=== PATIENT | male | born 1955 | race African-American/Black ===

== ENCOUNTER 2019-09-15 11:23 | Inpatient (IN) | payer MEDICARE, MEDICAID, SELFPAY ==
[2019-09-15] VITALS (16 sets, daily range): BP systolic 136–175; BP diastolic 70–103; PULSE 82–106; RESP 18–22; TEMP 35.9–37.5; O2SAT 88–100; BMI 21.4
--- NOTE | ~2019-09-15 | XR_ITS ---
EXAMINATION: XR chest 1V 09/15/2019 11:56 INDICATION: Transient alteration of awareness. Dyspnea. PROCEDURE: AP view of the chest COMPARISON: Comparison to multiple prior studies sequentially, with oldest reviewed study dated 08/2006. FINDINGS: The lungs are clear. The cardiomediastinal silhouette is within normal limits. There are no pleural effusions. There is no pneumothorax suspected. IMPRESSION: 1: NO ACUTE CARDIOPULMONARY DISEASE. Reviewed, dictated and finalized at location A. MOTIVE INSTRUCTOR
--- NOTE | ~2019-09-15 | CT_ITS ---
EXAMINATION: CT brain wo con DATE: 09/15/2019 11:51 INDICATION: Altered mental status. TECHNIQUE: Computed tomography (CT) of the head was performed without intravenous contrast. The dose- length product was 605.33 mGy-cm. The mA was adjusted according to patient size. Iterative reconstruc tion technique was employed. COMPARISON: CT dated 07/21/2016 FINDINGS: There are chronic bilateral lacunar infarctions. There is a chronic left occipital lobe inf arction. There is a chronic right parietal and bilateral frontal lobe infarctions. There are scattere d moderate periventricular and subcortical white matter changes, most likely related to small vessel ischemic disease (microangiopathy). No acute intracranial hemorrhage, infarction, mass or mass effect . Paranasal sinuses and mastoids are pneumatized. No depressed skull fractures. IMPRESSION: 1. No acute intracranial abnormality. 2: Multiple chronic bilateral infarctions. 3: Chronic age-related findings. Reviewed, dictated and finalized at location A. AINS AND DRAPERIES SALESPERSON
--- NOTE | ~2019-09-15 | CT_ITS ---
EXAMINATION: CT abdomen pelvis w con INDICATION: Abdominal pain, lactic acidosis TECHNIQUE: Computed tomographic images of the abdomen and pelvis were obtained after the administrati on of 100 cc of Omnipaque 350 intravenous contrast. The dose-length product (DLP) was 242.58 mGy-cm. Automated exposure control and iterative reconstruction technique were employed. COMPARISON: 07/30/2018 FINDINGS: Minimal dependent atelectasis is present in the lung bases. The heart size is normal. There is a moderate size sliding hiatal hernia. There is circumferential wall thickening of the distal eso phagus. There is moderate distention of the stomach. The liver is diffusely low in attenuation when c ompared with the spleen, consistent with hepatic steatosis. The gallbladder, spleen, pancreas, and ad renal glands are normal. There is a 9 mm cyst of the right kidney lower pole. The left kidney is unre markable. There is calcified atherosclerosis of the aorta and many of the other arteries. No patholog ically enlarged abdominal or pelvic lymph nodes are identified. The appendix is normal. The urinary b ladder is distended. There is severe lumbar spondylosis. IMPRESSION: 1. Diffuse wall thickening of the visualized distal esophagus which could reflect esophagitis. Consid er direct visualization. 2. Moderate distention of the stomach. 3. Moderate distention of the urinary bladder. Reviewed, dictated and finalized at location A. R STRIPPER IMPRESSION: 1. Diffuse wall thickening of the visualized distal esophagus which could refle ct esophagitis. Consider direct visualization. 2. Moderate distention of the stomach. 3. Moderate distention of the urinary bladder.
--- NOTE | 2019-09-15 11:28 | ED.AMS ---
HPI - Altered Mental Status General Chief Complaint: Altered Mental Status Stated Complaint: ams Time Seen by Provider: 09/15/19 11:25 Source: patient and family () Mode of arrival: EMS Limitations: no limitations History of Present Illness HPI narrative: The pt is a 63 y/o male who presents to the ED with c/o AMS that began this morning. Per pt's , the pt was partying last night to celebrate his birthday and had a lot to drink. Per , the pt was slurrying his words at 07:00 this morning and would not get out of bed. She left for work and planned to let him sleep it off, but the pt's mental status was still altered upon her return, which is when she decided to call EMS. His states that his blood sugar dropped and notes that this has happened before after a night of drinking. She also states that the pt's speech is now back to nml. The pt denies CP, PICHARDO, slurred speech, or ABD pain, stating that he feels great . The pt denies a PMHx of DM, but notes a history of HTN and COPD with home O2. He states that he only drinks on special ocassions. MD complaint: altered mental status Onset (ago): hour(s) (this morning) Timing confirmed by: spouse Context: other (low blood sugar, alcohol consumed last night) Associated symptoms: denies other symptoms Related Data Home Medications Medication Instructions Recorded Confirmed albuterol sulfate [ProAir HFA] 1 puff INHALATION QID 09/15/19 carvedilol 25 mg PO BID 09/15/19 fluticasone furoate [Arnuity 1 inh INHALATION DAILY 09/15/19 Ellipta] minoxidil 10 mg PO DAILY 09/15/19 umeclidinium-vilanterol [Anoro 1 inh INHALATION DAILY 09/15/19 Ellipta] valsartan-hydrochlorothiazide 1 tablet PO DAILY 09/15/19 Allergies Allergy/AdvReac Type Severity Reaction Status Date / Time bee venom protein (honey bee) Allergy Unknown ANAPHALAXIS Verified 09/15/19 11:25 Review of Systems Review of Systems: All systems reviewed & are unremarkable except as noted in HPI and below Cardiovascular: Cardiovascular: Denies chest pain Gastrointestinal: Gastrointestinal: Denies abdominal pain Neurologic: Denies Abnormal speech present (slurred) and Denies headache(s) PMFSH Past Medical History Medical History (Updated 09/15/19 @ 17:12 by Madalyn Cash MD) CHF (congestive heart failure) COPD (chronic obstructive pulmonary disease) CVA (cerebral vascular accident) Degenerative disc disease Emphysema lung Herniated disc Hypertension Prostate CA TIA (transient ischemic attack) Surgical History Surgical History (Updated 09/15/19 @ 11:42 by Sonali Maciel) H/O inguinal hernia repair Social History Social History (Updated 09/15/19 @ 11:42 by Sonali Maciel) Smoking status: Former smoker Smoking end date: 07/24/09 Alcohol intake: current Exam Const: General: no acute distress and alert Orientation/consciousness: patient oriented x3 HENMT: Head: normocephalic and atraumatic Face and sinus: face symmetric Mouth: Yes Normal oral and palatal mucosa present and Yes lip normal Teeth and gingiva: abnormal tooth and associated gingiva Throat: posterior oropharynx normal and tonsils normal Eyes: Conjunctivae: conjunctivae normal Pupils: Equal, round and reactive pupils present EOM: EOMs intact bilaterally Chest: Chest palpation & inspection: normal inspection of the chest Resp: Effort & Inspection: normal respiratory effort and not tachypneic Auscultation: wheezes and diminished lung sounds GI: GI Palp: Yes Soft to palpation and No Tenderness to palpation present (GI) Auscultation: normal bowel sounds Skin: General skin exam: normal color Rashes: no rashes Neuro: General: patient oriented x3, moves all extremities, no focal motor deficits and CN's II-XI intact bilaterally Cranial nerves: Yes Nystagmus not present Speech: normal speech Extrem: General: no pedal edema Psych: Mental Status: mental status grossly normal Affect: normal affect Cou
[2019-09-15 11:35] LABS: Glucose Point of Care 60 (65-105)
--- NOTE | 2019-09-15 11:35 | ECG_ITS ---
Measurements Intervals [place] Rate: 86 P: 74 SD: 164 QRS: -76 QRSD: 90 T: 72 QT: 346 QTc: 415 Interpretive Statements SINUS RHYTHM SHORT RUN OF ATRIAL TACHYCARDIA, VENTRICULAR TRIPLET AND VENTRICULAR PREMATURE COMPLEXES LEFT ANTERIOR FASCICULAR BLOCK CANNOT RULE OUT SEPTAL INFARCT, AGE INDETERMINATE BASELINE ARTIFACT- I, II, III, AVR, AVL, AVF, V1-V6 ABNORMAL ECG Electronically Signed On 09-15-2019 16:09:55 TAILOR HELPER by Giovani Reyes D.O.
[2019-09-15 12:19] LABS: Glucose Point of Care 68 (65-105)
[2019-09-15 12:24] LABS: Basophils Percent Auto 0.2 % (0.2-1.2); Hematocrit 39.1 % (42.0-52.0); Hemoglobin 12.4 g/dL (14.0-18.0); Immature Granulocyte Absolute 0.04 K/mm3 (0.00-0.031); Immature Granulocyte Percent A 0.5 % (0-0.5); Lymphocytes Absolute Auto 0.48 K/mm3 (0.9-3.2); Lymphocytes Percent Auto 5.6 % (18.3-44.2); Mean Corpuscular HGB Conc 31.7 g/dl (32-36); Mean Corpuscular Hemoglobin 29.3 pg (26-34); Mean Corpuscular Volume 92.4 fl (80-100); Mean Platelet Volume 9.7 fl (7.4-10.4); Monocytes Absolute Auto 0.4 K/mm3 (0.1-0.6); Monocytes Percent Auto 4.6 % (2.6-8.5); Neutrophils Absolute Auto 7.6 K/mm3 (1.3-6.7); Neutrophils Percent Auto 89.1 % (45.5-73.1); Platelet Count Result 176 k/mm3 (150-375); Red Blood Count 4.23 M/mm3 (4.6-6.20); Red Cell Distribution Width 14.7 % (11.5-14.5); White Blood Count 8.5 K/mm3 (4.5-10.0)
[2019-09-15 12:27] LABS: Add Urine Microscopic? YES; Appearance Urine Clear (Clear); Bilirubin Urine Negative (Negative); Blood Urine Negative (Negative); Color Urine Yellow (Yellow); Glucose Urine UA Negative (Negative); Ketones Urine 1+ mg/dL (Negative); Leukocyte Esterase Ur Negative LEU/UL (Negative); Mucus Urine Rare /lpf; Nitrate Urine Negative (Negative); Protein Urine 1+ mg/dL (Negative); RBC Urine 0-2 /hpf (0-2); Specific Grav Ur 1.012 (1.001-1.035); Squamous Epithelial Cell Urine Rare /hpf (Few); Urobilinogen Urine Negative mg/dL (<2.0); WBC Urine 0-3 /hpf
[2019-09-15] MEDS: ONDANSETRON INJ 4 MG/2 ML VIAL IV PUSH (12:34)
[2019-09-15 12:37] LABS: Alanine Aminotransferase 23 U/L (4-50); Albumin Level 5.2 g/dL (3.5-5.1); Alkaline Phosphatase 59 U/L (38-126); Aspartate Amino Transferase 54 U/L (17-59); Blood Urea Nitrogen 25 mg/dL (9-20); Calcium 9.5 mg/dL (8.4-10.2); Carbon Dioxide 14 mmol/L (22-30); Chloride 102 mmol/L (98-107); Estimated CRCL calculation 33 ml/min; Estimated Glomerular Filt Rate 43; Glucose 75 mg/dL (75-110); Potassium 4.1 mmol/L (3.4-5.0); Sodium 143 mmol/L (137-145)
[2019-09-15 12:50] LABS: Glucose Point of Care 70 (65-105)
[2019-09-15] MEDS: LACTATED RINGERS 1,000 ML 999 ML IV CONT ×2 (12:55→13:54)
[2019-09-15 12:58] LABS: Alveolar/Arterial O2 Gradient 72.4 mmHg; Carboxyhemoglobin 0.7 % THb (0-2.0); Fractional Inspired Oxygen 28 %; HCO3 ABG 16.7 mEq/l (22.0-26.0); Methemoglobin ABG 0.5 %THb (0-1.5); Oxygen Content ABG 15.9 %vol (16.0-22.0); Oxygen Saturation ABG 91.9 % (95.0-100.0); Oxyhemoglobin 89.6 % THb (90.0-100.0); PCO2 ABG 43.9 mmHg (35.0-45.0); PO2 ABG 75.4 mmHg (80.0-100.0); PO2 FiO2 Ratio Arterial Blood 2.69 %; Reduced Hemoglobin 9.2 %THb (0-5.0); Total Hemoglobin 12.6 g/dL (12.0-18.0); pH ABG 7.197 (7.350-7.450)
[2019-09-15 12:59] LABS: Device NASAL CANNULA; Modified Allen's Test Pass; Site Drawn RIGHT RADIAL
[2019-09-15 13:18] LABS: Lactic Acid Reflex 8.6 mmol/L (0.7-2.1)
--- NOTE | 2019-09-15 13:31 | ECG_ITS ---
Measurements Intervals [place] Rate: 96 P: [place]: 0 QRS: -77 QRSD: 96 T: 84 QT: 367 QTc: 464 Interpretive Statements SINUS RHYTHM ATRIAL PREMATURE COMPLEXES INCOMPLETE RIGHT BUNDLE BRANCH BLOCK LEFT ANTERIOR FASCICULAR BLOCK BORDERLINE ST-T WAVE ABNORMALITY- LATERAL LEADS BASELINE ARTIFACT- II, III, AVL, AVF, V1-V5 ABNORMAL ECG Electronically Signed On 09-15-2019 16:08:36 DRAPERY ROD ASSEMBLER by Giovani Reyes D.O.
[2019-09-15 14:07] LABS: Troponin I 0.019 ng/mL (0.000-0.034)
[2019-09-15 15:05] LABS: Glucose Point of Care 53 (65-105)
[2019-09-15] MEDS: DEXTROSE 50% 25 GM/50 ML SYRINGE IV PUSH (15:41)
[2019-09-15 15:49] LABS: Magnesium 1.6 mg/dL (1.6-2.3); Phosphorus 4.8 mg/dL (2.5-4.5)
[2019-09-15 15:50] LABS: Lactic Acid 7.5 mmol/L (0.7-2.1)
[2019-09-15 15:52] LABS: Glucose Point of Care 165 (65-105)
[2019-09-15 15:55] LABS: Reflex Lactic Acid Yes or No Add Lactic
[2019-09-15 17:26] LABS: Glucose Point of Care 152 (65-105)
[2019-09-15] MEDS: DEXTROSE 10% 1,000 ML 50 ML IV CONT (17:39)
--- NOTE | 2019-09-15 18:00 | PM.IMHP ---
H&P: HPI History of Present Illness Chief complaint: Altered mental status. Narrative: Kenney Varela Sr. is a pleasant 63-year-old gentleman with history of stroke, hypertension, COPD, and prostate cancer who presented to the emergency department earlier this afternoon via EMS from home for evaluation of altered mental status. The patient typically drinks a half pint of [employer] [place] most Saturdays, and last night was no different. He woke at about 07:00 and at that time his noted that he had slurred speech. The patient did not want to get out of bed, so she assumed he was still intoxicated and planned to let him ?sleep it off.? When she returned a few hours later, he was in a similar state and EMS was summoned. He was hypoglycemic on EMS arrival, and has continued to have low readings despite receiving a meal and juice in the emergency department. Other significant labs include a lactic acid level of 8.6, creatinine of 1.90, and arterial pH of 7.197. Interestingly, the patient tells me that he feels great and has no complaints. He denies consuming any thing else except for the [place]. He denies headache, cold and flu symptoms, fever, chills, sweats, chest pain, shortness of breath, nausea, vomiting, abdominal pain, diarrhea, and dysuria. Review of Systems Review of Systems: All systems reviewed & are unremarkable except as noted in HPI and below PMFSH Past Medical History Medical History (Updated 09/15/19 @ 21:40 by Amelie Miranda PA-C) CHF (congestive heart failure) Echocardiogram June 2016 showed normal left ventricular systolic function and size with mild concentric left ventricular hypertrophy and impaired diastolic relaxation grade 1 with ejection fraction estimated at 60 to 65%. COPD (chronic obstructive pulmonary disease) CVA (cerebral vascular accident) Old CVAs noted on prior imaging. Degenerative disc disease Degenerative disc disease Emphysema lung Hypertension Prostate CA Status post radiation therapy. TIA (transient ischemic attack) Surgical History Surgical History (Updated 09/15/19 @ 11:42 by Sonali Maciel) H/O inguinal hernia repair Family History Family History Father Acute myocardial infarction Other Hypertension Social History Social History (Updated 09/15/19 @ 21:35 by Amelie Miranda PA-C) Social History: The patient lives in [place] with his . They have 3 children. he is retired. he designates his , Gaby, as his surrogate decision maker and he wishes to be a full code. He smoked up to a pack of cigarettes per day and quit in 2009 or 2011. He drinks a half of a pint of [employer] [place] each Monday. He denies drug use. Smoking packs per day: 1 Smoking cigarettes per day: 20.0 Years smoked: 35 Smoking pack-years: 35.00 Smoking status: Former smoker Tobacco type: cigarettes Smoking end date: 07/24/09 Alcohol intake: current Drinks per week: 3 Substance use: former Gender identity (if verbalized by the patient): Male Spiritual care concerns: No Agree to blood products: No Meds Home Medications and Allergies Home Medications Medication Instructions Recorded Confirmed Type albuterol sulfate [ProAir HFA] 1 puff INHALATION QID 09/15/19 09/15/19 History carvedilol 25 mg PO BID 09/15/19 09/15/19 History fluticasone furoate [Arnuity 1 inh INHALATION DAILY 09/15/19 09/15/19 History Ellipta] minoxidil 10 mg PO DAILY 09/15/19 09/15/19 History umeclidinium-vilanterol [Anoro 1 inh INHALATION DAILY 09/15/19 09/15/19 History Ellipta] valsartan-hydrochlorothiazide 1 tablet PO DAILY 09/15/19 09/15/19 History Allergies Allergy/AdvReac Type Severity Reaction Status Date / Time bee venom protein (honey bee) Allergy Unknown ANAPHALAXIS Verified 09/15/19 11:25 Vital Signs Vital Signs - 24 hr 09/15/19 11:21 09/15/19 11:28 09/15/19 12:40 Temperature 96
--- NOTE | 2019-09-15 18:38 | ADMGEN ---
This patient, Kenney Varela Sr., was admitted to IMU Room 203-01 at 1725. Patient/family oriented to hospital policies and general routines including ID bracelet, bed and alarms, visiting hours, pain management, procedures, bathroom and other care routines, personal items, smoking policy, room service/diet, and visiting hours. Valuables list has been completed. Information on how to activate the Rapid Response Team has been discussed. Patient/Family are encouraged to report perceived risks to care and to ask questions if they do not understand what they are told or what they should do.
--- NOTE | 2019-09-15 19:36 | PC.NURSE ---
This patient, Kenney Varela Sr., was admitted to IMU Room 203-01. Patient/family oriented to hospital policies and general routines including ID bracelet, bed and alarms, visiting hours, pain management, procedures, bathroom and other care routines, personal items, smoking policy, room service/diet, and visiting hours. Valuables list has been completed. Information on how to activate the Rapid Response Team has been discussed. Patient/Family are encouraged to report perceived risks to care and to ask questions if they do not understand what they are told or what they should do.
[2019-09-15 20:19] LABS: Alveolar/Arterial O2 Gradient 81.3 mmHg; Base Excess ABG -0.5 mEq/l (+/-2.0); Device NASAL CANNULA; Fractional Inspired Oxygen 28 %; HCO3 ABG 25.1 mEq/l (22.0-26.0); Methemoglobin ABG 0.5 %THb (0-1.5); Oxygen Content ABG 14.5 %vol (16.0-22.0); Oxyhemoglobin 90.3 % THb (90.0-100.0); PCO2 ABG 45.2 mmHg (35.0-45.0); PO2 FiO2 Ratio Arterial Blood 2.32 %; Reduced Hemoglobin 9.2 %THb (0-5.0); Site Drawn RIGHT BRACHIAL; Total Hemoglobin 11.4 g/dL (12.0-18.0); pH ABG 7.363 (7.350-7.450)
[2019-09-15] MEDS: IPRATROPIUM BR 0.02% INH SOLN 0.5 MG/2.5 ML VIAL INHALATION (20:32)
[2019-09-15] MEDS: ALBUTEROL SULFATE NEB 2.5 MG/0.5 ML INH 5 MG INHALATION (20:33)
[2019-09-15 20:54] LABS: Lactic Acid 1.3 mmol/L (0.7-2.1)
[2019-09-15 20:56] LABS: Glucose Point of Care 127 (65-105)
[2019-09-15 20:56] LABS: Blood Urea Nitrogen 25 mg/dL (9-20); Calcium 8.7 mg/dL (8.4-10.2); Carbon Dioxide 27 mmol/L (22-30); Chloride 99 mmol/L (98-107); Estimated CRCL calculation 44 ml/min; Estimated Glomerular Filt Rate > 60; Glucose 133 mg/dL (75-110); Magnesium 1.7 mg/dL (1.6-2.3); Potassium 4.4 mmol/L (3.4-5.0); Sodium 137 mmol/L (137-145)
[2019-09-15 23:29] LABS: Glucose Point of Care 129 (65-105)
[2019-09-16] VITALS (11 sets, daily range): BP systolic 114–150; BP diastolic 64–83; PULSE 62–96; RESP 18–20; TEMP 36.6–36.8; O2SAT 95–97
[2019-09-16] MEDS: IPRATROPIUM BR 0.02% INH SOLN 0.5 MG/2.5 ML VIAL INHALATION ×2 (02:04→09:49)
[2019-09-16] MEDS: ALBUTEROL SULFATE NEB 2.5 MG/0.5 ML INH 5 MG INHALATION ×2 (02:04→09:49)
[2019-09-16 02:39] LABS: Glucose Point of Care 138 (65-105)
[2019-09-16 04:58] LABS: Basophils Percent Auto 0.1 % (0.2-1.2); Eosinophils Percent Auto 0.1 % (0-4.4); Hematocrit 29.3 % (42.0-52.0); Immature Granulocyte Absolute 0.03 K/mm3 (0.00-0.031); Immature Granulocyte Percent A 0.4 % (0-0.5); Lymphocytes Absolute Auto 0.49 K/mm3 (0.9-3.2); Lymphocytes Percent Auto 6.6 % (18.3-44.2); Mean Corpuscular HGB Conc 34.1 g/dl (32-36); Mean Corpuscular Hemoglobin 29.5 pg (26-34); Mean Corpuscular Volume 86.4 fl (80-100); Mean Platelet Volume 9.6 fl (7.4-10.4); Monocytes Absolute Auto 0.6 K/mm3 (0.1-0.6); Monocytes Percent Auto 7.7 % (2.6-8.5); Neutrophils Absolute Auto 6.3 K/mm3 (1.3-6.7); Neutrophils Percent Auto 85.1 % (45.5-73.1); Platelet Count Result 156 k/mm3 (150-375); Red Blood Count 3.39 M/mm3 (4.6-6.20); Red Cell Distribution Width 14.3 % (11.5-14.5); White Blood Count 7.4 K/mm3 (4.5-10.0)
[2019-09-16 05:13] LABS: Alanine Aminotransferase 18 U/L (4-50); Albumin Level 3.6 g/dL (3.5-5.1); Alkaline Phosphatase 43 U/L (38-126); Aspartate Amino Transferase 29 U/L (17-59); Bilirubin,Total 0.4 mg/dL (0.2-1.3); Blood Urea Nitrogen 20 mg/dL (9-20); Calcium 8.7 mg/dL (8.4-10.2); Carbon Dioxide 27 mmol/L (22-30); Chloride 100 mmol/L (98-107); Estimated CRCL calculation 51 ml/min; Estimated Glomerular Filt Rate > 60; Glucose 136 mg/dL (75-110); Magnesium 1.7 mg/dL (1.6-2.3); Phosphorus 2.9 mg/dL (2.5-4.5); Potassium 3.7 mmol/L (3.4-5.0); Sodium 135 mmol/L (137-145)
[2019-09-16 06:01] LABS: Glucose Point of Care 143 (65-105)
[2019-09-16] MEDS: carvediloL 25 MG TABLET PO (07:36)
[2019-09-16] MEDS: PANTOPRAZOLE SODIUM IV 40 MG VIAL IV PUSH (07:36)
[2019-09-16] MEDS: minoxidiL 10 MG TABLET PO (07:36)
[2019-09-16 09:40] LABS: Glucose Point of Care 184 (65-105)
--- NOTE | 2019-09-16 13:52 | PM.DS ---
DS: Diagnosis Admitting Diagnosis Admitting Diagnosis: Altered mental status, unspecified Discharge Diagnosis (1) Altered mental status: Code(s): R41.82 - Altered mental status, unspecified Status: Acute Assessment and Plan: 63-year-old gentleman with history of stroke, hypertension, COPD, and prostate cancer who presented to the emergency department earlier this afternoon via EMS from home for evaluation of altered mental status. AMS related to hypoglycemia and dehydration or alcholol related. Pt wanting to leave immediately. Pt to signed out and left. (2) Lactic acidosis: Code(s): E87.2 - Acidosis Status: Acute Assessment and Plan: No underlying infection , lactate normal Likely alcholol related Treated with iv fluid hydration (3) Hypoglycemia: Code(s): E16.2 - Hypoglycemia, unspecified Status: Acute Assessment and Plan: Adviced to eat better. Pt does not want to wait wants to leave immediately. (4) Acute renal failure (ARF): Code(s): N17.9 - Acute kidney failure, unspecified Status: Resolved Assessment and Plan: Secondary to dehydration. Pt received iv hydration Creat is 1.2 (5) Dehydration: Code(s): E86.0 - Dehydration Status: Resolved Assessment and Plan: Plan as detailed above. (6) Hypertension: Code(s): I10 - Essential (primary) hypertension Status: Chronic Assessment and Plan: Blood pressure has improved Chronic and stable (7) COPD (chronic obstructive pulmonary disease): Code(s): J44.9 - Chronic obstructive pulmonary disease, unspecified Status: Acute Assessment and Plan: Pt can continue home inhalers. DS: Summary Time Spent with Patient Time attestation: Total time spent providing and/or coordinating discharge services:15 minutes on day of discharge Exam Narrative: Exam Narrative: General: A well-developed, well-nourished, chronically ill appearing HEENT: Normocephalic Neck: Supple. Respiratory: Lungs are clear to auscultation bilaterally. Cardiovascular: Regular rate and rhythm with S1-S2. Gastrointestinal: Abdomen is soft, nontender, and nondistended with positive bowel sounds. Skin: Warm and dry. No rash or lesions on limited exam. Extremities: No cyanosis, clubbing, or edema. Radial and pedal pulses intact. Neurological: Alert and oriented x4. Cranial nerves 2-12 are grossly intact. Psychiatric: Agitated wanting to leave immediately. DS: Data Data Completed and Pending Labs on day of discharge: Labs from last 24 hours 09/16/19 09/16/19 09/16/19 09:34 05:52 04:25 WBC RBC Hgb Hct MCV MCH MCHC RDW Plt Count MPV Immature Gran % (Auto) Neut % (Auto) Lymph % (Auto) [place] % (Auto) Eos % (Auto) Baso % (Auto) Lymph # (Auto) [place] # (Auto) Eos # (Auto) Baso # (Auto) Abs Immat Gran (auto) Absolute Neuts (auto) Absolute Nucleated RBC Nucleated RBC % Puncture Site ABG pH ABG pCO2 ABG pO2 ABG PO2/FiO2 Ratio ABG HCO3 ABG O2 Saturation ABG O2 Content ABG Base Excess A-a Gradient Oxyhemoglobin Carboxyhemoglobin Methemoglobin Reduced Hemoglobin Total Hemoglobin O2 Delivery Device O2 Liters/Min FiO2 Sodium 135 L Potassium 3.7 Chloride 100 Carbon Dioxide 27 BUN 20 Creatinine 1.20 Estim Creat Clear Calc 51 Estimated GFR > 60 Glucose 136 H POC Capillary Glucose 184 H 143 H Lactic Acid Calcium 8.7 Phosphorus 2.9 Magnesium 1.7 Total Bilirubin 0.4 AST 29 ALT 18 Alkaline Phosphatase 43 Troponin I Total Protein 6.0 L Albumin 3.6 09/16/19 09/16/19 09/15/19 04:25 02:36 23:18 WBC 7.4 RBC 3.39 L Hgb 10.0 L Hct 29.3 L MCV 86.4 D MCH 29.5 MCHC 34.1
== END 2019-09-16 11:25 | disposition left against medical advice (07) | DRG 641 ==
LOC: ANHED 14:59 → ANH2MED 15:56 → ANHIMU 18:35 → ANH2MED 09-19 14:46
PROVIDERS: Physician Assistant; Admitting Provider Internal Medicine; Emergency Provider General Practice; PCP Family Medicine Adolescent Medicine; Visit Provider Family Medicine
DX: E16.2 Hypoglycemia, unspecified (principal); E87.2 Acidosis; N17.9 Acute kidney failure, unspecified; I50.32 Chronic diastolic (congestive) heart failure; E86.0 Dehydration; R41.82 Altered mental status, unspecified; I11.0 Hypertensive heart disease with heart failure; I50.9 Heart failure, unspecified; J44.9 Chronic obstructive pulmonary disease, unspecified; Z72.89 Other problems related to lifestyle; Z85.46 Personal history of malignant neoplasm of prostate; Z86.73 Personal history of transient ischemic attack (TIA), and cerebral infarction without residual deficits; Z99.81 Dependence on supplemental oxygen; Z87.891 Personal history of nicotine dependence
CPT/HCPCS: 36415; 36600; 70450; 71045; 74177; 80048; 80053; 81001; 82375; 82805; 82948; 83050; 83605; 83735; 84100; 84484; 85025; 87040; 93005; 94640; 96361; 96374; 96375; 99291; A9270; C9113; J2405; J7120; Q9967

== ENCOUNTER 2022-10-03 17:38 | Emergency (ER) | payer MEDICARE, MEDICAID, SELFPAY ==
--- NOTE | ~2022-10-03 | XR_ITS ---
EXAMINATION: XR chest 2V Exam Date/Time: 10/03/2022 17:51 CDT HISTORY: palpitations Comparison: 09/15/2019, 07/21/2016. RESULT: Lines, tubes, and devices: None. Lungs and pleura: Emphysematous change. Calcified right lower lung granuloma. Cardiomediastinal silhouette: Stable. Other: No acute osseous or upper abdominal finding. IMPRESSION: No acute cardiopulmonary process. Reviewed, dictated and finalized at location K.
--- NOTE | 2022-10-03 17:46 | ECG_ITS ---
Measurements Intervals [place] Rate: 72 P: 45 [place]: 130 QRS: -64 QRSD: 96 T: 50 QT: 367 QTc: 402 Interpretive Statements SINUS RHYTHM ATRIAL COUPLET AND VENTRICULAR PREMATURE COMPLEX POSSIBLE LEFT ATRIAL ENLARGEMENT LEFT ANTERIOR FASCICULAR BLOCK ABNORMAL ECG COMPARED TO ECG 09/15/2019 13:36:30 NO SIGNIFICANT CHANGES Electronically Signed On 10-03-2022 19:28:07 CDT by Giovani Reyes D.O.
[2022-10-03 17:50] VITALS: BP 155/89; PULSE 67; RESP 18; TEMP 36.8; O2SAT 94
[2022-10-03 17:58] LABS: Basophils Percent Auto 0.9 % (0.2-1.2); Eosinophils Absolute Auto 0.2 K/mm3 (0-0.3); Hematocrit 34.4 % (42.0-52.0); Hemoglobin 11.4 g/dL (14.0-18.0); Immature Granulocyte Absolute 0.01 K/mm3 (0.00-0.031); Immature Granulocyte Percent A 0.3 % (0-0.5); Lymphocytes Absolute Auto 0.81 K/mm3 (0.9-3.2); Lymphocytes Percent Auto 23.6 % (18.3-44.2); Mean Corpuscular HGB Conc 33.1 g/dl (32-36); Mean Corpuscular Hemoglobin 29.2 pg (26-34); Mean Corpuscular Volume 88.2 fl (80-100); Mean Platelet Volume 9.1 fl (7.4-10.4); Monocytes Absolute Auto 0.4 K/mm3 (0.1-0.6); Monocytes Percent Auto 10.2 % (2.6-8.5); Neutrophils Absolute Auto 2.1 K/mm3 (1.3-6.7); Platelet Count Result 155 k/mm3 (150-375); Red Cell Distribution Width 13.9 % (11.5-14.5); White Blood Count 3.4 K/mm3 (4.5-10.0)
[2022-10-03 18:08] LABS: Alanine Aminotransferase 15 U/L (6-50); Albumin Level 4.6 g/dL (3.5-5.1); Alkaline Phosphatase 53 U/L (38-126); Anion Gap 6 mmol/L (8-16); Aspartate Amino Transferase 21 U/L (17-59); Bilirubin,Total 0.4 mg/dL (0.2-1.3); Blood Urea Nitrogen 21 mg/dL (9-20); Calcium 9.3 mg/dL (8.4-10.2); Carbon Dioxide 32 mmol/L (22-30); Chloride 98 mmol/L (98-107); Estimated CRCL calculation 43 ml/min; Estimated Glomerular Filt Rate > 60; Glucose 134 mg/dL (65-110); Lipase 279 U/L (23-300); Potassium 3.8 mmol/L (3.4-5.0); Sodium 136 mmol/L (137-145)
[2022-10-03 18:10] LABS: INR 1.1; Prothrombin Time 13.5 Seconds (11.1-14.7)
[2022-10-03 18:11] LABS: Partial Thromboplastin Time 26.4 SECONDS (22.3-36.8)
[2022-10-03 18:20] LABS: Troponin I < 0.012 ng/mL (0.000-0.034)
--- NOTE | 2022-10-03 22:05 | PC.NURSE ---
SHAREE Barraza tech called patient's name twice in waiting room with no answer. Passenger Representative also called patient's name in waiting room and no answer.
== END 2022-10-03 22:05 | disposition left against medical advice (07) ==
PROVIDERS: Emergency Provider Emergency Medicine; PCP Family Medicine Adolescent Medicine
DX: R07.9 Chest pain, unspecified (principal)
CPT/HCPCS: 36415; 71046; 80053; 83690; 84484; 85025; 85610; 85730; 93005; 99199

== ENCOUNTER 2023-08-23 16:47 | Emergency (ER) | payer MEDICARE, MEDICAID, SELFPAY ==
--- NOTE | ~2023-08-23 | XR_ITS ---
EXAMINATION: XR chest 2V DATE: 08/23/2023 17:18 INDICATION: Shortness of breath TECHNIQUE: PA and lateral views of the chest were obtained. COMPARISON: Chest radiograph dated 10/03/[address] dated 05/19/2004 FINDINGS: Again seen is hyperexpansion of lungs with slight flattening of the diaphragm and increased retroster nal clear space consistent with emphysema better appreciated on prior CT. Calcified nodule in the rig ht lower lung zone consistent with old granulomatous disease. Mild reticular opacities at the bilater al lung bases which could represent atelectasis, mild pulmonary edema or less likely pneumonia. No pl eural effusion or pneumothorax. Mild cardiomegaly. Moderate thoracic spondylosis with chronic mild an terior wedging of a few mid thoracic vertebral bodies. IMPRESSION: 1. Emphysema with mild bibasilar reticular opacities which could represent atelectasis, mild pulmonar y edema or less likely pneumonia. 2. Cardiomegaly. Reviewed, dictated and finalized at location A. 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 Emphysema with mild bibasilar reticular opacities which could represent atel ectasis, mild pulmonary edema or less likely pneumonia. 2. Cardiomegaly.
[2023-08-23 16:47] VITALS: BP 151/84; PULSE 70; RESP 24; TEMP 37.1; O2SAT 100
--- NOTE | 2023-08-23 16:50 | ECG_ITS ---
Measurements Intervals [place] Rate: 94 P: [place]: 0 QRS: 243 QRSD: 100 T: 105 QT: 354 QTc: 443 Interpretive Statements SINUS RHYTHM LIMB LEAD REVERSAL ATRIAL TRIPLETS AND ATRIAL PREMATURE COMPLEXES DELAYED PRECORDIAL R/S TRANSITION ABNORMAL ECG COMPARED TO ECG 10/03/2022 17:49:11 ATRIAL TRIPLETS NOW PRESENT Electronically Signed On 08-23-2023 21:08:33 MEDICAL SECRETARY RECEPTIONIST by Giovani Reyes D.O.
[2023-08-23 18:22] LABS: Basophils Percent Auto 0.9 % (0.2-1.2); Eosinophils Absolute Auto 0.1 K/mm3 (0-0.3); Eosinophils Percent Auto 2.1 % (0-4.4); Hematocrit 32.8 % (42.0-52.0); Hemoglobin 10.6 g/dL (14.0-18.0); Immature Granulocyte Absolute 0.01 K/mm3 (0.00-0.031); Immature Granulocyte Percent A 0.2 % (0-0.5); Immature Platelet Fraction Pct 7.5 % (0.9-11.2); Lymphocytes Absolute Auto 0.74 K/mm3 (0.9-3.2); Lymphocytes Percent Auto 15.9 % (18.3-44.2); Mean Corpuscular HGB Conc 32.3 g/dl (32-36); Mean Corpuscular Hemoglobin 28.6 pg (26-34); Mean Corpuscular Volume 88.6 fl (80-100); Mean Platelet Volume 11.2 fl (7.4-10.4); Monocytes Absolute Auto 0.4 K/mm3 (0.1-0.6); Monocytes Percent Auto 7.5 % (2.6-8.5); Neutrophils Absolute Auto 3.4 K/mm3 (1.3-6.7); Neutrophils Percent Auto 73.4 % (45.5-73.1); Platelet Count Result 153 k/mm3 (150-375); Red Cell Distribution Width 14.3 % (11.5-14.5); White Blood Count 4.7 K/mm3 (4.5-10.0)
[2023-08-23 18:29] LABS: Alanine Aminotransferase 14 U/L (6-50); Albumin Level 4.4 g/dL (3.5-5.1); Alkaline Phosphatase 43 U/L (38-126); Anion Gap 9 mmol/L (8-16); Aspartate Amino Transferase 23 U/L (17-59); Bilirubin,Total 0.5 mg/dL (0.2-1.3); Blood Urea Nitrogen 21 mg/dL (9-20); Calcium 9.6 mg/dL (8.4-10.2); Carbon Dioxide 33 mmol/L (22-30); Chloride 99 mmol/L (98-107); Estimated CRCL calculation 45 ml/min; Estimated Glomerular Filt Rate > 60; Glucose 92 mg/dL (65-110); Potassium 4.1 mmol/L (3.4-5.0); Sodium 141 mmol/L (137-145)
[2023-08-23 18:57] VITALS: BP 176/103; PULSE 104; RESP 20; O2SAT 100
[2023-08-23 18:59] VITALS: PULSE 86
--- NOTE | 2023-08-23 20:53 | ED.GENADULT ---
HPI - General Adult General Chief complaint: Shortness of Breath/Dyspnea Stated complaint: SOB Time Seen by Provider: 08/23/23 19:01 History of Present Illness HPI narrative: This is a 67-year-old male history of COPD on 3 L home oxygen presenting for difficulty breathing. Patient since he ran out of his nebulizer treatments several weeks ago. Starting yesterday he started have acute shortness of breath. EMS was called he was given a breathing treatment EN route. At this time patient says breathing is much better. He denies fever chills productive chest pain or any other complaints this time. Related Data Home Medications Medication Instructions Recorded Confirmed minoxidil 10 mg tablet 10 mg PO DAILY 09/15/19 05/18/23 valsartan 320 1 tablet PO DAILY 09/15/19 05/18/23 mg-hydrochlorothiazide 12.5 mg tablet carvedilol 25 mg tablet 25 mg PO DAILY 11/02/21 05/18/23 Allergies Allergy/AdvReac Type Severity Reaction Status Date / Time bee venom protein (honey bee) Allergy Unknown ANAPHALAXIS Verified 08/23/23 18:59 [facility] Past Medical History Medical History CHF (congestive heart failure) Echocardiogram June 2016 showed normal left ventricular systolic function and size with mild concentric left ventricular hypertrophy and impaired diastolic relaxation grade 1 with ejection fraction estimated at 60 to 65%. COPD (chronic obstructive pulmonary disease) CVA (cerebral vascular accident) Old CVAs noted on prior imaging. Degenerative disc disease Degenerative disc disease Emphysema lung Hypertension Prostate CA Status post radiation therapy. TIA (transient ischemic attack) Surgical History Surgical History H/O inguinal hernia repair Family History Family History Father Acute myocardial infarction Other Hypertension Social History Social History Social History: The patient lives in [place] with his . They have 3 children. he is retired. he designates his , Gaby, as his surrogate decision maker and he wishes to be a full code. He smoked up to a pack of cigarettes per day and quit in 2009 2011. He drinks a half of a pint of [employer] [place] each Monday. He denies drug use. Smoking packs per day: 1 Smoking cigarettes per day: 20.0 Years smoked: 35 Smoking pack-years: 35.00 Smoking status: Former smoker Tobacco type: cigarettes Smoking end date: 07/24/09 Alcohol intake: current Drinks per week: 3 Alcohol use details: ocassionally Substance use: former Substance use type: does not use Living arrangements: with family Occupation/Education: retired Gender identity (if verbalized by the patient): Male Sexual Orientation (if Verbalized by the Patient): Straight or Heterosexual Spiritual care concerns: No Agree to blood products: Yes Exam Narrative: APPEARANCE: No apparent distress. Head: atraumatic. EYES: EOMI, NOSE: Atraumatic NECK: Trachea midline RESPIRATORY: No increased rate of breathing, scattered wheezing, speaking in full sentences CARDIOVASCULAR: RRR, no peripheral edema ABDOMINAL: Non-distended MUSCULOSKELETAl: No obvious deformities NEURO: Alert. Moving 4/4 extremities SKIN:: Warm, dry. Normal color PSYCHIATRIC: Normal affect Course Vital Signs Vital signs: Vital Signs Temperature 98.8 F 08/23/23 16:47 Pulse Rate 70 08/23/23 16:47 Respiratory Rate 24 H 08/23/23 16:47 Blood Pressure 151/84 H 08/23/23 16:47 Pulse Oximetry 100 08/23/23 16:47 Oxygen Delivery Nasal Cannula 08/23/23 16:47 Oxygen Flow Rate 3 08/23/23 16:47 Temperature 98.8 F 08/23/23 16:47 Pulse Rate 86 08/23/23 18:59 Respiratory Rate 20 08/23/23 18:57 Blood Pressure 176/103 H 08/23/23 18:57 Pulse Oximetry 100
[2023-08-23] MEDS: methylPREDNISolone SOD SUCC 125 MG VIAL IV PUSH (21:02)
[2023-08-23 21:13] VITALS: PULSE 78; RESP 21
[2023-08-23] MEDS: ALBUTEROL SULFATE NEB 2.5 MG/3 ML INH 5 MG INHALATION (21:13)
[2023-08-23] MEDS: IPRATROPIUM BR 0.02% INH SOLN 0.5 MG/2.5 ML VIAL INHALATION (21:13)
[2023-08-23 21:26] VITALS: PULSE 75; RESP 17
[2023-08-23 21:48] VITALS: BP 144/97; PULSE 107; RESP 18; O2SAT 100
== END 2023-08-23 21:49 | disposition home or self-care (01) ==
PROVIDERS: Emergency Medicine; Emergency Provider Emergency Medicine; PCP Family Medicine Adolescent Medicine
DX: J43.9 Emphysema, unspecified (principal); Z76.0 Encounter for issue of repeat prescription; I50.9 Heart failure, unspecified; Z86.73 Personal history of transient ischemic attack (TIA), and cerebral infarction without residual deficits; Z85.46 Personal history of malignant neoplasm of prostate; Z87.891 Personal history of nicotine dependence
CPT/HCPCS: 36415; 71046; 80053; 85025; 85055; 93005; 94640; 96374; 96375; 99284; J1100; J2930

== ENCOUNTER 2023-08-23 22:01 | Inpatient (IN) | payer MEDICARE, MEDICAID, SELFPAY ==
[2023-08-23 22:03] VITALS: BP 174/86; PULSE 74; RESP 19; TEMP 36.4; O2SAT 97
[2023-08-23 22:26] VITALS: O2SAT 99
--- NOTE | 2023-08-23 22:32 | ED.GENADULT ---
HPI - General Adult General Chief complaint: Shortness of Breath/Dyspnea Stated complaint: SOB Time Seen by Provider: 08/23/23 22:30 History of Present Illness HPI narrative: This is a 67-year-old male history of COPD on 3 L home oxygen presenting for difficulty breathing.? Patient since he ran out of his nebulizer treatments several weeks ago.? Starting yesterday he started have acute shortness of breath.? EMS was called he was given a breathing treatment EN route.? At this time patient says breathing is much better.? He denies fever chills productive chest pain or any other complaints this time.? Patient was initially discharged after a breathing treatment. After he walked out to his car started to become short of breath again at the hospital for further management. patient states that his breathing improved once he got back inside the hospital. No other complaints this time. The patient attributes his difficulty breathing to albuterol. Related Data Home Medications Medication Instructions Recorded Confirmed minoxidil 10 mg tablet 10 mg PO DAILY 09/15/19 05/18/23 valsartan 320 1 tablet PO DAILY 09/15/19 05/18/23 mg-hydrochlorothiazide 12.5 mg tablet carvedilol 25 mg tablet 25 mg PO DAILY 11/02/21 05/18/23 Allergies Allergy/AdvReac Type Severity Reaction Status Date / Time bee venom protein (honey bee) Allergy Unknown ANAPHALAXIS Verified 08/23/23 18:59 PMFSH Past Medical History Medical History CHF (congestive heart failure) Echocardiogram June 2016 showed normal left ventricular systolic function and size with mild concentric left ventricular hypertrophy and impaired diastolic relaxation grade 1 with ejection fraction estimated at 60 to 65%. COPD (chronic obstructive pulmonary disease) CVA (cerebral vascular accident) Old CVAs noted on prior imaging. Degenerative disc disease Degenerative disc disease Emphysema lung Hypertension Prostate CA Status post radiation therapy. TIA (transient ischemic attack) Surgical History Surgical History H/O inguinal hernia repair Family History Family History Father Acute myocardial infarction Other Hypertension Social History Social History Social History: The patient lives in [place] with his . They have 3 children. he is retired. he designates his , Gaby, as his surrogate decision maker and he wishes to be a full code. He smoked up to a pack of cigarettes per day and quit in 2009 or 2011. He drinks a half of a pint of [place] each Monday. He denies drug use. Smoking packs per day: 1 Smoking cigarettes per day: 20.0 Years smoked: 35 Smoking pack-years: 35.00 Smoking status: Former smoker Tobacco type: cigarettes Smoking end date: 07/24/09 Alcohol intake: current Drinks per week: 3 Alcohol use details: ocassionally Substance use: former Substance use type: does not use Living arrangements: with family Occupation/Education: retired Gender identity (if verbalized by the patient): Male Sexual Orientation (if Verbalized by the Patient): Straight or Heterosexual Spiritual care concerns: No Agree to blood products: Yes Exam Narrative: APPEARANCE: No apparent distress. Head: atraumatic. EYES: EOMI, NOSE: Atraumatic NECK: Trachea midline RESPIRATORY: No increased rate of breathing, Scattered wheezing, speaking full sentences CARDIOVASCULAR: RRR, ABDOMINAL: Non-distended MUSCULOSKELETAl: No obvious deformities NEURO: Alert. Moving 4/4 extremities SKIN:: Warm, dry. Normal color PSYCHIATRIC: Normal affect Course Vital Signs Vital signs: Vital Signs Temperature 97.6 F 08/23/23 22:03 Pulse Rate 74 08/23/23 22:03 Respiratory Rate 19 08/23/23 22:03 Bloo
--- NOTE | 2023-08-23 22:39 | PM.IMHP ---
H&P: HPI History of Present Illness Date/Time: 08/23/23 22:39 Chief Complaint: shortness of breath Narrative: This is a 67-year-old male with past medical history significant for COPD/ emphysema, chronic hypoxic respiratory failure on supplemental oxygen by nasal cannula at home, former tobacco user. patient presents to the emergency room due to shortness of breath for several days. patient denies any fevers, rigors, chills has had a cough productive of tanned sputum, patient has had poor appetite as well. Patient has been admitted for further evaluation management and treatment. EXAMINATION: XR chest 2V DATE: 08/23/2023 17:18 INDICATION: Shortness of breath TECHNIQUE: PA and lateral views of the chest were obtained. COMPARISON: Chest radiograph dated 10/03/[address] dated 05/19/2004 FINDINGS: Again seen is hyperexpansion of lungs with slight flattening of the diaphragm and increased retrosternal clear space consistent with emphysema better appreciated on prior CT. Calcified nodule in the right lower lung zone consistent with old granulomatous disease. Mild reticular opacities at the bilateral lung bases which could represent atelectasis, mild pulmonary edema or less likely pneumonia. No pleural effusion or pneumothorax. Mild cardiomegaly. Moderate thoracic spondylosis with chronic mild anterior wedging of a few mid thoracic vertebral bodies. IMPRESSION: 1. Emphysema with mild bibasilar reticular opacities which could represent atelectasis, mild pulmonary edema or less likely pneumonia. 2. Cardiomegaly. Review of Systems Review of Systems: Shortness of breath, productive cough. Constitutional: Constitutional: Denies chills, Reports fatigue, Denies fever(s), Denies malaise and Reports poor appetite Eyes: Eyes: Denies change in vision ENT: Denies dysphagia and Denies odynophagia Cardiovascular: Cardiovascular: Denies chest pain, Denies radiating jaw, neck or arm pain and Denies palpitations Respiratory: Respiratory: Denies change in phlegm color, Reports cough, Reports dyspnea, Reports dyspnea on exertion and Reports wheezing Gastrointestinal: Gastrointestinal: Denies abdominal pain, Denies nausea and Denies vomiting Genitourinary: Genitourinary: Denies dysuria Musculoskeletal: Musculoskeletal: Denies myalgias Integumentary/Breasts: Skin/Breast: Denies rash Neurologic: Denies focal weakness and Denies Sensory deficit (Neuro) Psychiatric: Psychiatric: Reports no additional psychiatric complaints and Reports as per HPI Endocrine: Endocrine: Denies cold intolerance, Denies fatigue, Denies flushing, Denies heat intolerance, Denies polyphagia, Denies polydipsia and Denies palpitations Hematologic/Lymphatic: Hematologic/Lymphatic: Reports no additional hematologic/lymphatic complaints and Reports as per HPI Allergic/Immunologic: Allergic/Immunologic: Reports no additional allergic/immunologic complaints and Reports as per HPI PMFSH Past Medical History Medical History CHF (congestive heart failure) Echocardiogram June 2016 showed normal left ventricular systolic function and size with mild concentric left ventricular hypertrophy and impaired diastolic relaxation grade 1 with ejection fraction estimated at 60 to 65%. COPD (chronic obstructive pulmonary disease) CVA (cerebral vascular accident) Old CVAs noted on prior imaging. Degenerative disc disease Degenerative disc disease Emphysema lung Hypertension Prostate CA Status post radiation therapy. TIA (transient ischemic attack) Surgical History Surgical History H/O inguinal hernia repair Family History Family History Father Acute myocardial infarction Other Hypertension Social History Social History Social History:
[2023-08-23] MEDS: IPRATROPIUM 0.5 MG/ALBUTEROL SULFATE 2.5 MG AMPUL.NEB 3 ML INHALATION (22:55)
[2023-08-24] VITALS (17 sets, daily range): BP systolic 118–158; BP diastolic 71–83; PULSE 74–118; RESP 14–19; TEMP 35.9–36.6; O2SAT 93–100; BMI 16.4
[2023-08-24] MEDS: IPRATROPIUM 0.5 MG/ALBUTEROL SULFATE 2.5 MG AMPUL.NEB 3 ML INHALATION ×4 (03:15→20:26)
[2023-08-24] MEDS: methylPREDNISolone SOD SUCC 125 MG VIAL 60 MG IV PUSH ×3 (05:42→18:23)
[2023-08-24] MEDS: FLUTICASONE/UMECLIDIN/VILANTER 100-62.5-25 MCG ELLIPTA 1 PUFF INHALATION (07:06)
[2023-08-24 08:41] LABS: Hematocrit 35.9 % (42.0-52.0); Hemoglobin 11.9 g/dL (14.0-18.0); Mean Corpuscular HGB Conc 33.1 g/dl (32-36); Mean Corpuscular Hemoglobin 28.6 pg (26-34); Mean Corpuscular Volume 86.3 fl (80-100); Mean Platelet Volume 9.3 fl (7.4-10.4); Platelet Count Result 171 k/mm3 (150-375); Red Blood Count 4.16 M/mm3 (4.6-6.20); Red Cell Distribution Width 14.1 % (11.5-14.5); White Blood Count 4.3 K/mm3 (4.5-10.0)
[2023-08-24 08:58] LABS: Alanine Aminotransferase 23 U/L (6-50); Alkaline Phosphatase 50 U/L (38-126); Anion Gap 11 mmol/L (8-16); Aspartate Amino Transferase 27 U/L (17-59); Bilirubin,Total 0.6 mg/dL (0.2-1.3); Blood Urea Nitrogen 21 mg/dL (9-20); Calcium 10.4 mg/dL (8.4-10.2); Carbon Dioxide 33 mmol/L (22-30); Chloride 98 mmol/L (98-107); Estimated CRCL calculation 40 ml/min; Estimated Glomerular Filt Rate > 60; Glucose 139 mg/dL (65-110); Potassium 4.6 mmol/L (3.4-5.0); Sodium 142 mmol/L (137-145)
[2023-08-24] MEDS: VALSARTAN 160 MG TABLET 320 MG PO (10:18)
[2023-08-24] MEDS: hydroCHLOROthiazide 12.5 MG CAPSULE PO (10:18)
[2023-08-24] MEDS: minoxidiL 10 MG TABLET PO (10:18)
[2023-08-24] MEDS: carvediloL 25 MG TABLET PO (10:18)
[2023-08-24] MEDS: ENOXAPARIN 40 MG/0.4 ML SYRINGE SUB-Q (10:21)
[2023-08-24 10:41] LABS: Immature Platelet Fraction Pct 12.5 % (0.9-11.2)
[2023-08-24] MEDS: AZITHROMYCIN 500 MG/NS 250 ML 500 MG/250 ML BAG 250 MG IVPB (11:06)
[2023-08-24 11:18] LABS: Magnesium 1.9 mg/dL (1.6-2.3); Phosphorus 3.8 mg/dL (2.5-4.5)
[2023-08-24 11:36] LABS: Procalcitonin 0.1 ng/mL
[2023-08-24 12:37] LABS: Band Neutrophils Percent 1 % (0-6); Hypochromasia 1+ (NORMAL); Lymphocytes Absolute Manual 0.25 K/mm3 (1.1-4.5); Neutrophils Absolute Manual 4.04 K/mm3 (1.3-6.7); Neutrophils Percent Manual 93 % (46-73); Platelet Estimate Adequate (Adequate); Schistocytes None Seen (NORMAL); Total Cells Counted 100
--- NOTE | 2023-08-24 16:35 | PM.IMPN ---
Progress Note: A&P Assessment and Plan (1) COPD (chronic obstructive pulmonary disease): Code(s): J44.9 - Chronic obstructive pulmonary disease, unspecified Status: Acute Assessment and Plan: admit to regular medical floor Duo Neb tx q 6hrs as needed for cough or wheezing -continue steroids -add ABX, Ceftriaxone 1gm q 24 hrs, and azithromycin 500mg IV q 24 hrs -will consider deescalation, pending labs -continue 02 titration therapy to keep SP02 above 93% (2) Chronic hypoxic respiratory failure: Code(s): J96.11 - Chronic respiratory failure with hypoxia Status: Acute Assessment and Plan: on 2 L of oxygen by nasal cannula (3) Former smoker: Code(s): Z87.891 - Personal history of nicotine dependence Status: Acute Assessment and Plan: unchanged (4) Hypertension: Code(s): I10 - Essential (primary) hypertension Status: Chronic Assessment and Plan: resume home meds Subjective Date/time seen: 08/24/23 16:35 Interval history: History of Present Illness HPI narrative: This is a 67-year-old male history of COPD on 3 L home oxygen presented to the ED for difficulty breathing.? Patient reported he ran out of his nebulizer treatments several weeks ago.?Mr. Varela states, starting yesterday he experienced acute shortness of breath.? EMS was called he was given a breathing treatment EN route.? At that time patient reported his breathing was improved and that the treatment helped with his sob.? He denies fever chills productive chest pain or any other complaints this time.? ED workup/Event as per chart: Patient was initially discharged after a breathing treatment. ? After he walked out to his car started to become short of breath again at the hospital for further management.? patient states that his breathing improved once he got back inside the hospital.? No other complaints this time.? The patient attributes his difficulty breathing to albuterol. Interval Hx: 08/24/2023: pt seen this am, he is awake in no acute distress, 02 per NC, requiring baseline 3lL, he denies any overnight events, or chest pain, n/v sob, fever or chills at this time. Exam Narrative: laying in bed, spouse is by the bedside Const: General: cooperative, comfortable, no acute distress, well developed, alert, awake, ill appearing chronically, average body habitus and underweight Nutritional Appearance: average body habitus and underweight Orientation/consciousness: patient oriented x3 HENMT: Head: normal to inspection, normocephalic and atraumatic Ears: hearing grossly normal bilaterally Face/Nose/Sinus: normal facial exam Face and sinus: normal facial exam Eyes: General: appearance normal, both eyes and all related structures Pupils: Equal, round and reactive pupils present EOM: EOMs intact bilaterally Neck: Neck: full ROM, no lymphadenopathy and no JVD Thyroid: thyroid normal Lymphatic: no lymphadenopathy noted Resp: Effort & Inspection: normal respiratory effort and able to speak in complete sentences Auscultation: wheezes and diminished lung sounds Cardio: Jugular venous distension: no JVD Rate: regular rate Rhythm: regular rhythm Heart sounds: S1 normal heart sound present and S2 normal heart sound present : General: Yes deferred Skin: Rashes: no rashes Wounds: no wounds Neuro: General: patient oriented x3 and CN's II-XI intact bilaterally Cranial nerves: Yes CN's II-XII intact bilaterally and Yes Equal, round and reactive pupils present Cognition (Neuro): normal cognition Speech: normal speech Gait exam (Neuro): Normal gait present Motor exam (neuro): 5/5 motor strength present throughout Sensory Exam: No Sensory deficit (Neuro) Extrem: General: normal to inspection, full ROM, no joint enlargement and no pedal edema Objective Data Vital Signs Vital Signs: Vital Signs - 24 hr 08/23/23 22:03 08/23/23 22:26 08/24/23 00:15 Temperature 97.6 F
[2023-08-25] VITALS (14 sets, daily range): BP systolic 115–130; BP diastolic 54–72; PULSE 64–97; RESP 18–26; TEMP 35.9–37.1; O2SAT 94–98
[2023-08-25] MEDS: methylPREDNISolone SOD SUCC 125 MG VIAL 60 MG IV PUSH ×3 (00:18→12:09)
[2023-08-25] MEDS: IPRATROPIUM 0.5 MG/ALBUTEROL SULFATE 2.5 MG AMPUL.NEB 3 ML INHALATION ×4 (02:37→20:34)
[2023-08-25] MEDS: carvediloL 25 MG TABLET PO (08:10)
[2023-08-25] MEDS: VALSARTAN 160 MG TABLET 320 MG PO (08:10)
[2023-08-25] MEDS: ENOXAPARIN 40 MG/0.4 ML SYRINGE SUB-Q (08:12)
[2023-08-25] MEDS: minoxidiL 10 MG TABLET PO (08:12)
[2023-08-25] MEDS: hydroCHLOROthiazide 12.5 MG CAPSULE PO (08:12)
[2023-08-25] MEDS: AZITHROMYCIN 500 MG/NS 250 ML 500 MG/250 ML BAG 250 MG IVPB (08:55)
[2023-08-25] MEDS: FLUTICASONE/UMECLIDIN/VILANTER 100-62.5-25 MCG ELLIPTA 1 PUFF INHALATION (08:57)
[2023-08-25 09:00] LABS: Hematocrit 33.7 % (42.0-52.0); Hemoglobin 11.3 g/dL (14.0-18.0); Immature Granulocyte Absolute 0.01 K/mm3 (0.00-0.031); Immature Granulocyte Percent A 0.2 % (0-0.5); Lymphocytes Percent Auto 4.8 % (18.3-44.2); Mean Corpuscular HGB Conc 33.5 g/dl (32-36); Mean Corpuscular Hemoglobin 28.6 pg (26-34); Mean Corpuscular Volume 85.3 fl (80-100); Mean Platelet Volume 9.8 fl (7.4-10.4); Monocytes Absolute Auto 0.1 K/mm3 (0.1-0.6); Neutrophils Absolute Auto 5.9 K/mm3 (1.3-6.7); Platelet Count Result 162 k/mm3 (150-375); Red Blood Count 3.95 M/mm3 (4.6-6.20); White Blood Count 6.2 K/mm3 (4.5-10.0)
[2023-08-25 09:23] LABS: Alanine Aminotransferase 19 U/L (6-50); Albumin Level 3.9 g/dL (3.5-5.1); Alkaline Phosphatase 34 U/L (38-126); Anion Gap 9 mmol/L (8-16); Aspartate Amino Transferase 23 U/L (17-59); Bilirubin,Total 0.5 mg/dL (0.2-1.3); Blood Urea Nitrogen 32 mg/dL (9-20); Calcium 9.2 mg/dL (8.4-10.2); Carbon Dioxide 31 mmol/L (22-30); Chloride 94 mmol/L (98-107); Estimated CRCL calculation 43 ml/min; Estimated Glomerular Filt Rate > 60; Glucose 155 mg/dL (65-110); Magnesium 1.9 mg/dL (1.6-2.3); Phosphorus 3.5 mg/dL (2.5-4.5); Potassium 4.3 mmol/L (3.4-5.0); Sodium 134 mmol/L (137-145)
[2023-08-25 09:26] LABS: Hypochromasia 1+ (NORMAL); Platelet Estimate Adequate (Adequate); Schistocytes None Seen (NORMAL)
--- NOTE | 2023-08-25 15:41 | PM.IMPN ---
Progress Note: A&P Assessment and Plan (1) COPD (chronic obstructive pulmonary disease): Code(s): J44.9 - Chronic obstructive pulmonary disease, unspecified Status: Acute Assessment and Plan: Duo Neb tx q 4hrs as needed for cough or wheezing -continue steroids, transition IV steroids to p.o. -antibiotic de-escalation, DC ceftriaxone IV -azithromycin 500 mg IV-changed to p.o. -continue 02 titration therapy to keep SP02 above 93% (2) Chronic hypoxic respiratory failure: Code(s): J96.11 - Chronic respiratory failure with hypoxia Status: Acute Assessment and Plan: on 2 L of oxygen by nasal cannula at home (3) Former smoker: Code(s): Z87.891 - Personal history of nicotine dependence Status: Resolved Assessment and Plan: pt reports he does not smoke (4) Hypertension: Code(s): I10 - Essential (primary) hypertension Status: Chronic Assessment and Plan: resume home meds Subjective Date/time seen: 08/25/23 15:41 Interval history: HPI narrative: This is a 67-year-old male history of COPD on 3 L home oxygen presented to the ED for difficulty breathing.? Patient reported he ran out of his nebulizer treatments several weeks ago.?Mr. Varela states, starting yesterday he experienced? acute shortness of breath.? EMS was called he was given a breathing treatment EN route.? At that time patient reported? his breathing was improved and that the treatment helped with his sob.? He denies fever chills productive chest pain or any other complaints this time.? ED workup/Event as per chart: Patient was initially discharged after a breathing treatment. ? After he walked out to his car started to become short of breath again at the hospital for further management.? patient states that his breathing improved once he got back inside the hospital.? No other complaints this time.? The patient attributes his difficulty breathing to albuterol. Interval Hx: 08/24/2023: pt seen this am, he is awake in no acute distress, 02 per NC, requiring baseline 3lL, he denies any overnight events, or chest pain, n/v sob, fever or chills at this time. 08/25/2023: Patient seen this morning, he is resting in the bed eyes open in no acute distress, he NC with baseline O2 he denies any chest pain nausea vomiting fever chills. Patient requests something to aid with his phlegm. Exam Narrative: Lying in the bed, family by the bedside Const: General: cooperative, comfortable, no acute distress, well developed, alert, awake, ill appearing chronically, average body habitus and underweight Nutritional Appearance: average body habitus and underweight Orientation/consciousness: patient oriented x3 HENMT: Head: normal to inspection, normocephalic and atraumatic Ears: hearing grossly normal bilaterally Face/Nose/Sinus: normal facial exam Face and sinus: normal facial exam Eyes: General: appearance normal, both eyes and all related structures Pupils: Equal, round and reactive pupils present EOM: EOMs intact bilaterally Neck: Neck: full ROM, no lymphadenopathy and no JVD Thyroid: thyroid normal Lymphatic: no lymphadenopathy noted Resp: Effort & Inspection: normal respiratory effort and able to speak in complete sentences Auscultation: wheezes and diminished lung sounds Cardio: Jugular venous distension: no JVD Rate: regular rate Rhythm: regular rhythm Heart sounds: S1 normal heart sound present and S2 normal heart sound present : General: Yes deferred Skin: Rashes: no rashes Wounds: no wounds Neuro: General: patient oriented x3 and CN's II-XI intact bilaterally Cranial nerves: Yes CN's II-XII intact bilaterally and Yes Equal, round and reactive pupils present Cognition (Neuro): normal cognition Speech: normal speech Gait exam (Neuro): Normal gait present Motor exam (neuro): 5/5 motor strength present throughout Sensory Exam: No Sensory deficit (Neuro) Extrem: General: normal
--- NOTE | 2023-08-26 03:37 | PCRCNOTE ---
Window of time for administration has passed. See next scheduled administration.
[2023-08-26 06:15] VITALS: BP 105/68; PULSE 67; RESP 18; TEMP 36.6; O2SAT 97
[2023-08-26] MEDS: IPRATROPIUM 0.5 MG/ALBUTEROL SULFATE 2.5 MG AMPUL.NEB 3 ML INHALATION (07:46)
[2023-08-26 07:48] VITALS: PULSE 82; RESP 20; O2SAT 95
[2023-08-26] MEDS: FLUTICASONE/UMECLIDIN/VILANTER 100-62.5-25 MCG ELLIPTA 1 PUFF INHALATION (07:48)
[2023-08-26 07:58] VITALS: PULSE 84; RESP 20
[2023-08-26 08:00] VITALS: O2SAT 95
[2023-08-26 08:29] VITALS: PULSE 84
[2023-08-26] MEDS: minoxidiL 10 MG TABLET PO (08:29)
[2023-08-26] MEDS: carvediloL 25 MG TABLET PO (08:29)
[2023-08-26] MEDS: AZITHROMYCIN 250 MG TABLET 500 MG PO (08:29)
[2023-08-26] MEDS: predniSONE 20 MG TABLET 60 MG PO (08:29)
[2023-08-26] MEDS: VALSARTAN 160 MG TABLET 320 MG PO (08:30)
[2023-08-26] MEDS: hydroCHLOROthiazide 12.5 MG CAPSULE PO (08:30)
[2023-08-26] MEDS: ENOXAPARIN 40 MG/0.4 ML SYRINGE SUB-Q (08:34)
[2023-08-26 08:55] LABS: Basophils Percent Auto 0.1 % (0.2-1.2); Hematocrit 38.6 % (42.0-52.0); Immature Granulocyte Absolute 0.04 K/mm3 (0.00-0.031); Immature Granulocyte Percent A 0.4 % (0-0.5); Immature Platelet Fraction Pct 12.9 % (0.9-11.2); Lymphocytes Absolute Auto 0.74 K/mm3 (0.9-3.2); Lymphocytes Percent Auto 7.3 % (18.3-44.2); Mean Corpuscular HGB Conc 33.7 g/dl (32-36); Mean Corpuscular Hemoglobin 28.8 pg (26-34); Mean Corpuscular Volume 85.4 fl (80-100); Mean Platelet Volume 11.6 fl (7.4-10.4); Monocytes Absolute Auto 0.4 K/mm3 (0.1-0.6); Monocytes Percent Auto 4.1 % (2.6-8.5); Neutrophils Absolute Auto 8.9 K/mm3 (1.3-6.7); Neutrophils Percent Auto 88.1 % (45.5-73.1); Platelet Count Result 151 k/mm3 (150-375); Red Blood Count 4.52 M/mm3 (4.6-6.20); Red Cell Distribution Width 14.5 % (11.5-14.5); White Blood Count 10.1 K/mm3 (4.5-10.0)
[2023-08-26 09:16] LABS: Hypochromasia 1+ (NORMAL); Platelet Estimate Decreased (Adequate); Schistocytes None Seen (NORMAL)
[2023-08-26 09:19] LABS: Alanine Aminotransferase 17 U/L (6-50); Albumin Level 4.4 g/dL (3.5-5.1); Alkaline Phosphatase 43 U/L (38-126); Anion Gap 8 mmol/L (8-16); Aspartate Amino Transferase 23 U/L (17-59); Bilirubin,Total 0.5 mg/dL (0.2-1.3); Blood Urea Nitrogen 52 mg/dL (9-20); Carbon Dioxide 32 mmol/L (22-30); Chloride 96 mmol/L (98-107); Estimated CRCL calculation 37 ml/min; Estimated Glomerular Filt Rate > 60; Glucose 119 mg/dL (65-110); Magnesium 2.3 mg/dL (1.6-2.3); Phosphorus 3.5 mg/dL (2.5-4.5); Potassium 4.1 mmol/L (3.4-5.0); Sodium 136 mmol/L (137-145)
--- NOTE | 2023-08-26 10:50 | PM.DS ---
DS: Admitting Diagnosis Discharge Date 08/26/2023 Admitting Diagnosis Shortness of breath, COPD exacerbation DS: Discharge Diagnosis Discharge Diagnosis (1) Former smoker: Code(s): Z87.891 - Personal history of nicotine dependence Status: Resolved Assessment and Plan: -patient denies any tobacco use at this time (2) Chronic hypoxic respiratory failure: Code(s): J96.11 - Chronic respiratory failure with hypoxia Status: Acute Assessment and Plan: -patient baseline home oxygen 2-3 L with activity -patient is back to baseline (3) COPD (chronic obstructive pulmonary disease): Code(s): J44.9 - Chronic obstructive pulmonary disease, unspecified Status: Acute Assessment and Plan: -history and COPD -continue home medication -continue DuoNeb treatment q.6 hours (4) Hypertension: Code(s): I10 - Essential (primary) hypertension Status: Chronic Assessment and Plan: -continue home medication DS: Summary Hospital Course Hospital Course: HPI narrative: This is a 67-year-old male history of COPD on 3 L home oxygen presented to the ED for difficulty breathing.? Patient reported he ran out of his nebulizer treatments several weeks ago.?Mr. Varela states, starting yesterday he experienced? acute shortness of breath.? EMS was called he was given a breathing treatment EN route.? At that time patient reported? his breathing was improved and that the treatment helped with his sob.? He denies fever chills productive chest pain or any other complaints this time.? ED workup/Event as per chart: Patient was initially discharged after a breathing treatment. ? After he walked out to his car started to become short of breath again at the hospital for further management.? patient states that his breathing improved once he got back inside the hospital.? No other complaints this time.? The patient attributes his difficulty breathing to albuterol. Interval Hx: 08/24/2023:?pt seen this am, he is awake in no acute distress, 02 per NC, requiring baseline 3lL, he denies any overnight events, or chest pain, n/v sob, fever or chills at this time. 08/25/2023:??Patient seen this morning, he is resting in the bed eyes open in no acute distress, he NC with baseline O2 he denies any. pt continues to c/o trouble with mucus production, along with chronic cough. Will order Respiratory therapy paul steele tx q 4 hrs. 08/26/2023: Patient seen this a.m. he denies any overnight events, requests to be discharged home, reports he would like to follow-up with his PCP for further evaluation, we discussed need for patient to see process laboratory specialist, he agrees to plan at this time. Patient respectfully declines any further testing at this time. Status at Discharge Functional status at discharge: independent ambulation Overall status at discharge: patient is progressing back to baseline Time Spent with Patient Time attestation: Total time spent providing and/or coordinating discharge services: Time spent: Less than 30 minutes Exam Narrative: Lying in the bed, family by the bedside Const: General: cooperative, comfortable, no acute distress, well developed, alert, awake, ill appearing chronically, average body habitus and underweight Nutritional Appearance: average body habitus and underweight Orientation/consciousness: patient oriented x3 HENMT: Head: normal to inspection, normocephalic and atraumatic Ears: hearing grossly normal bilaterally Face/Nose/Sinus: normal facial exam Face and sinus: normal facial exam Eyes: General: appearance normal, both eyes and all related structures Pupils: Equal, round and reactive pupils present EOM: EOMs intact bilaterally Neck: Neck: full ROM, no lymphadenopathy and no JVD Thyroid: thyroid normal Lymphatic: no lymphadenopathy noted Resp: Effort & Inspection: normal respiratory effort and able to speak in complete sentences Auscultation: diminished lung sounds Ca
--- NOTE | 2023-08-26 11:40 | PCPTNOTE ---
PT orders received for pt; saw pt ~ 1000; he reports he is doing well with walking, has been up to bathroom and feels like he is Ok, not need any therapy and hoping to go home this morning. Pt was seen walking to the bathroom indep. PT eval not performed.
[2023-08-27 06:53] LABS: Legionella pneumophila Ag Ur Not Detected (Not Detected)
[2023-08-29 01:09] LABS: Pneumococcal Antigen Urine Not Detected (Not Detected)
== END 2023-08-26 11:03 | disposition home or self-care (01) | DRG 191 ==
LOC: ANHED 22:46 → ANH3MEDSUR 23:35
PROVIDERS: Hospitalist; Admitting Provider Internal Medicine; Emergency Provider Emergency Medicine; PCP Family Medicine Adolescent Medicine; Visit Provider Nurse Practitioner
DX: J43.9 Emphysema, unspecified (principal); I50.32 Chronic diastolic (congestive) heart failure; J96.11 Chronic respiratory failure with hypoxia; Z68.1 Body mass index [BMI] 19.9 or less, adult; I11.0 Hypertensive heart disease with heart failure; I50.9 Heart failure, unspecified; R63.6 Underweight; Z91.148 Patient's other noncompliance with medication regimen for other reason; Z87.891 Personal history of nicotine dependence; Z86.73 Personal history of transient ischemic attack (TIA), and cerebral infarction without residual deficits; Z85.46 Personal history of malignant neoplasm of prostate; Z99.81 Dependence on supplemental oxygen
CPT/HCPCS: 36415; 71046; 80053; 83735; 84100; 84145; 85025; 85027; 85055; 87449; 87899; 93005; 94640; 94667; 96365; 96366; 96367; 96374; 96375; 96376; 99284; 99285; A9270; G0378; J0456; J0696; J1100; J1650; J2930; J7512

== ENCOUNTER 2023-09-29 07:59 | Outpatient (CLI) | payer MEDICARE, MEDICAID, SELFPAY ==
[2023-09-29] VITALS (9 sets, daily range): PULSE 71–99; O2SAT 85–91
[2023-09-29 08:51] LABS: Base Excess ABG 2.4 mEq/l (+/-2.0); Fractional Inspired Oxygen 44 %; HCO3 ABG 28.1 mEq/l (22.0-26.0); Oxygen Content ABG 15.3 %vol (16.0-22.0); Oxygen Saturation ABG 92.3 % (95.0-100.0); Oxyhemoglobin 90.7 % THb (90.0-100.0); PO2 FiO2 Ratio Arterial Blood 1.48 %; pH ABG 7.385 (7.350-7.450)
[2023-09-29 08:53] LABS: Device NASAL CANNULA; Modified Allen's Test Pass; Site Drawn LEFT RADIAL
--- NOTE | 2023-09-29 10:35 | HOMEO2EVAL ---
Evaluation was performed at [facility] Home Oxygen Evaluation RC: Home Oxygen (O2) Evaluation Start: 09/29/23 10:29 Freq: Status: Active Protocol: RPE Activity Type Activity Date Activity User E-sign Co-sign Detail Recorded Client Recorded Date Recorded By Document 09/29/23 08:30 [email or web address] [email or web address] 09/29/23 10:35 DJO Document 09/29/23 08:35 [email or web address] 09/29/23 10:35 DJO Document 09/29/23 08:40 [email or web address] [email or web address] 09/29/23 10:35 DJO Document 09/29/23 08:45 [email or web address] 09/29/23 10:35 DJO Document 09/29/23 08:50 [email or web address] 09/29/23 10:35 DJO Document 09/29/23 08:55 [email or web address] 09/29/23 10:35 DJO Document 09/29/23 09:00 [email or web address] [email or web address] 09/29/23 10:35 DJO Document 09/29/23 09:05 [email or web address] 09/29/23 10:35 DJO Document 09/29/23 09:20 [email or web address] 09/29/23 10:35 DJO 09/29/23 09/29/23 09/29/23 08:30 08:35 08:40 Home O2 Evaluation [Oxygen] -Test Phase Resting Resting Resting -Oxygen Delivery Room Air Nasal Cannula Nasal Cannula -Oxygen Flow Rate (L/min) 1 2 [Pulse Oximetry] -Pulse Oximetry (90-100 %) 86 L 88 L 90 [Pulse Rate] -Pulse Rate (60-100 beats/min) 72 72 71 [Evaluation] -Activity Tolerance [Charges] -Evaluation Charges O2 Evaluation by Pulmonary 09/29/23 09/29/23 09/29/23 08:45 08:50 08:55 Home O2 Evaluation [Oxygen] -Test Phase Exercise Exercise Exercise -Oxygen Delivery Nasal Cannula Nasal Cannula Nasal Cannula -Oxygen Flow Rate (L/min) 2 3 4 [Pulse Oximetry] -Pulse Oximetry (90-100 %) 85 L 86 L 87 L [Pulse Rate] -Pulse Rate (60-100 beats/min) 92 96 95 [Evaluation] -Activity Tolerance [Charges] -Evaluation Charges 09/29/23 09/29/23 09/29/23 09:00 09:05 09:20 Home O2 Evaluation [Oxygen] -Test Phase Exercise Exercise Resting -Oxygen Delivery Nasal Cannula Nasal Cannula Nasal Cannula -Oxygen Flow Rate (L/min) 5 6 2 [Pulse Oximetry] -Pulse Oximetry (90-100 %) 88 L 91 91 [Pulse Rate] -Pulse Rate (60-100 beats/min) 99 99 75 [Evaluation] -Activity Tolerance Good [Charges] -Evaluation Charges
--- NOTE | 2023-09-29 14:36 | WPDPFTINT ---
PFT Procedure Performed PFT Procedure Performed Spirometry with Pre/Post Bronchodilator Plethysmography (Lung Vol) Diffusing Cap (DLCO) Flow Vol Loop PFT Interpretation This is a pulmonary function test with pre and post-bronchodilator spirometry, plethysmography and diffusing capacity. The test was performed and results interpreted in accordance with the 2019 and 2005 ATS/ERS Task Force guidelines respectively using the Global Lung Function Initiative-2012 reference equations. Patient demonstrated good effort and cooperation. Reproducibility criteria were met. The quality of the pre bronchodilator spirometry maneuver was Grade A and post bronchodilator spirometry maneuver was Grade A. Findings: Spirometry: There is decreased maximal expiratory airflow at all lung volumes with concave expiratory flow tracing. The contour the inspiratory flow tracing is normal. The pre bronchodilator FVC is 2.18 L, 63% predicted. The pre bronchodilator FEV1 is 0.61 L, 23% predicted. The pre bronchodilator FEV1: FVC ratio is 28%. The post bronchodilator FVC is 2.01 L, representing an 8% decrease. The post bronchodilator FEV1 is 0.59 L, representing a 3% decrease. The post bronchodilator FEV1: FVC ratio is 29%. Plethysmography: The total lung capacity is 7.64 L, 128% predicted. The functional residual capacity is 5.80 L, 173% predicted. The residual volume is 5.28 L, 238% predicted. The residual volume: Total lung capacity ratio is 69%. Diffusing capacity: The diffusing capacity unadjusted for hemoglobin and carboxyhemoglobin is 5.3, 21% predicted. The diffusing capacity adjusted for alveolar volume is 1.81, 45% predicted. Impression: There is a very severe obstructive abnormality. There is no significant improvement after inhaling a single dose of albuterol. The increase in residual volume to total lung volume ratio is consistent with hyperinflation from an obstructive abnormality. The diffusing capacity unadjusted for hemoglobin and carboxyhemoglobin is severely decreased and remains moderately decreased when adjusted for alveolar volume. There are no prior studies for comparison
== END 2023-09-29 08:00 | disposition home or self-care (01) ==
PROVIDERS: PCP Family Medicine Adolescent Medicine; Visit Provider Nurse Practitioner Family
DX: J96.11 Chronic respiratory failure with hypoxia (principal); R94.2 Abnormal results of pulmonary function studies
CPT/HCPCS: 36600; 82805; 94060; 94618; 94726; 94729

== ENCOUNTER 2024-06-25 05:29 | Inpatient (IN) | payer MEDICARE, MEDICAID, SELFPAY ==
[2024-06-25] VITALS (34 sets, daily range): BP systolic 90–151; BP diastolic 54–98; PULSE 76–129; RESP 20–28; TEMP 36.6–39.1; O2SAT 89–100; BMI 17.2
--- NOTE | ~2024-06-25 | US_ITS ---
EXAMINATION: US renal BI DATE: 06/26/2024 20:56 INDICATION: Acute on chronic kidney disease. TECHNIQUE: Multiple ultrasound grayscale images of the kidneys were obtained. COMPARISON: CT abdomen and pelvis 09/15/2019 FINDINGS: The right kidney measures 11.7 x 5.4 x 5.5 cm. The left kidney measures 10.8 x 5.0 x 5.1 cm. The kidn eys demonstrate normal parenchymal echogenicity. There is a 2.2 cm cyst in right kidney. There is no hydronephrosis. The bladder is normal. IMPRESSION: 1. Normal kidney sizes. No hydronephrosis. Reviewed, dictated and finalized at location [facility] [employer]
--- NOTE | ~2024-06-25 | XR_ITS ---
Portable chest x-ray Comparison: 08/23/2023 Clinical History: Dyspnea Findings: There are minimal pleural effusions. There is bibasilar interstitial prominence and mild p atchy airspace disease. Cardiomediastinal silhouette is stable. Bones and soft tissues are unremarka ble. Impression: Probable bibasilar pulmonary edema/atelectasis versus pneumonia. Minimal pleural effusions. Suspected underlying COPD. Reviewed, dictated and finalized at location . [employer] Impression: Probable bibasilar pulmonary edema/atelectasis versus pneumonia. Minimal pleural effusions. Suspected underlying COPD.
--- NOTE | 2024-06-25 05:34 | ECG_ITS ---
Test Date: 2024-06-25 05:35:18 Measurements Intervals [place] Rate: 114 P: 67 ID: [id number] QRS: -61 QRSD: 96 T: 92 QT: 289 QTc: 398 Interpretive Statements SINUS TACHYCARDIA WITH OCCASIONAL VENTRICULAR PREMATURE COMPLEXES WITH FREQUENT SUPRAVENTRICULAR PREMATURE COMPLEXES LEFT ATRIAL ENLARGEMENT [-0.15mV P-WAVE IN V1/V2] LEFT ANTERIOR FASCICULAR BLOCK [QRS AXIS <= -45, QR IN I, RS IN II] NONSPECIFIC ST & T-WAVE ABNORMALITY BASELINE ARTIFACT PRESENT No previous ECG available for comparison Electronically Signed On 06-25-2024 15:23:50 ARSON INVESTIGATOR by Jacinta Mims M.D.
[2024-06-25 05:52] LABS: Hematocrit 30.6 % (42.0-52.0); Hemoglobin 10.3 g/dL (14.0-18.0); Immature Platelet Fraction Pct 5.6 % (0.9-11.2); Mean Corpuscular HGB Conc 33.7 g/dl (32-36); Mean Corpuscular Hemoglobin 29.7 pg (26-34); Mean Corpuscular Volume 88.2 fl (80-100); Mean Platelet Volume 10.5 fl (7.4-10.4); Platelet Count Result 121 k/mm3 (150-375); Red Blood Count 3.47 M/mm3 (4.6-6.20); Red Cell Distribution Width 13.2 % (11.5-14.5); White Blood Count 11.1 K/mm3 (4.5-10.0)
--- NOTE | 2024-06-25 05:52 | ED_ITS ---
HPI - General Adult General Chief complaint: Shortness of Breath/Dyspnea Stated complaint: SOB, pale, diaphoretic, cool Time Seen by Provider: 06/25/24 05:34 History of Present Illness HPI narrative: the patient is a 68-year-old gentleman who presents emergency department chief complaint of shortness of breath patient has prior history of COPD EMS was called today and the patient was saturating in the 80s the patient reports that he has had a cough and felt short of breath. The patient was IV steroids IV magnesium multiple nebulizer treatments around prior to arrival emergency de partment. Related Data Home Medications Medication Instructions Recorded Confirmed minoxidil 10 mg tablet 10 mg PO DAILY 09/15/19 06/25/24 carvedilol 25 mg tablet 25 mg PO Q12H 11/02/21 06/25/24 Allergies Allergy/AdvReac Type Severity Reaction Status Date / Time bee venom protein (honey bee) Allergy Unknown ANAPHALAXIS Verified 06/25/24 15:08 Review of Systems Review of Systems: A 10 system review of systems was completed on the patient and is negative except for what is stated in the HPI. Nursing and ancillary documentation was reviewed. [facility] Past Medical History Medical History (Updated 06/25/24 @ 19:07 by Trey Agosto MD) CHF (congestive heart failure) Echocardiogram June 2016 showed normal left ventricular systolic function and size with mild concentric left ventricular hypertrophy and impaired diastolic relaxation grade 1 with ejection fraction estimated at 60 to 65%. COPD (chronic obstructive pulmonary disease) CVA (cerebral vascular accident) Old CVAs noted on prior imaging. Degenerative disc disease Degenerative disc disease Emphysema lung Hypertension Prostate CA Status post radiation therapy. TIA (transient ischemic attack) Surgical History Surgical History H/O inguinal hernia repair Family History Family History (Updated 06/25/24 @ 15:14 by Emilia Rust RN) Father Acute myocardial infarction Grandparent Cerebrovascular accident Diabetes mellitus Social History Social History Social History: The patient lives in [place] with his . They have 3 children. he is retired. he designates his , Gaby, as his surrogate decision maker and he wishes to be a full code. He smoked up to a pack of cigarettes per day and quit in 2011. He drinks a half of a pint of [place] each Monday. He denies drug use. Smoking packs per day: 1 Smoking cigarettes per day: 20.0 Years smoked: 60 Smoking pack-years: 60.00 Smoking status: Former smoker Tobacco type: cigarettes Smoking end date: 07/24/09 Additional smoking assessment comments: quit in 2011 Alcohol intake: current Drinks per week: 4 Alcohol use details: ocassionally Substance use: never Substance use type: marijuana Do You Feel Safe in your Home?: Yes Lack of Transportation: No Lack of Food: Never True Current Housing: I Have Housing Concerned About Future Housing: No Difficulty Paying Gas/Electric Bills: No Difficulty Paying for Meds: No Currently Unemployed: No Education: Grade School Difficulty w/ Childcare or Family Care: No Living arrangements: with family Occupation/Education: retired Gender identity (if verbalized by the patient): Male Sexual Orientation (if Verbalized by the Patient): Straight or Heterosexual Spiritual care concerns: No Agree to blood products: Yes Exam Narrative: GENERAL: Ill-appearing, well-nourished, and in no acute distress. HEAD: Normocephalic, atraumatic. EYES: PERRLA and EOMI. ENT: Nares clear, no rhinorrhea or epistaxis. Mucous membranes moist. NECK: Supple. CHEST: Clear to auscultation. No respiratory distress. HEART: Regular rate and rhythm. No murmur heard. Normal peripheral pulses. ABDOMEN: Soft, nontender, nondistended, normal active bowel sounds. EXTREMITIES: Normal range of motion. No edema. SKIN: Warm, dry, no rash. NEURO: No focal deficits. Alert and oriented x3. PSYCH: Normal mood and affect. Course Vital Signs Vital signs: Vital Signs Temperature 39.1 C H 06/25/24 05:28 Pulse Rate 110 H 06/25/24 05:28 Respiratory Rate 28 H 06/25/24 05:28 Blood Pressure 151/98 H 06/25/24 05:28 Pulse Oximetry 92 06/25/24 05:28 Oxygen Delivery Non-Rebreather Mask 06/25/24 05:28 Oxygen Flow Rate 15 06/25/24 05:28 Temperature 37.3 C 06/25/24 15:08 Pulse Rate 84 06/25/24 18:00 Respiratory Rate 26 H 06/25/24 15:31 Blood Pressure 147/85 H 06/25/24 15:08 Pulse Oximetry 94 06/25/24 15:31 Oxygen Delivery Nasal Cannula 06/25/24 15:31 Oxygen Flow Rate 4 06/25/24 15:31 Medical Decision Making Vital Signs Vital Signs: Vital Signs Temperature 39.1 C H 06/25/24 05:28 Pulse Rate 110 H 06/25/24 05:28 Respiratory Rate 28 H 06/25/24 05:28 Blood Pressure 151/98 H 06/25/24 05:28 Pulse Oximetry 92 06/25/24 05:28 Oxygen Delivery Non-Rebreather Mask 06/25/24 05:28 Oxygen Flow Rate 15 06/25/24 05:28 Temperature 37.3 C 06/25/24 15:08 Pulse Rate 84 06/25/24 18:00 Respiratory Rate 26 H 06/25/24 15:31 Blood Pressure 147/85 H 06/25/24 15:08 Pulse Oximetry 94 06/25/24 15:31 Oxygen Delivery Nasal Cannula 06/25/24 15:31 Oxygen Flow Rate 4 06/25/24 15:31 Lab Data 06/25/24 05:42 06/25/24 05:42 Labs: Lab Results 06/25/24 06/25/24 06/25/24 Range/Units 05:42 05:51 08:38 WBC 11.1 H (4.5-10.0) K/mm3 RBC 3.47 L (4.6-6.20) M/mm3 Hgb 10.3 L (14.0-18.0) g/dL Hct 30.6 L (42.0-52.0) % MCV 88.2 (80-100) fl MCH 29.7 (26-34) pg MCHC 33.7 (32-36) g/dl RDW 13.2 (11.5-14.5) % Plt Count 121 L (150-375) k/mm3 MPV 10.5 H (7.4-10.4) fl Immature Gran % (Auto) Not Reportable Neut % (Auto) Not Reportable Lymph % (Auto) Not Reportable [place] % (Auto) Not Reportable Eos % (Auto) Not Reportable Baso % (Auto) Not Reportable Lymph # (Auto) Not Reportable [place] # (Auto) Not Reportable Eos # (Auto) Not Reportable Baso # (Auto) Not Reportable Abs Immat Gran (auto) Not Reportable Absolute Neuts (auto) Not Reportable Absolute Nucleated RBC Not Reportable Total Counted 100 Neutrophils % (Manual) 75 H (46-73) % Band Neutrophils % 17 H (0-6) % Lymphocytes % (Manual) 4 L (18-44) % Monocytes % (Manual) 4 (3-9) % Nucleated RBC % Not Reportable Abs Neuts (Manual) 10.21 H (1.3-6.7) K/mm3 Abs Lymphs (Manual) 0.44 L (1.1-4.5) K/mm3 Abs Monocytes (Manual) 0.44 (0.1-0.90) K/mm3 Platelet Estimate Slightly decreased (Adequate) Large Platelets Present Giant Platelets Present % Immature Plt Fraction 5.6 (0.9-11.2) % Schistocytes None seen PT 18.2 H (11.1-14.7) Seconds INR 1.5 APTT 29.6 (22.3-36.8) Seconds Sodium 134 L (137-145) mmol/L Potassium 3.6 (3.4-5.0) mmol/L Chloride 91 L (98-107) mmol/L Carbon Dioxide 38 H (22-30) mmol/L Anion Gap 5 (4-12) mmol/L BUN 22 H D (9-20) mg/dL Creatinine 1.60 H (0.7-1.3) mg/dL Estim Creat Clear Calc 31 ml/min Estimated GFR 52 L (59 - ) Glucose 124 H (65-110) mg/dL Lactic Acid 2.3 H (0.7-2.0) mmol/L Calcium 8.9 (8.4-10.2) mg/dL Magnesium 2.5 H (1.6-2.3) mg/dL Total Bilirubin 1.0 (0.2-1.3) mg/dL AST 30 (17-59) U/L ALT 16 (6-50) U/L Alkaline Phosphatase 41 (38-126) U/L Troponin I 0.052 H* 0.102 H* D (0.000-0.034) ng/mL NT-Pro-B Natriuret Pep 2870 H (19.9-100) pg/mL Total Protein 7.0 (6.3-8.2) g/dL Albumin 4.2 (3.5-5.1) g/dL Lipase 257 (23-300) U/L Procalcitonin 12.0 ng/mL Influenza A (RT-PCR) Negative (Negative) Influenza B (RT-PCR) Negative (Negative) RSV (RT-PCR) Negative (Negative) SARS-CoV-2 RNA (RT-PCR) Negative (Negative) 06/25/24 Range/Units 08:58 WBC (4.5-10.0) K/mm3 RBC (4.6-6.20) M/mm3 Hgb (14.0-18.0) g/dL Hct (42.0-52.0) % MCV (80-100) fl MCH (26-34) pg MCHC (32-36) g/dl RDW (11.5-14.5) % Plt Count (150-375) k/mm3 MPV (7.4-10.4) fl Immature Gran % (Auto) Neut % (Auto) Lymph % (Auto) [place] % (Auto) Eos % (Auto) Baso % (Auto) Lymph # (Auto) [place] # (Auto) Eos # (Auto) Baso # (Auto) Abs Immat Gran (auto) Absolute Neuts (auto) Absolute Nucleated RBC Total Counted Neutrophils % (Manual) (46-73) % Band Neutrophils % (0-6) % Lymphocytes % (Manual) (18-44) % Monocytes % (Manual) (3-9) % Nucleated RBC % Abs Neuts (Manual) (1.3-6.7) K/mm3 Abs Lymphs (Manual) (1.1-4.5) K/mm3 Abs Monocytes (Manual) (0.1-0.90) K/mm3 Platelet Estimate (Adequate) Large Platelets Giant Platelets % Immature Plt Fraction (0.9-11.2) % Schistocytes PT (11.1-14.7) Seconds INR APTT (22.3-36.8) Seconds Sodium (137-145) mmol/L Potassium (3.4-5.0) mmol/L Chloride (98-107) mmol/L Carbon Dioxide (22-30) mmol/L Anion Gap (4-12) mmol/L BUN (9-20) mg/dL Creatinine (0.7-1.3) mg/dL Estim Creat Clear Calc ml/min Estimated GFR (59 - ) Glucose (65-110) mg/dL Lactic Acid 1.3 (0.7-2.0) mmol/L Calcium (8.4-10.2) mg/dL Magnesium (1.6-2.3) mg/dL Total Bilirubin (0.2-1.3) mg/dL AST (17-59) U/L ALT (6-50) U/L Alkaline Phosphatase (38-126) U/L Troponin I (0.000-0.034) ng/mL NT-Pro-B Natriuret Pep (19.9-100) pg/mL Total Protein (6.3-8.2) g/dL Albumin (3.5-5.1) g/dL Lipase (23-300) U/L Procalcitonin ng/mL Influenza A (RT-PCR) (Negative) Influenza B (RT-PCR) (Negative) RSV (RT-PCR) (Negative) SARS-CoV-2 RNA (RT-PCR) (Negative) ABG Data ABG results: 06/25/24 05:35 Puncture Site Not Reportable ABG pH 7.410 ABG pCO2 58.2 H ABG pO2 207.5 H ABG PO2/FiO2 Ratio 2.31 ABG HCO3 36.1 H ABG O2 Saturation 99.4 ABG O2 Content 16.1 ABG Base Excess 9.7 A-a Gradient 374.6 Oxyhemoglobin 98.4 Total Hemoglobin 11.3 L O2 Delivery Device Non-rebreather mask O2 Liters/Min 15.0 FiO2 90 Discharge Plan Discharge Clinical Impression: Pneumonia, Acute hypoxic respiratory failure Patient Disposition: Still a Patient Condition: Stable
[2024-06-25 06:00] LABS: Alanine Aminotransferase 16 U/L (6-50); Albumin Level 4.2 g/dL (3.5-5.1); Alkaline Phosphatase 41 U/L (38-126); Anion Gap 5 mmol/L (4-12); Aspartate Amino Transferase 30 U/L (17-59); Blood Urea Nitrogen 22 mg/dL (9-20); Calcium 8.9 mg/dL (8.4-10.2); Carbon Dioxide 38 mmol/L (22-30); Chloride 91 mmol/L (98-107); Estimated CRCL calculation 31 ml/min; Estimated Glomerular Filt Rate 52; Glucose 124 mg/dL (65-110); Lipase 257 U/L (23-300); Magnesium 2.5 mg/dL (1.6-2.3); Potassium 3.6 mmol/L (3.4-5.0); Sodium 134 mmol/L (137-145)
[2024-06-25 06:01] LABS: Lactic Acid Reflex 2.3 mmol/L (0.7-2.0)
[2024-06-25 06:03] LABS: INR 1.5; Prothrombin Time 18.2 Seconds (11.1-14.7)
[2024-06-25 06:04] LABS: Partial Thromboplastin Time 29.6 Seconds (22.3-36.8)
[2024-06-25 06:14] LABS: Band Neutrophils Percent 17 % (0-6); Lymphocytes Absolute Manual 0.44 K/mm3 (1.1-4.5); Lymphocytes Percent Manual 4 % (18-44); Monocytes Absolute Manual 0.44 K/mm3 (0.1-0.90); Monocytes Percent Manual 4 % (3-9); Neutrophils Absolute Manual 10.21 K/mm3 (1.3-6.7); Neutrophils Percent Manual 75 % (46-73); Total Cells Counted 100
[2024-06-25 06:15] LABS: Giant Platelets Present; Large Platelets Present; Platelet Estimate Slightly Decreased (Adequate); Schistocytes None Seen
[2024-06-25 06:24] LABS: NT Pro B Type Natriuretic Pept 2870 pg/mL (19.9-100); Troponin I 0.052 ng/mL (0.000-0.034)
[2024-06-25 06:31] LABS: Influenza A QL RT-PCR Negative (Negative); Influenza B QL RT-PCR Negative (Negative); RSV RNA, RT-PCR Negative (Negative); SARS-CoV-2 RNA PCR Negative (Negative)
[2024-06-25] MEDS: IPRATROPIUM 0.5 MG/ALBUTEROL SULFATE 2.5 MG AMPUL.NEB 3 ML INHALATION ×3 (06:41→14:17)
--- NOTE | 2024-06-25 07:07 | PCRCNOTE ---
HAND DELIVERED ABG PRINT OUT RESULTS TO DR. MEIER WHILE TROUBLESHOOTING ABG MACHINE.
[2024-06-25] MEDS: ACETAMINOPHEN 500 MG TABLET 1000 MG PO (07:10)
[2024-06-25] MEDS: FUROSEMIDE INJ 40 MG/4 ML VIAL IV PUSH (07:43)
[2024-06-25] MEDS: methylPREDNISolone SOD SUCC 125 MG VIAL 60 MG IV PUSH ×3 (07:46→20:40)
[2024-06-25] MEDS: AZITHROMYCIN 500 MG/NS 250 ML 500 MG/250 ML BAG 250 MG IVPB (07:49)
--- NOTE | 2024-06-25 08:35 | ECG_ITS ---
Test Date: 2024-06-25 08:40:55 Measurements Intervals [place] Rate: 85 P: 67 SD: 145 QRS: -56 QRSD: 97 T: 14 QT: 368 QTc: 438 Interpretive Statements SINUS RHYTHM WITH FREQUENT SUPRAVENTRICULAR PREMATURE COMPLEXES POSSIBLE LEFT ATRIAL ENLARGEMENT [-0.1mV P-WAVE IN V1/V2] LEFT ANTERIOR FASCICULAR BLOCK [QRS AXIS <= -45, QR IN I, RS IN II] NONSPECIFIC ST AND T-WAVE ABNORMALITY Compared to ECG 06/25/2024 05:35:18 Sinus tachycardia no longer present Electronically Signed On 06-25-2024 15:26:42 DIE DESIGNER by Jacinta Mims M.D.
[2024-06-25 08:48] LABS: Reflex Lactic Acid Yes or No Add Lactic
[2024-06-25 09:17] LABS: Troponin I 0.102 ng/mL (0.000-0.034)
[2024-06-25 09:27] LABS: Lactic Acid 1.3 mmol/L (0.7-2.0)
[2024-06-25 10:37] LABS: Alveolar/Arterial O2 Gradient 374.6 mmHg; Base Excess ABG 9.7 mEq/l (+/-2.0); Device NON-REBREATHER MASK; Fractional Inspired Oxygen 90 %; HCO3 ABG 36.1 mEq/l (22.0-26.0); Oxygen Content ABG 16.1 %vol (16.0-22.0); Oxygen Saturation ABG 99.4 % (95.0-100.0); Oxyhemoglobin 98.4 % THb (90.0-100.0); PCO2 ABG 58.2 mmHg (35.0-45.0); PO2 ABG 207.5 mmHg (80.0-100.0); PO2 FiO2 Ratio Arterial Blood 2.31 %; Total Hemoglobin 11.3 g/dL (12.0-18.0)
--- NOTE | 2024-06-25 12:02 | PM.IMHP ---
H&P: HPI History of Present Illness Date/Time: 06/25/24 12:02 Chief Complaint: Shortness of breath Narrative: This is a 68-year-old male who presented leak of breath. He has underlying COPD on chronic oxygen at home. He states that he has been short of breath at rest associated cough since past few days. Cough is productive with clear expectoration. Shortness of breath progressively got worse and he is was called last night. When EMS arrived he was saturating in 80s. He was placed in on non-rebreather mask. He also received steroid and breathing treatment to the ER. Upon EGD year arrival he was febrile at 39.1 tachycardic oxygenation was 100% on non-rebreather mask. Laboratory evaluation showed of 11.1 hemoglobin of 10.3 count 121 ABG 7.41/58/207/36. Creatinine was 1.6 electrolytes were unremarkable. Lactic acid was mildly elevated at 2.3. Troponin was mildly elevated at 0 level was 0.102. He denies any chest pain. EKG showed sinus tachycardia with occasional PVCs. Nonspecific ST-T changes. Chest x-ray showed probable BiPAP/atelectasis versus pneumonia plus minimal pleural effusions. Suspected underlying COPD. He received a dose of Lasix in the ER. He was also started on ceftriaxone and azithromycin. He is admitted in this setting for further treatment. Review of Systems Review of Systems: - CONSTITUTIONAL: Denies weight loss, fever and chills. - HEENT: Denies changes in vision and hearing - RESPIRATORY: Reports SOB and cough. - CV: Denies palpitations and CP. - GI: Denies abdominal pain, nausea, vomiting and diarrhea. - : Denies dysuria and urinary frequency. - MSK: Denies myalgia and joint pain. - SKIN: Denies rash and pruritus. - NEUROLOGICAL: Denies headache and syncope. - PSYCHIATRIC: Denies recent changes in mood. Denies anxiety and depression. [facility] Past Medical History Medical History (Updated 06/25/24 @ 12:11 by Gabriel Pool MD) CHF (congestive heart failure) Echocardiogram June 2016 showed normal left ventricular systolic function and size with mild concentric left ventricular hypertrophy and impaired diastolic relaxation grade 1 with ejection fraction estimated at 60 to 65%. COPD (chronic obstructive pulmonary disease) CVA (cerebral vascular accident) Old CVAs noted on prior imaging. Degenerative disc disease Degenerative disc disease Emphysema lung Hypertension Prostate CA Status post radiation therapy. TIA (transient ischemic attack) Surgical History Surgical History H/O inguinal hernia repair Family History Family History Father Acute myocardial infarction Other Hypertension Social History Social History Social History: The patient lives in [place] with his . They have 3 children. he is retired. he designates his , Gaby, as his surrogate decision maker and he wishes to be a full code. He smoked up to a pack of cigarettes per day and quit in 2011. He drinks a half of a pint of [place] each Monday. He denies drug use. Smoking packs per day: 1 Smoking cigarettes per day: 20.0 Years smoked: 35 Smoking pack-years: 35.00 Smoking status: Former smoker Smoking end date: 07/24/09 Alcohol intake: current Drinks per week: 3 Alcohol use details: ocassionally Substance use: current Substance use type: marijuana Do You Feel Safe in your Home?: Yes Lack of Transportation: No Lack of Food: Never True Current Housing: I Have Housing Concerned About Future Housing: No Difficulty Paying Gas/Electric Bills: No Difficulty Paying for Meds: No Currently Unemployed: No Education: Grade School Difficulty w/ Childcare or Family Care: No Living arrangements: with family Occupation/Education: retired Gender identity (if verbalized by the patient): Male Sexual Orientation (if Verbalized by the Patient): Straight or Heterosexual Spiritual care concerns: No Agree to blood products: Yes Meds Home Medications and Allergies Home Medications Medication Instructions Recorded Confirmed Type minoxidil 10 mg tablet 10 mg PO DAILY 09/15/19 05/20/24 History carvedilol 25 mg tablet 25 mg PO DAILY 11/02/21 05/20/24 History epinephrine 0.3 mg/0.3 mL 0.3 mg (0.3 mL) IM ONCE PRN 12/10/23 05/20/24 Rx injection, auto-injector (EpiPen) anaphylaxis #2 ea ipratropium 0.5 mg-albuterol 3 mg 3 ml inhalation QID #360 mL 02/09/24 05/20/24 Rx (2.5 mg base)/3 mL nebulization soln fluticasone fur. 100 mcg-umeclid See Rx Instructions .Route 02/16/24 05/20/24 Rx 62.5 mcg-vilant 25 mcg .COMPLEX #60 ea inhalat.powder (Trelegy Ellipta) albuterol sulfate 90 mcg/actuation See Rx Instructions .Route 05/03/24 05/20/24 Rx aerosol inhaler .COMPLEX #8.5 ea valsartan 320 1 tablet PO DAILY #90 tabs 05/20/24 05/20/24 Rx mg-hydrochlorothiazide 25 mg tablet Allergies Allergy/AdvReac Type Severity Reaction Status Date / Time bee venom protein (honey bee) Allergy Unknown ANAPHALAXIS Verified 05/20/24 09:54 Vital Signs Vital Signs - 24 hr 06/25/24 05:28 06/25/24 05:38 06/25/24 05:39 Temperature 102.3 F H Pulse Rate 110 H 100 Respiratory Rate 28 H Blood Pressure 151/98 H Pulse Oximetry 92 99 Oxygen Delivery Non-Rebreather Mask Non-Rebreather Mask Oxygen Flow Rate 15 15 06/25/24 05:40 06/25/24 06:41 06/25/24 07:13 Temperature Pulse Rate 84 92 Respiratory Rate 24 H 24 H Blood Pressure 131/75 Pulse Oximetry 100 89 L Oxygen Delivery Non-Rebreather Mask Oxygen Flow Rate 15 06/25/24 07:14 06/25/24 07:31 06/25/24 08:05 Temperature Pulse Rate 86 106 H Respiratory Rate 25 H 26 H Blood Pressure 109/68 Pulse Oximetry 89 L 91 Oxygen Delivery Nasal Cannula Oxygen Flow Rate 4 06/25/24 08:06 06/25/24 08:13 06/25/24 08:42 Temperature Pulse Rate 104 H Respiratory Rate 25 H Blood Pressure Pulse Oximetry 97 96 Oxygen Delivery Nasal Cannula Nasal Cannula Oxygen Flow Rate 4 3 06/25/24 08:42 06/25/24 08:44 06/25/24 09:36 Temperature Pulse Rate 99 91 Respiratory Rate 28 H 26 H Blood Pressure 110/58 L 107/64 Pulse Oximetry 96 96 96 Oxygen Delivery Nasal Cannula Oxygen Flow Rate 3 06/25/24 11:32 Temperature Pulse Rate 92 Respiratory Rate 26 H Blood Pressure 143/84 H Pulse Oximetry 95 Oxygen Delivery Oxygen Flow Rate Exam Narrative: GENERAL: Well-appearing, well-nourished, and in no acute distress. HEAD: Normocephalic, atraumatic. EYES: PERRLA and EOMI. ENT: Nares clear, no rhinorrhea or epistaxis. Mucous membranes moist. NECK: Supple. CHEST: Coarse breath sounds bilaterally. No respiratory distress. HEART: Regular rate and rhythm. No murmur heard. Normal peripheral pulses. ABDOMEN: Soft, nontender, nondistended, normal active bowel sounds. EXTREMITIES: Normal range of motion. No edema. SKIN: Warm, dry, no rash. NEURO: No focal deficits. Alert and oriented x3. PSYCH: Normal mood and affect. H&P: Results Labs Labs: Short CBC 06/25/24 Range/Units 05:42 WBC 11.1 H (4.5-10.0) K/mm3 Hgb 10.3 L (14.0-18.0) g/dL Hct 30.6 L (42.0-52.0) % Plt Count 121 L (150-375) k/mm3 [facility] 06/25/24 05:42 Sodium 134 L Potassium 3.6 Chloride 91 L Carbon Dioxide 38 H BUN 22 H D Creatinine 1.60 H Glucose 124 H Calcium 8.9 Cardiac Enzymes 06/25/24 06/25/24 Range/Units 05:42 08:38 Troponin I 0.052 H* 0.102 H* D (0.000-0.034) ng/mL Liver Function 06/25/24 Range/Units 05:42 Total Bilirubin 1.0 (0.2-1.3) mg/dL AST 30 (17-59) U/L ALT 16 (6-50) U/L Alkaline Phosphatase 41 (38-126) U/L Albumin 4.2 (3.5-5.1) g/dL Assessment and Plan Assessment and plan (1) COPD (chronic obstructive pulmonary disease): Code(s): J44.9 - Chronic obstructive pulmonary disease, unspecified Status: Acute (2) Pneumonia: Code(s): J18.9 - Pneumonia, unspecified organism Status: Acute (3) COPD exacerbation: Code(s): J44.1 - Chronic obstructive pulmonary disease with (acute) exacerbation Status: Acute (4) Acute and chronic respiratory failure: Code(s): J96.20 - Acute and chronic respiratory failure, unspecified whether with hypoxia or hypercapnia Status: Acute (5) CHF (congestive heart failure): Code(s): I50.9 - Heart failure, unspecified Status: Acute Plan This is a 68-year-old male who presented leak of breath. He has underlying COPD on chronic oxygen at home. He states that he has been short of breath at rest associated cough since past few days. Cough is productive with clear expectoration. Shortness of breath progressively got worse and he is was called last night. When EMS arrived he was saturating in 80s. He was placed in on non-rebreather mask. He also received steroid and breathing treatment to the ER. Upon EGD year arrival he was febrile at 39.1 tachycardic oxygenation was 100% on non-rebreather mask. Laboratory evaluation showed of 11.1 hemoglobin of 10.3 count 121 ABG 7.41/58/207/36. Creatinine was 1.6 electrolytes were unremarkable. Lactic acid was mildly elevated at 2.3. Troponin was mildly elevated at 0 level was 0.102. He denies any chest pain. EKG showed sinus tachycardia with occasional PVCs. Nonspecific ST-T changes. Chest x-ray showed probable BiPAP/atelectasis versus pneumonia plus minimal pleural effusions. Suspected underlying COPD. He received a dose of Lasix in the ER. He was also started on ceftriaxone and azithromycin. Influenza RSV COVID swab was negative. He is admitted in this setting for further treatment. Acute on chronic respiratory failure. Uses oxygen 2 L at rest and 6 L with ambulation at home. Bilateral pneumonia COPD exacerbation started on steroid which will be continued. Possible pulmonary edema. Check BNP received a dose of Lasix in the ER. Does not appear to be in heart failure clinically. Will hold any stay. Mild anemia chronic line mild thrombocytopenia continue to monitor CKD stage 3 creatinine slightly up at 1.6. Baseline around 1.1-1.3. Continue Hypertension Chronic diastolic congestive heart failure Degenerative disc disease History of prostate cancer History of TIA DVT prophylaxis on heparin Code status full code Hospitalist MIPS Advance Care Plan I have confirmed that the patient's Advanced Care Plan is present, code status is documented, or surrogate decision maker is listed in patient medical record.: Yes Medication Reconciliation I have utilized all available resources to obtain, update and review the patients current medications (includes all prescriptions, OTC, herbals, cannabis, and nutritional supplements).: Yes
[2024-06-25 12:12] LABS: Add Urine Microscopic? YES; Appearance Urine Clear (Clear); Bacteria Urine None Seen /hpf; Bilirubin Urine Negative (Negative); Blood Urine Negative (Negative); Color Urine Yellow (Yellow); Glucose Urine UA Negative (Negative); Granular Casts Urine Present /lpf; Hyaline Casts Urine Present /lpf; Ketones Urine Negative (Negative); Leukocyte Esterase Ur Negative LEU/UL (Negative); Need Manual Microscopic Reviewed; Nitrate Urine Negative (Negative); Protein Urine 2+ mg/dL (Negative); RBC Urine 0-2 /hpf (0-2); Squamous Epithelial Cell Urine None Seen /hpf (Few); Urobilinogen Urine 0.2 mg/dL (<2.0); WBC Urine 0-5 /hpf (0-3); pH Urine 5.5 (5.0-9.0)
--- NOTE | 2024-06-25 13:50 | PC.NURSE ---
Pt gave consent for Yohannes Smithald, brother in law, to be updated regarding his care. RN spoke with Yohannes and gave update
--- NOTE | 2024-06-25 15:12 | ADMGEN ---
This patient, Kenney Varela Sr., was admitted to Intensive Care Unit-7. Patient/family oriented to hospital policies and general routines including ID bracelet, bed and alarms, visiting hours, pain management, procedures, bathroom and other care routines, personal items, smoking policy, room service/diet, and visiting hours. Information on how to activate the Rapid Response Team has been discussed. Patient/Family are encouraged to report perceived risks to care and to ask questions if they do not understand what they are told or what they should do.
[2024-06-25] MEDS: carvediloL 25 MG TABLET PO (16:51)
[2024-06-25] MEDS: minoxidiL 10 MG TABLET PO (17:27)
[2024-06-25] MEDS: LEVALBUTEROL NEB 1.25 MG/3 ML 0.63 MG INHALATION (21:00)
[2024-06-25] MEDS: IPRATROPIUM BR 0.02% INH SOLN 0.5 MG/2.5 ML VIAL INHALATION (21:01)
[2024-06-26] VITALS (24 sets, daily range): BP systolic 88–125; BP diastolic 53–85; PULSE 78–123; RESP 18–27; TEMP 36.6–37.1; O2SAT 92–99
[2024-06-26] MEDS: IPRATROPIUM BR 0.02% INH SOLN 0.5 MG/2.5 ML VIAL INHALATION ×4 (03:00→20:34)
[2024-06-26] MEDS: LEVALBUTEROL NEB 1.25 MG/3 ML 0.63 MG INHALATION ×4 (03:02→20:34)
[2024-06-26] MEDS: methylPREDNISolone SOD SUCC 125 MG VIAL 60 MG IV PUSH ×3 (06:35→20:29)
[2024-06-26] MEDS: AZITHROMYCIN 500 MG/NS 250 ML 500 MG/250 ML BAG 250 MG IVPB (08:42)
[2024-06-26] MEDS: carvediloL 25 MG TABLET PO ×2 (08:42→20:29)
[2024-06-26 08:45] LABS: Basophils Percent Auto 0.4 % (0.2-1.2); Hematocrit 33.2 % (42.0-52.0); Hemoglobin 11.1 g/dL (14.0-18.0); Immature Granulocyte Absolute 0.12 K/mm3 (0.00-0.031); Immature Granulocyte Percent A 1.5 % (0-0.5); Immature Platelet Fraction Pct 6.1 % (0.9-11.2); Lymphocytes Absolute Auto 0.31 K/mm3 (0.9-3.2); Lymphocytes Percent Auto 3.8 % (18.3-44.2); Mean Corpuscular HGB Conc 33.4 g/dl (32-36); Mean Corpuscular Hemoglobin 28.8 pg (26-34); Mean Platelet Volume 10.3 fl (7.4-10.4); Monocytes Absolute Auto 0.2 K/mm3 (0.1-0.6); Monocytes Percent Auto 2.5 % (2.6-8.5); Neutrophils Absolute Auto 7.6 K/mm3 (1.3-6.7); Neutrophils Percent Auto 91.8 % (45.5-73.1); Platelet Count Result 146 k/mm3 (150-375); Red Blood Count 3.86 M/mm3 (4.6-6.20); Red Cell Distribution Width 13.3 % (11.5-14.5); White Blood Count 8.3 K/mm3 (4.5-10.0)
[2024-06-26 09:32] LABS: Albumin Level 4.2 g/dL (3.5-5.1); Anion Gap 6 mmol/L (4-12); Blood Urea Nitrogen 52 mg/dL (9-20); Calcium 9.2 mg/dL (8.4-10.2); Carbon Dioxide 36 mmol/L (22-30); Chloride 92 mmol/L (98-107); Estimated CRCL calculation 17 ml/min; Estimated Glomerular Filt Rate 28; Glucose 136 mg/dL (65-110); Magnesium 2.2 mg/dL (1.6-2.3); Phosphorus 3.9 mg/dL (2.5-4.5); Potassium 4.2 mmol/L (3.4-5.0); Sodium 134 mmol/L (137-145)
[2024-06-26 10:21] LABS: MRSA (PCR) NOT DETECTED (NOT DETECTE)
--- NOTE | 2024-06-26 19:22 | P.PNIM_ITS ---
Progress Note: A&P Assessment and Plan (1) Acute and chronic respiratory failure: Code(s): J96.20 - Acute and chronic respiratory failure, unspecified whether with hypoxia or hypercapnia Status: Acute Assessment and Plan: Patient presents with SOB. He has underlying COPD on chronic oxygen at home at 4L at rest and 6L with exertion (mostly he stays on 6L). On EMS arrived he was saturating in 80s. He was placed in on non-rebreather mask. He also received steroid and breathing treatment to the ER. WBC 11K. He was febrile at 102.3. CXR showing bibasilar edema/atelectasis vs PNA. ABG 7.41/58/207 on 15L. Lactic acid was mildly elevated at 2.3. Influenza, RSV and COVID PCR swab was negative. HR elevated to 110 on admission. Findings consistent with sepsis present on admission. Suspect respiratory failure related to PNA and COPD exacerbation and not CHF. He received Lasix in the ED and not IVF due to CXR findings concerning for pulmonary edema. Started on IV abx after BCx collected. BCx NGTD Started on bronchodilators and Solu-Medrol. Continue the same. Wean O2 as toelrated (2) Sepsis: Code(s): A41.9 - Sepsis, unspecified organism Status: Acute Assessment and Plan: As above. (3) Acute on chronic renal failure: Code(s): N17.9 - Acute kidney failure, unspecified; N18.9 - Chronic kidney disease, unspecified Status: Acute Assessment and Plan: CKD stage 3 with baseline around 1.1-1.3. Creatinine slightly up at 1.6 and worse today at 2.7 Probably related to Lasix and sepsis/hypoxia/resp failure. Also on HCTZ and ARB at home. BP was soft overnight so consider related to HoTN. No contrast exposure. UA clear except for 2+ protein. Check renal US. Check urine studies. NS x 1 liter (4) Elevated troponin: Code(s): R79.89 - Other specified abnormal findings of blood chemistry Status: Acute Assessment and Plan: Troponin was mildly elevated at 0.102. He denied chest pain. EKG showed sinus tachycardia with occasional PVCs and nonspecific ST-T changes. CXR as above. [place] Troponin elevation related to the sepsis, hypoxia and respiratory failure. Check Echo (5) COPD (chronic obstructive pulmonary disease): Code(s): J44.9 - Chronic obstructive pulmonary disease, unspecified Status: Acute Assessment and Plan: No wheezing noted by ED exam or admitting provider exam. Started on Solu-Medrol. Continue bronchodilators. Continue Solu-medrol but with quick wean. Resume Trelegy (6) Pneumonia: Code(s): J18.9 - Pneumonia, unspecified organism Status: Acute Assessment and Plan: CXR as above. He is having cough and fever. MRSA nasal swab negative BCx NGTD Continue Rocephen and Azithromycin, QTC okay. Check urine Ag (7) CHF (congestive heart failure): Code(s): I50.9 - Heart failure, unspecified Status: Acute Assessment and Plan: BNP 287. CXR as mentioned above. Patient with hx of CHF but doubt acute exacerbation. Check Echo (8) Hypertension: Code(s): I10 - Essential (primary) hypertension Status: Chronic Assessment and Plan: BP soft overnight. Held minoxidil, valsartan and HCTZ Continue Coreg with parameters. Plan Mild anemia - chronic mostly 10-11 range. Follow Thrombocytopenia - mild and stable. continue to monitor DVT prophylaxis - SCDs Code status full code Subjective Date/time seen: 06/26/24 19:22 Interval history: 68yo male wiht CHF, COPD, chronic resp failure and hx of CVA here for SOB. Assuming care. Chart reviewed. Patient denies chest pain or shortness of breath. He is feeling better. Still has some nausea. He had been having diarrhea as well. No recent antibiotic use. He normally uses 4L at rest and 6L with activity but mostly wears O2 at 6L. He has been told he has an abnormal heart rhythm 'due to by COPD'. Exam Narrative: AF 98.3 103/70 94 19 97% 5L Gen - NARD Chest - left base inspiratory crackles o/w distant BS CV - irregularly irregular. Tele showing probable MAT Abd - Soft, NT/ND, Positive BS Ext - No pedal edema Psych - Nml mood and affect Skin - Warm and dry Objective Data Vital Signs Vital Signs: Vital Signs - 24 hr 06/25/24 20:29 06/25/24 21:04 06/25/24 21:06 Temperature 98.1 F Pulse Rate 88 86 Respiratory Rate 20 20 Blood Pressure 90/54 L Pulse Oximetry 92 94 Oxygen Delivery Nasal Cannula Oxygen Flow Rate 4 06/25/24 21:16 06/25/24 20:00 06/25/24 20:00 Temperature Pulse Rate 87 103 H Respiratory Rate 20 Blood Pressure Pulse Oximetry 92 Oxygen Delivery Nasal Cannula Oxygen Flow Rate 4 06/25/24 22:00 06/26/24 00:30 06/26/24 00:00 Temperature 98.3 F Pulse Rate 98 93 Respiratory Rate 20 Blood Pressure 88/53 L Pulse Oximetry 92 94 Oxygen Delivery Nasal Cannula Oxygen Flow Rate 4 06/26/24 00:00 06/26/24 02:00 06/26/24 03:03 Temperature Pulse Rate 99 115 H 108 H Respiratory Rate 20 Blood Pressure Pulse Oximetry Oxygen Delivery Oxygen Flow Rate 06/26/24 03:17 06/26/24 04:25 06/26/24 04:00 Temperature 98.7 F Pulse Rate 109 H 109 H Respiratory Rate 20 19 Blood Pressure 91/57 L Pulse Oximetry 96 94 Oxygen Delivery Nasal Cannula Oxygen Flow Rate 4 06/26/24 04:00 06/26/24 05:54 06/26/24 07:25 Temperature Pulse Rate 105 H 96 123 H Respiratory Rate 18 Blood Pressure Pulse Oximetry 95 Oxygen Delivery Nasal Cannula Oxygen Flow Rate 4 06/26/24 07:25 06/26/24 07:35 06/26/24 08:00 Temperature 98.3 F Pulse Rate 123 H 119 H 90 Respiratory Rate 18 20 27 H Blood Pressure 125/83 Pulse Oximetry 94 Oxygen Delivery Oxygen Flow Rate 06/26/24 08:42 06/26/24 08:00 06/26/24 08:00 Temperature Pulse Rate 106 H 114 H Respiratory Rate Blood Pressure Pulse Oximetry 94 Oxygen Delivery Nasal Cannula Oxygen Flow Rate 4 06/26/24 10:00 06/26/24 11:42 06/26/24 12:00 Temperature 98 F Pulse Rate 91 109 H Respiratory Rate 22 H Blood Pressure 97/54 L Pulse Oximetry 92 92 Oxygen Delivery Nasal Cannula Oxygen Flow Rate 5 06/26/24 12:00 06/26/24 13:10 06/26/24 13:20 Temperature Pulse Rate 100 106 H 100 Respiratory Rate 20 20 Blood Pressure Pulse Oximetry Oxygen Delivery Oxygen Flow Rate 06/26/24 14:00 06/26/24 16:00 06/26/24 16:00 Temperature 98.3 F Pulse Rate 87 92 Respiratory Rate 19 Blood Pressure 103/70 Pulse Oximetry 99 97 Oxygen Delivery Nasal Cannula Oxygen Flow Rate 5 06/26/24 16:00 06/26/24 18:07 Temperature Pulse Rate 102 H 94 Respiratory Rate Blood Pressure Pulse Oximetry Oxygen Delivery Oxygen Flow Rate Intake/Output Intake/Output: Intake & Output 06/23/24 06/24/24 06/25/24 06/26/24 23:59 23:59 23:59 23:59 Intake Total 780 1215 Output Total 600 Balance 780 615 Meds/Results Medications: Active Medications Generic Name Dose Route Start Last Admin Trade Name Freq PRN Reason Stop Dose Admin Acetaminophen 650 mg 06/25/24 07:28 Acetaminophen 325 Mg Tablet PO Q4H PRN Mild Pain (1-3) or Fever Albuterol 2 puff 06/25/24 20:00 Albuterol Sulfate (*Sp) Aerosol 1 Puff INHALATION QIDRT PRICILA Carvedilol 25 mg 06/25/24 16:00 06/26/24 08:42 Carvedilol 25 Mg Tablet PO 25 mg Q12HR PRICILA Administration Fluticasone/Umeclidinium/Vilanterol 1 puff 06/25/24 16:00 06/25/24 16:51 Fluticasone/Umeclidin/Vilanter 100-62.5-25 Mcg Ellipta INHALATION Not Given DAILY PRICILA Hydrochlorothiazide 25 mg 06/26/24 09:00 Hydrochlorothiazide 25 Mg Tablet PO QAM PRICILA Ceftriaxone Sodium 1 gm in 50 mls @ 100 mls/hr 06/26/24 09:00 06/26/24 09:12 Rocephin 1 Gm/Ns 50 Ml IVPB Infused Q24H PRICILA Infusion Azithromycin 500 mg in 250 mls @ 250 mls/hr 06/26/24 09:00 06/26/24 09:42 Zithromax IVPB Infused Q24H PRICILA Infusion Ipratropium [place] 0.5 mg 06/25/24 20:00 06/26/24 13:10 Ipratropium Br 0.02% Inh Soln 0.5 Mg/2.5 Ml Vial INHALATION 0.5 mg Q6HRT PRICILA Administration Levalbuterol HCl 0.63 mg 06/25/24 20:00 06/26/24 13:10 Levalbuterol Neb 1.25 Mg/3 Ml INHALATION 0.63 mg Q6HRT PRICILA Administration Methylprednisolone Sodium Succinate 60 mg 06/25/24 07:30 06/26/24 13:31 Methylprednisolone Sod Succ 125 Mg Vial IV PUSH 60 mg Q8HR PRICILA Administration Minoxidil 10 mg 06/25/24 16:01 06/25/24 17:27 Minoxidil 10 Mg Tablet PO 10 mg DAILY PRICILA Administration Valsartan 320 mg 06/26/24 09:00 Valsartan 160 Mg Tablet PO QAM [facility] Radiology Results: ITS Impressions Chest X-Ray 06/25/24 06:03 Impression: Probable bibasilar pulmonary edema/atelectasis versus pneumonia. Minimal pleural effusions. Suspected underlying COPD. Labs Labs: Laboratory Results - last 24 hr 06/26/24 06/26/24 08:35 09:02 WBC 8.3 RBC 3.86 L Hgb 11.1 L Hct 33.2 L MCV 86.0 MCH 28.8 MCHC 33.4 RDW 13.3 Plt Count 146 L MPV 10.3 Immature Gran % (Auto) 1.5 H Neut % (Auto) 91.8 H Lymph % (Auto) 3.8 L [place] % (Auto) 2.5 L Eos % (Auto) 0.0 Baso % (Auto) 0.4 Lymph # (Auto) 0.31 L [place] # (Auto) 0.2 Eos # (Auto) 0.0 Baso # (Auto) 0.0 Abs Immat Gran (auto) 0.12 H Absolute Neuts (auto) 7.6 H Absolute Nucleated RBC 0.000 Nucleated RBC % 0.0 % Immature Plt Fraction 6.1 Sodium 134 L Potassium 4.2 Chloride 92 L Carbon Dioxide 36 H Anion Gap 6 BUN 52 H D Creatinine 2.70 H Estim Creat Clear Calc 17 Estimated GFR 28 L Glucose 136 H Calcium 9.2 Phosphorus 3.9 Magnesium 2.2 Albumin 4.2 Nasal MRSA (PCR) Not detected
[2024-06-26] MEDS: SODIUM CHLORIDE 0.9% IV 1,000 ML 100 ML IV CONT (20:29)
[2024-06-27] VITALS (22 sets, daily range): BP systolic 88–135; BP diastolic 47–79; PULSE 63–110; RESP 12–23; TEMP 36.5–36.9; O2SAT 92–100; BMI 16.9
--- NOTE | 2024-06-27 | ECHO_ITS ---
Patient Info Name: Kenney Varela Age: 68 years : 1955 Gender: Male Ht: 69 in Wt: 113 lbs BSA: 1.56 m2 HR: 89 bpm BP: 109 / 62 mmHg Technical Quality: Fair Exam Date: 06/27/2024 10:50 AM Exam Location: Echo Lab Patient Status: Inpatient Admit Date: 06/25/2024 Staff Ordering Physician: Trey Pierce MD Diet Consultant: Yary Sandhu RDCS Attending Provider: Johnathon Voss MD Exam Type: CA echo doppler w bubble study Study Info Indications J96.90 - Respiratory failure, unspecified, unspecified whether with hypoxia or hypercapnia Complete two-dimensional, color flow and Doppler transthoracic echocardiogram is performed with agitated saline. Contrast/Agitated Saline Contrast/Ag. Saline: Agitated Saline Amount: 14.00 ml Existing IV Access: Yes IV Access Condition: patent with no signs of infiltration Summary 1. The left ventricle is normal in size and borderline normal in systolic function. There is mild eccentric left ventricular hypertrophy. The left ventricular ejection fraction is visually estimated to be 50%. 2. The right ventricle is normal in size and systolic function. 3. Cannot rule out PFO or small ASD during the Valsalva portion of the bubble study. Left Ventricle The left ventricle is normal in size and borderline normal in systolic function. There is mild eccentric left ventricular hypertrophy. The left ventricular ejection fraction is visually estimated to be 50%. Right Ventricle The right ventricle is normal in size and systolic function. Left Atria The left atrium is mildly dilated. Right Atria The right atrium is mildly dilated. Atrial Septum Cannot rule out PFO or small ASD during the Valsalva portion of the bubble study. Aortic Valve The aortic valve is trileaflet and opens well. There is no aortic regurgitation. Pulmonic Valve The pulmonic valve is not well visualized. There is no color Doppler evidence of pulmonic valve regurgitation. Mitral Valve The mitral valve is normal. There is no mitral regurgitation. Tricuspid Valve The tricuspid valve is normal. There is trace tricuspid regurgitation. Pericardium/Pleural Pericardium is normal in appearance with no evidence for significant pericardial effusion. Inferior Vena Cava Normal inferior vena cava with >50% collapse upon inspiration consistent with normal right atrial pressure, 3 mmHg. Left Ventricular Outflow Tract Name Value Normal LVOT 2D LVOT Diameter 2.1 cm LVOT Doppler LVOT Peak Gradient 5 mmHg LVOT Mean Gradient 2 mmHg LVOT VTI 20 cm LVOT VTI/AV VTI Ratio 0.8 LVOT Stroke Volume 72 ml LVOT CO 3.8 l/min LVOT CI 2.4 l/min/m2 Pulmonic Valve Name Value Normal PV Doppler PV Peak Gradient 2 mmHg Mitral Valve Name Value Normal MV Doppler MV Decel [place] 463 cm/s2 MV PHT 51 ms MV Area (PHT) 4.3 cm2 4.0-5.0 MV Diastolic Function MV E Peak Velocity 81 cm/s MV A Peak Velocity 59 cm/s MV E/A 1.4 MV Decel Time 175 ms Tricuspid Valve Name Value Normal TV Regurgitation Doppler TR Peak Velocity 308 cm/s TR Peak Gradient 38 mmHg Estimated PAP/RSVP RA Pressure 3 mmHg <=5 PA Systolic Pressure 41 mmHg <36 RV Systolic Pressure 41 mmHg <36 Aorta Name Value Normal Ascending Aorta Ao Root Diameter (MM) 2.9 cm Ao Root Diam Index (MM) 1.8 cm/m2 Aortic Valve Name Value Normal AV Doppler AV Peak Velocity 135 cm/s AV Peak Gradient 7 mmHg AV Mean Gradient 3 mmHg AV VTI 25 cm AV Area (Cont Eq VTI) 2.9 cm2 >=3.0 AV Area (Cont Eq Luis) 2.9 cm2 AV Regurgitation 2D LVOT Area 3.5 cm2 Ventricles Name Value Normal LV Dimensions 2D/MM IVS Diastolic Thickness (2D) 1.1 cm 0.6-1.0 IVS Diastole Thickness (MM) 0.9 cm 0.6-1.0 LVID Diastole (2D) 4.6 cm 4.2-5.8 LVID Diastole (MM) 5.5 cm 4.2-5.8 LVIW Diastolic Thickness (2D) 1.2 cm 0.6-1.0 LVIW Diastolic Thickness (MM) 1.0 cm 0.6-1.0 LVID Systole (2D) 3.5 cm 2.5-4.0 LVID Systole (MM) 3.1 cm 2.5-4.0 LVOT Diameter 2.1 cm LV Mass (2D Cubed) 196.38 g 88.00-224.00 LV Mass Index (2D Cubed) 126 g/m2 49-115 Relative Wall Thickness (2D) 0.54 LV Mass (MM Cubed) 198.31 g 88.00-224.00 LV Mass Index (MM Cubed) 127 g/m2 49-115 Relative Wall Thickness (MM) 0.38 LV Fractional Shortening/Ejection Fraction 2D/MM LV Fractional Shortening (2D) 24 % 25-43 LV Fractional Shortening (MM) 44 % 25-43 LV EF (MM Teicholz) 75 % 52-72 LV EF (2D Teicholz) 48 % 52-72 LV Diastolic Volume (4C MOD) 108 ml LV EF (4C MOD) 59 % LV Diastolic Volume (2C MOD) 50 ml LV EF (2C MOD) 54 % LV Diastolic Volume (BP MOD) 82 ml 62-150 LV Diastolic Volume Index (BP MOD) 53 ml/m2 34-74 LV Systolic Volume (BP MOD) 38 ml 21-61 LV Systolic Volume Index (BP MOD) 24 ml/m2 11-31 LV EF (BP MOD) 54 % 52-72 LV Diastolic Length (4C) 8.1 cm LV Systolic Length (4C) 8.0 cm LV Stroke Volume (4C MOD) 64 ml Atria Name Value Normal LA Dimensions LA Dimension (MM) 3.5 cm 3.0-4.1 LA Volume (4C A-L) 55 ml LA Volume (BP A-L) 55 ml RA Dimensions RA Area (4C) 22.5 cm2 <=18.0 Report Signatures
[2024-06-27] MEDS: LEVALBUTEROL NEB 1.25 MG/3 ML 0.63 MG INHALATION ×4 (02:38→20:05)
[2024-06-27] MEDS: IPRATROPIUM BR 0.02% INH SOLN 0.5 MG/2.5 ML VIAL INHALATION ×4 (02:39→20:05)
[2024-06-27 04:22] LABS: Basophils Percent Auto 0.2 % (0.2-1.2); Hematocrit 27.3 % (42.0-52.0); Hemoglobin 9.5 g/dL (14.0-18.0); Immature Granulocyte Absolute 0.03 K/mm3 (0.00-0.031); Immature Granulocyte Percent A 0.5 % (0-0.5); Immature Platelet Fraction Pct 6.5 % (0.9-11.2); Lymphocytes Absolute Auto 0.23 K/mm3 (0.9-3.2); Lymphocytes Percent Auto 3.6 % (18.3-44.2); Mean Corpuscular HGB Conc 34.8 g/dl (32-36); Mean Corpuscular Hemoglobin 29.6 pg (26-34); Mean Platelet Volume 10.3 fl (7.4-10.4); Monocytes Absolute Auto 0.1 K/mm3 (0.1-0.6); Neutrophils Percent Auto 93.7 % (45.5-73.1); Platelet Count Result 133 k/mm3 (150-375); Red Blood Count 3.21 M/mm3 (4.6-6.20); Red Cell Distribution Width 13.2 % (11.5-14.5); White Blood Count 6.4 K/mm3 (4.5-10.0)
[2024-06-27 04:42] LABS: Albumin Level 3.7 g/dL (3.5-5.1); Anion Gap 5 mmol/L (4-12); Blood Urea Nitrogen 65 mg/dL (9-20); Calcium 8.3 mg/dL (8.4-10.2); Carbon Dioxide 34 mmol/L (22-30); Chloride 94 mmol/L (98-107); Creatine Kinase 113 U/L (55-170); Estimated CRCL calculation 16 ml/min; Estimated Glomerular Filt Rate 27; Glucose 126 mg/dL (65-110); Magnesium 2.3 mg/dL (1.6-2.3); Phosphorus 4.1 mg/dL (2.5-4.5); Potassium 3.8 mmol/L (3.4-5.0); Sodium 133 mmol/L (137-145)
[2024-06-27 04:43] LABS: Complement C3 94 mg/dL (88-165)
[2024-06-27 05:34] LABS: Thyroid Stimulating Hormone Reflex 0.121 uIU/mL (0.465-4.68)
--- NOTE | 2024-06-27 06:19 | PC.NURSE ---
This patient, Kenney Varela , was received from [ICU 7 ] on 06/27/24 at 0619. Patient/family oriented to unit policies and routines
--- NOTE | 2024-06-27 06:50 | PC.NURSE ---
This patient, Kenney Varela Sr., was transferred to [facility] on 06/27/24 at 0619. Personal belongings sent with patient. Report given to WENDY Paulson. Appropriate documentation sent with patient.
[2024-06-27] MEDS: FLUTICASONE/UMECLIDIN/VILANTER 100-62.5-25 MCG ELLIPTA 1 PUFF INHALATION (09:09)
[2024-06-27] MEDS: carvediloL 25 MG TABLET PO ×2 (09:12→21:20)
[2024-06-27] MEDS: methylPREDNISolone SOD SUCC 125 MG VIAL 60 MG IV PUSH ×2 (09:13→21:20)
[2024-06-27] MEDS: AZITHROMYCIN 250 MG TABLET PO (09:13)
--- NOTE | 2024-06-27 10:50 | PM.IMPN ---
Progress Note: A&P Assessment and Plan (1) Acute and chronic respiratory failure: Code(s): J96.20 - Acute and chronic respiratory failure, unspecified whether with hypoxia or hypercapnia Status: Acute Assessment and Plan: Patient presents with SOB. He has underlying COPD on chronic oxygen at home at 4L at rest and 6L with exertion (mostly he stays on 6L). On EMS arrived he was saturating in 80s. He was placed in on non-rebreather mask. He also received steroid and breathing treatment to the ER. WBC 11K. He was febrile at 102.3. CXR showing bibasilar edema/atelectasis vs PNA. ABG 7.41/58/207 on 15L. Lactic acid was mildly elevated at 2.3. Influenza, RSV and COVID PCR swab was negative. HR elevated to 110 on admission. Findings consistent with sepsis present on admission. Suspect respiratory failure related to PNA and COPD exacerbation and not CHF. Started on bronchodilators and Solu-Medrol. He received Lasix in the ED and not IVF due to CXR findings concerning for pulmonary edema. Started on IV abx after BCx collected. BCx NGTD Much better and down to baeline O2 requirement. Will change to oral steroids. (2) Sepsis: Code(s): A41.9 - Sepsis, unspecified organism Status: Acute Assessment and Plan: As above. (3) Acute on chronic renal failure: Code(s): N17.9 - Acute kidney failure, unspecified; N18.9 - Chronic kidney disease, unspecified Status: Acute Assessment and Plan: CKD stage 3 with baseline around 1.1-1.3. Creatinine slightly up at 1.6 and worse today at 2.8 (but flat) Probably related to Lasix and sepsis/hypoxia/resp failure. Also on HCTZ and ARB at home. BP was soft overnight so consider related to HoTN. No contrast exposure. UA clear except for 2+ protein. HCTZ/ARB held. Renal US normal. Urine eos negative. Urine studies c/w pre-renal. Received 1L NS. Will hold off on repeating IV fluids. Follow. (4) Elevated troponin: Code(s): R79.89 - Other specified abnormal findings of blood chemistry Status: Acute Assessment and Plan: Troponin was mildly elevated at 0.102. He denied chest pain. EKG showed sinus tachycardia with occasional PVCs and nonspecific ST-T changes. CXR as above. Echo showing normal LV size and borderline normal systolic fxn with EF 50%. Mild eccentric LVH. RV size and systolic fxn juan. Cannot rule out PFO or small ASD with Valsalva. No valvular disease. [place] Troponin elevation related to the sepsis, hypoxia and respiratory failure. Repeat Trop (5) COPD (chronic obstructive pulmonary disease): Code(s): J44.9 - Chronic obstructive pulmonary disease, unspecified Status: Acute Assessment and Plan: No wheezing noted by ED exam or admitting provider exam. Started on Solu-Medrol in ED. Continue bronchodilators. Continue Trelegy Change to oral steroids (6) Pneumonia: Code(s): J18.9 - Pneumonia, unspecified organism Status: Acute Assessment and Plan: CXR as above. He is having cough and fever. MRSA nasal swab negative. BCx NGTD. No more fevers and WBC normal. Continue Rocephen and Azithromycin, QTC okay. Consider pseudomonas coverage if condition changes. (7) CHF (congestive heart failure): Code(s): I50.9 - Heart failure, unspecified Status: Acute Assessment and Plan: BNP 287. CXR as mentioned above. Echo as above. Patient with hx of CHF but doubt acute exacerbation. Follow (8) Hypertension: Code(s): I10 - Essential (primary) hypertension Status: Chronic Assessment and Plan: BP soft so minoxidil, valsartan and HCTZ held. We continued Coreg with parameters. BP dropped to 88/47 once but otherwise BP more stable. Follow for now. Plan Mild anemia - chronic mostly 10-11 range but Hgb dropped to 9.5 today. No evidence of acute blood loss. Related to the IV fluids? Follow Thrombocytopenia - mild and stable. continue to monitor DVT prophylaxis - SCDs Code status full code Subjective Date/time seen: 06/27/24 10:50 Interval history: 68yo male wiht CHF, COPD, chronic resp failure and hx of CVA here for SOB. No problems overnight. SOB better. Walking to the BR. VIERA but feels close to baseline. Exam Narrative: AF 98.0 135/74 110 20 92% 4L Gen - NARD lying semi-recumbent in bed Chest - Right base inspiratory crackles o/w distant BS CV - RRR with occasional extra beats. Tele showing probable MAT and PVCs Abd - Soft, NT/ND, Positive BS Ext - No pedal edema Psych - Nml mood and affect Skin - Warm and dry Objective Data Vital Signs Vital Signs: Vital Signs - 24 hr 06/26/24 11:42 06/26/24 12:00 06/26/24 12:00 Temperature 98 F Pulse Rate 109 H 100 Respiratory Rate 22 H Blood Pressure 97/54 L Pulse Oximetry 92 92 Oxygen Delivery Nasal Cannula Oxygen Flow Rate 5 Fraction of Inspired Oxygen 06/26/24 13:10 06/26/24 13:20 06/26/24 14:00 Temperature Pulse Rate 106 H 100 87 Respiratory Rate 20 20 Blood Pressure Pulse Oximetry Oxygen Delivery Oxygen Flow Rate Fraction of Inspired Oxygen 06/26/24 16:00 06/26/24 16:00 06/26/24 16:00 Temperature 98.3 F Pulse Rate 92 102 H Respiratory Rate 19 Blood Pressure 103/70 Pulse Oximetry 99 97 Oxygen Delivery Nasal Cannula Oxygen Flow Rate 5 Fraction of Inspired Oxygen 06/26/24 18:07 06/26/24 20:29 06/26/24 20:38 Temperature Pulse Rate 94 81 80 Respiratory Rate 20 Blood Pressure Pulse Oximetry Oxygen Delivery Oxygen Flow Rate Fraction of Inspired Oxygen 06/26/24 20:00 06/26/24 20:00 06/26/24 20:00 Temperature 98.4 F Pulse Rate 79 106 H Respiratory Rate 25 H Blood Pressure 114/85 Pulse Oximetry 98 97 Oxygen Delivery Nasal Cannula Oxygen Flow Rate 5 Fraction of Inspired Oxygen 06/27/24 00:00 06/27/24 00:00 06/27/24 00:00 Temperature 98.4 F Pulse Rate 82 85 Respiratory Rate 23 H Blood Pressure 88/47 L Pulse Oximetry 97 97 Oxygen Delivery Nasal Cannula Oxygen Flow Rate 5 Fraction of Inspired Oxygen 06/27/24 02:40 06/26/24 20:52 06/27/24 02:53 Temperature Pulse Rate 87 78 79 Respiratory Rate 20 20 20 Blood Pressure Pulse Oximetry Oxygen Delivery Oxygen Flow Rate Fraction of Inspired Oxygen 06/27/24 03:45 06/27/24 03:50 06/27/24 04:00 Temperature 98.2 F Pulse Rate 93 89 Respiratory Rate 22 H Blood Pressure 109/62 Pulse Oximetry 99 100 Oxygen Delivery Nasal Cannula Oxygen Flow Rate 5 Fraction of Inspired Oxygen 06/27/24 08:00 06/27/24 08:52 06/27/24 08:52 Temperature 98.0 F Pulse Rate 72 103 H Respiratory Rate 12 20 Blood Pressure 135/74 Pulse Oximetry 92 92 Oxygen Delivery Nasal Cannula Oxygen Flow Rate 4 Fraction of Inspired Oxygen 36 06/27/24 09:12 06/27/24 09:12 06/27/24 08:00 Temperature Pulse Rate 97 110 H Respiratory Rate 20 Blood Pressure Pulse Oximetry 92 Oxygen Delivery Nasal Cannula Oxygen Flow Rate 4 Fraction of Inspired Oxygen Intake/Output Intake/Output: Intake & Output 06/24/24 06/25/24 06/26/24 06/27/24 23:59 23:59 23:59 23:59 Intake Total 780 1215 1480 Output Total 600 700 Balance 780 615 780 Meds/Results Medications: Active Medications Generic Name Dose Route Start Last Admin Trade Name Freq PRN Reason Stop Dose Admin Acetaminophen 650 mg 06/25/24 07:28 Acetaminophen 325 Mg Tablet PO Q4H PRN Mild Pain (1-3) or Fever Albuterol 2 puff 06/25/24 20:00 Albuterol Sulfate (*Sp) Aerosol 1 Puff INHALATION QIDRT [facility] Azithromycin 250 mg 06/27/24 09:00 06/27/24 09:13 Azithromycin 250 Mg Tablet PO 06/29/24 09:01 250 mg DAILY PRICILA Administration Carvedilol 25 mg 06/25/24 16:00 06/27/24 09:12 Carvedilol 25 Mg Tablet PO 25 mg Q12HR PRICILA Administration Fluticasone/Umeclidinium/Vilanterol 1 puff 06/25/24 16:00 06/27/24 09:09 Fluticasone/Umeclidin/Vilanter 100-62.5-25 Mcg Ellipta INHALATION 1 puff DAILY PRICILA Administration Ceftriaxone Sodium 1 gm in 50 mls @ 100 mls/hr 06/26/24 09:00 06/27/24 09:13 Rocephin 1 Gm/Ns 50 Ml IVPB 100 mls/hr Q24H PRICILA Administration Ipratropium [place] 0.5 mg 06/25/24 20:00 06/27/24 08:52 Ipratropium Br 0.02% Inh Soln 0.5 Mg/2.5 Ml Vial INHALATION 0.5 mg Q6HRT PRICILA Administration Levalbuterol HCl 0.63 mg 06/25/24 20:00 06/27/24 08:52 Levalbuterol Neb 1.25 Mg/3 Ml INHALATION 0.63 mg Q6HRT PRICILA Administration Methylprednisolone Sodium Succinate 60 mg 06/26/24 21:00 06/27/24 09:13 Methylprednisolone Sod Succ 125 Mg Vial IV PUSH 60 mg Q12H PRICILA Administration Perflutren Lipid Microsphere 0 ml 06/26/24 19:45 Perflutren Lipid Microspheres 1.5 Ml Vial Diluted To 10 Ml Total Volume IV PUSH 06/29/24 19:45 ONCE PRN adequate visualization Protocol Radiology Results: ITS Impressions Chest X-Ray 06/25/24 06:03 Impression: Probable bibasilar pulmonary edema/atelectasis versus pneumonia. Minimal pleural effusions. Suspected underlying COPD. Renal Ultrasound 06/26/24 21:35 IMPRESSION: 1. Normal kidney sizes. No hydronephrosis. Labs Labs: Laboratory Results - last 24 hr 06/27/24 04:06 WBC 6.4 RBC 3.21 L Hgb 9.5 L Hct 27.3 L MCV 85.0 MCH 29.6 MCHC 34.8 RDW 13.2 Plt Count 133 L MPV 10.3 Immature Gran % (Auto) 0.5 Neut % (Auto) 93.7 H Lymph % (Auto) 3.6 L [place] % (Auto) 2.0 L Eos % (Auto) 0.0 Baso % (Auto) 0.2 Lymph # (Auto) 0.23 L [place] # (Auto) 0.1 Eos # (Auto) 0.0 Baso # (Auto) 0.0 Abs Immat Gran (auto) 0.03 Absolute Neuts (auto) 6.0 Absolute Nucleated RBC 0.000 Nucleated RBC % 0.0 % Immature Plt Fraction 6.5 Sodium 133 L Potassium 3.8 Chloride 94 L Carbon Dioxide 34 H Anion Gap 5 BUN 65 H D Creatinine 2.80 H Estim Creat Clear Calc 16 Estimated GFR 27 L Glucose 126 H Calcium 8.3 L Phosphorus 4.1 Magnesium 2.3 Total Creatine Kinase 113 Albumin 3.7 TSH (Reflex) 0.121 L Complement C3 94 Complement C4 41.0
[2024-06-27 14:07] LABS: Creatinine Urine 72.9 mg/dL; Total Protein Urine Random 23 mg/dL; Ur Ttl Prot Creatinine Ratio 0.32 mg/mg (0-0.20)
[2024-06-27 14:09] LABS: Creatinine Urine 72.7 mg/dL
[2024-06-27 14:22] LABS: Sodium Urine Random 9 meq/L
[2024-06-27 14:35] LABS: Eosinophil Urine None Seen % (None Seen); Urine Eos QC 2nd Tech Confirmed
--- NOTE | 2024-06-27 16:13 | PC.NURSE ---
This patient, Kenney Varela Sr., was transferred to [facility] on 06/27/24 at 1555. Personal belongings sent with patient. Report given to WENDY Galaviz. Appropriate documentation sent with patient.
[2024-06-27 18:33] LABS: Troponin I 0.022 ng/mL (0.000-0.034)
[2024-06-28] VITALS (12 sets, daily range): BP systolic 120–150; BP diastolic 66–67; PULSE 61–95; RESP 18–20; TEMP 36.5; O2SAT 95–98
[2024-06-28] MEDS: LEVALBUTEROL NEB 1.25 MG/3 ML 0.63 MG INHALATION ×3 (02:28→13:16)
[2024-06-28] MEDS: IPRATROPIUM BR 0.02% INH SOLN 0.5 MG/2.5 ML VIAL INHALATION ×3 (02:29→13:16)
[2024-06-28 04:53] LABS: Basophils Percent Auto 0.2 % (0.2-1.2); Hematocrit 26.1 % (42.0-52.0); Hemoglobin 8.8 g/dL (14.0-18.0); Immature Granulocyte Absolute 0.05 K/mm3 (0.00-0.031); Immature Platelet Fraction Pct 5.3 % (0.9-11.2); Lymphocytes Absolute Auto 0.33 K/mm3 (0.9-3.2); Lymphocytes Percent Auto 6.4 % (18.3-44.2); Mean Corpuscular HGB Conc 33.7 g/dl (32-36); Mean Corpuscular Hemoglobin 28.8 pg (26-34); Mean Corpuscular Volume 85.3 fl (80-100); Mean Platelet Volume 10.6 fl (7.4-10.4); Monocytes Absolute Auto 0.2 K/mm3 (0.1-0.6); Monocytes Percent Auto 2.9 % (2.6-8.5); Neutrophils Absolute Auto 4.6 K/mm3 (1.3-6.7); Neutrophils Percent Auto 89.5 % (45.5-73.1); Platelet Count Result 145 k/mm3 (150-375); Red Blood Count 3.06 M/mm3 (4.6-6.20); Red Cell Distribution Width 13.1 % (11.5-14.5); White Blood Count 5.2 K/mm3 (4.5-10.0)
[2024-06-28 05:05] LABS: Albumin Level 3.4 g/dL (3.5-5.1); Anion Gap 3 mmol/L (4-12); Blood Urea Nitrogen 61 mg/dL (9-20); Calcium 8.4 mg/dL (8.4-10.2); Carbon Dioxide 36 mmol/L (22-30); Chloride 97 mmol/L (98-107); Estimated CRCL calculation 24 ml/min; Estimated Glomerular Filt Rate 38; Glucose 128 mg/dL (65-110); Phosphorus 3.2 mg/dL (2.5-4.5); Potassium 3.9 mmol/L (3.4-5.0); Sodium 136 mmol/L (137-145)
[2024-06-28] MEDS: FLUTICASONE/UMECLIDIN/VILANTER 100-62.5-25 MCG ELLIPTA 1 PUFF INHALATION (07:51)
[2024-06-28] MEDS: predniSONE 20 MG TABLET 40 MG PO (08:46)
[2024-06-28] MEDS: AZITHROMYCIN 250 MG TABLET PO (08:46)
[2024-06-28] MEDS: carvediloL 25 MG TABLET PO (08:46)
[2024-06-28 09:38] LABS: Free T4 Free Thyroxine Reflex 1.61 ng/dL (0.78-2.19)
--- NOTE | 2024-06-28 14:23 | P.DS_ITS ---
DS: Admitting Diagnosis Discharge Date 06/28/24 Admitting Diagnosis Shortness of breath DS: Discharge Diagnosis Discharge Diagnosis (1) Acute and chronic respiratory failure: Code(s): J96.20 - Acute and chronic respiratory failure, unspecified whether with hypoxia or hypercapnia Status: Acute (2) Sepsis: Code(s): A41.9 - Sepsis, unspecified organism Status: Acute (3) Acute on chronic renal failure: Code(s): N17.9 - Acute kidney failure, unspecified; N18.9 - Chronic kidney disease, unspecified Status: Acute (4) Elevated troponin: Code(s): R79.89 - Other specified abnormal findings of blood chemistry Status: Acute (5) COPD (chronic obstructive pulmonary disease): Code(s): J44.9 - Chronic obstructive pulmonary disease, unspecified Status: Acute (6) Pneumonia: Code(s): J18.9 - Pneumonia, unspecified organism Status: Acute (7) CHF (congestive heart failure): Code(s): I50.9 - Heart failure, unspecified Status: Acute (8) Hypertension: Code(s): I10 - Essential (primary) hypertension Status: Chronic (9) Anemia: Code(s): D64.9 - Anemia, unspecified Status: Acute DS: Summary Hospital Course Reason for hospitalization: 68yo male with CHF, COPD, chronic resp failure and hx of CVA here for SOB. Please see H&P for details. Hospital Course: Patient presents with SOB. He has underlying COPD on chronic oxygen at home at 4L at rest and 6L with exertion (mostly he stays on 6L). On EMS arrival, his SpO2 was in the 80s. He was placed in on non-rebreather mask. He received steroids and breathing treatment to the ER. WBC 11K. He was febrile at 102.3. CXR showing bibasilar edema/atelectasis vs PNA. ABG 7.41/58/207 on 15L. Lactic acid was mildly elevated at 2.3. Influenza, RSV and COVID PCR swab was negative. BNP 287. HR elevated to 110 on admission. Findings consistent with sepsis present on admission felt related to PNA. Suspect respiratory failure related to PNA and COPD exacerbation and not CHF. Started on bronchodilators and Solu- Medrol. He received Lasix in the ED and not IVF due to CXR findings concerning for pulmonary edema but again felt less likely he had acute CHF. He was started on IV abx after BCx collected. BCx NGTD. He had clinical improvement and was able to be weaned to baseline O2 requirement. He was changed to oral steroids. Patient with CKD stage 3 with baseline around 1.1-1.3. Creatinine worsened to 2.8. Probably related to Lasix and sepsis/hypoxia/resp failure. Also on HCTZ and ARB at home. BP was soft overnight so consider ROBERTO CARLOS related to HoTN. No contrast exposure. UA clear except for 2+ protein. HCTZ/ARB held. Renal US normal. Urine eos negative. Urine studies c/w pre-renal. Received 1L NS. Cr trended down to 2.1. Troponin was mildly elevated to 0.102. He denied chest pain. EKG showed sinus tachycardia with occasional PVCs and nonspecific ST-T changes. Echo showing normal LV size and borderline normal systolic fxn with EF 50%. Mild eccentric LVH. RV size and systolic fxn juan. Cannot rule out PFO or small ASD with Valsalva. No valvular disease. [place] elevated Troponin related to sepsis, hypoxia and respiratory failure. Patient with COPD. No wheezing noted by ED exam or admitting provider exam. Started on Solu-Medrol in ED. Treated with bronchodilators. We continued Trelegy. Changed to oral steroids. He was having a cough and fever. CXR consistent with PNA. MRSA nasal swab negative. BCx NGTD. Treated with Rocephin and Azithromycin; QTc okay. No more fevers and WBC normal. Patient with mild anemia. He has chronic anemia with hgb mostly 10-11 range but Hgb dropped to 8.8. No evidence of acute blood loss. TSH low but FT4 normal. Could be related to the IV fluids. Patient also with mild thrombocytopenia that remained stable. The patient feels well. He overall di well and was able to be discharged home on 06/28/24. Status at Discharge Cognitive/behavioral status at discharge: stable Time Spent with Patient Time attestation: Total time spent providing and/or coordinating discharge services: 36 minutes Time spent: Greater than 30 minutes Exam Narrative: AF 97.7 150/67 83 20 95% 5L Gen - NARD lying semi-recumbent in bed Chest - bibasilar inspiratory crackles o/w distant BS CV - RRR with occasional extra beats. Tele showing probable MAT and PVCs Abd - Soft, NT/ND, Positive BS Ext - No pedal edema Psych - Nml mood and affect Skin - Warm and dry DS: Data Data Completed and Pending Labs on day of discharge: Labs from last 24 hours 06/28/24 06/27/24 06/27/24 04:05 13:39 04:06 WBC 5.2 RBC 3.06 L Hgb 8.8 L Hct 26.1 L MCV 85.3 MCH 28.8 MCHC 33.7 RDW 13.1 Plt Count 145 L MPV 10.6 H Immature Gran % (Auto) 1.0 H Neut % (Auto) 89.5 H Lymph % (Auto) 6.4 L [place] % (Auto) 2.9 Eos % (Auto) 0.0 Baso % (Auto) 0.2 Lymph # (Auto) 0.33 L [place] # (Auto) 0.2 Eos # (Auto) 0.0 Baso # (Auto) 0.0 Abs Immat Gran (auto) 0.05 H Absolute Neuts (auto) 4.6 Absolute Nucleated RBC 0.000 Nucleated RBC % 0.0 % Immature Plt Fraction 5.3 Sodium 136 L Potassium 3.9 Chloride 97 L Carbon Dioxide 36 H Anion Gap 3 L BUN 61 H Creatinine 2.10 H Estim Creat Clear Calc 24 Estimated GFR 38 L Glucose 128 H Calcium 8.4 Phosphorus 3.2 Troponin I Albumin 3.4 L Free T4 1.61 Total T3 0.70 L Urine Eosinophils None seen Protein/Creat Ratio 2 0.32 H 06/27/24 04:05 WBC RBC Hgb Hct MCV MCH MCHC RDW Plt Count MPV Immature Gran % (Auto) Neut % (Auto) Lymph % (Auto) [place] % (Auto) Eos % (Auto) Baso % (Auto) Lymph # (Auto) [place] # (Auto) Eos # (Auto) Baso # (Auto) Abs Immat Gran (auto) Absolute Neuts (auto) Absolute Nucleated RBC Nucleated RBC % % Immature Plt Fraction Sodium Potassium Chloride Carbon Dioxide Anion Gap BUN Creatinine Estim Creat Clear Calc Estimated GFR Glucose Calcium Phosphorus Troponin I 0.022 Albumin Free T4 Total T3 Urine Eosinophils Protein/Creat Ratio 2 Preliminary micro results at discharge 06/25/24 06:19 Blood Culture - Preliminary Blood 06/25/24 06:07 Blood Culture - Preliminary Blood Discharge Plan Discharge Attending physician on discharge: Trey Pierce Discharging Clinician: Trey Pierce Anticipated Discharge Date/Time: 06/28/24 14:42 Patient Disposition: Home, Self-Care Activity: as tolerated Diet: heart healthy Discharge Instructions: Check blood pressure 1 to 2 times a day. Record and bring into your doctor for review. Call your doctor if your blood pressure is greater than 180/110. Please complete your antibiotic course even if you are starting to feel well. Take precautions to avoid falls. Rise slowly from a lying or sitting position. Pause before standing or walking. Check daily morning weights after voiding. Call your doctor if you gain more than 3 lb in 2 days or 5 lb in 1 week. Contact your doctor or call 911 and come to the Emergency Room if you have fevers, lightheadedness with standing or other worrisome symptoms. Avoid NSAIDs (ibuprofen, naproxen, Aleve). Tylenol is safe to take. Follow-up with your primary care provider in 1-2 weeks. Please call for appointment. Thank you for using [facility] for your health care needs. Patient Instructions: Antibiotic Form Stand Alone Forms: General Discharge Information Follow-up/Referrals: Yan Oro MD [Primary Care Provider] - Call for Appointment Discharge Medications: New azithromycin [Zithromax] 250 mg Tablet 250 mg PO DAILY Qty: 1 0RF prednisone 20 mg Tablet 40 mg PO DAILY@0800 3 Days Qty: 6 0RF cefdinir 300 mg capsule 300 mg PO DAILY Qty: 3 0RF Continued carvedilol 25 mg tablet 25 mg PO Q12H epinephrine [EpiPen] 0.3 mg/0.3 mL auto-injector 0.3 mg IM ONCE PRN (Reason: anaphylaxis) Qty: 2 0RF Rx Instructions: as a single dose; may repeat once ipratropium-albuterol 0.5 mg-3 mg(2.5 mg base)/3 mL solution for nebulization 3 ml inhalation QID Qty: 360 5RF Trelegy Ellipta 100-62.5-25 mcg blister with device See Rx Instructions .ROUTE .COMPLEX Qty: 60 5RF Hold Instructions: Hold while using Breztri sample Dose Instruction: TAKE 1 PUFF BY MOUTH EVERY DAY Rx Instructions: TAKE 1 PUFF BY MOUTH EVERY DAY Changed albuterol sulfate 90 mcg/actuation HFA aerosol inhaler See Rx Instructions .ROUTE .COMPLEX PRN (Reason: shortness of breath or wheezing) Qty: 8.5 6RF Dose Instruction: INHALE 2 PUFFS BY MOUTH 4 TIMES A DAY Rx Instructions: INHALE 2 PUFFS BY MOUTH 4 TIMES A DAY PRN; Held valsartan-hydrochlorothiazide 320-25 mg tablet 1 tablet PO DAILY Qty: 90 3RF minoxidil 10 mg Tablet 10 mg PO DAILY Other Ambulatory Orders: OT Outpatient Eval and Treat (WEEKLY) Timeframe: 20240629 Location: Determined by Patient Ordered By: Trey Pierce OT Outpatient Eval and Treat (WEEKLY) Timeframe: 20240706 Location: Determined by Patient Ordered By: Trey Pierce OT Outpatient Eval and Treat (WEEKLY) Timeframe: 20240713 Location: Determined by Patient Ordered By: Trey Pierce OT Outpatient Eval and Treat (WEEKLY) Timeframe: 20240720 Location: Determined by Patient Ordered By: Trey Pierce OT Outpatient Eval and Treat (WEEKLY) Timeframe: 20240727 Location: Determined by Patient Ordered By: Trey Pierce OT Outpatient Eval and Treat (WEEKLY) Timeframe: [id number] Location: Determined by Patient Ordered By: Trey Pierce PT Outpatient Eval and Treat (WEEKLY) Timeframe: 20240629 Location: Determined by Patient Ordered By: Trey Pierce PT Outpatient Eval and Treat (WEEKLY) Timeframe: [id number] Location: Determined by Patient Ordered By: Trey Pierce PT Outpatient Eval and Treat (WEEKLY) Timeframe: 20240713 Location: Determined by Patient Ordered By: Trey Pierce PT Outpatient Eval and Treat (WEEKLY) Timeframe: 20240720 Location: Determined by Patient Ordered By: Trey Pierce PT Outpatient Eval and Treat (WEEKLY) Timeframe: 20240727 Location: Determined by Patient Ordered By: Trey Pierce PT Outpatient Eval and Treat (WEEKLY) Timeframe: [id number] Location: Determined by Patient Ordered By: Trey Pierce Vitamin B12 and Folic Acid (Routine) Timeframe: 20240701 Location: Determined by Patient Ordered By: Trey Pierce Complete Blood Count no Diff (Routine) Timeframe: 20240701 Location: Determined by Patient Ordered By: Trey Pierce Iron and TIBC Panel (Routine) Timeframe: 20240701 Location: Determined by Patient Ordered By: Trey Pierce Ferritin (Routine) Timeframe: 20240701 Location: Determined by Patient Ordered By: Trey Pierce Renal Function Panel (Routine) Timeframe: 20240701 Location: Determined by Patient Ordered By: Trey Pierce Date of admission: 06/25/24 11:02 Primary Care Provider: Yan Oor Admitting Provider: Johnathon Voss Attending physician on admission: Johnathon Voss Condition: Stable Hospitalist MIPS Heart Failure (Exclusion) Patient has history of Heart Transplant or Left Ventricular Assistive Device?: No IF YES, STOP HERE Heart Failure (Qualifier) Patient has current or prior documentation of LVEF less than or equal to 40%, or mod/servere depressed LVSF?: No IF NO, STOP HERE
--- NOTE | 2024-07-01 09:44 | PC.NURSE ---
Blood cx are negative. Dr. Kari davis.
[2024-07-01 17:39] LABS: Pneumococcal Antigen Urine DETECTED
[2024-07-02 16:49] LABS: Mycoplasma IgM Antibody Titer 125 U/mL
--- NOTE | 2024-07-03 08:56 | PC.NURSE ---
Mycoplasm is WNL at 125. Urine legionella is not detected. Urine pneumococcal is detected A. Blood cx are negative. Dr. Kari davis.
[2024-07-05 02:09] LABS: Legionella pneumophila Ag Ur NOT DETECTED
== END 2024-06-28 15:55 | disposition home or self-care (01) | DRG 871 ==
LOC: ANHED 05:54 → ANHIMU 09:03 → ANHICU 12:59 → ANHIMU 06-27 06:15 → ANH2MED 06-27 14:54
PROVIDERS: Internal Medicine; Admitting Provider Internal Medicine; Emergency Provider Emergency Medicine; PCP Family Medicine Adolescent Medicine; Visit Provider Internal Medicine
DX: A41.9 Sepsis, unspecified organism (principal); J18.9 Pneumonia, unspecified organism; J96.21 Acute and chronic respiratory failure with hypoxia; I13.0 Hypertensive heart and chronic kidney disease with heart failure and stage 1 through stage 4 chronic kidney disease, or unspecified chronic kidney disease; J44.0 Chronic obstructive pulmonary disease with (acute) lower respiratory infection; N17.9 Acute kidney failure, unspecified; J44.1 Chronic obstructive pulmonary disease with (acute) exacerbation; I50.32 Chronic diastolic (congestive) heart failure; D69.6 Thrombocytopenia, unspecified; N18.30 Chronic kidney disease, stage 3 unspecified; D63.1 Anemia in chronic kidney disease; Z86.73 Personal history of transient ischemic attack (TIA), and cerebral infarction without residual deficits; Z99.81 Dependence on supplemental oxygen; Z85.46 Personal history of malignant neoplasm of prostate; Z87.891 Personal history of nicotine dependence
CPT/HCPCS: 36415; 36600; 71045; 76775; 80053; 80069; 81001; 82550; 82570; 82805; 83605; 83690; 83735; 83880; 84145; 84156; 84300; 84439; 84443; 84480; 84484; 85018; 85025; 85055; 85610; 85730; 85999; 86160; 86738; 87040; 87449; 87637; 87641; 87899; 93005; 93306; 94640; 96365; 96367; 96375; 97161; 97165; 99285; A9270; G0378; J0456; J0696; J1940; J2919; J7030; J7512

== ENCOUNTER 2024-07-07 21:58 | Inpatient (IN) | payer MEDICARE, MEDICAID, SELFPAY ==
--- NOTE | ~2024-07-07 | XR_ITS ---
Portable chest x-ray Comparison: 06/25/2024 Clinical History: Dyspnea Findings: Lungs are clear, without focal consolidation or pleural effusion. Cardiomediastinal silho uette is stable. Bones and soft tissues are unremarkable. Impression: Clear lungs. Possible COPD. Stable cardiomegaly. Reviewed, dictated and finalized at location . R ENERGY ADVISOR Impression: Clear lungs. Possible COPD. Stable cardiomegaly.
[2024-07-07 21:59] VITALS: BP 187/98; PULSE 78; RESP 20; TEMP 37.1; O2SAT 93
[2024-07-07 22:07] VITALS: PULSE 69
[2024-07-07 22:08] VITALS: BP 189/87; PULSE 85; RESP 20; O2SAT 97
[2024-07-07 22:09] VITALS: O2SAT 97
--- NOTE | 2024-07-07 22:11 | ECG_ITS ---
Test Date: 2024-07-07 22:12:24 Measurements Intervals [place] Rate: 74 P: 64 MI: 146 QRS: -42 QRSD: 95 T: 45 QT: 376 QTc: 418 Interpretive Statements SINUS RHYTHM WITH OCCASIONAL SUPRAVENTRICULAR PREMATURE COMPLEXES POSSIBLE LEFT ATRIAL ENLARGEMENT [-0.1mV P-WAVE IN V1/V2] LEFT AXIS DEVIATION [QRS AXIS < -30] SEPTAL MYOCARDIAL INFARCTION , PROBABLY OLD [40+ ms Q WAVE IN V1/V2] Compared to ECG 06/25/2024 08:40:55 Left-axis deviation now present Myocardial infarct finding now present Left anterior fascicular block no longer present T-wave abnormality no longer present Electronically Signed On 07-08-2024 12:02:00 [employer] by Sonu Rankin M.D.
[2024-07-07] MEDS: MAGNESIUM SULF 2 GM/WATER 50ML 2 GM/50 ML BAG IVPB (22:23)
[2024-07-07] MEDS: methylPREDNISolone SOD SUCC 125 MG VIAL IV PUSH (22:23)
[2024-07-07 22:36] LABS: Basophils Percent Auto 0.2 % (0.2-1.2); Eosinophils Absolute Auto 0.1 K/mm3 (0-0.3); Eosinophils Percent Auto 1.5 % (0-4.4); Hematocrit 26.6 % (42.0-52.0); Hemoglobin 8.7 g/dL (14.0-18.0); Immature Granulocyte Absolute 0.02 K/mm3 (0.00-0.031); Immature Granulocyte Percent A 0.4 % (0-0.5); Immature Platelet Fraction Pct 3.7 % (0.9-11.2); Lymphocytes Absolute Auto 0.54 K/mm3 (0.9-3.2); Lymphocytes Percent Auto 11.2 % (18.3-44.2); Mean Corpuscular HGB Conc 32.7 g/dl (32-36); Mean Corpuscular Hemoglobin 29.6 pg (26-34); Mean Corpuscular Volume 90.5 fl (80-100); Mean Platelet Volume 10.5 fl (7.4-10.4); Monocytes Absolute Auto 0.7 K/mm3 (0.1-0.6); Monocytes Percent Auto 14.3 % (2.6-8.5); Neutrophils Absolute Auto 3.5 K/mm3 (1.3-6.7); Neutrophils Percent Auto 72.4 % (45.5-73.1); Platelet Count Result 130 k/mm3 (150-375); Red Blood Count 2.94 M/mm3 (4.6-6.20); White Blood Count 4.8 K/mm3 (4.5-10.0)
[2024-07-07 22:45] LABS: INR 1.1; Prothrombin Time 14.4 Seconds (11.1-14.7)
[2024-07-07 22:51] LABS: Lactic Acid Reflex 0.9 mmol/L (0.7-2.0)
--- NOTE | 2024-07-07 23:00 | ED_ITS ---
HPI - SOB/Dyspnea General Chief Complaint: Shortness of Breath/Dyspnea Stated Complaint: DIFFICULTY IN BREATHING Time Seen by Provider: 07/07/24 22:04 History of Present Illness HPI Narrative: 68-year-old male presenting from his retirement facility with concern of difficulty breathing. He has a history of CHF, COPD on baseline oxygen 4 L at rest and up to 6 L with exertion. He has a history of chronic respiratory failure from the above. Patient was recently seen and admitted to the hospital for hypoxic respiratory failure and was found to have mild pulmonary edema and potential pneumonia. He was treated with multimodal regimen including diuretics, antibiotics and had echocardiograms with an EF about 50% without any new acute concerns on his workup. He was sent home after improvement. He was discharged on the . He states that he was doing well at his nursing facility but today he felt more short of breath and was tried uses nebulizers at home without relief. Is endorsing difficulty breathing presently but no nauseousness, vomiting, chest pain, back pain, fever, chills, abdominal pain. No trauma or injuries. Has been on his home oxygen dose of 4 L nasal cannula. Saturating 97%. Related Data Allergies Allergy/AdvReac Type Severity Reaction Status Date / Time bee venom protein (honey bee) Allergy Unknown ANAPHALAXIS Verified 07/08/24 02:37 Review of Systems 2 Review of Systems: As reviewed above in HPI [facility] Past Medical History Medical History Degenerative disc disease Degenerative disc disease Prostate CA Status post radiation therapy. Emphysema lung COPD (chronic obstructive pulmonary disease) Hypertension CHF (congestive heart failure) Echocardiogram June 2016 showed normal left ventricular systolic function and size with mild concentric left ventricular hypertrophy and impaired diastolic relaxation grade 1 with ejection fraction estimated at 60 to 65%. 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 TIA (transient ischemic attack) Surgical History Surgical History H/O inguinal hernia repair Family History Family History Father Acute myocardial infarction Grandparent Cerebrovascular accident Diabetes mellitus Social History Social History Social History: The patient lives in [place] with his . They have 3 children. he is retired. he designates his , Gaby, as his surrogate decision maker and he wishes to be a full code. He smoked up to a pack of cigarettes per day and quit in 2011. He drinks a half of a pint of [place] each Monday. He denies drug use. Smoking packs per day: 1 Smoking cigarettes per day: 20.0 Years smoked: 60 Smoking pack-years: 60.00 Smoking status: Former smoker Additional smoking assessment comments: quit in 2011 Alcohol intake: current Drinks per week: 2 Alcohol use details: ocassionally Substance use: former Substance use type: marijuana Do You Feel Safe in your Home?: Yes Lack of Transportation: No Lack of Food: Never True Current Housing: I Have Housing Concerned About Future Housing: No Difficulty Paying Gas/Electric Bills: No Difficulty Paying for Meds: No Currently Unemployed: No Education: Grade School Difficulty w/ Childcare or Family Care: No Living arrangements: with family Occupation/Education: retired Gender identity (if verbalized by the patient): Male Sexual Orientation (if Verbalized by the Patient): Straight or Heterosexual Spiritual care concerns: No Agree to blood products: Yes Exam 2 Narrative: GENERAL: [Well-appearing, well-nourished, and in no acute distress.] HEAD: [Normocephalic, atraumatic.] EYES: [PERRLA and EOMI.] ENT: Nares clear, no rhinorrhea or epistaxis. Mucous membranes moist. NECK: Supple. CHEST: Diminished air entry bilaterally with a expiratory phase is prolonged, scattered wheezing appreciated but no retractions or accessory muscle use for respiration. HEART: [Regular rate and rhythm]. No murmur heard. [Normal peripheral pulses.] ABDOMEN: [Soft, nondistended], [nontender], [No rigidity or guarding] EXTREMITIES: Normal range of motion. [No edema.] SKIN: Warm, dry, no rash. NEURO: [No focal deficits]. Alert and oriented [x3.] PSYCH: [Normal mood and affect.] Course Vital Signs Vital signs: Vital Signs Temperature 37.1 C 07/07/24 21:59 Pulse Rate 78 07/07/24 21:59 Respiratory Rate 20 07/07/24 21:59 Blood Pressure 187/98 H 12/15/24 21:59 Pulse Oximetry 93 07/07/24 21:59 Oxygen Delivery Nasal Cannula 07/07/24 21:59 Oxygen Flow Rate 4 07/07/24 21:59 Temperature 36.7 C 07/08/24 02:37 Pulse Rate 96 07/08/24 02:37 Respiratory Rate 18 07/08/24 02:37 Blood Pressure 181/100 H 07/08/24 02:37 Pulse Oximetry 91 07/08/24 02:37 Oxygen Delivery Nasal Cannula 07/07/24 22:09 Oxygen Flow Rate 4 07/07/24 22:09 MDM - SOB/Dyspnea MDM Narrative Medical decision making narrative: 68-year-old male with history of CHF, COPD on 4 L nasal cannula baseline with increased to 6 L with exertion. Recent hospital visit for difficulty in breathing and admission requiring IV diuretic therapy, IV antibiotics and COPD treatments. Presents today as he was having worsening difficulty breathing at his nursing facility despite nebulizer treatments. Presents today with difficulty breathing but no chest pain, back pain, fever, chills. He is awake alert answers all questions appropriately. Noted to be hypertensive in the 180 systolic but he has had elevations aside previously. No tachycardia, new hypoxia, fever or tachypnea. He does have significantly decreased air entry bilaterally but scattered wheezes are appreciated concerning for likely a COPD exacerbation with potential CHF or pneumonia component complicating his presentation. He was given IV Solu-Medrol, magnesium, nebulizer treatments through facemask and a cardiac workup was ordered including troponin, CBC, CMP, x-rays, EKG. Patient frequently re-evaluated. Patient had improvement initially with Solu-Medrol, albuterol, magnesium and steroids. His workup was rather reassuring. X-rays independent reviewed by myself and also interpreted by Radiology without any pneumonia or acute cardiopulmonary findings. He has no leukocytosis, anemia of 8.7 but at baseline. Platelets thrombocytopenic but also at baseline. Coagulation studies within normal limits. His ABG shows some chronic respiratory acidosis with a pH is 7.4 but a CO2 of 61 indicative of chronic retention and COPD. Bicarb of 37.3 consistent with kidney compensation. These are slightly worse and higher levels of pCO2 compared to his baseline consistent with his clinical exam and findings of a COPD exacerbation. Patient's electrolytes are otherwise reassuring, normal BUN and creatinine, normal glucose, normal LFTs, negative lactic acid, negative troponin, BNP down trending from previous admission and consistent with lack of any signs of fluid overload on his extremities or chest. EKG reassuring with prominent P waves consistent with COPD but no signs of acute ischemia. No ST segment changes. Re-evaluated patient once again he stated that he was having increased difficulty breathing once again but felt like he was having improvement after the initial rounds of treatment. At this time given his CO2 being higher than normal and his clinical findings of a COPD exacerbation requiring additional treatment I believe he would benefit from admission to the hospital for continued treatment. I discussed the case with the hospitalist over the phone and she accepted to observation for continues nebulization, reassessment and optimization of his COPD treatments. Family and patient were agreeable to this plan of care and significantly admitted at this time. Differential Diagnosis Differential diagnosis: Likely acute exacerbation of chronic obstructive airways disease, congestive heart failure, community acquired pneumonia and other Medical Records Attestation: I reviewed the patient's medical records. Lab Data Attestation: I reviewed the patient's lab results. 07/07/24 22:21 07/07/24 22:21 Labs: Lab Results 07/07/24 Range/Units 22:21 WBC 4.8 (4.5-10.0) K/mm3 RBC 2.94 L (4.6-6.20) M/mm3 Hgb 8.7 L (14.0-18.0) g/dL Hct 26.6 L (42.0-52.0) % MCV 90.5 (80-100) fl MCH 29.6 (26-34) pg MCHC 32.7 (32-36) g/dl RDW 14.0 (11.5-14.5) % Plt Count 130 L (150-375) k/mm3 MPV 10.5 H (7.4-10.4) fl Immature Gran % (Auto) 0.4 (0-0.5) % Neut % (Auto) 72.4 (45.5-73.1) % Lymph % (Auto) 11.2 L (18.3-44.2) % Kinney % (Auto) 14.3 H (2.6-8.5) % Eos % (Auto) 1.5 (0-4.4) % Baso % (Auto) 0.2 (0.2-1.2) % Lymph # (Auto) 0.54 L (0.9-3.2) K/mm3 Kinney # (Auto) 0.7 H (0.1-0.6) K/mm3 Eos # (Auto) 0.1 (0-0.3) K/mm3 Baso # (Auto) 0.0 (0.0-0.1) K/mm3 Abs Immat Gran (auto) 0.02 (0.00-0.031) K/mm3 Absolute Neuts (auto) 3.5 (1.3-6.7) K/mm3 Absolute Nucleated RBC 0.000 (0.0-0.012) K/mm3 Nucleated RBC % 0.0 (0.0-0.2) % % Immature Plt Fraction 3.7 (0.9-11.2) % PT 14.4 (11.1-14.7) Seconds INR 1.1 APTT 28.0 (22.3-36.8) Seconds Sodium 138 (137-145) mmol/L Potassium 4.2 (3.4-5.0) mmol/L Chloride 96 L (98-107) mmol/L Carbon Dioxide > 40 H (22-30) mmol/L Anion Gap (4-12) mmol/L BUN 19 D (9-20) mg/dL Creatinine 1.10 (0.7-1.3) mg/dL Estim Creat Clear Calc 43 ml/min Estimated GFR > 60 (59 - ) Glucose 151 H (65-110) mg/dL Lactic Acid 0.9 (0.7-2.0) mmol/L Calcium 8.9 (8.4-10.2) mg/dL Magnesium 1.7 (1.6-2.3) mg/dL Total Bilirubin 0.5 (0.2-1.3) mg/dL AST 35 (17-59) U/L ALT 28 (6-50) U/L Alkaline Phosphatase 39 (38-126) U/L Troponin I 0.026 (0.000-0.034) ng/mL NT-Pro-B Natriuret Pep 1720 H (19.9-100) pg/mL Total Protein 7.0 (6.3-8.2) g/dL Albumin 3.5 (3.5-5.1) g/dL ABG Data ABG results: 12/15/24 22:22 Puncture Site Right radial ABG pH 7.402 ABG pCO2 61.3 H* ABG pO2 78.0 L ABG PO2/FiO2 Ratio 2.17 ABG HCO3 37.3 H ABG O2 Saturation 95.2 ABG O2 Content 16.8 ABG Base Excess 10.3 A-a Gradient 107.6 Oxyhemoglobin 94.3 Total Hemoglobin 12.6 O2 Delivery Device Nasal cannula O2 Liters/Min 4.0 FiO2 36 Attestation: I personally reviewed and interpreted this ABG as follows: Interpretation: Acute on chronic hypercapnic respiratory acidosis with appropriate compensation from kidneys Imaging Data Attestation: I personally reviewed and interpreted this imaging study as follows: My impression: Clear without any signs of infection or pneumonia, no signs of fluid overload Radiologist's impression: No acute cardiothoracic process Critical Care Time Critical Care Time Critical Care Time: Yes Total Critical Care Time: 35 Discharge Plan Discharge Clinical Impression: Acute exacerbation of chronic obstructive pulmonary disease, Acute and chronic respiratory failure with hypercapnia Patient Disposition: Still a Patient Condition: Stable Time of Disposition: 01:38
[2024-07-07 23:02] LABS: NT Pro B Type Natriuretic Pept 1720 pg/mL (19.9-100); Troponin I 0.026 ng/mL (0.000-0.034)
[2024-07-07] MEDS: ALBUTEROL SULFATE NEB 2.5 MG/3 ML INH 10 MG INHALATION (23:31)
[2024-07-07] MEDS: IPRATROPIUM BR 0.02% INH SOLN 0.5 MG/2.5 ML VIAL 1 MG INHALATION (23:32)
[2024-07-07 23:39] LABS: Alveolar/Arterial O2 Gradient 107.6 mmHg; Base Excess ABG 10.3 mEq/l (+/-2.0); Fractional Inspired Oxygen 36 %; HCO3 ABG 37.3 mEq/l (22.0-26.0); Oxygen Content ABG 16.8 %vol (16.0-22.0); Oxygen Saturation ABG 95.2 % (95.0-100.0); Oxyhemoglobin 94.3 % THb (90.0-100.0); PO2 FiO2 Ratio Arterial Blood 2.17 %; Total Hemoglobin 12.6 g/dL (12.0-18.0); pH ABG 7.402 (7.350-7.450)
[2024-07-07 23:41] LABS: Device NASAL CANNULA; Modified Allen's Test Pass; PCO2 ABG 61.3 mmHg (35.0-45.0); Site Drawn RIGHT RADIAL
[2024-07-08] VITALS (14 sets, daily range): BP systolic 156–184; BP diastolic 74–100; PULSE 59–96; RESP 18–20; TEMP 36.4–36.8; O2SAT 90–99; BMI 14.1
[2024-07-08 00:08] LABS: Alanine Aminotransferase 28 U/L (6-50); Albumin Level 3.5 g/dL (3.5-5.1); Alkaline Phosphatase 39 U/L (38-126); Aspartate Amino Transferase 35 U/L (17-59); Bilirubin,Total 0.5 mg/dL (0.2-1.3); Blood Urea Nitrogen 19 mg/dL (9-20); Calcium 8.9 mg/dL (8.4-10.2); Carbon Dioxide > 40 mmol/L (22-30); Chloride 96 mmol/L (98-107); Estimated CRCL calculation 43 ml/min; Estimated Glomerular Filt Rate > 60; Glucose 151 mg/dL (65-110); Magnesium 1.7 mg/dL (1.6-2.3); Potassium 4.2 mmol/L (3.4-5.0); Sodium 138 mmol/L (137-145)
--- NOTE | 2024-07-08 01:39 | P.HP_ITS ---
H&P: HPI History of Present Illness Date/Time: 07/08/24 01:39 Chief Complaint: shortness of breath Narrative: This is a 68-year-old male with past medical history significant for COPD/emphysema, chronic hypoxic respiratory failure on 5-6 L of oxygen by nasal cannula at home continuous, former smoker, hypertension, congestive heart failure. Patient presents to the emergency room due to persistent cough produ ction of sputum, worsening shortness of breath, wheezing. Patient had a BNP of 1700, pCO2 61, hemoglobin of 8. Patient has been admitted for further evaluation management and treatment. Portable chest x-ray Comparison: 06/25/2024 Clinical History: Dyspnea Findings: Lungs are clear, without focal consolidation or pleural effusion. Cardiomediastinal silhouette is stable. Bones and soft tissues are unremarkable. Impression: Clear lungs. Possible COPD. Stable cardiomegaly. Review of Systems Review of Systems: Shortness of breath, cough productive of sputum thick brownish to yellowish PMFSH Past Medical History Medical History Degenerative disc disease Degenerative disc disease Prostate CA Status post radiation therapy. Emphysema lung COPD (chronic obstructive pulmonary disease) Hypertension CHF (congestive heart failure) Echocardiogram June 2016 showed normal left ventricular systolic function and size with mild concentric left ventricular hypertrophy and impaired diastolic relaxation grade 1 with ejection fraction estimated at 60 to 65%. 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 TIA (transient ischemic attack) Surgical History Surgical History H/O inguinal hernia repair Family History Family History Father Acute myocardial infarction Grandparent Cerebrovascular accident Diabetes mellitus Social History Social History Social History: The patient lives in [place] with his . They have 3 children. he is retired. he designates his , Gaby, as his surrogate decision maker and he wishes to be a full code. He smoked up to a pack of cigarettes per day and quit in 2011. He drinks a half of a pint of [employer] [place] each Monday. He denies drug use. Smoking packs per day: 1 Smoking cigarettes per day: 20.0 Years smoked: 60 Smoking pack-years: 60.00 Smoking status: Former smoker Additional smoking assessment comments: quit in 2011 Alcohol intake: current Drinks per week: 2 Alcohol use details: ocassionally Substance use: former Substance use type: marijuana Do You Feel Safe in your Home?: Yes Lack of Transportation: No Lack of Food: Never True Current Housing: I Have Housing Concerned About Future Housing: No Difficulty Paying Gas/Electric Bills: No Difficulty Paying for Meds: No Currently Unemployed: No Education: Grade School Difficulty w/ Childcare or Family Care: No Living arrangements: with family Occupation/Education: retired Gender identity (if verbalized by the patient): Male Sexual Orientation (if Verbalized by the Patient): Straight or Heterosexual Spiritual care concerns: No Agree to blood products: Yes Meds Home Medications and Allergies Home Medications ?Medication ?Instructions ?Recorded ?Confirmed ?Type epinephrine 0.3 mg/0.3 mL 0.3 mg (0.3 mL) IM ONCE PRN 12/10/23 07/08/24 Rx injection, auto-injector (EpiPen) anaphylaxis #2 ea ipratropium 0.5 mg-albuterol 3 mg 3 ml inhalation QID #360 mL 02/09/24 07/08/24 Rx (2.5 mg base)/3 mL nebulization soln fluticasone fur. 100 mcg-umeclid See Rx Instructions .Route 02/16/24 07/08/24 Rx 62.5 mcg-vilant 25 mcg .COMPLEX #60 ea inhalat.powder (Trelegy Ellipta) valsartan 320 1 tablet PO DAILY #90 tabs 05/20/24 07/08/24 Rx mg-hydrochlorothiazide 25 mg tablet Allergies Allergy/AdvReac Type Severity Reaction Status Date / Time bee venom protein (honey bee) Allergy Unknown ANAPHALAXIS Verified 07/08/24 02:37 Vital Signs Vital Signs - 24 hr 07/07/24 21:59 07/07/24 22:07 07/07/24 22:08 Temperature 98.8 F Pulse Rate 78 69 85 Respiratory Rate 20 20 Blood Pressure 187/98 H 189/87 H Pulse Oximetry 93 97 Oxygen Delivery Nasal Cannula Oxygen Flow Rate 4 07/07/24 22:09 Temperature Pulse Rate Respiratory Rate Blood Pressure Pulse Oximetry 97 Oxygen Delivery Nasal Cannula Oxygen Flow Rate 4 Exam Narrative: laying in a stretcher Const: General: cooperative, comfortable, no acute distress, well developed, alert, awake, ill appearing chronically and underweight Nutritional Appearance: average body habitus Orientation/consciousness: patient oriented x3 HENMT: Head: normal to inspection, normocephalic and atraumatic Ears: hearing grossly normal bilaterally Face/Nose/Sinus: normal facial exam Face and sinus: normal facial exam Eyes: General: appearance normal, both eyes and all related structures Pupils: Equal, round and reactive pupils present EOM: EOMs intact bilaterally Neck: Neck: full ROM, no lymphadenopathy and no JVD Thyroid: thyroid normal Lymphatic: no lymphadenopathy noted Resp: Effort & Inspection: normal respiratory effort and able to speak in complete sentences Auscultation: clear to auscultation bilaterally Cardio: Jugular venous distension: no JVD Rate: regular rate Rhythm: regular rhythm Heart sounds: S1 normal heart sound present and S2 normal heart sound present GI: GI Palp: Yes Soft to palpation and Yes No hepatosplenomegaly present : General: Yes deferred Skin: Rashes: no rashes Wounds: no wounds Neuro: General: patient oriented x3 and CN's II-XI intact bilaterally Cranial nerves: Yes CN's II-XII intact bilaterally and Yes Equal, round and reactive pupils present Cognition (Neuro): normal cognition Speech: normal speech Gait exam (Neuro): Normal gait present Motor exam (neuro): 5/5 motor strength present throughout Extrem: General: normal to inspection, full ROM, no joint enlargement and no pedal edema H&P: Results Labs Labs: Short CBC 07/07/24 Range/Units 22:21 WBC 4.8 (4.5-10.0) K/mm3 Hgb 8.7 L (14.0-18.0) g/dL Hct 26.6 L (42.0-52.0) % Plt Count 130 L (150-375) k/mm3 BMP 07/07/24 22:21 Sodium 138 Potassium 4.2 Chloride 96 L Carbon Dioxide > 40 H BUN 19 D Creatinine 1.10 Glucose 151 H Calcium 8.9 Cardiac Enzymes 07/07/24 Range/Units 22:21 Troponin I 0.026 (0.000-0.034) ng/mL Liver Function 07/07/24 Range/Units 22:21 Total Bilirubin 0.5 (0.2-1.3) mg/dL AST 35 (17-59) U/L ALT 28 (6-50) U/L Alkaline Phosphatase 39 (38-126) U/L Albumin 3.5 (3.5-5.1) g/dL Assessment and Plan Assessment and plan (1) Acute and chronic respiratory failure with hypercapnia: Code(s): J96.22 - Acute and chronic respiratory failure with hypercapnia Status: Acute Assessment and Plan: patient is usually on 5-6 L of oxygen at home by nasal cannula (2) Acute exacerbation of chronic obstructive pulmonary disease: Code(s): J44.1 - Chronic obstructive pulmonary disease with (acute) exacerbation Status: Acute Assessment and Plan: breathing treatments started on Rocephin and Zithromax systemic steroids (3) Former smoker: Code(s): Z87.891 - Personal history of nicotine dependence Status: Resolved Assessment and Plan: stable (4) Chronic hypoxic respiratory failure: Code(s): J96.11 - Chronic respiratory failure with hypoxia Status: Acute Assessment and Plan: patient uses supplemental oxygen at home 5-6 L by nasal cannula Hospitalist MIPS Advance Care Plan I have confirmed that the patient's Advanced Care Plan is present, code status is documented, or surrogate decision maker is listed in patient medical record.: Yes Medication Reconciliation I have utilized all available resources to obtain, update and review the patients current medications (includes all prescriptions, OTC, herbals, cannabis, and nutritional supplements).: Yes
[2024-07-08] MEDS: AZITHROMYCIN 500 MG/NS 250 ML 500 MG/250 ML BAG 250 MG IVPB (01:58)
[2024-07-08] MEDS: VALSARTAN 160 MG TABLET 320 MG PO (01:58)
--- NOTE | 2024-07-08 02:35 | ADMGEN ---
This patient, Kenney Varela Sr., was admitted to Medical Room 261-01. Patient/family oriented to hospital policies and general routines including ID bracelet, bed and alarms, visiting hours, pain management, procedures, bathroom and other care routines, personal items, smoking policy, room service/diet, and visiting hours. Information on how to activate the Rapid Response Team has been discussed. Patient/Family are encouraged to report perceived risks to care and to ask questions if they do not understand what they are told or what they should do.
--- NOTE | 2024-07-08 02:43 | PC.NURSE ---
Admission report to [facility].
[2024-07-08] MEDS: methylPREDNISolone SOD SUCC 125 MG VIAL 60 MG IV PUSH ×2 (06:26→11:07)
[2024-07-08] MEDS: IPRATROPIUM 0.5 MG/ALBUTEROL SULFATE 2.5 MG AMPUL.NEB 3 ML INHALATION ×2 (07:56→13:42)
[2024-07-08] MEDS: FLUTICASONE/UMECLIDIN/VILANTER 100-62.5-25 MCG ELLIPTA 1 PUFF INHALATION (07:58)
[2024-07-08] MEDS: hydroCHLOROthiazide 25 MG TABLET PO (08:30)
--- NOTE | 2024-07-08 11:01 | PM.IMPN ---
Progress Note: A&P Assessment and Plan (1) Acute and chronic respiratory failure with hypercapnia: Code(s): J96.22 - Acute and chronic respiratory failure with hypercapnia Status: Acute Assessment and Plan: - Likely related to COPD exacerbation. - patient is usually on 5-6 L of oxygen at home by nasal cannula. - Currently on 5L/NC with sats > 90 %. - Continue scheduled duoneb updrafts. - IV steroids decreased. - We'll consider changing steroids to PO tomorrow. - Monitor for acute changes in respiratory status. (2) Acute exacerbation of chronic obstructive pulmonary disease: Code(s): J44.1 - Chronic obstructive pulmonary disease with (acute) exacerbation Status: Acute Assessment and Plan: - Mgt as above. - Continue breathing treatments - Does not appear to be an infectious process and abx discontinued. - Continue mgt as above. (3) Former smoker: Code(s): Z87.891 - Personal history of nicotine dependence Status: Resolved Assessment and Plan: stable. (4) Chronic hypoxic respiratory failure: Code(s): J96.11 - Chronic respiratory failure with hypoxia Status: Acute Assessment and Plan: patient uses supplemental oxygen at home 5-6 L by nasal cannula. - Currently on 5L/NC with sats > 90 %. - We'll consider increasing O2 to 6L/NC if pt uncomfortable as he uses 6L/NC at home. (5) Hypertension: Code(s): I10 - Essential (primary) hypertension Status: Chronic Assessment and Plan: - BP trending high. - Started on amlodipine. - Monitor BP closely and adjust meds as needed. Time Spent With Patient Time with patient: 15 - 25 minutes Subjective Date/time seen: 07/08/24 10:00 Patient states he's feeling better. States he uses 6L/NC O2 at home because he's always walking around doing something in the house. Interval history: Patient was admitted for COPD exacerbation. Patient calm on bedrest with some slight SOB with minimal activity. O2 increased from 4L/NC to 5L/NC and we'll consider increasing it if patient is still not comfortable, though his O2 sats are > 90%. Review of Systems Review of Systems: All systems reviewed & are unremarkable except as noted in HPI and below Exam Narrative: General: Fair appearing, no acute distress. HEENT: Atraumatic, PERRL, EOM, moist mucosa. NECK: Supple. Lungs: Diminished bilaterally. Heart: RRR, no murmurs. Abdomen: Soft, non-tender, non-distended, +BS X4 quadrants. Extremities: Acyanotic, no edema. Skin: Warm and dry. Neuro: Well oriented. CN II-XII grossly intact. Psych: Pleasant and co-operative. Objective Data Vital Signs Vital Signs: Vital Signs - 24 hr 07/07/24 21:59 07/07/24 22:07 07/07/24 22:08 Temperature 98.8 F Pulse Rate 78 69 85 Respiratory Rate 20 20 Blood Pressure 187/98 H 189/87 H Pulse Oximetry 93 97 Oxygen Delivery Nasal Cannula Oxygen Flow Rate 4 Fraction of Inspired Oxygen 07/07/24 22:09 07/08/24 02:37 07/08/24 06:00 Temperature 98.0 F 97.9 F Pulse Rate 96 60 Respiratory Rate 18 18 Blood Pressure 181/100 H 169/87 H Pulse Oximetry 97 91 99 Oxygen Delivery Nasal Cannula Oxygen Flow Rate 4 Fraction of Inspired Oxygen 07/08/24 07:56 07/08/24 07:56 07/08/24 08:06 Temperature Pulse Rate 60 62 Respiratory Rate 20 20 Blood Pressure Pulse Oximetry 96 Oxygen Delivery Nasal Cannula Oxygen Flow Rate 4 Fraction of Inspired Oxygen 36 07/08/24 08:29 07/08/24 08:30 Temperature 97.5 F L Pulse Rate 66 66 Respiratory Rate 18 18 Blood Pressure 181/86 H Pulse Oximetry 96 96 Oxygen Delivery Nasal Cannula Oxygen Flow Rate 4 Fraction of Inspired Oxygen 36 Intake/Output Intake/Output: Intake & Output 07/05/24 07/06/24 07/07/24 07/08/24 23:59 23:59 23:59 23:59 Intake Total 470 Output Total 500 Balance -30 Meds/Results Medications: Active Medications Generic Name Dose Route Start Last Admin Trade Name Freq PRN Reason Stop Dose Admin Albuterol/Ipratropium 3 ml 07/08/24 08:00 07/08/24 07:56 Ipratropium 0.5 Mg/Albuterol Sulfate 2.5 Mg Ampul.Neb 3 Ml INHALATION 3 ml Q6HRT PRICILA Administration Fluticasone/Umeclidinium/Vilanterol 1 puff 07/08/24 08:00 07/08/24 07:58 Fluticasone/Umeclidin/Vilanter 100-62.5-25 Mcg Ellipta INHALATION 1 puff DAILYRT PRICILA Administration Hydrochlorothiazide 25 mg 07/08/24 09:00 07/08/24 08:30 Hydrochlorothiazide 25 Mg Tablet PO 25 mg QAM PRICILA Administration Methylprednisolone Sodium Succinate 60 mg 07/08/24 06:00 07/08/24 06:26 Methylprednisolone Sod Succ 125 Mg Vial IV PUSH 60 mg Q6HR PRICILA Administration Valsartan 320 mg 07/09/24 09:00 Valsartan 160 Mg Tablet PO QAM [facility] Radiology Results: ITS Impressions Chest X-Ray 07/08/24 06:09 Impression: Clear lungs. Possible COPD. Stable cardiomegaly. Labs Labs: Laboratory Results - last 24 hr 07/07/24 07/07/24 22:21 22:22 WBC 4.8 RBC 2.94 L Hgb 8.7 L Hct 26.6 L MCV 90.5 MCH 29.6 MCHC 32.7 RDW 14.0 Plt Count 130 L MPV 10.5 H Immature Gran % (Auto) 0.4 Neut % (Auto) 72.4 Lymph % (Auto) 11.2 L [place] % (Auto) 14.3 H Eos % (Auto) 1.5 Baso % (Auto) 0.2 Lymph # (Auto) 0.54 L [place] # (Auto) 0.7 H Eos # (Auto) 0.1 Baso # (Auto) 0.0 Abs Immat Gran (auto) 0.02 Absolute Neuts (auto) 3.5 Absolute Nucleated RBC 0.000 Nucleated RBC % 0.0 % Immature Plt Fraction 3.7 PT 14.4 INR 1.1 APTT 28.0 Puncture Site Right radial ABG pH 7.402 ABG pCO2 61.3 H* ABG pO2 78.0 L ABG PO2/FiO2 Ratio 2.17 ABG HCO3 37.3 H ABG O2 Saturation 95.2 ABG O2 Content 16.8 ABG Base Excess 10.3 A-a Gradient 107.6 Oxyhemoglobin 94.3 Total Hemoglobin 12.6 O2 Delivery Device Nasal cannula O2 Liters/Min 4.0 FiO2 36 Sodium 138 Potassium 4.2 Chloride 96 L Carbon Dioxide > 40 H Anion Gap BUN 19 D Creatinine 1.10 Estim Creat Clear Calc 43 Estimated GFR > 60 Glucose 151 H Lactic Acid 0.9 Calcium 8.9 Magnesium 1.7 Total Bilirubin 0.5 AST 35 ALT 28 Alkaline Phosphatase 39 Troponin I 0.026 NT-Pro-B Natriuret Pep 1720 H Total Protein 7.0 Albumin 3.5 Quality VTE Prophylaxis VTE prophylaxis: mechanical ordered and pharmacologic ordered Hospitalist MIPS Advance Care Plan I have confirmed that the patient's Advanced Care Plan is present, code status is documented, or surrogate decision maker is listed in patient medical record.: Yes Medication Reconciliation I have utilized all available resources to obtain, update and review the patients current medications (includes all prescriptions, OTC, herbals, cannabis, and nutritional supplements).: Yes
[2024-07-08] MEDS: amLODIPine BESYLATE 5 MG TABLET PO (11:35)
[2024-07-08] MEDS: guaiFENesin 12 HR 600 MG TABCR PO (21:32)
[2024-07-09] VITALS (13 sets, daily range): BP systolic 152–185; BP diastolic 76–90; PULSE 56–99; RESP 18–20; TEMP 36.4–36.9; O2SAT 91–100
[2024-07-09] MEDS: FLUTICASONE/UMECLIDIN/VILANTER 100-62.5-25 MCG ELLIPTA 1 PUFF INHALATION (08:21)
[2024-07-09] MEDS: VALSARTAN 160 MG TABLET 320 MG PO (08:26)
[2024-07-09] MEDS: amLODIPine BESYLATE 5 MG TABLET PO (08:27)
[2024-07-09] MEDS: hydroCHLOROthiazide 25 MG TABLET PO (08:27)
[2024-07-09] MEDS: guaiFENesin 12 HR 600 MG TABCR PO ×2 (08:27→20:49)
[2024-07-09] MEDS: IPRATROPIUM 0.5 MG/ALBUTEROL SULFATE 2.5 MG AMPUL.NEB 3 ML INHALATION ×3 (08:27→21:32)
[2024-07-09] MEDS: ENOXAPARIN 40 MG/0.4 ML SYRINGE SUB-Q (08:28)
--- NOTE | 2024-07-09 12:25 | PM.IMPN ---
Progress Note: A&P Assessment and Plan (1) Acute and chronic respiratory failure with hypercapnia: Code(s): J96.22 - Acute and chronic respiratory failure with hypercapnia Status: Acute Assessment and Plan: patient is usually on 5-6 L of oxygen at home by nasal cannula (2) Acute exacerbation of chronic obstructive pulmonary disease: Code(s): J44.1 - Chronic obstructive pulmonary disease with (acute) exacerbation Status: Acute Assessment and Plan: CXR with no infiltrates. Continue breathing treatments Continue Rocephin and Zithromax We'll change steroids to PO and taper. Continue supplemental O2 now on 5L/NC. (3) Chronic hypoxic respiratory failure: Code(s): J96.11 - Chronic respiratory failure with hypoxia Status: Acute Assessment and Plan: Patient uses supplemental oxygen at home 6L/NC Continue supplemental O2 now on 5L/NC with sats > 90 %. (4) Former smoker: Code(s): Z87.891 - Personal history of nicotine dependence Status: Resolved Assessment and Plan: stable Time Spent With Patient Time with patient: 15 - 25 minutes Subjective Date/time seen: 07/09/24 10:25 Patient states he's feeling better but is not yet at his normal, still having more SOB and feels congested but just started coughing up phlegm. Interval history: Patient calm on bedrest with family bedside and looks to be in no acute distress. Patient admitted for COPD exacerbation. Review of Systems Review of Systems: All systems reviewed & are unremarkable except as noted in HPI and below Exam Narrative: General: Well appearing, no acute distress. HEENT: Atraumatic, PERRL, EOM, moist mucosa. NECK: Supple. Lungs: Diminished bilaterally. Heart: RRR, no murmurs. Abdomen: Soft, non-tender, non-distended, +BS X4 quadrants. Extremities: Acyanotic, no edema. Skin: Warm and dry. Neuro: Well oriented. CN II-XII grossly intact. Psych: Pleasant and co-operative. Objective Data Vital Signs Vital Signs: Vital Signs - 24 hr 07/08/24 12:37 07/08/24 13:42 07/08/24 13:53 Temperature Pulse Rate 63 61 Respiratory Rate 20 20 Blood Pressure 184/82 H Pulse Oximetry Oxygen Delivery Oxygen Flow Rate Fraction of Inspired Oxygen 07/08/24 14:00 07/08/24 16:30 07/08/24 20:00 Temperature 98.3 F 98.1 F Pulse Rate 59 L 66 Respiratory Rate 18 18 Blood Pressure 171/76 H 156/80 H Pulse Oximetry 98 93 94 Oxygen Delivery Nasal Cannula Oxygen Flow Rate 5 Fraction of Inspired Oxygen 07/08/24 22:00 07/09/24 06:00 07/09/24 08:24 Temperature 98.2 F 97.9 F 97.5 F L Pulse Rate 65 99 97 Respiratory Rate 20 20 20 Blood Pressure 166/74 H 167/86 H 185/85 H Pulse Oximetry 90 100 91 Oxygen Delivery Oxygen Flow Rate Fraction of Inspired Oxygen 07/09/24 08:27 07/09/24 08:28 07/09/24 08:35 Temperature Pulse Rate Respiratory Rate 20 Blood Pressure Pulse Oximetry 96 96 Oxygen Delivery Nasal Cannula Nasal Cannula Oxygen Flow Rate 4 4 Fraction of Inspired Oxygen 36 Intake/Output Intake/Output: Intake & Output 07/06/24 07/07/24 07/08/24 07/09/24 23:59 23:59 23:59 23:59 Intake Total 1500 640 Output Total 1000 1500 Balance 500 -860 Meds/Results Medications: Active Medications Generic Name Dose Route Start Last Admin Trade Name Freq PRN Reason Stop Dose Admin Albuterol/Ipratropium 3 ml 07/08/24 08:00 07/09/24 08:27 Ipratropium 0.5 Mg/Albuterol Sulfate 2.5 Mg Ampul.Neb 3 Ml INHALATION 3 ml Q6HRT PRICILA Administration Amlodipine Besylate 5 mg 07/08/24 11:25 07/09/24 08:27 Amlodipine Besylate 5 Mg Tablet PO 5 mg DAILY PRICILA Administration Enoxaparin Sodium 40 mg 07/09/24 09:00 07/09/24 08:28 Enoxaparin 40 Mg/0.4 Ml Syringe SUB-Q 40 mg DAILY PRICILA Administration Fluticasone/Umeclidinium/Vilanterol 1 puff 07/08/24 08:00 07/08/24 07:58 Fluticasone/Umeclidin/Vilanter 100-62.5-25 Mcg Ellipta INHALATION 1 puff DAILYRT PRICILA Administration Guaifenesin 600 mg 07/08/24 21:00 07/09/24 08:27 Guaifenesin 12 Hr 600 Mg Tabcr PO 600 mg Q12HR PRICILA Administration Hydrochlorothiazide 25 mg 07/08/24 09:00 07/09/24 08:27 Hydrochlorothiazide 25 Mg Tablet PO 25 mg QAM PRICILA Administration Methylprednisolone Sodium Succinate 80 mg 07/09/24 14:00 Methylprednisolone Sod Succ 125 Mg Vial IV PUSH Q8HR PRICILA Valsartan 320 mg 07/09/24 09:00 07/09/24 08:26 Valsartan 160 Mg Tablet PO 320 mg QAM PRICILA Administration Radiology Results: ITS Impressions Chest X-Ray 07/08/24 06:09 Impression: Clear lungs. Possible COPD. Stable cardiomegaly. Quality VTE Prophylaxis VTE prophylaxis: mechanical ordered and pharmacologic ordered Hospitalist MIPS Advance Care Plan I have confirmed that the patient's Advanced Care Plan is present, code status is documented, or surrogate decision maker is listed in patient medical record.: Yes Medication Reconciliation I have utilized all available resources to obtain, update and review the patients current medications (includes all prescriptions, OTC, herbals, cannabis, and nutritional supplements).: Yes
[2024-07-09] MEDS: predniSONE 20 MG TABLET 40 MG PO (16:02)
[2024-07-10] VITALS (12 sets, daily range): BP systolic 143–178; BP diastolic 79–91; PULSE 55–66; RESP 18–20; TEMP 36.4–36.8; O2SAT 96–99
[2024-07-10] MEDS: IPRATROPIUM 0.5 MG/ALBUTEROL SULFATE 2.5 MG AMPUL.NEB 3 ML INHALATION ×3 (02:59→21:45)
[2024-07-10 08:52] LABS: Hematocrit 33.4 % (42.0-52.0); Hemoglobin 10.9 g/dL (14.0-18.0); Immature Granulocyte Absolute 0.03 K/mm3 (0.00-0.031); Immature Granulocyte Percent A 0.6 % (0-0.5); Lymphocytes Absolute Auto 0.59 K/mm3 (0.9-3.2); Lymphocytes Percent Auto 12.7 % (18.3-44.2); Mean Corpuscular HGB Conc 32.6 g/dl (32-36); Mean Corpuscular Hemoglobin 28.5 pg (26-34); Mean Corpuscular Volume 87.4 fl (80-100); Mean Platelet Volume 9.7 fl (7.4-10.4); Monocytes Absolute Auto 0.4 K/mm3 (0.1-0.6); Monocytes Percent Auto 8.2 % (2.6-8.5); Neutrophils Absolute Auto 3.7 K/mm3 (1.3-6.7); Neutrophils Percent Auto 78.5 % (45.5-73.1); Platelet Count Result 149 k/mm3 (150-375); Red Blood Count 3.82 M/mm3 (4.6-6.20); White Blood Count 4.7 K/mm3 (4.5-10.0)
[2024-07-10] MEDS: guaiFENesin 12 HR 600 MG TABCR PO ×2 (08:55→20:32)
[2024-07-10] MEDS: predniSONE 20 MG TABLET 40 MG PO (08:55)
[2024-07-10] MEDS: VALSARTAN 160 MG TABLET 320 MG PO (08:55)
[2024-07-10] MEDS: ENOXAPARIN 40 MG/0.4 ML SYRINGE SUB-Q (08:55)
[2024-07-10] MEDS: amLODIPine BESYLATE 5 MG TABLET PO (08:55)
[2024-07-10] MEDS: hydroCHLOROthiazide 25 MG TABLET PO (08:55)
[2024-07-10 09:12] LABS: Alanine Aminotransferase 21 U/L (6-50); Albumin Level 3.9 g/dL (3.5-5.1); Alkaline Phosphatase 42 U/L (38-126); Anion Gap 2 mmol/L (4-12); Aspartate Amino Transferase 19 U/L (17-59); Bilirubin,Total 0.5 mg/dL (0.2-1.3); Blood Urea Nitrogen 29 mg/dL (9-20); Calcium 9.3 mg/dL (8.4-10.2); Carbon Dioxide 39 mmol/L (22-30); Chloride 94 mmol/L (98-107); Estimated CRCL calculation 36 ml/min; Estimated Glomerular Filt Rate > 60; Glucose 86 mg/dL (65-110); Potassium 4.3 mmol/L (3.4-5.0); Sodium 135 mmol/L (137-145)
[2024-07-10] MEDS: FLUTICASONE/UMECLIDIN/VILANTER 100-62.5-25 MCG ELLIPTA 1 PUFF INHALATION (09:15)
--- NOTE | 2024-07-10 11:29 | P.PNIM_ITS ---
Progress Note: A&P Assessment and Plan (1) Acute and chronic respiratory failure with hypercapnia: Code(s): J96.22 - Acute and chronic respiratory failure with hypercapnia Status: Acute Assessment and Plan: * patient is usually on 5-6 L of oxygen at home by nasal cannula * Currently 02@4LNC. (2) Acute exacerbation of chronic obstructive pulmonary disease: Code(s): J44.1 - Chronic obstructive pulmonary disease with (acute) exacerbation Status: Acute Assessment and Plan: * CXR with no infiltrates. * Continue breathing treatments * Completed Rocephin and Zithromax * Prednisone 40 mg PO daily. * Continue supplemental O2 now on 4L/NC at rest. Patient uses 6 L NC with activity. (3) Chronic hypoxic respiratory failure: Code(s): J96.11 - Chronic respiratory failure with hypoxia Status: Acute Assessment and Plan: * Patient uses supplemental oxygen at home 6L/NC with activity * Continue supplemental O2 now on 4L/NC with sats > 90 %. (4) Former smoker: Code(s): Z87.891 - Personal history of nicotine dependence Status: Resolved Assessment and Plan: * stable Subjective Date/time seen: 07/10/24 11:29 Interval history: Patient reports that he feels 50% better. Patient reports shortness of breath on exertion. Patient denies chest pain, palpitations, headache, or dizziness. Review of Systems Review of Systems: All systems reviewed & are unremarkable except as noted in HPI and below Exam Const: General: comfortable and no acute distress Resp: Auscultation: diminished lung sounds Cardio: Rate: regular rate Rhythm: regular rhythm GI: GI Palp: Yes Soft to palpation Auscultation: normal bowel sounds Skin: General skin exam: no rashes or lesions noted Neuro: Speech: normal speech Extrem: General: no pedal edema Psych: Mental Status: mental status grossly normal Affect: normal affect Objective Data Vital Signs Vital Signs: Vital Signs - 24 hr 07/09/24 12:00 07/09/24 13:50 07/09/24 14:00 Temperature 98.5 F Pulse Rate 64 56 L Respiratory Rate 20 18 Blood Pressure 166/90 H 152/76 H Pulse Oximetry 95 Oxygen Delivery Oxygen Flow Rate Fraction of Inspired Oxygen 07/09/24 14:26 07/09/24 21:32 07/09/24 21:34 Temperature Pulse Rate 62 57 L Respiratory Rate 20 20 Blood Pressure Pulse Oximetry 96 Oxygen Delivery Nasal Cannula Oxygen Flow Rate 4 Fraction of Inspired Oxygen 36 07/09/24 21:43 07/09/24 21:52 07/10/24 03:01 Temperature 97.9 F Pulse Rate 60 99 55 L Respiratory Rate 20 20 18 Blood Pressure 157/88 H Pulse Oximetry 100 Oxygen Delivery Oxygen Flow Rate Fraction of Inspired Oxygen 07/10/24 06:00 07/10/24 09:15 07/10/24 09:30 Temperature 97.5 F L Pulse Rate 60 64 63 Respiratory Rate 20 18 20 Blood Pressure 167/80 H Pulse Oximetry 96 Oxygen Delivery Oxygen Flow Rate Fraction of Inspired Oxygen 07/10/24 09:45 Temperature Pulse Rate Respiratory Rate Blood Pressure Pulse Oximetry 96 Oxygen Delivery Nasal Cannula Oxygen Flow Rate 4 Fraction of Inspired Oxygen 36 Intake/Output Intake/Output: Intake & Output 07/07/24 07/08/24 07/09/24 07/10/24 23:59 23:59 23:59 23:59 Intake Total 1500 1550 300 Output Total 1000 3000 600 Balance 500 -1450 -300 Meds/Results Medications: Active Medications Generic Name Dose Route Start Last Admin Trade Name Freq PRN Reason Stop Dose Admin Albuterol/Ipratropium 3 ml 07/08/24 08:00 07/10/24 09:10 Ipratropium 0.5 Mg/Albuterol Sulfate 2.5 Mg Ampul.Neb 3 Ml INHALATION 3 ml Q6HRT PRICILA Administration Amlodipine Besylate 5 mg 07/08/24 11:25 07/10/24 08:55 Amlodipine Besylate 5 Mg Tablet PO 5 mg DAILY PRICILA Administration Enoxaparin Sodium 40 mg 07/09/24 09:00 07/10/24 08:55 Enoxaparin 40 Mg/0.4 Ml Syringe SUB-Q 40 mg DAILY PRICILA Administration Fluticasone/Umeclidinium/Vilanterol 1 puff 07/08/24 08:00 07/10/24 09:15 Fluticasone/Umeclidin/Vilanter 100-62.5-25 Mcg Ellipta INHALATION 1 puff DAILYRT PRICILA Administration Guaifenesin 600 mg 07/08/24 21:00 07/10/24 08:55 Guaifenesin 12 Hr 600 Mg Tabcr PO 600 mg Q12HR PRICILA Administration Hydrochlorothiazide 25 mg 07/08/24 09:00 07/10/24 08:55 Hydrochlorothiazide 25 Mg Tablet PO 25 mg QAM PRICILA Administration Prednisone 40 mg 07/09/24 17:00 07/10/24 08:55 Prednisone 20 Mg Tablet PO 40 mg BID PRICILA Administration Valsartan 320 mg 07/09/24 09:00 07/10/24 08:55 Valsartan 160 Mg Tablet PO 320 mg QAM PRICILA Administration Radiology Results: ITS Impressions Chest X-Ray 07/08/24 06:09 Impression: Clear lungs. Possible COPD. Stable cardiomegaly. Labs Labs: Laboratory Results - last 24 hr 07/10/24 07/10/24 08:33 08:34 WBC 4.7 RBC 3.82 L Hgb 10.9 L Hct 33.4 L MCV 87.4 MCH 28.5 MCHC 32.6 RDW 14.0 Plt Count 149 L MPV 9.7 Immature Gran % (Auto) 0.6 H Neut % (Auto) 78.5 H Lymph % (Auto) 12.7 L [place] % (Auto) 8.2 Eos % (Auto) 0.0 Baso % (Auto) 0.0 L Lymph # (Auto) 0.59 L [place] # (Auto) 0.4 Eos # (Auto) 0.0 Baso # (Auto) 0.0 Abs Immat Gran (auto) 0.03 Absolute Neuts (auto) 3.7 Absolute Nucleated RBC 0.000 Nucleated RBC % 0.0 Sodium 135 L Potassium 4.3 Chloride 94 L Carbon Dioxide 39 H Anion Gap 2 L BUN 29 H D Creatinine 1.30 Estim Creat Clear Calc 36 Estimated GFR > 60 Glucose 86 Calcium 9.3 Total Bilirubin 0.5 AST 19 ALT 21 Alkaline Phosphatase 42 Total Protein 7.0 Albumin 3.9 Quality VTE Prophylaxis VTE prophylaxis: mechanical ordered and pharmacologic ordered
[2024-07-10 14:06] LABS: Magnesium 1.9 mg/dL (1.6-2.3)
[2024-07-11] VITALS (7 sets, daily range): BP systolic 153–172; BP diastolic 90–99; PULSE 52–71; RESP 16–20; TEMP 36.3–36.7; O2SAT 98–100
[2024-07-11] MEDS: IPRATROPIUM 0.5 MG/ALBUTEROL SULFATE 2.5 MG AMPUL.NEB 3 ML INHALATION ×2 (02:10→05:57)
[2024-07-11 06:43] LABS: Basophils Percent Auto 0.2 % (0.2-1.2); Hematocrit 32.2 % (42.0-52.0); Hemoglobin 10.5 g/dL (14.0-18.0); Immature Granulocyte Absolute 0.03 K/mm3 (0.00-0.031); Immature Granulocyte Percent A 0.6 % (0-0.5); Lymphocytes Absolute Auto 0.78 K/mm3 (0.9-3.2); Lymphocytes Percent Auto 16.5 % (18.3-44.2); Mean Corpuscular HGB Conc 32.6 g/dl (32-36); Mean Corpuscular Hemoglobin 28.2 pg (26-34); Mean Corpuscular Volume 86.6 fl (80-100); Mean Platelet Volume 9.8 fl (7.4-10.4); Monocytes Absolute Auto 0.5 K/mm3 (0.1-0.6); Monocytes Percent Auto 10.6 % (2.6-8.5); Neutrophils Absolute Auto 3.4 K/mm3 (1.3-6.7); Neutrophils Percent Auto 72.1 % (45.5-73.1); Platelet Count Result 164 k/mm3 (150-375); Red Blood Count 3.72 M/mm3 (4.6-6.20); Red Cell Distribution Width 13.9 % (11.5-14.5); White Blood Count 4.7 K/mm3 (4.5-10.0)
[2024-07-11 06:59] LABS: Alanine Aminotransferase 19 U/L (6-50); Albumin Level 3.7 g/dL (3.5-5.1); Alkaline Phosphatase 42 U/L (38-126); Anion Gap 1 mmol/L (4-12); Aspartate Amino Transferase 16 U/L (17-59); Bilirubin,Total 0.5 mg/dL (0.2-1.3); Blood Urea Nitrogen 32 mg/dL (9-20); Calcium 9.2 mg/dL (8.4-10.2); Carbon Dioxide 39 mmol/L (22-30); Chloride 95 mmol/L (98-107); Estimated CRCL calculation 33 ml/min; Estimated Glomerular Filt Rate > 60; Glucose 79 mg/dL (65-110); Potassium 4.3 mmol/L (3.4-5.0); Sodium 135 mmol/L (137-145)
[2024-07-11] MEDS: ENOXAPARIN 40 MG/0.4 ML SYRINGE SUB-Q (08:11)
[2024-07-11] MEDS: VALSARTAN 160 MG TABLET 320 MG PO (08:11)
[2024-07-11] MEDS: hydroCHLOROthiazide 25 MG TABLET PO (08:12)
[2024-07-11] MEDS: predniSONE 20 MG TABLET 40 MG PO (08:12)
[2024-07-11] MEDS: guaiFENesin 12 HR 600 MG TABCR PO (08:12)
[2024-07-11] MEDS: amLODIPine BESYLATE 5 MG TABLET PO (08:12)
[2024-07-11] MEDS: FLUTICASONE/UMECLIDIN/VILANTER 100-62.5-25 MCG ELLIPTA 1 PUFF INHALATION (08:17)
--- NOTE | 2024-07-11 10:35 | P.DS_ITS ---
DS: Admitting Diagnosis Discharge Date 07/11/24 Admitting Diagnosis Shortness of breath. DS: Discharge Diagnosis Discharge Diagnosis (1) Acute and chronic respiratory failure with hypercapnia: Code(s): J96.22 - Acute and chronic respiratory failure with hypercapnia Status: Acute (2) Acute exacerbation of chronic obstructive pulmonary disease: Code(s): J44.1 - Chronic obstructive pulmonary disease with (acute) exacerbation Status: Acute (3) Chronic hypoxic respiratory failure: Code(s): J96.11 - Chronic respiratory failure with hypoxia Status: Acute (4) Former smoker: Code(s): Z87.891 - Personal history of nicotine dependence Status: Resolved DS: Summary Hospital Course Hospital Course: Patient came to the ER with shortness of breath worsening. ER labs showed: BNP of 1700, pCO2 61, hemoglobin of 8. Chest X-ray: clear lungs, Possible COPD, stable cardiomegaly. EKG showed SR with occasional PVC's rate 74 and QTc 418. Patient treated with nebs, antibiotics, and IV steroids. Patient improved and transitioned to oral steroids. * chronic oxygen at home at 4L at rest and 6L with exertion Status at Discharge Functional status at discharge: independent ambulation Overall status at discharge: patient is progressing back to baseline Time Spent with Patient Time attestation: Total time spent providing and/or coordinating discharge services: Time spent: Greater than 30 minutes Exam Narrative: Patient reports feeling 80% better. Const: General: comfortable and no acute distress Resp: Auscultation: diminished lung sounds Other: air movement improving. Cardio: Rate: regular rate Rhythm: regular rhythm GI: GI Palp: Yes Soft to palpation Auscultation: normal bowel sounds Skin: General skin exam: no rashes or lesions noted Extrem: General: no pedal edema Psych: Mental Status: mental status grossly normal Affect: normal affect DS: Data Data Completed and Pending Labs on day of discharge: Labs from last 24 hours 07/11/24 07/10/24 06:27 08:34 WBC 4.7 RBC 3.72 L Hgb 10.5 L Hct 32.2 L MCV 86.6 MCH 28.2 MCHC 32.6 RDW 13.9 Plt Count 164 MPV 9.8 Immature Gran % (Auto) 0.6 H Neut % (Auto) 72.1 Lymph % (Auto) 16.5 L [place] % (Auto) 10.6 H Eos % (Auto) 0.0 Baso % (Auto) 0.2 Lymph # (Auto) 0.78 L [place] # (Auto) 0.5 Eos # (Auto) 0.0 Baso # (Auto) 0.0 Abs Immat Gran (auto) 0.03 Absolute Neuts (auto) 3.4 Absolute Nucleated RBC 0.000 Nucleated RBC % 0.0 Sodium 135 L Potassium 4.3 Chloride 95 L Carbon Dioxide 39 H Anion Gap 1 L BUN 32 H Creatinine 1.40 H Estim Creat Clear Calc 33 Estimated GFR > 60 Glucose 79 Calcium 9.2 Magnesium 1.9 Total Bilirubin 0.5 AST 16 L ALT 19 Alkaline Phosphatase 42 Total Protein 7.0 Albumin 3.7 Discharge Plan Discharge Attending physician on discharge: Liss Hassan Discharging Clinician: Ambar Bar Anticipated Discharge Date/Time: 07/11/24 13:00 Patient Disposition: Home, Self-Care Activity: may shower and as tolerated Diet: heart healthy Discharge Instructions: * acapella breathing device continue to use daily. * chronic oxygen at home at 4L at rest and 6L with exertion * Follow up with team coordinator. Patient Instructions: Antibiotic Form, Heart Failure (DC), Pain Management (DC), Using Oxygen at Home (DC), COPD (Chronic Obstructive Pulmonary Disease) (DC), Hypertension (DC) Patient Language: Lao Stand Alone Forms: General Discharge Information Follow-up/Referrals: Yan Oro MD [Primary Care Provider] - 1 Week Discharge Medications: New amlodipine [Norvasc] 5 mg Tablet 5 mg PO DAILY Qty: 30 0RF guaifenesin [Mucus Relief ER] 600 mg Tablet Extended Release 12hr 600 mg PO Q12HR Qty: 14 0RF prednisone 10 mg tablet 10 mg PO DIRECTED Qty: 30 0RF Rx Instructions: see taper instructions: Take 4 tablets (40mg) day 1-3, Take 3 tablets (30 mg) day 4-6, Take 2 tablets (20 mg) day 7-9, Take 1 tablet (10 mg) day 10-12. Continued valsartan-hydrochlorothiazide 320-25 mg tablet 1 tablet PO DAILY Qty: 90 3RF epinephrine [EpiPen] 0.3 mg/0.3 mL auto-injector 0.3 mg IM ONCE PRN (Reason: anaphylaxis) Qty: 2 0RF Rx Instructions: as a single dose; may repeat once ipratropium-albuterol 0.5 mg-3 mg(2.5 mg base)/3 mL solution for nebulization 3 ml inhalation QID Qty: 360 5RF Trelegy Ellipta 100-62.5-25 mcg blister with device See Rx Instructions .ROUTE .COMPLEX Qty: 60 5RF Dose Instruction: TAKE 1 PUFF BY MOUTH EVERY DAY Rx Instructions: TAKE 1 PUFF BY MOUTH EVERY DAY Date of admission: 07/08/24 09:17 Primary Care Provider: Yan Oro Admitting Provider: Darleen Díaz V. Attending physician on admission: Eliot Guillaume Condition: Stable Hospitalist MIPS Heart Failure (Exclusion) Patient has history of Heart Transplant or Left Ventricular Assistive Device?: No IF YES, STOP HERE Heart Failure (Qualifier) Patient has current or prior documentation of LVEF less than or equal to 40%, or mod/servere depressed LVSF?: No IF NO, STOP HERE
--- OUTSIDE RECORDS SUMMARY | 2024-07-13 04:01 | XMS_ITS | Encounter Summary ---
Author Organization [facility] Address [address] [place] [address] Care Team Providers Care Aviation Survival Technician Name Role Phone Yan Oro MD Primary Care Prov ider Reason for Visit * Reason Comments Follow-up Yearly follow up on HTN Encounter Details Date Type Department Care Team (Late st Contact Info) Description 10/10/2023 1:15 PM CDT Office Visit [facility] Cardiology [address] [facility] [address] [address] Landon Lloyd MD [address] 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 Gender Identity Not on file Sexual Orientation Not on file documented as of this encounter Last Filed Vital Signs Vital Sign Reading Time Taken Comments Blood Pressure 124/70 10/10/2023 1:04 PM CDT Pulse 82 10/10/2023 1:04 PM CDT Temperature - - Respiratory Rate - - Oxygen Saturation 92% 10/10/2023 1:04 PM CDT Inhaled Oxygen Concentration - - Weight 56.2 kg (124 lb) 10/10/2023 1:04 PM CDT Height 175.3 cm (5' 9 ) 10/10/2023 1:04 PM CDT Body Mass Index 18.31 10/10/2023 1:04 PM CDT documented in this encounter Progress Notes * Landon Lloyd MD - 10/10/2023 1:15 PM CDT [facility] 10/10/2023 Kenney Varela is a 68 y.o. male who presents for follow up of hypertension. This is a patient whohas been followed in for a number of years with hypertension and hypertensive left ventricular dysfunction with medical treatment consisting of carvedilol and Diovan he has done very well with juan lization of his left ventricular function. His other significant comorbidity is carcinoma of the prostate which was identified in 2019. This was treated with radiation seed implants with good successso far. He is on a multidrug regimen including carvedilol, valsartan, hydrochlorothiazide and minoxidil. His principal comorbidity is relatively severe oxygen-dependent COPD He returns to the office today for annual follow-up appointment. He continues to take carvedilol aswell as valsartan with hydrochlorothiazide for his hypertension. He seems to be doing well he describes no cardiovascular symptoms or concerns. REVIEW OF SYSTEMS General ROS: negative for - chills, fatigue, fever, malaise, night sweats, weight gain or weight loss Psychological ROS: negative for - anxiety, depression, memory difficulties or sleep disturbances Ophthalmic ROS: negative for - blurry vision, decreased vision, loss of vision or scotomata ENT ROS: negative for - epistaxis, headaches, hearing change, nasal congestion, nasal discharge, sore throat, vertigo or visual changes Hematological and Lymphatic ROS: negative for - bleeding problems, blood clots, bruising, fatigue or weight loss Endocrine ROS: negative for - hot flashes, palpitations, polydipsia/polyuria or unexpected weight changes Respiratory ROS: negative for - cough, hemoptysis, orthopnea, shortness of breath, tachypnea or wheezing Cardiovascular ROS: negative for - chest pain, dyspnea on exertion, edema, irregular heartbeat, loss of consciousness, murmur, orthopnea, palpitations, paroxysmal nocturnal dyspnea, rapid heart rate or shortness of breath Gastrointestinal ROS: negative for - abdominal pain, appetite loss, blood in stools, constipation, diarrhea, gas/bloating, heartburn, hematemesis, melena or nausea/vomiting Genito-Urinary ROS: negative for - dysuria, erectile dysfunction or hematuria Musculoskeletal ROS: negative for - joint pain, muscle pain or muscular weakness Dermatological ROS: negative for dry skin, eczema, pruritus and rash HOME MEDICATIONS Current Outpatient Medications: albuterol HFA (PROAIR HFA) 90 mcg/actuation inhaler, inhale 2 puff by inhalation route every 4 - 6 hours as needed, Disp: , Rfl: 0 carvediloL (COREG) 25 mg tablet, TAKE 1 TABLET BY MOUTH TWICE A DAY WITH FOOD, Disp: 180 tablet, Rfl: 0 minoxidiL (LONITEN) 10 mg tablet, TAKE 1 TABLET BY MOUTH EVERY DAY, Disp: 90 tablet, Rfl: 3 Trelegy Ellipta 100-62.5-25 mcg inhaler, INHALE 1 PUFF BY MOUTH EVERY DAY, Disp: , Rfl: valsartan-hydrochlorothiazide (DIOVAN-HCT) 320-12.5 mg per tablet, TAKE 1 TABLET BY MOUTH EVERY DAY, Disp: 90 tablet, Rfl: 0 aspirin 81 mg tablet, Take 81 mg by mouth daily. (Patient not taking: Reported on 10/10/2023), Disp:, Rfl: LABS AND OTHER DIAGNOSTIC TESTS No results found for: CHOL No results found for: HDL No results found for: LDLCALC No results found for: TRIG No results found for: CHOLHDL No results found for: WBC , HGB , HCT , MCV , PLT No lab exists for component: LABALBU PHYSICAL EXAM Vitals BP 124/70 (BP Location: Right arm, Patient Position: Sitting) Pulse 82 Ht 175.3 cm (5' 9 ) Wt 56.2 kg (124 lb) SpO2 92% BMI 18.31 kg/m?? Physical Examination: General appearance - alert, well appearing, and in no distress, oriented to person, place, and time and acyanotic, in no respiratory distress Mental status - affect appropriate to mood Eyes - extraocular eye movements intact, sclera anicteric, no pallor Ears - external earsappear normal, hearing grossly normal bilaterally Nose - normal and patent, no erythema or discharge Mouth - mucous membranes moist, pharynx appears normal, dental hygiene good and tongue normal Neck - supple, no significant neck masses, carotids upstroke normal bilaterally, no bruits, no JVD Chest - clear to auscultation, no wheezes, rales or rhonchi, symmetric air entry, no tachypnea, retractions or cyanosis Heart - normal rate, regular rhythm, normal S1, S2, no murmurs, rubs, clicks or gallops, no JVD Abdomen - soft, nontender, nondistended, no masses or organomegaly bowel sounds normal Neurological - alert, oriented, normal speech, no focal findings or movement disorder noted Musculoskeletal - no joint tenderness, deformity or swelling, no muscular tenderness noted Extremities - peripheral pulses normal, no pedal edema, no clubbing or cyanosis Skin - normal coloration and turgor, no rashes, no suspicious skin lesions noted ASSESSMENT Essential hypertension PLAN/RECOMMENDATIONS Continue current antihypertensive regimen without change Continue annual follow-up 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 regarding 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 COPD Landon Lloyd MD documented in this encounter Miscellaneous Notes * Addendum Note - Shyla Velasquez MA - 10/10/2023 1:15 PM CDTAddended by: SHYLA VELASQUEZ on: 10/10/2023 01:51 PM Modules accepted: Orders documented in this encounter Plan of Treatment Not on file documented as of this encounter Procedures Procedure Name Priority Date/Time Associated Diagnosis Comments POCT LIPID PANEL Routine 10/10/2023 1:51 PM CDT Essential hypertension documented in this encounter Results * POCT lipid panel (10/10/2023 1:51 PM CDT) Cholesterol, POC 183 mg/dL HDL, POC 42 mg/dL Triglycerides, POC 163 mg/dL LDL Cholesterol POC 108 mg/dL Chol/HDL Ratio, POC 2.5 Non-HDL Cholesterol, POC 140 mg/dL Cholesterol Total, POC 183 mg/dL Capillary blood 10/10/2023 1 :51 PM CDT us Landon Lloyd MD POINT OF CARE TEST ORDER FRANCESCA Final Result documented in this encounter Visit Diagnoses Diagnosis Essential hypertension- Primary Unspecified essential hypertension documented in this encounter Care Teams Aviation Survival Technician Relationship Specialty Start Date End Date Yan Oro MD [address] [place] [address] PCP - General 10/21/16 documented as of this encounter
--- OUTSIDE RECORDS SUMMARY | 2024-07-13 04:01 | XMS_ITS | Encounter Summary ---
Author Organization [facility] Address [address] [facility] [address] [place] [address] Care Team Providers Care Laundry Machine Tender Name Role Phone Yan Oro MD Primary Care Prov ider Encounter Details Date Type Department Care Team (Late st Contact Info) Description 09/24/[address] 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 Gender Identity Not on file Sexual Orientation Not on file documented as of this encounter Plan of Treatment Not on file documented as of this encounter Procedures Procedure Name Priority Date/Time Associated Diagnosis Comments CARDIOLOGY DOCUMENT SCAN Routine 09/24/2020 documented in this encounter Results * SCAN - CARDIOLOGY (09/24/2020) Anatomical Region Laterality Modality Other Historical Provider [facility] Final Result documented in this encounter Visit Diagnoses Not on filedocumented in this encounter Care Teams Laundry Machine Tender Relationship Specialty Start Date End Date Yan Oro MD [address] [place], [place] [id number] PCP - General 10/21/16 documented as of this encounter
--- OUTSIDE RECORDS SUMMARY | 2024-07-13 04:01 | XMS_ITS | Encounter Summary ---
Author Organization [facility] Address [address] [facility] [place] [address] Care Team Providers Care Maintenance Operator Name Role Phone Yan Oro MD Primary Care Prov ider Reason for Visit * Reason Comments Hypertension 1 year fu Encounter Details Date Type Department Care Team (Late st Contact Info) Description 10/05/2021 8:45 AM CDT Office Visit [facility] Cardiology [address] [facility] [address] [place] [address] Landon Lloyd MD [address] [facility] [address] [place], [place] [phone] Essential hypertension (Primary Dx); Lipid screening Social History Tobacco Use Types Packs/Day Years Used Date Smoking Tobacco: Former Cigarettes Q uit: 07/11/2013 Smokeless Tobacco: Never Alcohol Use Standard Drinks/Week Comments Yes 0 (1 standard drink = 0.6 oz pur e alcohol) Sex and Gender Information Value Date Recorded Sex Assigned at Not on file Legal Sex Male 2: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 Gender Identity Not on file Sexual Orientation Not on file documented as of this encounter Last Filed Vital Signs Vital Sign Reading Time Taken Comments Blood Pressure 142/86 10/05/2021 8:42 AM CDT Pulse 66 10/05/2021 8:42 AM CDT Temperature - - Respiratory Rate - - Oxygen Saturation 95% 10/05/2021 8:42 AM CDT Inhaled Oxygen Concentration - - Weight 59 kg (130 lb) 10/05/2021 8:42 AM CDT Height 175.3 cm (5' 9 ) 10/05/2021 8:42 AM CDT Body Mass Index 19.2 10/05/2021 8:42 AM CDT documented in this encounter Progress Notes * Landon Lloyd MD - 10/05/2021 8:45 AM CDT [facility] 10/05/2021 Kenney Varela is a 66 y.o. male who presents for follow up [...] seed implants with good successso far. He returns today for an annual follow-up appointment. He is doing very well and describes no cardiovascular symptoms or concerns. Above blood pressure remains well controlled on his current regimen. He follows with his PCP regularly. REVIEW OF SYSTEMS General ROS: negative for [...] and rash HOME MEDICATIONS Current Outpatient Medications: ??? albuterol HFA (PROAIR HFA) 90 mcg/actuation inhaler, inhale 2 puff by inhalation route every 4 - 6 hours as needed, Disp: , Rfl: 0 ??? aspirin 81 mg tablet, Take 81 mg by mouth daily., Disp: , Rfl: ??? carvediloL (COREG) 25 mg tablet, TAKE 1 TABLET BY MOUTH TWICE A DAY WITH FOOD, Disp: 180 tablet, Rfl: 0 ??? minoxidiL (LONITEN) 10 mg tablet, TAKE 1 TABLET BY MOUTH EVERY DAY, Disp: 90 tablet, Rfl: 0 ??? Trelegy Ellipta 100-62.5-25 mcg inhaler, INHALE 1 PUFF BY MOUTH EVERY DAY, Disp: , Rfl: ??? valsartan-hydrochlorothiazide (DIOVAN-HCT) 320-12.5 mg per tablet, TAKE 1 TABLET BY MOUTH EVERYDAY, Disp: 90 tablet, Rfl: 0 LABS AND OTHER DIAGNOSTIC TESTS No results found for: CHOL No results found for: HDL No results found for: LDLCALC No results found for: TRIG No results found for: CHOLHDL No results found for: WBC, HGB, HCT, MCV, PLT No lab exists for component: LABALBU PHYSICAL EXAM There were no vitals taken for this visit. Physical Examination: General appearance - alert, well [...] Continue current antihypertensive regimen without change Continue to see him on an annual basis or of course in a p.r.n. fashion should concerns arise Landon Lloyd MD documented in this encounter Miscellaneous Notes * Addendum Note - Marixa Maxwell MA - 10/05/2021 8:45 AM CDTAddended by: MARIXA MAXWELL on: 10/05/2021 09:03 AM Modules accepted: Orders documented in this encounter Plan of Treatment Not on file documented as of this encounter Procedures Procedure Name Priority Date/Time Associated Diagnosis Comments POCT LIPID PANEL Routine 10/05/2021 9:02 AM CDT Lipid screening documented in this encounter Results * POCT lipid panel (10/05/2021 9:02 AM CDT) Cholesterol, POC 178 mg/dL HDL, POC 47 mg/dL Triglycerides, POC 136 mg/dL LDL Cholesterol POC 103 mg/dL Chol/HDL Ratio, POC 3.8 Non-HDL Cholesterol, POC 131 mg/dL Cholesterol Total, POC 178 mg/dL Capillary blood 10/05/2021 9 :02 AM CDT us Landon Lloyd MD POINT OF CARE TEST ORDER FRANCESCA Final Result documented in this encounter Visit Diagnoses Diagnosis Essential hypertension- Primary Unspecified essential hypertension Lipid screening Screening for lipoid disorders documented in this encounter Care Teams Maintenance Operator Relationship Specialty Start Date End Date Yan Oro MD [address] [place] [address] PCP - General 10/21/16 documented as of this encounter
--- OUTSIDE RECORDS SUMMARY | 2024-07-13 04:01 | XMS_ITS | Encounter Summary ---
Author Organization [facility] Address [address] [facility] [address] [place] [address] Care Team Providers Care Ballaster Name Role Phone Yan Oro MD Primary Care Prov ider Reason for Visit * Reason Comments Hypertension Encounter Details Date Type Department Care Team (Late st Contact Info) Description 09/24/2020 8:00 AM PRODUCTION FLOATER Office Visit [facility] Cardiology [address] [facility] [address] [facility] [address] [place] [address] Landon Lloyd MD [address] [facility] [address] [place] [address] Essential hypertension (Primary Dx) Social History Tobacco Use Types Packs/Day Years Used Date Smoking Tobacco: Former Cigarettes Q uit: 07/11/2013 Smokeless Tobacco: Never Alcohol Use Standard Drinks/Week Comments Yes 0 (1 standard drink = 0.6 oz pur e alcohol) Sex and Gender Information Value Date Recorded Sex Assigned at Not on file Legal Sex Male 2:09 AM PRODUCTION FLOATER Gender Identity Not on file Sexual Orientation Not on file documented as of this encounter Last Filed Vital Signs Vital Sign Reading Time Taken Comments Blood Pressure 140/70 09/24/2020 8:03 AM PRODUCTION FLOATER Pulse 64 09/24/2020 8:03 AM PRODUCTION FLOATER Temperature - - Respiratory Rate 14 09/24/2020 8:03 AM PRODUCTION FLOATER Oxygen Saturation - - Inhaled Oxygen Concentration - - Weight 63.9 kg (140 lb 12.8 oz) 09/24/2020 8:03 AM PRODUCTION FLOATER Height 175.3 cm (5' 9 ) 09/24/2020 8:03 AM PRODUCTION FLOATER Body Mass Index 20.79 09/24/2020 8:03 AM PRODUCTION FLOATER documented in this encounter Progress Notes * Landon Lloyd MD - 09/24/2020 8:00 AM CST [facility] 09/24/2020 Kenney Varela is a 65 y.o. male who presents for follow up [...] seed implants with good successso far. He presents today for annual scheduled follow-up. He has no cardiovascular complaints or concerns. His blood pressure remains well controlled on the above described regimen of carvedilol valsartan and minoxidil. REVIEW OF SYSTEMS General ROS: negative for [...] MOUTH EVERY DAY, Disp: 90 tablet, Rfl: 2 ??? Trelegy Ellipta 100-62.5-25 mcg inhaler, INHALE [...] for component: LABALBU PHYSICAL EXAM Vitals BP 140/70 (BP Location: Right arm, Patient Position: Sitting) Pulse 64 Resp 14 Ht 175.3 cm (5' 9 ) Wt 63.9 kg (140 lb 12.8 oz) BMI 20.79 kg/m?? Physical Examination: General appearance - alert, [...] regimen without change Continue to see him annually or p.r.n. Landon Lloyd MD UCTION FLOATER documented in this encounter Plan of Treatment Not on file documented as of this encounter Visit Diagnoses Diagnosis Essential hypertension- Primary Unspecified essential hypertension documented in this encounter Discontinued Medications Medication Sig Discontinue Reason Start Date End Da te fluticasone-salmetero l (ADVAIR DISKUS) 250-50 mcg/dose diskus inhaler inhale 1 puff by inhalation route 2 times every day in the morning and evening approximately 12 hours apart Alternate therapy 06/28/2012 09/24/2020 tiotropium (SPIRIVA WITH HANDIHALER) 18 mcg per inhalation capsule inhale 1 capsule (18MCG) by inhalation route every day Alternate therapy 06/28/2012 09/24/2020 allopurinol (ZYLOPRIM) 300 mg tablet Take 300 mg by mouth daily. Alternate therapy 09/24/2020 documented as of this encounter Historical Medications * This list may reflect changes made after this encounter. Trelegy Ellipta 100-62.5-25 mcg inhaler INHALE 1 PUFF BY MOUTH EVERY DAY 09/06/2020 added in this encounter Care Teams Ballaster Relationship Specialty Start Date End Date Yan Oro MD [address] [place] [address] PCP - General 10/21/16 documented as of this encounter
--- OUTSIDE RECORDS SUMMARY | 2024-07-13 04:01 | XMS_ITS | Referral Summary ---
Author Organization [facility] [address] Address [address] [place] [address] Care Team Providers Care Customer Service Consultant Name Role Phone Yan Oro MD Primary Care Prov ider Allergies No known active allergies Medications albuterol HFA (PROAIR HFA) 90 mcg/actuation inhaler inhale 2 puff by inhalation route every 4 - 6 hours as needed 0 3 Active aspirin 81 mg tablet Take 81 mg by mouth daily. Active Trelegy Ellipta 100-62.5-25 mcg inhaler INHALE 1 PUFF BY MOUTH EVERY DAY 1 Active valsartan-hydro chlorothiazide (DIOVAN-HCT) 320-12.5 mg per tablet TAKE 1 TABLET BY MOUTH EVERY DAY 90 tablet 2 4 Active minoxidiL (LONITEN) 10 mg tablet TAKE 1 TABLET BY MOUTH EVERY DAY 90 tablet 2 4 Active carvediloL (COREG) 25 mg tablet TAKE 1 TABLET BY MOUTH TWICE A DAY WITH FOOD 180 tablet 2 4 Active Active Problems Problem Noted Date Diagnosed Date Essential hypertension 07/11/2017 Social History Tobacco Use Types Packs/Day Years Used Date Smoking Tobacco: Former Cigarettes Q uit: 07/11/2013 Smokeless Tobacco: Never Tobacco Cessation:Counseling Given: Not Answered Alcohol Use Standard Drinks/Week Comments Yes 0 (1 standard drink = 0.6 oz pur e alcohol) Personal Safety Answer Date Recorded Getting School Help Needed Not on file 09/10 Sex and Gender Information Value Date Recorded Sex Assigned at Not on file 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 Gender Identity Not on file Sexual Orientation Not on file Last Filed Vital Signs Vital Sign Reading Time Taken Comments Blood Pressure 124/70 10/10/2023 1:04 PM CDT Pulse 82 10/10/2023 1:04 PM CDT Temperature - - Respiratory Rate 14 09/24/2020 8:03 AM DEDICATED OWNER OPERATOR Oxygen Saturation 92% 10/10/2023 1:04 PM CDT Inhaled Oxygen Concentration - - Weight 56.2 kg (124 lb) 10/10/2023 1:04 PM CDT Height 175.3 cm (5' 9 ) 10/10/2023 1:04 PM CDT Body Mass Index 18.31 10/10/2023 1:04 PM CDT Plan of Treatment Not on file [place] [address] MEDICARE MEDICARE [facility] Care Teams Customer Service Consultant Relationship Specialty Start Date End Date Yan Oro MD [address] [place] [address] PCP - General 10/21/16
--- OUTSIDE RECORDS SUMMARY | 2024-07-13 04:01 | XMS_ITS | Encounter Summary ---
Author Organization [facility] Address [address] [place] [address] Care Team Providers Care Tire Beader Maker Name Role Phone Yan Oro MD Primary Care Prov ider Reason for Visit * Reason Comments Hypertension 1 year follow up. 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 Gender Identity Not on file Sexual Orientation Not on file documented as of this encounter Last Filed Vital Signs Vital Sign Reading Time Taken Comments Blood Pressure 110/70 10/06/2022 8:16 AM CDT Pulse 68 10/06/2022 8:16 AM CDT Temperature - - Respiratory Rate - - Oxygen Saturation 92% 10/06/2022 8:16 AM CDT Inhaled Oxygen Concentration - - Weight 60.3 kg (133 lb) 10/06/2022 8:16 AM CDT Height 175.3 cm (5' 9 ) 10/06/2022 8:16 AM CDT Body Mass Index 19.64 10/06/2022 8:16 AM CDT documented in this encounter Progress Notes * Landon Lloyd MD - 10/06/2022 8:15 AM CDT [facility] 10/06/2022 Kenney Varela is a 67 y.o. male who presents for follow up [...] regimen including carvedilol, valsartan, hydrochlorothiazide and minoxidil. Returns to the office today for annual follow-up appointment. His antihypertensive regimen remains unchanged. He does have some occasional palpitations no other symptoms to report. He had an ECG in the office which demonstrates sinus rhythm with occasional APCs and a left anterior hemiblock. I toldhim that APCs are not anything to worry about REVIEW OF SYSTEMS General ROS: negative for [...] DAY WITH FOOD, Disp: 180 tablet, Rfl: 1 ??? minoxidiL (LONITEN) 10 mg tablet, TAKE 1 TABLET BY MOUTH EVERY DAY, Disp: 90 tablet, Rfl: 3 ??? Trelegy Ellipta 100-62.5-25 mcg inhaler, INHALE 1 PUFF BY MOUTH EVERY DAY, Disp: , Rfl: ??? valsartan-hydrochlorothiazide (DIOVAN-HCT) 320-12.5 mg per tablet, TAKE 1 TABLET BY MOUTH EVERYDAY, Disp: 90 tablet, Rfl: 3 LABS AND OTHER DIAGNOSTIC TESTS No results [...] PLAN/RECOMMENDATIONS Continue current antihypertensive regimen without change Reassured patient that premature premature atrial contractions are benign and do not merit further treatment or evaluation Annual follow-up regarding his blood pressure will continue Landon Lloyd MD documented in this encounter Miscellaneous Notes * Addendum Note - Long Munoz MA - 10/06/2022 8:15 AM CDTAddended by: LONG MUNOZ on: 10/06/2022 11:53 AM Modules accepted: Orders documented in this encounter Plan of Treatment Not on file documented as of this encounter Procedures Procedure Name Priority Date/Time Associated Diagnosis Comments POCT LIPID PANEL Routine 10/06/2022 8:29 AM CDT Lipid screening ECG 12-LEAD Routine 10/06/2022 Essential hypertension documented in this encounter Results * POCT lipid panel (10/06/2022 8:29 AM CDT) Cholesterol, POC 196 mg/dL HDL, POC 48 mg/dL Triglycerides, POC 98 mg/dL LDL Cholesterol POC 129 mg/dL Chol/HDL Ratio, POC 2.7 Non-HDL Cholesterol, POC 148 mg/dL Cholesterol Total, POC 196 mg/dL Capillary blood 10/06/2022 8 :29 AM CDT us Landon Lloyd MD POINT OF CARE TEST ORDER FRANCESCA Final Result * ECG 12 lead (10/06/2022) us Landon Lloyd MD ECG ORDERABLES Edited R esult - Final documented in this encounter Visit Diagnoses Diagnosis Essential hypertension- Primary Unspecified essential hypertension Lipid screening Screening for lipoid disorders documented in this encounter Care Teams Tire Beader Maker Relationship Specialty Start Date End Date Yan Oro MD [address] [place] [address] PCP - General 10/21/16 documented as of this encounter
--- OUTSIDE RECORDS SUMMARY | 2024-07-13 04:01 | XMS_ITS | Clinical Summary ---
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 Gender Identity Not on file Sexual Orientation Not on file Obstetrics History Last Filed Vital Signs Vital Sign Reading Time Taken Comments Blood Pressure 124/70 10/10/2023 1:04 PM CDT Pulse 82 10/10/2023 1:04 PM CDT Temperature - - Respiratory Rate 14 09/24/2020 8:03 AM CHIEF DIVERSITY OFFICER Oxygen Saturation 92% 10/10/2023 1:04 PM CDT Inhaled Oxygen Concentration - - Weight 56.2 kg (124 lb) 10/10/2023 1:04 PM CDT Height 175.3 cm (5' 9 ) 10/10/2023 1:04 PM CDT Body Mass Index 18.31 10/10/2023 1:04 PM CDT Plan of Treatment Health Maintenance Due Date Last Done Comments Colon Cancer Screening-Colonoscopy 1953 Depression Screening 1953 Fall Risk Assessment 1953 Hepatitis C Screening 1953 Prostate Cancer Screening-PSA 1953 DTaP/Tdap/Td Vaccine (1 - Tdap) 1964 Hepatitis B Screening 1971 Zoster Vaccine (1 of 2) 2003 Abdominal Aortic Aneurysm (AAA) Screen 2018 Pneumococcal vaccine 65+ (1 of 1 - PCV) 2018 Well Visit 65+ 2018 Influenza Vaccine (#1) 2024 04/30/2017 Insurance IDPA MEDICARE MEDICARE IDCT Care Teams Refrigerator Repair Technician Relationship Specialty Start Date End Date Yan Oro MD [address] [place] [address] PCP - General 10/21/16
--- OUTSIDE RECORDS SUMMARY | 2024-07-13 04:02 | XMS_ITS | Encounter Summary ---
Author Organization [facility] Address [address] [facility] [address] [place] [address] Care Team Providers Care Regulatory Compliance Director Name Role Phone Yan Oro MD Primary Care Prov ider Reason for Visit * Reason Comments Follow-up 1 yr fu on HTN Encounter Details Date Type Department Care Team (Late st Contact Info) Description 09/18/2018 2:45 PM KNIFE SHARPENER Office Visit [facility] [address] [facility] [address] [facility] [address] [place] [address] Landon Lloyd MD [address] [facility] [address] [place] [address] Essential hypertension (Primary Dx) Social History Tobacco Use Types Packs/Day Years Used Date Smoking Tobacco: Former Cigarettes Q uit: 07/11/2013 Smokeless Tobacco: Never Alcohol Use Standard Drinks/Week Comments Yes 0 (1 standard drink = 0.6 oz pur e alcohol) Sex and Gender Information Value Date Recorded Sex Assigned at Not on file Legal Sex Male 2:09 AM KNIFE SHARPENER Gender Identity Not on file Sexual Orientation Not on file documented as of this encounter Last Filed Vital Signs Vital Sign Reading Time Taken Comments Blood Pressure 118/70 09/18/2018 3:18 PM KNIFE SHARPENER Pulse 89 09/18/2018 3:18 PM KNIFE SHARPENER Temperature - - Respiratory Rate - - Oxygen Saturation 93% 09/18/2018 3:18 PM KNIFE SHARPENER Inhaled Oxygen Concentration - - Weight 60.8 kg (134 lb) 09/18/2018 3:18 PM KNIFE SHARPENER Height 175.3 cm (5' 9 ) 09/18/2018 3:18 PM KNIFE SHARPENER Body Mass Index 19.79 09/18/2018 3:18 PM KNIFE SHARPENER documented in this encounter Progress Notes * Landon Lloyd MD - 09/18/2018 2:45 PM CST [facility]IC FOLLOW UP 09/18/2018 Kenney Varela is a 63 y.o. male who presents for follow up of hypertension. This is a patient whohas been followed in for a number of years with hypertension and hypertensive left ventricular dysfunction with medical treatment consisting of carvedilol and Diovan he has done very well with juan lization of his left ventricular function. The patient has been followed annually in the office in this setting and returns today for scheduled follow-up. The patient does not have any cardiovascular symptoms or concerns his principal health problem is in the last year he has been found to have carcinoma of the prostate he is being treated with radiation and hormone therapy. He reports that his prognosis for this is favorable REVIEW OF SYSTEMS General ROS: negative for [...] pruritus and rash HOME MEDICATIONS Current Outpatient Prescriptions: ??? albuterol HFA (PROAIR HFA) 90 mcg/actuation inhaler, inhale 2 puff by inhalation route every 4 - 6 hours as needed, Disp: , Rfl: 0 ??? allopurinol (ZYLOPRIM) 300 mg tablet, Take 300 mg by mouth daily., Disp: , Rfl: ??? aspirin 81 mg tablet, Take 81 mg by mouth daily., Disp: , Rfl: ??? carvedilol (COREG) 25 mg tablet, TAKE 1 TABLET BY MOUTH TWICE A DAY, Disp: 180 tablet, Rfl: 0 ??? fluticasone-salmeterol (ADVAIR DISKUS) 250-50 mcg/dose diskus inhaler, inhale 1 puff by inhalation route 2 times every day in the morning and evening approximately 12 hours apart, Disp: , Rfl: 0 ??? minoxidil (LONITEN) 10 mg tablet, Take 1 tablet (10 mg total) by mouth daily., Disp: 90 tablet,Rfl: 0 ??? tiotropium (SPIRIVA WITH HANDIHALER) 18 mcg per inhalation capsule, inhale 1 capsule (18MCG) byinhalation route every day, Disp: , Rfl: 0 ??? valsartan-hydrochlorothiazide (DIOVAN-HCT) 320-12.5 mg per tablet, TAKE 1 TABLET BY MOUTH EVERYDAY, Disp: 90 tablet, Rfl: 2 LABS AND OTHER DIAGNOSTIC TESTS No results found for: CHOL No results found for: HDL No results found for: LDLCALC No results found for: TRIG No results found for: CHOLHDL No results found for: WBC, HGB, HCT, MCV, PLT No lab exists for component: LABALBU PHYSICAL EXAM Vitals BP 118/70 (BP Location: Right arm, Patient Position: Sitting) Pulse 89 Ht 175.3 cm (5' 9 ) Wt 60.8 kg (134 lb) SpO2 93% BMI 19.79 kg/m?? Physical Examination: General appearance - alert, [...] him annually or p.r.n. Landon Lloyd MD E SHARPENER documented in this encounter Plan of Treatment Not on file documented as of this encounter Visit Diagnoses Diagnosis Essential hypertension- Primary Unspecified essential hypertension documented in this encounter Historical Medications * This list may reflect changes made after this encounter. aspirin 81 mg tablet Take 81 mg by mouth daily. allopurinol (ZYLOPRIM) 300 mg tablet Take 300 mg by mouth daily. 09/24/2020 added in this encounter Care Teams Regulatory Compliance Director Relationship Specialty Start Date End Date Yan Oro MD [address] [place] [address] PCP - General 10/21/16 documented as of this encounter
--- OUTSIDE RECORDS SUMMARY | 2024-07-13 04:02 | XMS_ITS | Encounter Summary ---
Author Organization [facility] Address [address] [facility] [address] [place] [address] Care Team Providers Care Plaster Patternmaker Name Role Phone Yan Oro MD Primary Care Prov ider Encounter Details Date Type Department Care Team (Late st Contact Info) Description 08/15/2018 Telephone [facility] [address] [facility] [address] [place] [address] Landon Lloyd MD [address] [address] Social History Tobacco Use Types Packs/Day Years Used Date Smoking Tobacco: Former Cigarettes Q uit: 07/11/2013 Smokeless Tobacco: Never Alcohol Use Standard Drinks/Week Comments Yes 0 (1 standard drink = 0.6 oz pur e alcohol) Sex and Gender Information Value Date Recorded Sex Assigned at Not on file Legal Sex Male 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 90 tablet 08/15/2018 11/27/2018 documented in this encounter Miscellaneous Notes * Telephone Encounter - Staci Camargo MA - 08/15/2018 1:53 PM CST Med approved and sent as requested TRONICS TECHNOLOGY INSTRUCTOR * Telephone Encounter - Deirdre Mcallister - 08/15/2018 12:09 PM ELECTRONICS TECHNOLOGY INSTRUCTOR [facility] called requesting 90 day supply refill for minoxidil 10 mg tab. [phone] TRONICS TECHNOLOGY INSTRUCTOR documented in this encounter Plan of Treatment Not on file documented as of this encounter Visit Diagnoses Not on filedocumented in this encounter Discontinued Medications Medication Sig Discontinue Reason Start Date End Da te minoxidil (LONITEN) 10 mg tablet TAKE 1 TABLET BY MOUTH EVERY DAY Reorder 03/16/2018 08/15/2018 documented as of this encounter Care Teams Plaster Patternmaker Relationship Specialty Start Date End Date Yan Oro MD [address] [place] [address] PCP - General 10/21/16 documented as of this encounter
--- OUTSIDE RECORDS SUMMARY | 2024-07-13 04:02 | XMS_ITS | Encounter Summary ---
Author Organization [facility] Medical [facility] Address [address] [facility] [address] [place] [address] Care Team Providers Care Hedis Analyst Name Role Phone Yan Oro MD Primary Care Prov ider Yan Oro MD Primary Care Prov ider Encounter Details Date Type Department Care Team (Late st Contact Info) Description 07/20/2016 Orders Only [facility] ProviderAmbrosio MD [address] [place] [id number] Social History Tobacco Use Types Packs/Day Years Used Date Smoking Tobacco: Former Cigarettes Q uit: 07/24/2010 Alcohol Use Standard Drinks/Week Comments Yes 0 (1 standard drink = 0.6 oz pur e alcohol) Sex and Gender Information Value Date Recorded Sex Assigned at Not on file 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 Historical Provider [facility] Final Result documented in this encounter Visit Diagnoses Not on filedocumented in this encounter Care Teams Hedis Analyst Relationship Specialty Start Date End Date Yan Oro MD [address] [place] [address] PCP - General 10/21/16 Yan Oro MD [address] [place] [address] PCP - General 10/15/12 10/20/16 documented as of this encounter
--- OUTSIDE RECORDS SUMMARY | 2024-07-13 04:02 | XMS_ITS | Encounter Summary ---
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
--- OUTSIDE RECORDS SUMMARY | 2024-07-13 04:02 | XMS_ITS | Encounter Summary ---
Author Organization [facility] Address [address] [facility] [address] [place] [address] Care Team Providers Care Marketing Director Name Role Phone Yan Oro MD Primary Care Prov ider Reason for Visit * Reason Comments Follow-up 1 yr fu htn Encounter Details Date Type Department Care Team (Late st Contact Info) Description 09/24/2019 3:15 PM SPECK DYER Office Visit [facility] Cardiology [address] [facility] [address] [place] [address] Landon Lloyd MD [address] [facility] [address] [place], [place] [id number] Essential hypertension (Primary Dx) Social History Tobacco Use Types Packs/Day Years Used Date Smoking Tobacco: Former Cigarettes Q uit: 07/11/2013 Smokeless Tobacco: Never Alcohol Use Standard Drinks/Week Comments Yes 0 (1 standard drink = 0.6 oz pur e alcohol) Sex and Gender Information Value Date Recorded Sex Assigned at Not on file Legal Sex Male 2:09 AM SPECK DYER Gender Identity Not on file Sexual Orientation Not on file documented as of this encounter Last Filed Vital Signs Vital Sign Reading Time Taken Comments Blood Pressure 136/82 09/24/2019 3:36 PM SPECK DYER Pulse 87 09/24/2019 3:36 PM SPECK DYER Temperature - - Respiratory Rate - - Oxygen Saturation 88% 09/24/2019 3:36 PM SPECK DYER Inhaled Oxygen Concentration - - Weight 64 kg (141 lb) 09/24/2019 3:36 PM SPECK DYER Height 175.3 cm (5' 9 ) 09/24/2019 3:36 PM SPECK DYER Body Mass Index 20.82 09/24/2019 3:36 PM SPECK DYER documented in this encounter Progress Notes * Landon Lloyd MD - 09/24/2019 3:15 PM CST [facility] FOLLOW UP 09/24/2019 Kenney Varela is a 64 y.o. male who presents for follow up [...] good successso far. He presents today for scheduled follow-up regarding his hypertension blood pressure is normal he has no symptoms of LV dysfunction he other than mild chronic VIERA which is a been attributed to his COPD. He has no edema orthopnea or PND. REVIEW OF SYSTEMS General ROS: negative for [...] TWICE A DAY, Disp: 180 tablet, Rfl: 2 ??? fluticasone-salmeterol (ADVAIR DISKUS) 250-50 mcg/dose diskus inhaler, inhale 1 puff by inhalation route 2 times every day in the morning and evening approximately 12 hours apart, Disp: , Rfl: 0 ??? minoxidil (LONITEN) 10 mg tablet, TAKE 1 TABLET BY MOUTH EVERY DAY, Disp: 90 tablet, Rfl: 3 ??? tiotropium (SPIRIVA WITH HANDIHALER) 18 mcg [...] for component: LABALBU PHYSICAL EXAM Vitals BP 136/82 (BP Location: Left arm, Patient Position: Sitting) Pulse 87 Ht 175.3 cm (5' 9 ) Wt 64 kg (141 lb) SpO2 (!) 88% BMI 20.82 kg/m?? Physical Examination: General appearance - alert, [...] him annually or p.r.n. Landon Lloyd MD K DYER documented in this encounter Plan of Treatment Not on file documented as of this encounter Visit Diagnoses Diagnosis Essential hypertension- Primary Unspecified essential hypertension documented in this encounter Care Teams Marketing Director Relationship Specialty Start Date End Date Yan Oro MD [address] [place] [address] PCP - General 10/21/16 documented as of this encounter
--- OUTSIDE RECORDS SUMMARY | 2024-07-13 04:02 | XMS_ITS | Encounter Summary ---
Author Organization [facility] Address [address] [facility] [address] [place] [address] Care Team Providers Care Varnish Remover Name Role Phone Yan Oro MD Primary Care Prov ider Reason for Visit * Reason Comments Hypertension Annual f/u Encounter Details Date Type Department Care Team (Late st Contact Info) Description 07/11/2017 8:00 AM RADIOPHARMACIST Office Visit [facility] [address] [facility] [address] [facility] [address] [place] [address] Landon Lloyd MD [address] [facility] [address] [place], [place] [id number] Essential hypertension (Primary Dx) Social History Tobacco Use Types Packs/Day Years Used Date Smoking Tobacco: Former Cigarettes Q uit: 07/11/2013 Smokeless Tobacco: Never Alcohol Use Standard Drinks/Week Comments Yes 0 (1 standard drink = 0.6 oz pur e alcohol) Sex and Gender Information Value Date Recorded Sex Assigned at Not on file Legal Sex Male 2:09 AM RADIOPHARMACIST Gender Identity Not on file Sexual Orientation Not on file documented as of this encounter Last Filed Vital Signs Vital Sign Reading Time Taken Comments Blood Pressure 144/76 07/11/2017 8:10 AM RADIOPHARMACIST Pulse 75 07/11/2017 8:10 AM RADIOPHARMACIST Temperature - - Respiratory Rate - - Oxygen Saturation 93% 07/11/2017 8:10 AM RADIOPHARMACIST Inhaled Oxygen Concentration - - Weight 61.7 kg (136 lb) 07/11/2017 8:10 AM RADIOPHARMACIST Height 175.3 cm (5' 9 ) 07/11/2017 8:10 AM RADIOPHARMACIST Body Mass Index 20.08 07/11/2017 8:10 AM RADIOPHARMACIST documented in this encounter Progress Notes * Landon Lloyd MD - 07/11/2017 8:00 AM CST [facility] FOLLOW UP 07/11/2017 Kenney Varela is a 61 y.o. male who presents for follow up of hypertension. This is a patient whohas been followed in for a number of years with hypertension and hypertensive left ventricular dysfunction with medical treatment consisting of carvedilol and Diovan he has done very well with juan lization of his left ventricular function. He returns to the office today without any cardiovascular symptoms or concerns. His blood pressure is nicely controlled and he has no symptoms of LV dysfunction. His only noncardiac medical problem in the last year has been a inguinal hernia repair. REVIEW OF SYSTEMS General ROS: negative for [...] as needed, Disp: , Rfl: 0 ??? carvedilol (COREG) 25 mg tablet, TAKE 1 TABLET BY MOUTH TWICE A DAY, Disp: 180, Rfl: 3 ??? fluticasone-salmeterol (ADVAIR DISKUS) 250-50 mcg/dose diskus inhaler, inhale 1 puff by inhalation route 2 times every day in the morning and evening approximately 12 hours apart, Disp: , Rfl: 0 ??? minoxidil (LONITEN) 10 mg tablet, TAKE 1 TABLET BY MOUTH EVERY DAY, Disp: 90 tablet, Rfl: 0 ??? tiotropium (SPIRIVA WITH HANDIHALER) 18 mcg per inhalation capsule, inhale 1 capsule (18MCG) byinhalation route every day, Disp: , Rfl: 0 ??? valsartan-hydrochlorothiazide (DIOVAN-HCT) 320-12.5 mg per tablet, TAKE 1 TABLET BY MOUTH EVERY DAY, Disp: 90, Rfl: 0 ??? valsartan-hydrochlorothiazide (DIOVAN-HCT) 320-12.5 mg per tablet, TAKE 1 TABLET BY MOUTH EVERYDAY, Disp: 90, Rfl: 2 LABS AND OTHER DIAGNOSTIC TESTS No results found for: CHOL No results found for: HDL No results found for: LDLCALC No results found for: TRIG No results found for: CHOLHDL No results found for: WBC, HGB, HCT, MCV, PLT No lab exists for component: LABALBU PHYSICAL EXAM Vitals: 07/11/17 0810 BP: 144/76 Pulse: 75 SpO2: 93% Physical Examination: General appearance - alert, well [...] him annually or p.r.n. Landon Lloyd MD OPHARMACIST documented in this encounter Miscellaneous Notes * Addendum Note - Gaby Vazquez MA - 07/11/2017 8:00 AM CSTAddended by: GABY VAZQUEZ on: 07/11/2017 09:11 AM Modules accepted: Orders OPHARMACIST documented in this encounter Plan of Treatment Not on file documented as of this encounter Procedures Procedure Name Priority Date/Time Associated Diagnosis Comments POCT LIPID PANEL Routine 07/11/2017 9:11 AM RADIOPHARMACIST Essential hypertension documented in this encounter Results * POCT lipid panel (07/11/2017 9:11 AM RADIOPHARMACIST) Cholesterol, POC 181 mg/dL HDL, POC 45 mg/dL Triglycerides, POC 47 mg/dL LDL Cholesterol POC 127 mg/dL Chol/HDL Ratio, POC 4.0 Non-HDL Cholesterol, POC 136 mg/dL Cholesterol Total, POC 181 mg/dL Blood specimen (specimen) 07/11/2017 9:11 AM RADIOPHARMACIST us Landon Lloyd MD POINT OF CARE TEST ORDER FRANCESCA Final Result documented in this encounter Visit Diagnoses Diagnosis Essential hypertension- Primary Unspecified essential hypertension documented in this encounter Care Teams Varnish Remover Relationship Specialty Start Date End Date Yan Oro MD [address] [place] [address] PCP - General 10/21/16 documented as of this encounter
--- OUTSIDE RECORDS SUMMARY | 2024-07-13 04:02 | XMS_ITS | Encounter Summary ---
Author Organization [facility] Address [address] [facility] [address] [place] [address] Care Team Providers Care Barber Shop Operator Name Role Phone Yan Oro MD Primary Care Prov ider Encounter Details Date Type Department Care Team (Late st Contact Info) Description 07/13/2017 Telephone [facility] [address] [facility] [address] [address] Landon Lloyd MD [address] [address] Social History Tobacco Use Types Packs/Day Years Used Date Smoking Tobacco: Former Cigarettes Q uit: 07/11/2013 Smokeless Tobacco: Never Alcohol Use Standard Drinks/Week Comments Yes 0 (1 standard drink = 0.6 oz pur e alcohol) Sex and Gender Information Value Date Recorded Sex Assigned at Not on file Legal Sex Male 2:09 AM BENCH HAND Gender Identity Not on file Sexual Orientation Not on file documented as of this encounter Miscellaneous Notes * Telephone Encounter - Sonal Garcia RN - 07/13/2017 8:55 AM CST Will fax copy of POC lipids H HAND documented in this encounter Plan of Treatment Not on file documented as of this encounter Visit Diagnoses Not on filedocumented in this encounter Care Teams Barber Shop Operator Relationship Specialty Start Date End Date Yan Oro MD [address] [place] [address], [place] [address] PCP - General 10/21/16 documented as of this encounter
--- OUTSIDE RECORDS SUMMARY | 2024-07-13 05:50 | XMS_ITS | Encounter Summary ---
Author Organization [facility] Healthcare Address [address] [place] [address] Care Team Providers Care Construction Helper Name Role Phone Yan Oro MD Primary Care Prov ider Reason for Visit * Reason Comments Follow-up Yearly follow up on HTN Encounter Details Date Type Department Care Team (Late st Contact Info) Description 10/10/2023 1:15 PM CDT Office Visit [facility] Cardiology [address] [facility] [address] [address] Landon Lloyd MD [address] [facility] [address] [place], [place] [id number] Essential hypertension (Primary Dx) Social History Tobacco [...] on file 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
--- OUTSIDE RECORDS SUMMARY | 2024-07-13 05:50 | XMS_ITS | Clinical Summary ---
Author Organization 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
--- OUTSIDE RECORDS SUMMARY | 2024-07-13 05:50 | XMS_ITS | Encounter Summary ---
Author Organization [facility] Address [address] [facility] [address] [place] [address] Care Team Providers Care Driller Operator Name Role Phone Yan Oro MD Primary Care Prov ider Reason for Visit * Reason Comments Hypertension 1 year follow up. 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
--- OUTSIDE RECORDS SUMMARY | 2024-07-13 05:50 | XMS_ITS | Referral Summary ---
Author Organization [facility] [address] Address [address] [place] [address] Care Team Providers Care Transformer Repairer Name Role Phone Yan Oro MD Primary [...] on file Legal Sex Male 2:09 AM PRESS READER Gender Identity Not on file Sexual Orientation Not on file Last Filed Vital Signs Vital Sign Reading Time Taken Comments Blood Pressure 124/70 10/10/2023 1:04 PM CDT Pulse 82 10/10/2023 1:04 PM CDT Temperature - - Respiratory Rate 14 09/24/2020 8:03 AM PRESS READER Oxygen Saturation 92% 10/10/2023 1:04 PM CDT Inhaled Oxygen Concentration - - Weight 56.2 kg (124 lb) 10/10/2023 1:04 PM CDT Height 175.3 cm (5' 9 ) 10/10/2023 1:04 PM CDT Body Mass Index 18.31 10/10/2023 1:04 PM CDT Plan of Treatment Not on file Insurance [facility] MEDICARE MEDICARE [facility] Care Teams Transformer Repairer Relationship Specialty Start Date End Date Yan Oro MD [address] [place] [address] PCP - General 10/21/16
--- OUTSIDE RECORDS SUMMARY | 2024-07-13 05:50 | XMS_ITS | Encounter Summary ---
Author Organization [facility] Address [address] [place] [address] Care Team Providers Care Lead Oxide Mill Tender Name Role Phone Yan Oro MD Primary Care Prov ider Reason for Visit * Reason Comments Hypertension Encounter Details Date Type Department Care Team (Late st Contact Info) Description 09/24/2020 8:00 AM WARP TRUCKER Office Visit [facility] Cardiology [address] [facility] [address] [facility] [address] [place] [address] Landon Lloyd MD [address] [facility] [address] [place] [address] Essential hypertension (Primary Dx) Social History Tobacco Use Types Packs/Day Years Used Date Smoking Tobacco: Former Cigarettes Q uit: 07/11/2013 Smokeless Tobacco: Never Alcohol Use Standard Drinks/Week Comments Yes 0 (1 standard drink = 0.6 oz pur e alcohol) Sex and Gender Information Value Date Recorded Sex Assigned at Not on file Legal Sex Male 2:09 AM WARP TRUCKER Gender Identity Not on file Sexual Orientation Not on file documented as of this encounter Last Filed Vital Signs Vital Sign Reading Time Taken Comments Blood Pressure 140/70 09/24/2020 8:03 AM WARP TRUCKER Pulse 64 09/24/2020 8:03 AM WARP TRUCKER Temperature - - Respiratory Rate 14 09/24/2020 8:03 AM WARP TRUCKER Oxygen Saturation - - Inhaled Oxygen Concentration - - Weight 63.9 kg (140 lb 12.8 oz) 09/24/2020 8:03 AM WARP TRUCKER Height 175.3 cm (5' 9 ) 09/24/2020 8:03 AM WARP TRUCKER Body Mass Index 20.79 09/24/2020 8:03 AM WARP TRUCKER documented in this encounter Progress Notes * [...] him annually or p.r.n. Landon Lloyd MD TRUCKER documented in this encounter Plan of Treatment [...] 09/06/2020 added in this encounter Care Teams Lead Oxide Mill Tender Relationship Specialty Start Date End Date Yan Oro MD [address] [place] [address] PCP - General 10/21/16 documented as of this encounter
--- OUTSIDE RECORDS SUMMARY | 2024-07-13 05:50 | XMS_ITS | Encounter Summary ---
Author Organization [facility] Address [address] [facility] [address] [place] [address] Care Team Providers Care Curtain Stitcher Name Role Phone Yan Oro MD Primary Care Prov ider Reason for Visit * Reason Comments Hypertension 1 year fu Encounter Details Date Type Department Care Team (Late st Contact Info) Description 10/05/2021 8:45 AM CDT Office Visit [facility] Cardiology [address] [facility] [address] [place] [address] Landon Lloyd MD [address] [facility] [address] [place], [place] [id number] Essential hypertension (Primary Dx); Lipid screening Social History Tobacco Use Types Packs/Day Years Used Date Smoking Tobacco: Former Cigarettes Q uit: 07/11/2013 Smokeless Tobacco: Never Alcohol Use Standard Drinks/Week Comments Yes 0 (1 standard drink = 0.6 oz pur e alcohol) Sex and Gender Information Value Date Recorded Sex Assigned at Not on file Legal Sex Male 2:09 AM REGISTERED DENTAL ASSISTANT Gender Identity Not on file Sexual Orientation [...] disorders documented in this encounter Care Teams Curtain Stitcher Relationship Specialty Start Date End Date Yan Oro MD [address] [place] [address] PCP - General 10/21/16 documented as of this encounter
--- OUTSIDE RECORDS SUMMARY | 2024-07-13 05:50 | XMS_ITS | Encounter Summary ---
Author Organization [facility] Address [address] [facility] [address] [place] [address] Care Team Providers Care Avionics Systems Technician Name Role Phone Yan Oro MD Primary Care Prov ider Encounter Details Date Type Department Care Team (Late st Contact Info) Description 09/24/[address] 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
--- OUTSIDE RECORDS SUMMARY | 2024-07-13 05:51 | XMS_ITS | Encounter Summary ---
Author Organization [facility] Address [address] [facility] [address] [facility] [address] [place] [address] Care Team Providers Care Military Source Operations Specialist Name Role Phone Yan Oro MD Primary Care Prov ider Encounter Details Date Type Department Care Team (Late st Contact Info) Description 07/13/2017 Telephone [facility] [address], [place] [address] Landon Lloyd MD [address] [address] Social History Tobacco Use Types Packs/Day Years Used Date Smoking Tobacco: Former Cigarettes Q uit: 07/11/2013 Smokeless Tobacco: Never Alcohol Use Standard Drinks/Week Comments Yes 0 (1 standard drink = 0.6 oz pur e alcohol) Sex and Gender Information Value Date Recorded Sex Assigned at Not on file Legal Sex Male 2:09 AM ADMINISTRATIVE SUPPORT TECHNICIAN Gender Identity Not on file Sexual Orientation Not on file documented as of this encounter Miscellaneous Notes * Telephone Encounter - Sonal Garcia RN - 07/13/2017 8:55 AM CST Will fax copy of POC lipids NISTRATIVE SUPPORT TECHNICIAN documented in this encounter Plan of Treatment Not on file documented as of this encounter Visit Diagnoses Not on filedocumented in this encounter Care Teams Military Source Operations Specialist Relationship Specialty Start Date End Date Yan Oro MD [address] [place] [address], [place] [address] PCP - General 10/21/16 documented as of this encounter
--- OUTSIDE RECORDS SUMMARY | 2024-07-13 05:51 | XMS_ITS | Encounter Summary ---
Author Organization [facility] Address [address] [facility] [address] [place] [address] Care Team Providers Care Material Handler 1St Shift Name Role Phone Yan Oro MD Primary Care Prov ider Encounter Details Date Type Department Care Team (Late st Contact Info) Description 08/15/2018 Telephone [facility] [address] [facility] [address] [place] [address] Landon Lloyd MD [address] [address] Social History Tobacco Use Types Packs/Day Years Used Date Smoking Tobacco: Former Cigarettes Q uit: 07/11/2013 Smokeless Tobacco: Never Alcohol Use Standard Drinks/Week Comments Yes 0 (1 standard drink = 0.6 oz pur e alcohol) Sex and Gender Information Value Date Recorded Sex Assigned at Not on file Legal Sex Male 2:09 AM HAND PICKER Gender Identity Not on file Sexual Orientation [...] CST Med approved and sent as requested PICKER * Telephone Encounter - Deirdre Mcallister - 08/15/2018 12:09 PM HAND PICKER [facility] called requesting 90 day supply refill for minoxidil 10 mg tab. [phone] PICKER documented in this encounter Plan of Treatment Not on file documented as of this encounter Visit Diagnoses Not on filedocumented in this encounter Discontinued Medications Medication Sig Discontinue Reason Start Date End Da te minoxidil (LONITEN) 10 mg tablet TAKE 1 TABLET BY MOUTH EVERY DAY Reorder 03/16/2018 08/15/2018 documented as of this encounter Care Teams Material Handler 1St Shift Relationship Specialty Start Date End Date aYn Oro MD [address] [place] [address] PCP - General 10/21/16 documented as of this encounter
--- OUTSIDE RECORDS SUMMARY | 2024-07-13 05:51 | XMS_ITS | Encounter Summary ---
Author Organization [facility] Address [address] [facility] [address] [place] [address] Care Team Providers Care Boiler Fireman Name Role Phone Yan Oro MD Primary Care Prov ider Reason for Visit * Reason Comments Follow-up 1 yr fu htn Encounter Details Date Type Department Care Team (Late st Contact Info) Description 09/24/2019 3:15 PM CLOTH HAND Office Visit [facility] Cardiology [address] [facility] [address] [place] [address] Landon Lloyd MD [address] [facility] [address] [place], [place] [id number] Essential hypertension (Primary Dx) Social History Tobacco Use Types Packs/Day Years Used Date Smoking Tobacco: Former Cigarettes Q uit: 07/11/2013 Smokeless Tobacco: Never Alcohol Use Standard Drinks/Week Comments Yes 0 (1 standard drink = 0.6 oz pur e alcohol) Sex and Gender Information Value Date Recorded Sex Assigned at Not on file Legal Sex Male 2:09 AM CLOTH HAND Gender Identity Not on file Sexual Orientation Not on file documented as of this encounter Last Filed Vital Signs Vital Sign Reading Time Taken Comments Blood Pressure 136/82 09/24/2019 3:36 PM CLOTH HAND Pulse 87 09/24/2019 3:36 PM CLOTH HAND Temperature - - Respiratory Rate - - Oxygen Saturation 88% 09/24/2019 3:36 PM CLOTH HAND Inhaled Oxygen Concentration - - Weight 64 kg (141 lb) 09/24/2019 3:36 PM CLOTH HAND Height 175.3 cm (5' 9 ) 09/24/2019 3:36 PM CLOTH HAND Body Mass Index 20.82 09/24/2019 3:36 PM CLOTH HAND documented in this encounter Progress Notes * [...] him annually or p.r.n. Landon Lloyd MD H HAND documented in this encounter Plan of Treatment Not on file documented as of this encounter Visit Diagnoses Diagnosis Essential hypertension- Primary Unspecified essential hypertension documented in this encounter Care Teams Boiler Fireman Relationship Specialty Start Date End Date Yan Oro MD [address] [place] [address] PCP - General 10/21/16 documented as of this encounter
--- OUTSIDE RECORDS SUMMARY | 2024-07-13 05:51 | XMS_ITS | Encounter Summary ---
Author Organization [facility] Care Team Providers Care Construction Inspector Name Role Phone Yan Oro MD Primary [...] on file Legal Sex Male 2:09 AM NUTRITION INSTRUCTOR Gender Identity Not on file Sexual Orientation Not on file documented as of this encounter Plan of Treatment Not on file documented as of this encounter Visit Diagnoses Not on filedocumented in this encounter Care Teams Construction Inspector Relationship Specialty Start Date End Date Yan Oro MD [address] [place] [address] PCP - General 10/21/16 documented as of this encounter
--- OUTSIDE RECORDS SUMMARY | 2024-07-13 05:51 | XMS_ITS | Encounter Summary ---
Author Organization [facility] Address [address] [facility] [address] [place] [address] Care Team Providers Care Health Inspector Food Name Role Phone Yan Oro MD Primary Care Prov ider Reason for Visit * Reason Comments Follow-up 1 yr fu on HTN Encounter Details Date Type Department Care Team (Late st Contact Info) Description 09/18/2018 2:45 PM POWERPLANT OPERATOR Office Visit [facility] [address] [facility] [address] [facility] [address] [place] [address] Lanodn Lloyd MD [address] [facility] [address] [place] [address] Essential hypertension (Primary Dx) Social History Tobacco Use Types Packs/Day Years Used Date Smoking Tobacco: Former Cigarettes Q uit: 07/11/2013 Smokeless Tobacco: Never Alcohol Use Standard Drinks/Week Comments Yes 0 (1 standard drink = 0.6 oz pur e alcohol) Sex and Gender Information Value Date Recorded Sex Assigned at Not on file Legal Sex Male 2:09 AM POWERPLANT OPERATOR Gender Identity Not on file Sexual Orientation Not on file documented as of this encounter Last Filed Vital Signs Vital Sign Reading Time Taken Comments Blood Pressure 118/70 09/18/2018 3:18 PM POWERPLANT OPERATOR Pulse 89 09/18/2018 3:18 PM POWERPLANT OPERATOR Temperature - - Respiratory Rate - - Oxygen Saturation 93% 09/18/2018 3:18 PM POWERPLANT OPERATOR Inhaled Oxygen Concentration - - Weight 60.8 kg (134 lb) 09/18/2018 3:18 PM POWERPLANT OPERATOR Height 175.3 cm (5' 9 ) 09/18/2018 3:18 PM POWERPLANT OPERATOR Body Mass Index 19.79 09/18/2018 3:18 PM POWERPLANT OPERATOR documented in this encounter Progress Notes * [...] him annually or p.r.n. Landon Lloyd MD RPLANT OPERATOR documented in this encounter Plan of Treatment [...] 09/24/2020 added in this encounter Care Teams Health Inspector Food Relationship Specialty Start Date End Date Yan Oro MD [address] [place] [address] PCP - General 10/21/16 documented as of this encounter
--- OUTSIDE RECORDS SUMMARY | 2024-07-13 05:51 | XMS_ITS | Encounter Summary ---
Author Organization [facility] Address [address] [facility] [address] [place] [address] Care Team Providers Care Mud Engineer Name Role Phone Yan Oro MD Primary Care Prov ider Yan Oro MD Primary Care Prov ider Encounter Details Date Type Department Care Team (Late st Contact Info) Description 07/20/2016 Orders Only [facility] ProviderAmbrosio MD [address] [place] [address] Social History Tobacco Use Types Packs/Day Years Used Date Smoking Tobacco: Former Cigarettes Q uit: 07/24/2010 Alcohol Use Standard Drinks/Week Comments Yes 0 (1 standard drink = 0.6 oz pur e alcohol) Sex and Gender Information Value Date Recorded Sex Assigned at Not on file Legal Sex Male 2:09 AM DIRECTOR OF COMMUNITY SERVICES Gender Identity Not on file Sexual Orientation [...] on filedocumented in this encounter Care Teams Mud Engineer Relationship Specialty Start Date End Date Yan Oro MD [address] [place] [address] PCP - General 10/21/16 Yan Oro MD [address] [place] [address] PCP - General 10/15/12 10/20/16 documented as of this encounter
--- OUTSIDE RECORDS SUMMARY | 2024-07-13 05:51 | XMS_ITS | Encounter Summary ---
Author Organization [facility] Address [address] [facility] [address] [place] [address] Care Team Providers Care Wool Hanker Name Role Phone Yan Oro MD Primary Care Prov ider Reason for Visit * Reason Comments Hypertension Annual f/u Encounter Details Date Type Department Care Team (Late st Contact Info) Description 07/11/2017 8:00 AM BONER MEAT Office Visit [facility] [address] [facility] [address] [facility] [address] [place] [address] Landon Lloyd MD [address] [facility] [address] [place], [place] [id number] Essential hypertension (Primary Dx) Social History Tobacco Use Types Packs/Day Years Used Date Smoking Tobacco: Former Cigarettes Q uit: 07/11/2013 Smokeless Tobacco: Never Alcohol Use Standard Drinks/Week Comments Yes 0 (1 standard drink = 0.6 oz pur e alcohol) Sex and Gender Information Value Date Recorded Sex Assigned at Not on file Legal Sex Male 2:09 AM BONER MEAT Gender Identity Not on file Sexual Orientation Not on file documented as of this encounter Last Filed Vital Signs Vital Sign Reading Time Taken Comments Blood Pressure 144/76 07/11/2017 8:10 AM BONER MEAT Pulse 75 07/11/2017 8:10 AM BONER MEAT Temperature - - Respiratory Rate - - Oxygen Saturation 93% 07/11/2017 8:10 AM BONER MEAT Inhaled Oxygen Concentration - - Weight 61.7 kg (136 lb) 07/11/2017 8:10 AM BONER MEAT Height 175.3 cm (5' 9 ) 07/11/2017 8:10 AM BONER MEAT Body Mass Index 20.08 07/11/2017 8:10 AM BONER MEAT documented in this encounter Progress Notes * [...] him annually or p.r.n. Landon Lloyd MD R MEAT documented in this encounter Miscellaneous Notes * Addendum Note - Gaby Vazquez MA - 07/11/2017 8:00 AM CSTAddended by: GABY VAZQUEZ on: 07/11/2017 09:11 AM Modules accepted: Orders R MEAT documented in this encounter Plan of Treatment Not on file documented as of this encounter Procedures Procedure Name Priority Date/Time Associated Diagnosis Comments POCT LIPID PANEL Routine 07/11/2017 9:11 AM BONER MEAT Essential hypertension documented in this encounter Results * POCT lipid panel (07/11/2017 9:11 AM BONER MEAT) Cholesterol, POC 181 mg/dL HDL, POC 45 mg/dL Triglycerides, POC 47 mg/dL LDL Cholesterol POC 127 mg/dL Chol/HDL Ratio, POC 4.0 Non-HDL Cholesterol, POC 136 mg/dL Cholesterol Total, POC 181 mg/dL Blood specimen (specimen) 07/11/2017 9:11 AM BONER MEAT us Landon Lloyd MD POINT OF CARE TEST ORDER FRANCESCA Final Result documented in this encounter Visit Diagnoses Diagnosis Essential hypertension- Primary Unspecified essential hypertension documented in this encounter Care Teams Wool Hanker Relationship Specialty Start Date End Date Yan Oro MD [address] [place] [address] PCP - General 10/21/16 documented as of this encounter
== END 2024-07-11 13:45 | disposition home or self-care (01) | DRG 190 ==
LOC: ANHED 22:16 → ANH2MED 07-08 02:01
PROVIDERS: Admitting Provider Internal Medicine; Emergency Provider Student in an Organized Health Care Education/Training Program; PCP Family Medicine Adolescent Medicine; Visit Provider Nurse Practitioner Family
DX: J44.1 Chronic obstructive pulmonary disease with (acute) exacerbation (principal); E43 Unspecified severe protein-calorie malnutrition; J96.21 Acute and chronic respiratory failure with hypoxia; J96.22 Acute and chronic respiratory failure with hypercapnia; Z68.1 Body mass index [BMI] 19.9 or less, adult; I11.0 Hypertensive heart disease with heart failure; I50.9 Heart failure, unspecified; Z87.891 Personal history of nicotine dependence; Z99.81 Dependence on supplemental oxygen; Z85.46 Personal history of malignant neoplasm of prostate; Z86.73 Personal history of transient ischemic attack (TIA), and cerebral infarction without residual deficits
CPT/HCPCS: 36415; 36600; 71045; 80053; 82805; 83605; 83735; 83880; 84484; 85018; 85025; 85055; 85610; 85730; 93005; 94640; 96365; 96366; 96375; 96376; 99285; A9270; G0378; J0456; J0696; J1650; J2919; J3475; J7512

== ENCOUNTER 2024-07-22 09:50 | Inpatient (IN) | payer MEDICARE, MEDICAID, SELFPAY ==
[2024-07-22] VITALS (17 sets, daily range): BP systolic 116–160; BP diastolic 78–99; PULSE 66–110; RESP 20–25; TEMP 36.4–36.9; O2SAT 95–101; BMI 15.5
--- NOTE | ~2024-07-22 | XR_ITS ---
CHEST RADIOGRAPH CLINICAL HISTORY: sob . COMPARISON: 07/07/2024 TECHNIQUE: Single portable view of the chest. FINDINGS The cardiomediastinal silhouette is unremarkable. Blunting of the left costophrenic sulcus suggesting a small left-sided pleural effusion. The remainder of the lungs are clear. Visualized osseous structures and soft tissues are unremarkable. IMPRESSION: Small left-sided pleural effusion without focal infiltrate. Reviewed, dictated and finalized at location A. ATER HELPER
--- NOTE | 2024-07-22 09:54 | ECG_ITS ---
Test Date: 2024-07-22 09:58:02 Measurements Intervals [place] Rate: 90 P: 0 GA: 0 QRS: -67 QRSD: 96 T: 81 QT: 329 QTc: 404 Interpretive Statements sinus rhythm with PACs LEFT ANTERIOR FASCICULAR BLOCK [QRS AXIS <= -45, QR IN I, RS IN II] Compared to ECG 07/07/2024 22:12:24 Left anterior fascicular block now present Myocardial infarct finding no longer present PACs are new Electronically Signed On 07-22-2024 18:13:24 OPTICAL EFFECTS CAMERA OPERATOR by Loli Tatum M.D.
[2024-07-22 10:13] LABS: Alveolar/Arterial O2 Gradient 79.8 mmHg; Base Excess ABG 10.9 mEq/l (+/-2.0); Fractional Inspired Oxygen 36 %; HCO3 ABG 39.3 mEq/l (22.0-26.0); Oxygen Content ABG 15.6 %vol (16.0-22.0); Oxyhemoglobin 95.9 % THb (90.0-100.0); PO2 ABG 90.3 mmHg (80.0-100.0); PO2 FiO2 Ratio Arterial Blood 2.51 %; Total Hemoglobin 11.5 g/dL (12.0-18.0); pH ABG 7.339 (7.350-7.450)
[2024-07-22 10:14] LABS: Device NASAL CANNULA; Modified Allen's Test Pass; PCO2 ABG 74.6 mmHg (35.0-45.0); Site Drawn LEFT RADIAL
[2024-07-22 10:36] LABS: Basophils Percent Auto 0.1 % (0.2-1.2); Eosinophils Absolute Auto 0.2 K/mm3 (0-0.3); Eosinophils Percent Auto 2.4 % (0-4.4); Hematocrit 35.1 % (42.0-52.0); Immature Granulocyte Absolute 0.08 K/mm3 (0.00-0.031); Immature Granulocyte Percent A 0.8 % (0-0.5); Lymphocytes Absolute Auto 0.75 K/mm3 (0.9-3.2); Lymphocytes Percent Auto 7.4 % (18.3-44.2); Mean Corpuscular HGB Conc 31.3 g/dl (32-36); Mean Corpuscular Hemoglobin 28.9 pg (26-34); Mean Corpuscular Volume 92.1 fl (80-100); Mean Platelet Volume 9.4 fl (7.4-10.4); Monocytes Absolute Auto 0.8 K/mm3 (0.1-0.6); Monocytes Percent Auto 8.1 % (2.6-8.5); Neutrophils Absolute Auto 8.2 K/mm3 (1.3-6.7); Neutrophils Percent Auto 81.2 % (45.5-73.1); Platelet Count Result 215 k/mm3 (150-375); Red Blood Count 3.81 M/mm3 (4.6-6.20); Red Cell Distribution Width 14.6 % (11.5-14.5); White Blood Count 10.1 K/mm3 (4.5-10.0)
[2024-07-22 10:49] LABS: Lactic Acid Reflex 1.4 mmol/L (0.7-2.0)
[2024-07-22 10:50] LABS: Alanine Aminotransferase 21 U/L (6-50); Albumin Level 3.9 g/dL (3.5-5.1); Alkaline Phosphatase 51 U/L (38-126); Aspartate Amino Transferase 20 U/L (17-59); Bilirubin,Total 0.5 mg/dL (0.2-1.3); Blood Urea Nitrogen 24 mg/dL (9-20); Calcium 9.6 mg/dL (8.4-10.2); Carbon Dioxide > 40 mmol/L (22-30); Chloride 92 mmol/L (98-107); Estimated CRCL calculation 38 ml/min; Estimated Glomerular Filt Rate > 60; Glucose 120 mg/dL (65-110); Potassium 4.3 mmol/L (3.4-5.0); Sodium 138 mmol/L (137-145)
[2024-07-22 10:56] LABS: Prothrombin Time 13.3 Seconds (11.1-14.7)
[2024-07-22 10:58] LABS: NT Pro B Type Natriuretic Pept 168 pg/mL (19.9-100); Troponin I 0.033 ng/mL (0.000-0.034)
[2024-07-22 11:59] LABS: SARS-CoV-2 RNA PCR Negative (Negative)
--- NOTE | 2024-07-22 13:02 | PM.IMHP ---
H&P: HPI History of Present Illness Date/Time: 07/22/24 13:02 Chief Complaint: Shortness of breath Narrative: 68-year-old male past history COPD resides in long-term presents the hospital with increased shortness of. He is on 3 L oxygen at rest and 4 L oxygen with activities at baseline. Patient states coughing this was unable to catch his breath and cough. Patient states that he was taking guaifenesin and started coughing up sputum he states that was green and brown and a bunch other colors. Patient denies fevers chills nausea vomiting. In the ED patient has slight leukocytosis at 10.1, ABG with respiratory acidosis hypoxia and hypercarbia and was placed on a BiPAP. Patient's influenza A/B, RSV and COVID negative. Chest x-ray shows small left-sided pleural effusion. Sinus rhythm with PACs. Review of Systems Review of Systems: 12 systems were reviewed and are negative except for as per HPI. [facility] Past Medical History Medical History (Updated 07/22/24 @ 15:42 by Krystle Ortiz APRN) Degenerative disc disease Degenerative disc disease Prostate CA (2017) Status post radiation therapy. Emphysema lung COPD (chronic obstructive pulmonary disease) Hypertension CHF (congestive heart failure) Echocardiogram June 2016 showed normal left ventricular systolic function and size with mild concentric left ventricular hypertrophy and impaired diastolic relaxation grade 1 with ejection fraction estimated at 60 to 65%. 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 TIA (transient ischemic attack) Surgical History Surgical History H/O inguinal hernia repair (2016) Right Family History Family History Father Acute myocardial infarction Grandparent Cerebrovascular accident Diabetes mellitus Social History Social History Social History: The patient lives in [place] with his . They have 3 children. he is retired. he designates his , Gaby, as his surrogate decision maker and he wishes to be a full code. He smoked up to a pack of cigarettes per day and quit in 2011. He drinks a half of a pint of [employer] [place] each Monday. He denies drug use. Smoking packs per day: 1 Smoking cigarettes per day: 20.0 Years smoked: 20 Smoking pack-years: 20.00 Smoking status: Former smoker Tobacco type: cigarettes Additional smoking assessment comments: quit in 2011 Alcohol intake: former Drinks per week: 2 Alcohol use details: ocassionally Substance use: never Substance use type: marijuana Do You Feel Safe in your Home?: Yes Lack of Transportation: No Lack of Food: Never True Current Housing: I Have Housing Concerned About Future Housing: No Difficulty Paying Gas/Electric Bills: No Difficulty Paying for Meds: No Currently Unemployed: No Education: Grade School Difficulty w/ Childcare or Family Care: No Living arrangements: with family Occupation/Education: retired Gender identity (if verbalized by the patient): Male Sexual Orientation (if Verbalized by the Patient): Straight or Heterosexual Spiritual care concerns: No Agree to blood products: Yes Meds Home Medications and Allergies Home Medications ?Medication ?Instructions ?Recorded ?Confirmed ?Type epinephrine 0.3 mg/0.3 mL 0.3 mg (0.3 mL) IM ONCE PRN 12/10/23 07/22/24 Rx injection, auto-injector (EpiPen) anaphylaxis #2 ea ipratropium 0.5 mg-albuterol 3 mg 3 ml inhalation QID #360 mL 02/09/24 07/22/24 Rx (2.5 mg base)/3 mL nebulization soln fluticasone fur. 100 mcg-umeclid See Rx Instructions .Route 02/16/24 07/22/24 Rx 62.5 mcg-vilant 25 mcg .COMPLEX #60 ea inhalat.powder (Trelegy Ellipta) valsartan 320 1 tablet PO DAILY #90 tabs 05/20/24 07/22/24 Rx mg-hydrochlorothiazide 25 mg tablet amlodipine 5 mg tablet (Norvasc) 5 mg PO DAILY #30 tabs 07/11/24 07/22/24 Rx guaifenesin 600 mg tablet, 600 mg PO Q12HR #14 tabs 07/11/24 07/22/24 Rx extended release 12 hr (Mucus Relief ER) prednisone 10 mg tablet 10 mg PO DIRECTED #30 tabs 07/11/24 07/22/24 Rx Allergies Allergy/AdvReac Type Severity Reaction Status Date / Time bee venom protein (honey bee) Allergy Unknown ANAPHALAXIS Verified 07/22/24 19:04 Vital Signs Vital Signs - 24 hr 07/22/24 09:45 07/22/24 09:58 07/22/24 09:58 Temperature 97.6 F Pulse Rate 95 94 Respiratory Rate 24 H Blood Pressure 160/99 H Pulse Oximetry 96 98 Oxygen Delivery Nasal Cannula Nasal Cannula Oxygen Flow Rate 4 4 07/22/24 10:24 07/22/24 11:07 07/22/24 12:19 Temperature Pulse Rate 98 99 95 Respiratory Rate 23 H 21 H 20 Blood Pressure 145/97 H 116/88 Pulse Oximetry 100 95 98 Oxygen Delivery BiPAP Oxygen Flow Rate Exam Narrative: General: well appearing, appears stated age. HEENT: normocephalic, atraumatic. Mucous membranes moist. EOMI, PERRLA, bilateral sclera anicteric, no conjunctival injection. Neck supple without JVD, lymphadenopathy, or bruit. Respiratory: Extremely diminished lung sounds. Cough Cardiovascular: Regular rate and rhythm, normal S1-S2 upon ascultation. No murmurs, rubs, or clicks. PMI is nondisplaced, capillary refill less than 3 second. Abdomen: Soft, round, no pulsatile masses, nondistended and nontender. No rebound, no guarding. No CVA tenderness, no hepatosplenomegaly. Bowel sounds present to all four quadrants. No high pitch or tinkling sounds, resonant to percussion. Extremities: No cyanosis, clubbing, or edema present. Pulses are palpable 2/2. Active ROM to all four extremities. Neuro: Alert and orientated x 4. PERRLA. Cranial nerves 2-12 intact without focal deficit. Skin: Warm, dry, and intact, without rash, erythema, or lesion. Psych: pleasant, cooperative, normal speech, normal affect, no hallucinations, no dysarthia H&P: Results Labs Labs: Short CBC 07/22/24 Range/Units 10:30 WBC 10.1 H (4.5-10.0) K/mm3 Hgb 11.0 L (14.0-18.0) g/dL Hct 35.1 L (42.0-52.0) % Plt Count 215 (150-375) k/mm3 BMP 07/22/24 10:30 Sodium 138 Potassium 4.3 Chloride 92 L Carbon Dioxide > 40 H BUN 24 H Creatinine 1.00 Glucose 120 H Calcium 9.6 Cardiac Enzymes 07/22/24 Range/Units 10:30 Troponin I 0.033 (0.000-0.034) ng/mL Liver Function 07/22/24 Range/Units 10:30 Total Bilirubin 0.5 (0.2-1.3) mg/dL AST 20 (17-59) U/L ALT 21 (6-50) U/L Alkaline Phosphatase 51 (38-126) U/L Albumin 3.9 (3.5-5.1) g/dL Assessment and Plan Assessment and plan (1) Acute hypoxic respiratory failure: Code(s): J96.01 - Acute respiratory failure with hypoxia Status: Acute Assessment and Plan: With hypoxia and hypercarbia BiPAP as needed Q 6 breathing treatments p.r.n. Influenza a, B, RSV and COVID negative (2) COPD exacerbation: Code(s): J44.1 - Chronic obstructive pulmonary disease with (acute) exacerbation Status: Acute Assessment and Plan: IV steroids x1 followed by p.o. DuoNeb (3) Hypertension: Code(s): I10 - Essential (primary) hypertension Status: Chronic Assessment and Plan: Continue valsartan (4) CHF (congestive heart failure): Code(s): I50.9 - Heart failure, unspecified Status: Acute Assessment and Plan: Euvolemic Continue hydrochlorothiazide (5) Leukocytosis: Code(s): D72.829 - Elevated white blood cell count, unspecified Status: Acute Assessment and Plan: Patient with productive cough and green sputum, possible pneumonia Started azithromycin in [facility] Blood cultures pending Quality VTE Prophylaxis VTE prophylaxis: mechanical ordered and pharmacologic ordered Hospitalist MIPS Advance Care Plan I have confirmed that the patient's Advanced Care Plan is present, code status is documented, or surrogate decision maker is listed in patient medical record.: Yes Medication Reconciliation I have utilized all available resources to obtain, update and review the patients current medications (includes all prescriptions, OTC, herbals, cannabis, and nutritional supplements).: Yes
[2024-07-22] MEDS: IPRATROPIUM 0.5 MG/ALBUTEROL SULFATE 2.5 MG AMPUL.NEB 3 ML INHALATION ×2 (13:31→19:42)
[2024-07-22 13:51] LABS: Alveolar/Arterial O2 Gradient 49.5 mmHg; Base Excess ABG 16.7 mEq/l (+/-2.0); Carboxyhemoglobin 0.3 % THb (0-2.0); Fractional Inspired Oxygen 28 %; HCO3 ABG 44.1 mEq/l (22.0-26.0); Methemoglobin ABG 0.2 %THb (0-1.5); Oxygen Content ABG 14.9 %vol (16.0-22.0); Oxygen Saturation ABG 93.3 % (95.0-100.0); Oxyhemoglobin 93.3 % THb (90.0-100.0); PO2 ABG 68.4 mmHg (80.0-100.0); PO2 FiO2 Ratio Arterial Blood 2.44 %; Reduced Hemoglobin 6.2 %THb (0-5.0); Total Hemoglobin 11.3 g/dL (12.0-18.0); pH ABG 7.422 (7.350-7.450)
[2024-07-22 13:52] LABS: Device BIPAP; Expiratory Pressure 7 cmH2O; Inspiratory Pressure 14 cmH2O; Modified Allen's Test Pass; PCO2 ABG 69.3 mmHg (35.0-45.0); Site Drawn LEFT RADIAL
--- NOTE | 2024-07-22 14:57 | ED_ITS ---
HPI - SOB/Dyspnea General Chief Complaint: Shortness of Breath/Dyspnea Stated Complaint: dyspnea Time Seen by Provider: 07/22/24 09:51 Source: patient Mode of arrival: EMS Limitations: no limitations History of Present Illness HPI Narrative: 68-year-old with a history of COPD on 3 L of home oxygen while rest and 4 L with ambulation was brought in from home with the complaints of shortness of breath which is been ongoing for past 3 days however this morning he was unable to breathe. He denies having any chest pain has occasional nonproductive cough. No history of fever or chills. Upon chart review patient was recently discharged from the hospital for acute on chronic hypercarbic respiratory failure. MD elicited complaint: shortness of breath Pertinent past history: COPD Onset (ago): day(s) (3) Timing: constant Severity: moderate Exacerbating factors: nothing Relieving factors: oxygen, bronchodilators and medication Known history of: COPD Associated symptoms: denies other symptoms Related Data Allergies Allergy/AdvReac Type Severity Reaction Status Date / Time bee venom protein (honey bee) Allergy Unknown ANAPHALAXIS Verified 07/22/24 10:01 Review of Systems 2 Review of Systems: All systems reviewed & are unremarkable except as noted in HPI and below Constitutional: Constitutional: Reports no additional constitutional complaints Eyes: Eyes: Reports no additional eye complaints ENT: Reports system reviewed and no additional complaints, except as documented Cardiovascular: Cardiovascular: Reports no additional cardiovascular complaints Respiratory: Respiratory: Reports as per HPI Gastrointestinal: Gastrointestinal: Reports no additional gastrointestinal complaints Musculoskeletal: Musculoskeletal: Reports no additional musculoskeletal complaints Integumentary/Breasts: Skin/Breast: Reports system reviewed and no additional complaints, except as docu [facility] Past Medical History Medical History (Updated 07/22/24 @ 15:07 by Jeremie Mckinley MD) Degenerative disc disease Degenerative disc disease Prostate CA (2018) Status post radiation therapy. Emphysema lung COPD (chronic obstructive pulmonary disease) Hypertension CHF (congestive heart failure) Echocardiogram June 2016 showed normal left ventricular systolic function and size with mild concentric left ventricular hypertrophy and impaired diastolic relaxation grade 1 with ejection fraction estimated at 60 to 65%. 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 TIA (transient ischemic attack) Surgical History Surgical History (Updated 07/22/24 @ 06:10 by Yan Oro MD) H/O inguinal hernia repair (2017) Right Family History Family History Father Acute myocardial infarction Grandparent Cerebrovascular accident Diabetes mellitus Social History Social History Social History: The patient lives in [place] with his . They have 3 children. he is retired. he designates his , Gaby, as his surrogate decision maker and he wishes to be a full code. He smoked up to a pack of cigarettes per day and quit in 2011. He drinks a half of a pint of [employer] [place] each Monday. He denies drug use. Smoking packs per day: 1 Smoking cigarettes per day: 20.0 Years smoked: 60 Smoking pack-years: 60.00 Smoking status: Former smoker Additional smoking assessment comments: quit in 2011 Alcohol intake: current Drinks per week: 2 Alcohol use details: ocassionally Substance use: former Substance use type: marijuana Do You Feel Safe in your Home?: Yes Lack of Transportation: No Lack of Food: Never True Current Housing: I Have Housing Concerned About Future Housing: No Difficulty Paying Gas/Electric Bills: No Difficulty Paying for Meds: No Currently Unemployed: No Education: Grade School Difficulty w/ Childcare or Family Care: No Living arrangements: with family Occupation/Education: retired Gender identity (if verbalized by the patient): Male Sexual Orientation (if Verbalized by the Patient): Straight or Heterosexual Spiritual care concerns: No Agree to blood products: Yes Exam 2 Narrative: GENERAL: Well-appearing, well-nourished, and in no acute distress. HEAD: Normocephalic, atraumatic. EYES: PERRLA and EOMI. ENT: Nares clear, no rhinorrhea or epistaxis. Mucous membranes moist. NECK: Supple. CHEST: Decreased air entry, mild wheeze bilaterally. No respiratory distress. HEART: Regular rate and rhythm. No murmur heard. Normal peripheral pulses. ABDOMEN: Soft, nontender, nondistended, normal active bowel sounds. EXTREMITIES: Normal range of motion. No edema. SKIN: Warm, dry, no rash. NEURO: No focal deficits. Alert and oriented x3. PSYCH: Normal mood and affect. Course Course Emergency Course: Patient initial blood gases shows a pCO2 of 74.[address] him on BiPAP. He feels comfortable while he is on BiPAP. I did inform him about his lab work and chest x-ray. He is agreeable with admission. Repeat gases shows much improvement in his pCO2 which is his baseline 69 was switched to nasal cannula 3 L. discussed with Hospitalist. Vital Signs Vital signs: Vital Signs Temperature 36.4 C 07/22/24 09:45 Pulse Rate 95 07/22/24 09:45 Respiratory Rate 24 H 07/22/24 09:45 Blood Pressure 160/99 H 07/22/24 09:45 Pulse Oximetry 96 07/22/24 09:45 Oxygen Delivery Nasal Cannula 07/22/24 09:45 Oxygen Flow Rate 4 07/22/24 09:45 Temperature 36.4 C 07/22/24 09:45 Pulse Rate 110 H 07/22/24 14:46 Respiratory Rate 23 H 07/22/24 14:46 Blood Pressure 142/78 H 07/22/24 14:46 Pulse Oximetry 98 07/22/24 14:47 Oxygen Delivery Nasal Cannula 07/22/24 14:47 Oxygen Flow Rate 4 07/22/24 14:47 Fraction of Inspired Oxygen 36 07/22/24 13:55 MDM - SOB/Dyspnea Differential Diagnosis Differential diagnosis: Likely acute exacerbation of chronic obstructive airways disease, congestive heart failure and community acquired pneumonia Medical Records Attestation: I reviewed the patient's medical records. Lab Data Attestation: I reviewed the patient's lab results. 07/22/24 10:30 07/22/24 10:30 Labs: Lab Results 07/22/24 07/22/24 07/22/24 Range/Units 10:30 11:11 13:46 WBC 10.1 H (4.5-10.0) K/mm3 RBC 3.81 L (4.6-6.20) M/mm3 Hgb 11.0 L (14.0-18.0) g/dL Hct 35.1 L (42.0-52.0) % MCV 92.1 (80-100) fl MCH 28.9 (26-34) pg MCHC 31.3 L (32-36) g/dl RDW 14.6 H (11.5-14.5) % Plt Count 215 (150-375) k/mm3 MPV 9.4 (7.4-10.4) fl Immature Gran % (Auto) 0.8 H (0-0.5) % Neut % (Auto) 81.2 H (45.5-73.1) % Lymph % (Auto) 7.4 L (18.3-44.2) % Garvin % (Auto) 8.1 (2.6-8.5) % Eos % (Auto) 2.4 (0-4.4) % Baso % (Auto) 0.1 L (0.2-1.2) % Lymph # (Auto) 0.75 L (0.9-3.2) K/mm3 Garvin # (Auto) 0.8 H (0.1-0.6) K/mm3 Eos # (Auto) 0.2 (0-0.3) K/mm3 Baso # (Auto) 0.0 (0.0-0.1) K/mm3 Abs Immat Gran (auto) 0.08 H (0.00-0.031) K/mm3 Absolute Neuts (auto) 8.2 H (1.3-6.7) K/mm3 Absolute Nucleated RBC 0.000 (0.0-0.012) K/mm3 Nucleated RBC % 0.0 (0.0-0.2) % PT 13.3 (11.1-14.7) Seconds INR 1.0 Methemoglobin 0.2 (0-1.5) %THb Expiratory Pressure 7 cmH2O Inspiratory Pressure 14 cmH2O Sodium 138 (137-145) mmol/L Potassium 4.3 (3.4-5.0) mmol/L Chloride 92 L (98-107) mmol/L Carbon Dioxide > 40 H (22-30) mmol/L Anion Gap (4-12) mmol/L BUN 24 H (9-20) mg/dL Creatinine 1.00 (0.7-1.3) mg/dL Estim Creat Clear Calc 38 ml/min Estimated GFR > 60 (59 - ) Glucose 120 H (65-110) mg/dL Lactic Acid 1.4 (0.7-2.0) mmol/L Calcium 9.6 (8.4-10.2) mg/dL Total Bilirubin 0.5 (0.2-1.3) mg/dL AST 20 (17-59) U/L ALT 21 (6-50) U/L Alkaline Phosphatase 51 (38-126) U/L Troponin I 0.033 (0.000-0.034) ng/mL NT-Pro-B Natriuret Pep 168 H (19.9-100) pg/mL Total Protein 7.0 (6.3-8.2) g/dL Albumin 3.9 (3.5-5.1) g/dL SARS-CoV-2 RNA (RT-PCR) Negative (Negative) ABG Data ABG results: 07/22/24 07/22/24 10:05 13:46 Puncture Site Left radial Left radial ABG pH 7.339 L 7.422 ABG pCO2 74.6 H* 69.3 H* ABG pO2 90.3 68.4 L ABG PO2/FiO2 Ratio 2.51 2.44 ABG HCO3 39.3 H 44.1 H ABG O2 Saturation 96.0 93.3 L ABG O2 Content 15.6 L 14.9 L ABG Base Excess 10.9 16.7 A-a Gradient 79.8 49.5 Oxyhemoglobin 95.9 93.3 Carboxyhemoglobin 0.3 Reduced Hemoglobin 6.2 H Total Hemoglobin 11.5 L 11.3 L O2 Delivery Device Nasal cannula Bipap O2 Liters/Min 4.0 Not Reportable FiO2 36 28 Imaging Data Radiologist's impression: ITS Impressions Chest X-Ray 07/22/24 11:12 IMPRESSION: Small left-sided pleural effusion without focal infiltrate. ECG Data EKG #1: ECG completion date: 07/22/24 ECG completion time: 09:58 EKG Interpretation: normal rate (90), atrial fibrillation, no ectopy and non-specific ST changes Critical Care Time Critical Care Time Critical Care Time: Yes Total Critical Care Time: 45 Discharge Plan Discharge Clinical Impression: COPD exacerbation Acute and chronic respiratory failure Qualifiers: Respiratory failure complication: hypoxia and hypercapnia Qualified Code(s): J 96.21 - Acute and chronic respiratory failure with hypoxia; J96.22 - Acute and chronic respiratory failure with hypercapnia Patient Disposition: Still a Patient Condition: Stable Patient Language: Singaporean Prescriptions: No Action valsartan-hydrochlorothiazide 320-25 mg tablet 1 tablet PO DAILY Qty: 90 3RF amlodipine [Norvasc] 5 mg Tablet 5 mg PO DAILY Qty: 30 0RF guaifenesin [Mucus Relief ER] 600 mg Tablet Extended Release 12hr 600 mg PO Q12HR Qty: 14 0RF prednisone 10 mg tablet 10 mg PO DIRECTED Qty: 30 0RF Rx Instructions: see taper instructions: Take 4 tablets (40mg) day 1-3, Take 3 tablets (30 mg) day 4-6, Take 2 tablets (20 mg) day 7-9, Take 1 tablet (10 mg) day 10-12. epinephrine [EpiPen] 0.3 mg/0.3 mL auto-injector 0.3 mg IM ONCE PRN (Reason: anaphylaxis) Qty: 2 0RF Rx Instructions: as a single dose; may repeat once ipratropium-albuterol 0.5 mg-3 mg(2.5 mg base)/3 mL solution for nebulization 3 ml inhalation QID Qty: 360 5RF Trelegy Ellipta 100-62.5-25 mcg blister with device See Rx Instructions .ROUTE .COMPLEX Qty: 60 5RF Dose Instruction: TAKE 1 PUFF BY MOUTH EVERY DAY Rx Instructions: TAKE 1 PUFF BY MOUTH EVERY DAY Follow-up/Referrals: Yan Oro MD [Primary Care Provider] - Time of Disposition: 14:50
--- NOTE | 2024-07-22 15:56 | PC.NURSE ---
Meal tray ordered for pt
[2024-07-22 16:00] LABS: Influenza A QL RT-PCR Negative (Negative); Influenza B QL RT-PCR Negative (Negative); RSV RNA, RT-PCR Negative (Negative)
[2024-07-22] MEDS: methylPREDNISolone SOD SUCC 125 MG VIAL IV PUSH (18:05)
--- NOTE | 2024-07-22 18:45 | ADMGEN ---
This patient, Kenney Varela, was admitted to Medical Room 347-01. Patient oriented to hospital policies and general routines including ID bracelet, bed and alarms, visiting hours, pain management, procedures, bathroom and other care routines, personal items, smoking policy, room service/diet, and visiting hours. Information on how to activate the Rapid Response Team has been discussed. Patient are encouraged to report perceived risks to care and to ask questions if they do not understand what they are told or what they should do.
[2024-07-22] MEDS: AZITHROMYCIN 500 MG/NS 250 ML 500 MG/250 ML BAG 250 MG IVPB (22:07)
[2024-07-23] VITALS (20 sets, daily range): BP systolic 134–178; BP diastolic 71–86; PULSE 78–122; RESP 17–22; TEMP 36.2–37; O2SAT 98–100; BMI 15.5
[2024-07-23] MEDS: guaiFENesin/DEXTROMETHORPHAN 10 ML UDC PO ×6 (00:04→20:38)
[2024-07-23] MEDS: methylPREDNISolone SOD SUCC 125 MG VIAL IV PUSH ×3 (00:04→13:07)
[2024-07-23] MEDS: IPRATROPIUM 0.5 MG/ALBUTEROL SULFATE 2.5 MG AMPUL.NEB 3 ML INHALATION ×4 (02:45→20:19)
[2024-07-23 05:58] LABS: Basophils Percent Auto 0.2 % (0.2-1.2); Hematocrit 31.9 % (42.0-52.0); Hemoglobin 10.5 g/dL (14.0-18.0); Immature Granulocyte Absolute 0.05 K/mm3 (0.00-0.031); Immature Granulocyte Percent A 0.8 % (0-0.5); Lymphocytes Absolute Auto 0.25 K/mm3 (0.9-3.2); Lymphocytes Percent Auto 4.1 % (18.3-44.2); Mean Corpuscular HGB Conc 32.9 g/dl (32-36); Mean Corpuscular Hemoglobin 28.9 pg (26-34); Mean Corpuscular Volume 87.9 fl (80-100); Mean Platelet Volume 9.9 fl (7.4-10.4); Monocytes Absolute Auto 0.1 K/mm3 (0.1-0.6); Monocytes Percent Auto 1.2 % (2.6-8.5); Neutrophils Absolute Auto 5.7 K/mm3 (1.3-6.7); Neutrophils Percent Auto 93.7 % (45.5-73.1); Platelet Count Result 204 k/mm3 (150-375); Red Blood Count 3.63 M/mm3 (4.6-6.20); Red Cell Distribution Width 14.5 % (11.5-14.5); White Blood Count 6.1 K/mm3 (4.5-10.0)
[2024-07-23 06:12] LABS: Blood Urea Nitrogen 28 mg/dL (9-20); Calcium 9.2 mg/dL (8.4-10.2); Carbon Dioxide > 40 mmol/L (22-30); Chloride 92 mmol/L (98-107); Estimated CRCL calculation 38 ml/min; Estimated Glomerular Filt Rate > 60; Glucose 163 mg/dL (65-110); Potassium 4.7 mmol/L (3.4-5.0); Sodium 132 mmol/L (137-145)
--- NOTE | 2024-07-23 08:22 | P.PNIM_ITS ---
Progress Note: A&P Assessment and Plan (1) Acute hypoxic respiratory failure: Code(s): J96.01 - Acute respiratory failure with hypoxia Status: Acute Assessment and Plan: With hypoxia and hypercarbia --BiPAP as needed --Q 6 breathing treatments p.r.n. --Influenza a, B, RSV and COVID negative --Troponin slightly elevated, likely demand. Repeat --Walking O2 prior to discharge (2) COPD exacerbation: Code(s): J44.1 - Chronic obstructive pulmonary disease with (acute) exacerbation Status: Acute Assessment and Plan: IV steroids x1 followed by p.naila Andrew (3) Hypertension: Code(s): I10 - Essential (primary) hypertension Status: Chronic Assessment and Plan: Continue valsartan (4) CHF (congestive heart failure): Code(s): I50.9 - Heart failure, unspecified Status: Acute Assessment and Plan: Seems euvolemic but has a small effusion --Change hctz to furosemide 40mg PO and follow (5) Leukocytosis: Code(s): D72.829 - Elevated white blood cell count, unspecified Status: Acute Assessment and Plan: Patient with productive cough and green sputum, possible pneumonia, but no focal infiltrate on x-rays Started azithromycin & Rocephin --Change Rocephin to Unasyn --Guaifenesin --Blood cultures pending --Sputum culture --Consider CT chest if not improving Time Spent With Patient Time: 58 minutes Subjective Date/time seen: 07/23/24 08:22 Interval history: Feels shortness of breath improving slowly, not yet back to baseline, using more oxygen than his baseline with activity. Still has a productive cough. WBC normalized. Na 132. CO2 >40 on labs Weaned back to 3L. WBC normalized Elevated trop likely heart strain 2/2 respiratory distress, will repeat Hospital Course: 68-year-old male hx COPD on O2 at baseline (3L at rest, 4 with activities) from a halfway who presented to the hospital with increased shortness of breath. He is on 3 L oxygen at rest and 4 L oxygen with activities at baseline. NT-proBNP slightly elevated, 168. Patient states coughing this was unable to catch his breath and had a severe cough that was productive. Reported green and brown and other colors. Patient denies fevers chills nausea vomiting. ABG showed respiratory acidosis hypoxia and hypercarbia and was placed on a BiPAP. Patient's influenza A/B, RSV and COVID negative. Chest x-ray shows small left-sided pleural effusion without focal infiltrate. Sinus rhythm with PACs. Troponin He was started on empiric Ceftriaxone and Azithromycin. Review of Systems Review of Systems: 12 systems were reviewed and are negativ e except for as per HPI. Exam Narrative: General: well appearing, appears stated age. HEENT: normocephalic, atraumatic. Mucous membranes moist. EOMI, PERRLA, bilateral sclera anicteric, no conjunctival injection. Neck supple without JVD, lymphadenopathy, or bruit. Respiratory: Extremely diminished lung sounds. Cough Cardiovascular: Regular rate and rhythm, normal S1-S2 upon ascultation. No murmurs, rubs, or clicks. PMI is nondisplaced, capillary refill less than 3 second. Abdomen: Soft, round, no pulsatile masses, nondistended and nontender. No rebound, no guarding. No CVA tenderness, no hepatosplenomegaly. Bowel sounds present to all four quadrants. No high pitch or tinkling sounds, resonant to percussion. Extremities: No cyanosis, clubbing, or edema present. Pulses are palpable 2/2. Active ROM to all four extremities. Neuro: Alert and orientated x 4. PERRLA. Cranial nerves 2-12 intact without focal deficit. Skin: Warm, dry, and intact, without rash, erythema, or lesion. Psych: pleasant, cooperative, normal speech, normal affect, no hallucinations, no dysarthia Objective Data Vital Signs Vital Signs: Vital Signs - 24 hr 07/22/24 09:45 07/22/24 09:58 07/22/24 09:58 Temperature 97.6 F Pulse Rate 95 94 Respiratory Rate 24 H Blood Pressure 160/99 H Pulse Oximetry 96 98 Oxygen Delivery Nasal Cannula Nasal Cannula Oxygen Flow Rate 4 4 Fraction of Inspired Oxygen 07/22/24 10:24 07/22/24 11:07 07/22/24 12:19 Temperature Pulse Rate 98 99 95 Respiratory Rate 23 H 21 H 20 Blood Pressure 145/97 H 116/88 Pulse Oximetry 100 95 98 Oxygen Delivery BiPAP Oxygen Flow Rate Fraction of Inspired Oxygen 07/22/24 13:31 07/22/24 13:31 07/22/24 13:40 Temperature Pulse Rate 101 H 97 101 H Respiratory Rate 24 H 24 H 24 H Blood Pressure Pulse Oximetry 101 H Oxygen Delivery BiPAP Oxygen Flow Rate Fraction of Inspired Oxygen 07/22/24 13:55 07/22/24 14:46 07/22/24 14:47 Temperature Pulse Rate 110 H Respiratory Rate 23 H Blood Pressure 142/78 H Pulse Oximetry 98 97 98 Oxygen Delivery Nasal Cannula Nasal Cannula Oxygen Flow Rate 4 4 Fraction of Inspired Oxygen 36 07/22/24 15:52 07/22/24 17:34 07/22/24 18:09 Temperature 98.1 F Pulse Rate 103 H 95 94 Respiratory Rate 22 H 25 H 25 H Blood Pressure 137/80 128/79 131/95 H Pulse Oximetry 100 100 98 Oxygen Delivery Oxygen Flow Rate Fraction of Inspired Oxygen 07/22/24 19:42 07/22/24 19:48 07/22/24 19:50 Temperature Pulse Rate 82 98 Respiratory Rate 20 20 Blood Pressure Pulse Oximetry 99 Oxygen Delivery Nasal Cannula Oxygen Flow Rate 4 Fraction of Inspired Oxygen 07/22/24 20:00 07/22/24 20:00 07/22/24 20:00 Temperature 98.4 F Pulse Rate 87 66 Respiratory Rate 20 Blood Pressure 148/78 H Pulse Oximetry 99 99 Oxygen Delivery Nasal Cannula Oxygen Flow Rate 4 Fraction of Inspired Oxygen 07/23/24 00:00 07/23/24 00:45 07/23/24 02:45 Temperature 98.6 F Pulse Rate 86 85 80 Respiratory Rate 20 22 H Blood Pressure 158/86 H Pulse Oximetry 100 Oxygen Delivery Oxygen Flow Rate Fraction of Inspired Oxygen 07/23/24 02:47 07/23/24 02:52 07/23/24 04:00 Temperature Pulse Rate 87 91 Respiratory Rate 22 H Blood Pressure Pulse Oximetry 100 Oxygen Delivery Nasal Cannula Oxygen Flow Rate 3 Fraction of Inspired Oxygen 07/23/24 04:45 Temperature 98.4 F Pulse Rate 78 Respiratory Rate 20 Blood Pressure 149/81 H Pulse Oximetry 100 Oxygen Delivery Oxygen Flow Rate Fraction of Inspired Oxygen Intake/Output Intake/Output: Intake & Output 07/20/24 07/21/24 07/22/24 07/23/24 23:59 23:59 23:59 23:59 Intake Total 300 300 Output Total 400 1200 Balance -100 -900 Meds/Results Medications: Active Medications Generic Name Dose Route Start Last Admin Trade Name Freq PRN Reason Stop Dose Admin Acetaminophen 650 mg 07/22/24 14:51 Acetaminophen 325 Mg Tablet PO Q4H PRN Mild Pain (1-3) or Fever Albuterol/Ipratropium 3 ml 07/22/24 14:00 07/23/24 02:45 Ipratropium 0.5 Mg/Albuterol Sulfate 2.5 Mg Ampul.Neb 3 Ml INHALATION 3 ml Q6HRT PRICILA Administration Amlodipine Besylate 5 mg 07/23/24 09:00 Amlodipine Besylate 5 Mg Tablet PO DAILY PRICILA Docusate Sodium 100 mg 07/23/24 09:00 Docusate Sodium 100 Mg Capsule PO DAILY [facility] Docusate Sodium 100 mg 07/23/24 09:00 Docusate Sodium 100 Mg Capsule PO DAILY PRICILA Enoxaparin Sodium 40 mg 07/23/24 09:00 Enoxaparin 40 Mg/0.4 Ml Syringe SUB-Q DAILY PRICILA Fluticasone/Umeclidinium/Vilanterol 1 puff 07/23/24 09:00 Fluticasone/Umeclidin/Vilanter 100-62.5-25 Mcg Ellipta INHALATION DAILY PRICILA Guaifenesin/Dextromethorphan 10 ml 07/23/24 01:00 07/23/24 05:25 Guaifenesin/Dextromethorphan 10 Ml Udc PO 10 ml Q4HR PRICILA Administration Hydrochlorothiazide 25 mg 07/23/24 09:00 Hydrochlorothiazide 25 Mg Tablet PO DAILY PRICILA Ceftriaxone Sodium 1 gm in 50 mls @ 100 mls/hr 07/22/24 21:50 07/22/24 22:37 Rocephin 1 Gm/Ns 50 Ml IVPB Infused HS PRICILA Infusion Azithromycin 500 mg in 250 mls @ 250 mls/hr 07/22/24 21:50 07/22/24 23:07 Zithromax IVPB Infused HS PRICILA Infusion Methylprednisolone Sodium Succinate 125 mg 07/22/24 18:00 07/23/24 05:25 Methylprednisolone Sod Succ 125 Mg Vial IV PUSH 125 mg Q6HR PRICILA Administration Morphine Sulfate 2 mg 07/22/24 14:51 Morphine Sulfate (*Crx) 2 Mg/Ml Inj IV PUSH Q2H PRN Pain Rated 7-10 Ondansetron HCl 4 mg 07/22/24 14:51 Ondansetron Inj 4 Mg/2 Ml Vial IV PUSH Q4H PRN Nausea Valsartan 320 mg 07/23/24 09:00 Valsartan 160 Mg Tablet PO DAILY PRICILA Radiology Results: ITS Impressions Chest X-Ray 07/22/24 11:12 IMPRESSION: Small left-sided pleural effusion without focal infiltrate. Labs Labs: Laboratory Results - last 24 hr 07/22/24 07/22/24 07/22/24 10:05 10:30 11:11 WBC 10.1 H RBC 3.81 L Hgb 11.0 L Hct 35.1 L MCV 92.1 MCH 28.9 MCHC 31.3 L RDW 14.6 H Plt Count 215 MPV 9.4 Immature Gran % (Auto) 0.8 H Neut % (Auto) 81.2 H Lymph % (Auto) 7.4 L [place]arn[place] % (Auto) 8.1 Eos % (Auto) 2.4 Baso % (Auto) 0.1 L Lymph # (Auto) 0.75 L [place] # (Auto) 0.8 H Eos # (Auto) 0.2 Baso # (Auto) 0.0 Abs Immat Gran (auto) 0.08 H Absolute Neuts (auto) 8.2 H Absolute Nucleated RBC 0.000 Nucleated RBC % 0.0 PT 13.3 INR 1.0 Puncture Site Left radial ABG pH 7.339 L ABG pCO2 74.6 H* ABG pO2 90.3 ABG PO2/FiO2 Ratio 2.51 ABG HCO3 39.3 H ABG O2 Saturation 96.0 ABG O2 Content 15.6 L ABG Base Excess 10.9 A-a Gradient 79.8 Oxyhemoglobin 95.9 Carboxyhemoglobin Methemoglobin Reduced Hemoglobin Total Hemoglobin 11.5 L O2 Delivery Device Nasal cannula O2 Liters/Min 4.0 FiO2 36 Expiratory Pressure Inspiratory Pressure Sodium 138 Potassium 4.3 Chloride 92 L Carbon Dioxide > 40 H Anion Gap BUN 24 H Creatinine 1.00 Estim Creat Clear Calc 38 Estimated GFR > 60 Glucose 120 H Lactic Acid 1.4 Calcium 9.6 Total Bilirubin 0.5 AST 20 ALT 21 Alkaline Phosphatase 51 Troponin I 0.033 NT-Pro-B Natriuret Pep 168 H Total Protein 7.0 Albumin 3.9 Influenza A (RT-PCR) Negative Influenza B (RT-PCR) Negative RSV (RT-PCR) Negative SARS-CoV-2 RNA (RT-PCR) Negative 07/22/24 07/23/24 13:46 05:48 WBC 6.1 RBC 3.63 L Hgb 10.5 L Hct 31.9 L MCV 87.9 MCH 28.9 MCHC 32.9 RDW 14.5 Plt Count 204 MPV 9.9 Immature Gran % (Auto) 0.8 H Neut % (Auto) 93.7 H Lymph % (Auto) 4.1 L [place] % (Auto) 1.2 L Eos % (Auto) 0.0 Baso % (Auto) 0.2 Lymph # (Auto) 0.25 L [place] # (Auto) 0.1 Eos # (Auto) 0.0 Baso # (Auto) 0.0 Abs Immat Gran (auto) 0.05 H Absolute Neuts (auto) 5.7 Absolute Nucleated RBC 0.000 Nucleated RBC % 0.0 PT INR Puncture Site Left radial ABG pH 7.422 ABG pCO2 69.3 H* ABG pO2 68.4 L ABG PO2/FiO2 Ratio 2.44 ABG HCO3 44.1 H ABG O2 Saturation 93.3 L ABG O2 Content 14.9 L ABG Base Excess 16.7 A-a Gradient 49.5 Oxyhemoglobin 93.3 Carboxyhemoglobin 0.3 Methemoglobin 0.2 Reduced Hemoglobin 6.2 H Total Hemoglobin 11.3 L O2 Delivery Device Bipap O2 Liters/Min Not Reportable FiO2 28 Expiratory Pressure 7 Inspiratory Pressure 14 Sodium 132 L Potassium 4.7 Chloride 92 L Carbon Dioxide > 40 H Anion Gap BUN 28 H Creatinine 1.10 Estim Creat Clear Calc 38 Estimated GFR > 60 Glucose 163 H Lactic Acid Calcium 9.2 Total Bilirubin AST ALT Alkaline Phosphatase Troponin I NT-Pro-B Natriuret Pep Total Protein Albumin Influenza A (RT-PCR) Influenza B (RT-PCR) RSV (RT-PCR) SARS-CoV-2 RNA (RT-PCR) Quality VTE Prophylaxis VTE prophylaxis: mechanical ordered and pharmacologic ordered Hospitalist MIPS Advance Care Plan I have confirmed that the patient's Advanced Care Plan is present, code status is documented, or surrogate decision maker is listed in patient medical record.: Yes Medication Reconciliation I have utilized all available resources to obtain, update and review the patients current medications (includes all prescriptions, OTC, herbals, cannabis, and nutritional supplements).: Yes
[2024-07-23] MEDS: VALSARTAN 160 MG TABLET 320 MG PO (08:56)
[2024-07-23] MEDS: hydroCHLOROthiazide 25 MG TABLET PO (08:56)
[2024-07-23] MEDS: DOCUSATE SODIUM 100 MG CAPSULE PO (08:57)
[2024-07-23] MEDS: amLODIPine BESYLATE 5 MG TABLET PO (08:57)
[2024-07-23] MEDS: ENOXAPARIN 40 MG/0.4 ML SYRINGE SUB-Q (08:57)
[2024-07-23] MEDS: FLUTICASONE/UMECLIDIN/VILANTER 100-62.5-25 MCG ELLIPTA 1 PUFF INHALATION (09:00)
[2024-07-23] MEDS: methylPREDNISolone SOD SUCC 125 MG VIAL 60 MG IV PUSH (17:54)
[2024-07-23] MEDS: AZITHROMYCIN 500 MG/NS 250 ML 500 MG/250 ML BAG 250 MG IVPB (21:09)
[2024-07-24] VITALS (15 sets, daily range): BP systolic 146–154; BP diastolic 82–89; PULSE 78–108; RESP 16–20; TEMP 36.4–36.9; O2SAT 97–100
[2024-07-24] MEDS: guaiFENesin/DEXTROMETHORPHAN 10 ML UDC PO ×6 (00:29→21:19)
[2024-07-24] MEDS: methylPREDNISolone SOD SUCC 125 MG VIAL 60 MG IV PUSH ×4 (00:29→21:18)
[2024-07-24] MEDS: IPRATROPIUM 0.5 MG/ALBUTEROL SULFATE 2.5 MG AMPUL.NEB 3 ML INHALATION ×4 (02:35→21:28)
[2024-07-24 07:17] LABS: Troponin I 0.036 ng/mL (0.000-0.034)
[2024-07-24] MEDS: FLUTICASONE/UMECLIDIN/VILANTER 100-62.5-25 MCG ELLIPTA 1 PUFF INHALATION (07:53)
[2024-07-24] MEDS: amLODIPine BESYLATE 5 MG TABLET PO (08:52)
[2024-07-24] MEDS: VALSARTAN 160 MG TABLET 320 MG PO (08:52)
[2024-07-24] MEDS: FUROSEMIDE 40 MG TABLET PO (08:52)
[2024-07-24] MEDS: DOCUSATE SODIUM 100 MG CAPSULE PO (08:52)
[2024-07-24] MEDS: ENOXAPARIN 40 MG/0.4 ML SYRINGE SUB-Q (08:54)
--- NOTE | 2024-07-24 10:19 | P.PNIM_ITS ---
Progress Note: A&P Assessment and Plan (1) Acute hypoxic respiratory failure: Code(s): J96.01 - Acute respiratory failure with hypoxia Status: Acute Assessment and Plan: With hypoxia and hypercarbia --BiPAP as needed --Q 6 breathing treatments p.r.n. --Influenza a, B, RSV and COVID negative --Troponin slightly elevated, likely demand. Troponin trend 0.033>0.036>0.041. Continue to trend. Patient asymptomatic. --Walking O2 prior to discharge (2) COPD exacerbation: Code(s): J44.1 - Chronic obstructive pulmonary disease with (acute) exacerbation Status: Acute Assessment and Plan: --IV steroids x1 followed by p.o. --DuoNeb --Pulmonary consult. Admitted 3 times in one month. (3) Hypertension: Code(s): I10 - Essential (primary) hypertension Status: Chronic Assessment and Plan: * Continue amlodipine. Hold Valsartan potassium elevated at 5.4. (4) CHF (congestive heart failure): Code(s): I50.9 - Heart failure, unspecified Status: Acute Assessment and Plan: Seems euvolemic but has a small effusion --Change hctz to furosemide 40mg PO and follow (5) Leukocytosis: Code(s): D72.829 - Elevated white blood cell count, unspecified Status: Acute Assessment and Plan: Patient with productive cough and green sputum, possible pneumonia, but no focal infiltrate on x-rays Started azithromycin & Rocephin --Change Rocephin to Cefepime 2 gm IVPB q 12. Continue Azithromycin 500 mg PO daily. --Guaifenesin --Blood cultures pending --Sputum culture --Consider CT chest if not improving (6) Hyperkalemia: Code(s): E87.5 - Hyperkalemia Status: Acute Assessment and Plan: --Potassium 5.4. --HOLD Losartan --Monitor labs. Subjective Date/time seen: 07/24/24 10:19 Interval history: Patient sitting up in bed. Patient denies chest pain, palpitations, headache, dizziness, nausea, or vomiting. Patient reports coughing up gimenez sputum. Patient reports shortness of breath occasionally at rest and on exertion. Review of Systems Review of Systems: All systems reviewed & are unremarkable except as noted in HPI and below Exam Const: General: comfortable and no acute distress Resp: Auscultation: diminished lung sounds Cardio: Rhythm: abnormal rhythm (Telemetry Afib 101 with multiple PVC's) irregularly irregular GI: GI Palp: Yes Soft to palpation Auscultation: normal bowel sounds Skin: General skin exam: no rashes or lesions noted Neuro: Speech: normal speech Extrem: General: no pedal edema Psych: Mental Status: mental status grossly normal Affect: normal affect Objective Data Vital Signs Vital Signs: Vital Signs - 24 hr 07/23/24 11:52 07/23/24 12:00 07/23/24 14:55 Temperature Pulse Rate 122 H Respiratory Rate Blood Pressure Pulse Oximetry 99 Oxygen Delivery Nasal Cannula Nasal Cannula Oxygen Flow Rate 4 4 Fraction of Inspired Oxygen 07/23/24 14:55 07/23/24 15:05 07/23/24 15:20 Temperature 98.1 F Pulse Rate 95 81 84 Respiratory Rate 20 20 17 Blood Pressure 159/84 H Pulse Oximetry 100 Oxygen Delivery Oxygen Flow Rate Fraction of Inspired Oxygen 07/23/24 16:00 07/23/24 20:00 07/23/24 20:00 Temperature 97.8 F Pulse Rate 112 H 93 108 H Respiratory Rate 18 Blood Pressure 134/77 Pulse Oximetry 100 Oxygen Delivery Oxygen Flow Rate Fraction of Inspired Oxygen 07/23/24 20:19 07/23/24 20:22 07/23/24 20:27 Temperature Pulse Rate 83 82 Respiratory Rate 20 20 Blood Pressure Pulse Oximetry 98 Oxygen Delivery Nasal Cannula Oxygen Flow Rate 4 Fraction of Inspired Oxygen 07/24/24 00:00 07/24/24 00:00 07/24/24 02:35 Temperature 97.6 F Pulse Rate 85 94 86 Respiratory Rate 16 20 Blood Pressure 146/89 H Pulse Oximetry 100 Oxygen Delivery Oxygen Flow Rate Fraction of Inspired Oxygen 07/24/24 02:44 07/24/24 04:00 07/24/24 05:15 Temperature 97.6 F Pulse Rate 85 100 97 Respiratory Rate 20 16 Blood Pressure 149/82 H Pulse Oximetry 100 Oxygen Delivery Oxygen Flow Rate Fraction of Inspired Oxygen 07/24/24 07:52 07/24/24 07:52 07/24/24 08:00 Temperature Pulse Rate 96 78 Respiratory Rate 20 Blood Pressure Pulse Oximetry 97 98 Oxygen Delivery Nasal Cannula Nasal Cannula Oxygen Flow Rate 3 3 Fraction of Inspired Oxygen 32 07/24/24 08:08 Temperature Pulse Rate 95 Respiratory Rate 20 Blood Pressure Pulse Oximetry Oxygen Delivery Oxygen Flow Rate Fraction of Inspired Oxygen Intake/Output Intake/Output: Intake & Output 07/21/24 07/22/24 07/23/24 07/24/24 23:59 23:59 23:59 23:59 Intake Total 300 1890 400 Output Total 400 1500 850 Balance -100 390 -450 Meds/Results Medications: Active Medications Generic Name Dose Route Start Last Admin Trade Name Freq PRN Reason Stop Dose Admin Acetaminophen 650 mg 07/22/24 14:51 Acetaminophen 325 Mg Tablet PO Q4H PRN Mild Pain (1-3) or Fever Albuterol/Ipratropium 3 ml 07/22/24 14:00 07/24/24 07:52 Ipratropium 0.5 Mg/Albuterol Sulfate 2.5 Mg Ampul.Neb 3 Ml INHALATION 3 ml Q6HRT PRICILA Administration Amlodipine Besylate 5 mg 07/23/24 09:00 07/24/24 08:52 Amlodipine Besylate 5 Mg Tablet PO 5 mg DAILY PRICILA Administration Docusate Sodium 100 mg 07/23/24 09:00 07/24/24 08:52 Docusate Sodium 100 Mg Capsule PO 100 mg DAILY PRICILA Administration Docusate Sodium 100 mg 07/23/24 09:00 07/24/24 08:52 Docusate Sodium 100 Mg Capsule PO Not Given DAILY PRICILA Enoxaparin Sodium 40 mg 07/23/24 09:00 07/24/24 08:54 Enoxaparin 40 Mg/0.4 Ml Syringe SUB-Q 40 mg DAILY PRICILA Administration Fluticasone/Umeclidinium/Vilanterol 1 puff 07/23/24 09:00 07/24/24 07:53 Fluticasone/Umeclidin/Vilanter 100-62.5-25 Mcg Ellipta INHALATION 1 puff DAILY PRICILA Administration Furosemide 40 mg 07/24/24 09:00 07/24/24 08:52 Furosemide 40 Mg Tablet PO 40 mg DAILY PRICILA Administration Guaifenesin/Dextromethorphan 10 ml 07/23/24 01:00 07/24/24 08:53 Guaifenesin/Dextromethorphan 10 Ml Udc PO 10 ml Q4HR PRICILA Administration Ceftriaxone Sodium 1 gm in 50 mls @ 100 mls/hr 07/22/24 21:50 07/23/24 21:08 Rocephin 1 Gm/Ns 50 Ml IVPB Infused HS PRICILA Infusion Azithromycin 500 mg in 250 mls @ 250 mls/hr 07/22/24 21:50 07/23/24 22:09 Zithromax IVPB Infused HS PRICILA Infusion Methylprednisolone Sodium Succinate 60 mg 07/23/24 18:00 07/24/24 05:16 Methylprednisolone Sod Succ 125 Mg Vial IV PUSH 60 mg Q6HR PRICILA Administration Morphine Sulfate 2 mg 07/22/24 14:51 Morphine Sulfate (*Crx) 2 Mg/Ml Inj IV PUSH Q2H PRN Pain Rated 7-10 Ondansetron HCl 4 mg 07/22/24 14:51 Ondansetron Inj 4 Mg/2 Ml Vial IV PUSH Q4H PRN Nausea Valsartan 320 mg 07/23/24 09:00 07/24/24 08:52 Valsartan 160 Mg Tablet PO 320 mg DAILY PRICILA Administration Radiology Results: ITS Impressions Chest X-Ray 07/22/24 11:12 IMPRESSION: Small left-sided pleural effusion without focal infiltrate. Labs Labs: Laboratory Results - last 24 hr 07/24/24 06:03 Troponin I 0.036 H* Quality VTE Prophylaxis VTE prophylaxis: mechanical ordered and pharmacologic ordered
[2024-07-24 12:05] LABS: Basophils Percent Auto 0.1 % (0.2-1.2); Hematocrit 32.4 % (42.0-52.0); Hemoglobin 10.8 g/dL (14.0-18.0); Immature Granulocyte Absolute 0.11 K/mm3 (0.00-0.031); Lymphocytes Absolute Auto 0.15 K/mm3 (0.9-3.2); Lymphocytes Percent Auto 1.4 % (18.3-44.2); Mean Corpuscular HGB Conc 33.3 g/dl (32-36); Mean Corpuscular Volume 87.1 fl (80-100); Mean Platelet Volume 9.4 fl (7.4-10.4); Monocytes Absolute Auto 0.3 K/mm3 (0.1-0.6); Neutrophils Absolute Auto 10.2 K/mm3 (1.3-6.7); Neutrophils Percent Auto 94.5 % (45.5-73.1); Platelet Count Result 220 k/mm3 (150-375); Red Blood Count 3.72 M/mm3 (4.6-6.20); Red Cell Distribution Width 14.7 % (11.5-14.5); White Blood Count 10.8 K/mm3 (4.5-10.0)
[2024-07-24 12:23] LABS: Alanine Aminotransferase 19 U/L (6-50); Albumin Level 3.9 g/dL (3.5-5.1); Alkaline Phosphatase 47 U/L (38-126); Aspartate Amino Transferase 19 U/L (17-59); Bilirubin,Total 0.3 mg/dL (0.2-1.3); Blood Urea Nitrogen 36 mg/dL (9-20); Calcium 9.3 mg/dL (8.4-10.2); Carbon Dioxide > 40 mmol/L (22-30); Chloride 88 mmol/L (98-107); Estimated CRCL calculation 28 ml/min; Estimated Glomerular Filt Rate 56; Glucose 130 mg/dL (65-110); Potassium 5.4 mmol/L (3.4-5.0); Sodium 133 mmol/L (137-145)
[2024-07-24 12:57] LABS: Troponin I 0.041 ng/mL (0.000-0.034)
[2024-07-24] MEDS: CEFEPIME 2 GM/NS 50 ML 2 GM/50 ML BAG IVPB ×2 (12:58→21:19)
--- NOTE | 2024-07-24 18:10 | P.CONPL_ITS ---
Assessment and Plan Assessment and plan (1) COPD (chronic obstructive pulmonary disease): Qualifiers: COPD type: unspecified COPD Qualified Code(s): J44.9 - Chronic obstructive pulmonary disease, unspecified Code(s): J44.9 - Chronic obstructive pulmonary disease, unspecified Status: Acute (2) Acute and chronic respiratory failure: Qualifiers: Respiratory failure complication: hypoxia and hypercapnia Qualified Code(s): J96.21 - Acute and chronic respiratory failure with hypoxia; J96.22 - Acute and chronic respiratory failure with hypercapnia Code(s): J96.20 - Acute and chronic respiratory failure, unspecified whether with hypoxia or hypercapnia Status: Acute (3) Former smoker: Code(s): Z87.891 - Personal history of nicotine dependence Status: Resolved (4) Atrial fibrillation with rapid ventricular response: Code(s): I48.91 - Unspecified atrial fibrillation Status: Acute Plan plan: 1. Repeat thyroid testing. He had low TSH & T3 with normal free T4 early June. If he is more hyperthyroid, this may explain his new a-fib with RVR. He has been on oral steroids recently, may interfere with some of the values. 2. When he is discharged, he needs pulmonary office follow up to improve his baseline COPD management. He was on Trelegy and duonebs; History of Present Illness History of Present Illness Consult date: 07/25/24 Requesting physician: Ambar Bar APRN Reason for consult: pneumonia Chief complaint: Acute on chronic respiratory failure Narrative: pt was seen 07/25/24 at 16:30 in Room 347 NEW: Kenney Varela is a 68 year-old man with pneumonia on CXR, and acute on chronic respiratory failure. At the time I saw the patient, he was at the start of atrial fib with RVR, rate 170-190, and was asymptomatic. He said that he was not aware that he was having a rapid heart beat, does not think that he has had atrial fibrillation in the past, says that he had congestive heart failure in 2008. Was admitted with sl increase in WBC 10.8, 1st ABG = primary chronic respiratory acidosis with secondary metabolic acid; 2nd ABG pH 7.42 pCO2 69 PO2 68 on BiPAP 14/7 and 28% oxygen; this one shows metabolic alkalosis with secondary respiratory acidosis. He also has increased troponin 0.036, 0.041, low (+) BNP 168. e has a small increase in BNP, 168 this admission. He is a patient in our pulmonary practice, last saw Harikalaurie Graham on May 06, 2024. He was stable on Trelegy and albuterol, using Duoneb 3-4 times a day. 3 Recent admissions: 1st: Jun 25 through , cough, dyspnea, low sat in 80% range; (+) pneumococcal antigen; CXR 06/25 = Probable bibasilar pulmonary edema/atelectasis versus pneumonia; Minimal pleural effusions. COPD. Lactic acid 2.3, low elevation Creat 1.6 2nd: Re-admitted Jul 08 to , cough with sputum, increased dyspnea, wheezing. Patient had a BNP of 1700, pCO2 61, clear CXR. Lactate =0.9. Normal creatinine. 3rd: Re-admitted 07/22 with increased cough, dyspnea, CXR =Small left-sided pleural effusion without focal infiltrate.He was still on his prednisone taper when he was admitted. Viral swabs are all negative. Lactate 1.4. Creat normal. He is a former smoker, smoked from age 18 until age 58, 40 pack year history. He started using O2 about 10 years ago, initially at night, then around the clock. He has lost wt, 10-15 lb over the last 8 months. He was using inhalers including Trelegy and ProAir until the last admission, he says that he was taken off these. He does not currently smoke marijuana, never vaped. 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 Shortness of breath, cough, possibly change in sputum production several days prior to this admission. He was up to date on his vaccinations, he had the flu, RSV, COVID and I believe he also said pneumococcal vaccination in March this year. SLEEP: He sleeps 6-7 hours a night, wakes 3-4 times to urinate, sometimes has dreams. He occasionally awakens with a dry mouth. He naps at most 30-60 minutes, unclear about how many times a week he naps. He drinks a cup of coffee per day. DATA * 07/22/2024; EKG = sinus rhythm with PACs LEFT ANTERIOR FASCICULAR BLOCK [QRS AXIS <= -45, QR IN I, RS IN II] Compared to ECG 07/07/2024 22:12:24 Left anterior fascicular block now present Myocardial infarct finding no longer present PACs are new ABGs reviewed; he has had hypercapnia since Aug 2019. 3 06/25 07/07 07/22 10:00 07/22 13:46 pH 7.41 7.40 7.339 7.422 pCO2 58 61 74.6 69.3 pO2 207 78 90.6 68.4 HCO3 36 37 39.3 44.1 sat 99% 95% 96% 93.3 O2 delivery NC NC NC BiPAP O2 15 L 4 L 4 L 28% rate IPAP 14 EPAP 7 * BNP last 3 admissions : June 25 =2870; July 07; 1720, July 22; 168 * 07/22/24 FINDINGS The cardiomediastinal silhouette is unremarkable. Blunting of the left costophrenic sulcus suggesting a small left-sided pleural effusion. The remainder of the lungs are clear. Visualized osseous structures and soft tissues are unremarkable. IMPRESSION: Small left-sided pleural effusion without focal infiltrate. * 06/25/2024 echo: 1. The left ventricle is normal in size and borderline normal in systolic function. There is mild eccentric left ventricular hypertrophy. The left ventricular ejection fraction is visually estimated to be 50%. 2. The right ventricle is normal in size and systolic function. 3. Cannot rule out PFO or small ASD during the Valsalva portion of the bubble study. * 06/25/2024; TSH low 0.121, low T3 0.7, normal T4 16.1 consistent with Euthyroid state with nonthyroidal illness; could be hyperthyroidism in an ill person. * 09/29/23 - PFT - There is a very severe obstructive abnormality. There is no significant improvement after inhaling a single dose of albuterol.? The increase in residual volume to total lung volume ratio is consistent with hyperinflation from an obstructive abnormality.? The diffusing capacity unadjusted for hemoglobin and carboxyhemoglobin is severely decreased and remains moderately decreased when adjusted for alveolar volume. * 09/29/23 - Home O2 evaluation- Patient required 2 L/min at rest and 6 L/min with ambulation. * 09/22/23 - A1AT phenotype - MM, normal. * CXR 08/23/23 -? Emphysema with mild bibasilar reticular opacities which could represent atelectasis, mild pulmonary edema or less likely pneumonia. Cardiomegaly. * PFT 12/09/09 report ? severe obstructive ventilatory defect Review of Systems 2 Review of Systems: He has not had leg swelling, calf pain, chest pain. He had loose stools after Thanksgiving, thinks he had food poisoning. He has not had GI symptoms this admission. He has sinus irritation in the spring, nothing recently. Does not have sinus symptoms at this time. All systems reviewed & are unremarkable except as noted in HPI and below [facility] Past Medical History Medical History (Updated 07/25/24 @ 19:13 by Tasha Marin MD) Degenerative disc disease Degenerative disc disease Prostate CA (2018) Status post radiation therapy. Emphysema lung COPD (chronic obstructive pulmonary disease) Hypertension CHF (congestive heart failure) Echocardiogram June 2016 showed normal left ventricular systolic function and size with mild concentric left ventricular hypertrophy and impaired diastolic relaxation grade 1 with ejection fraction estimated at 60 to 65%. 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 TIA (transient ischemic attack) Surgical History Surgical History H/O inguinal hernia repair (2017) Right Family History Family History Father Acute myocardial infarction Grandparent Cerebrovascular accident Diabetes mellitus Social History Social History Social History: The patient lives in [place] with his . They have 3 children. he is retired. he designates his , Gaby, as his surrogate decision maker and he wishes to be a full code. He smoked up to a pack of cigarettes per day and quit in 2011. He drinks a half of a pint of [place] each Monday. He denies drug use. Smoking packs per day: 1 Smoking cigarettes per day: 20.0 Years smoked: 20 Smoking pack-years: 20.00 Smoking status: Former smoker Tobacco type: cigarettes Additional smoking assessment comments: quit in 2011 Alcohol intake: former Drinks per week: 2 Alcohol use details: ocassionally Substance use: never Substance use type: marijuana Do You Feel Safe in your Home?: Yes Lack of Transportation: No Lack of Food: Never True Current Housing: I Have Housing Concerned About Future Housing: No Difficulty Paying Gas/Electric Bills: No Difficulty Paying for Meds: No Currently Unemployed: No Education: Grade School Difficulty w/ Childcare or Family Care: No Living arrangements: with family Occupation/Education: retired Gender identity (if verbalized by the patient): Male Sexual Orientation (if Verbalized by the Patient): Straight or Heterosexual Spiritual care concerns: No Agree to blood products: Yes Meds Home Medications and Allergies Home Medications ?Medication ?Instructions ?Recorded ?Confirmed ?Type epinephrine 0.3 mg/0.3 mL 0.3 mg (0.3 mL) IM ONCE PRN 12/10/23 07/22/24 Rx injection, auto-injector (EpiPen) anaphylaxis #2 ea ipratropium 0.5 mg-albuterol 3 mg 3 ml inhalation QID #360 mL 02/09/24 07/22/24 Rx (2.5 mg base)/3 mL nebulization soln fluticasone fur. 100 mcg-umeclid See Rx Instructions .Route 02/16/24 07/22/24 Rx 62.5 mcg-vilant 25 mcg .COMPLEX #60 ea inhalat.powder (Trelegy Ellipta) valsartan 320 1 tablet PO DAILY #90 tabs 05/20/24 07/22/24 Rx mg-hydrochlorothiazide 25 mg tablet amlodipine 5 mg tablet (Norvasc) 5 mg PO DAILY #30 tabs 07/11/24 07/22/24 Rx guaifenesin 600 mg tablet, 600 mg PO Q12HR #14 tabs 07/11/24 07/22/24 Rx extended release 12 hr (Mucus Relief ER) prednisone 10 mg tablet 10 mg PO DIRECTED #30 tabs 07/11/24 07/22/24 Rx Allergies Allergy/AdvReac Type Severity Reaction Status Date / Time bee venom protein (honey bee) Allergy Unknown ANAPHALAXIS Verified 07/22/24 19:04 Vital Signs Vital Signs - 24 hr 07/23/24 20:00 07/23/24 20:00 07/23/24 20:19 Temperature 36.6 C Pulse Rate 93 108 H 83 Respiratory Rate 18 20 Blood Pressure 134/77 Pulse Oximetry 100 Oxygen Delivery Oxygen Flow Rate Fraction of Inspired Oxygen 07/23/24 20:22 07/23/24 20:27 07/24/24 00:00 Temperature 36.4 C Pulse Rate 82 85 Respiratory Rate 20 16 Blood Pressure 146/89 H Pulse Oximetry 98 100 Oxygen Delivery Nasal Cannula Oxygen Flow Rate 4 Fraction of Inspired Oxygen 07/24/24 00:00 07/24/24 02:35 07/24/24 02:44 Temperature Pulse Rate 94 86 85 Respiratory Rate 20 20 Blood Pressure Pulse Oximetry Oxygen Delivery Oxygen Flow Rate Fraction of Inspired Oxygen 07/24/24 04:00 07/24/24 05:15 07/24/24 07:52 Temperature 36.4 C Pulse Rate 100 97 Respiratory Rate 16 Blood Pressure 149/82 H Pulse Oximetry 100 97 Oxygen Delivery Nasal Cannula Oxygen Flow Rate 3 Fraction of Inspired Oxygen 32 07/24/24 07:52 07/24/24 08:00 07/24/24 08:00 Temperature Pulse Rate 96 78 108 H Respiratory Rate 20 Blood Pressure Pulse Oximetry 98 Oxygen Delivery Nasal Cannula Oxygen Flow Rate 3 Fraction of Inspired Oxygen 07/24/24 08:08 07/24/24 12:00 07/24/24 14:00 Temperature Pulse Rate 95 108 H 84 Respiratory Rate 20 18 Blood Pressure Pulse Oximetry Oxygen Delivery Oxygen Flow Rate Fraction of Inspired Oxygen 07/24/24 14:10 07/24/24 15:24 Temperature 36.9 C Pulse Rate 86 90 Respiratory Rate 18 19 Blood Pressure 154/84 H Pulse Oximetry 100 Oxygen Delivery Oxygen Flow Rate Fraction of Inspired Oxygen Exam 2 Narrative: GEN: Alert, oriented, not in distress. Thin, BMI is 15.6. he is wearing nasal cannula for O2 = HEENT: pupils are equal, EOMI, symmetrical face; oral membranes moist, dentition is poor, Mallampati III airway, no erythema or exudate. NECK: Trachea is midline CHEST: Equal air entry, symmetric excursion, thorax is hyperinflated, markedly decreased breath sounds, no wheezing. CV: irregularly irregular S1S2 rapid making it difficult to hear any additional sounds. No murmur, clicks or rubs. ABD : (+) bowel sounds Extremities : Early clubbing possible on fingernails. No cyanosis or edema. Cales non tender. PSYCH: normal thought and speech, gait is not tested. Results Laboratory Findings 07/25/24 05:52 07/25/24 05:52 ABG, PT/INR, D-dimer: ABG ABG pH 7.422 (7.350-7.450) 07/22/24 13:46 ABG pCO2 69.3 mmHg (35.0-45.0) H* 07/22/24 13:46 ABG pO2 68.4 mmHg (80.0-100.0) L 07/22/24 13:46 ABG O2 Saturation 93.3 % (95.0-100.0) L 07/22/24 13:46 PT/INR, D-dimer PT 13.3 Seconds (11.1-14.7) 07/22/24 10:30 INR 1.0 07/22/24 10:30 Abnormal lab findings: Abnormal Labs 07/22/24 07/22/24 07/22/24 10:05 10:30 13:46 WBC 10.1 H RBC 3.81 L Hgb 11.0 L Hct 35.1 L MCHC 31.3 L RDW 14.6 H Immature Gran % (Auto) 0.8 H Neut % (Auto) 81.2 H Lymph % (Auto) 7.4 L [place] % (Auto) Baso % (Auto) 0.1 L Lymph # (Auto) 0.75 L [place] # (Auto) 0.8 H Abs Immat Gran (auto) 0.08 H Absolute Neuts (auto) 8.2 H ABG pH 7.339 L ABG pCO2 74.6 H* 69.3 H* ABG pO2 68.4 L ABG HCO3 39.3 H 44.1 H ABG O2 Saturation 93.3 L ABG O2 Content 15.6 L 14.9 L Reduced Hemoglobin 6.2 H Total Hemoglobin 11.5 L 11.3 L Sodium Potassium Chloride 92 L Carbon Dioxide > 40 H BUN 24 H Creatinine Estimated GFR Glucose 120 H Troponin I NT-Pro-B Natriuret Pep 168 H 07/23/24 07/24/24 07/24/24 05:48 06:03 11:57 WBC RBC 3.63 L Hgb 10.5 L Hct 31.9 L MCHC RDW Immature Gran % (Auto) 0.8 H Neut % (Auto) 93.7 H Lymph % (Auto) 4.1 L [place] % (Auto) 1.2 L Baso % (Auto) Lymph # (Auto) 0.25 L [place] # (Auto) Abs Immat Gran (auto) 0.05 H Absolute Neuts (auto) ABG pH ABG pCO2 ABG pO2 ABG HCO3 ABG O2 Saturation ABG O2 Content Reduced Hemoglobin Total Hemoglobin Sodium 132 L 133 L Potassium 5.4 H Chloride 92 L 88 L Carbon Dioxide > 40 H > 40 H BUN 28 H 36 H Creatinine 1.50 H Estimated GFR 56 L Glucose 163 H 130 H Troponin I 0.036 H* 0.041 H* NT-Pro-B Natriuret Pep 07/24/24 11:58 WBC 10.8 H RBC 3.72 L Hgb 10.8 L Hct 32.4 L MCHC RDW 14.7 H Immature Gran % (Auto) 1.0 H Neut % (Auto) 94.5 H Lymph % (Auto) 1.4 L [place] % (Auto) Baso % (Auto) 0.1 L Lymph # (Auto) 0.15 L [place] # (Auto) Abs Immat Gran (auto) 0.11 H Absolute Neuts (auto) 10.2 H ABG pH ABG pCO2 ABG pO2 ABG HCO3 ABG O2 Saturation ABG O2 Content Reduced Hemoglobin Total Hemoglobin Sodium Potassium Chloride Carbon Dioxide BUN Creatinine Estimated GFR Glucose Troponin I NT-Pro-B Natriuret Pep
[2024-07-24 19:40] LABS: Troponin I 0.049 ng/mL (0.000-0.034)
[2024-07-24] MEDS: AZITHROMYCIN 250 MG TABLET 500 MG PO (21:19)
[2024-07-25] VITALS (29 sets, daily range): BP systolic 125–155; BP diastolic 77–97; PULSE 74–188; RESP 16–22; TEMP 36.5–36.9; O2SAT 97–100
[2024-07-25] MEDS: guaiFENesin/DEXTROMETHORPHAN 10 ML UDC PO ×6 (00:45→20:08)
[2024-07-25] MEDS: IPRATROPIUM 0.5 MG/ALBUTEROL SULFATE 2.5 MG AMPUL.NEB 3 ML INHALATION ×4 (02:08→19:56)
[2024-07-25] MEDS: methylPREDNISolone SOD SUCC 125 MG VIAL 60 MG IV PUSH ×3 (05:05→23:18)
[2024-07-25 06:03] LABS: Basophils Percent Auto 0.2 % (0.2-1.2); Hematocrit 30.1 % (42.0-52.0); Hemoglobin 9.9 g/dL (14.0-18.0); Immature Granulocyte Absolute 0.16 K/mm3 (0.00-0.031); Immature Granulocyte Percent A 1.5 % (0-0.5); Lymphocytes Absolute Auto 0.22 K/mm3 (0.9-3.2); Mean Corpuscular HGB Conc 32.9 g/dl (32-36); Mean Corpuscular Hemoglobin 28.9 pg (26-34); Monocytes Absolute Auto 0.4 K/mm3 (0.1-0.6); Monocytes Percent Auto 3.3 % (2.6-8.5); Neutrophils Absolute Auto 10.1 K/mm3 (1.3-6.7); Platelet Count Result 197 k/mm3 (150-375); Red Blood Count 3.42 M/mm3 (4.6-6.20); Red Cell Distribution Width 14.7 % (11.5-14.5); White Blood Count 10.8 K/mm3 (4.5-10.0)
[2024-07-25 06:11] LABS: Alanine Aminotransferase 20 U/L (6-50); Albumin Level 3.4 g/dL (3.5-5.1); Alkaline Phosphatase 50 U/L (38-126); Aspartate Amino Transferase 18 U/L (17-59); Bilirubin,Total 0.4 mg/dL (0.2-1.3); Blood Urea Nitrogen 45 mg/dL (9-20); Calcium 9.2 mg/dL (8.4-10.2); Carbon Dioxide > 40 mmol/L (22-30); Chloride 90 mmol/L (98-107); Estimated CRCL calculation 28 ml/min; Estimated Glomerular Filt Rate 56; Glucose 122 mg/dL (65-110); Potassium 4.7 mmol/L (3.4-5.0); Sodium 133 mmol/L (137-145)
[2024-07-25] MEDS: FLUTICASONE/UMECLIDIN/VILANTER 100-62.5-25 MCG ELLIPTA 1 PUFF INHALATION (07:05)
[2024-07-25] MEDS: amLODIPine BESYLATE 5 MG TABLET PO (09:19)
[2024-07-25] MEDS: VALSARTAN 160 MG TABLET 320 MG PO (09:19)
[2024-07-25] MEDS: DOCUSATE SODIUM 100 MG CAPSULE PO (09:19)
[2024-07-25] MEDS: FUROSEMIDE 40 MG TABLET PO (09:19)
[2024-07-25] MEDS: CEFEPIME 2 GM/NS 50 ML 2 GM/50 ML BAG IVPB ×2 (09:21→20:08)
[2024-07-25] MEDS: ENOXAPARIN 30 MG/0.3 ML SYRINGE SUB-Q (09:24)
--- NOTE | 2024-07-25 11:28 | PM.IMPN ---
Progress Note: A&P Assessment and Plan (1) Acute hypoxic respiratory failure: Code(s): J96.01 - Acute respiratory failure with hypoxia Status: Acute Assessment and Plan: With hypoxia and hypercarbia --BiPAP as needed --Q 6 breathing treatments p.r.n. --Influenza a, B, RSV and COVID negative --Troponin slightly elevated, likely demand. Troponin trend 0.033>0.036>0.041> 0.060>0.050. Patient asymptomatic. --Walking O2 prior to discharge (2) COPD exacerbation: Code(s): J44.1 - Chronic obstructive pulmonary disease with (acute) exacerbation Status: Acute Assessment and Plan: --Decrease IV steroids Methylprednisolone 60 mg ivp q 12 --DuoNeb --Pulmonary consult. Admitted 3 times in one month. (3) Hypertension: Code(s): I10 - Essential (primary) hypertension Status: Chronic Assessment and Plan: Continue amlodipine and Valsartan. (4) CHF (congestive heart failure): Code(s): I50.9 - Heart failure, unspecified Status: Acute Assessment and Plan: Seems euvolemic but has a small effusion --Change hctz to furosemide 40mg PO and follow (5) Leukocytosis: Code(s): D72.829 - Elevated white blood cell count, unspecified Status: Acute Assessment and Plan: Patient with productive cough and green sputum, possible pneumonia, but no focal infiltrate on x-rays Started azithromycin & Rocephin --Change Rocephin on 07/24/24 to Cefepime 2 gm IVPB q 12. Continue Azithromycin 500 mg PO daily. --Guaifenesin --Blood cultures pending --Sputum culture pending. --Consider CT chest if not improving (6) Hyperkalemia: Code(s): E87.5 - Hyperkalemia Status: Acute Assessment and Plan: --Potassium improved to 4.7, Losartan restarted. --Monitor labs. Subjective Date/time seen: 07/25/24 11:28 Interval history: Patient sitting up in bed. Patient denies chest pain, palpitations,shortness of breath at rest, headache, dizziness, nausea, or vomiting. Patient reports shortness of breath with activity. Review of Systems Review of Systems: All systems reviewed & are unremarkable except as noted in HPI and below Exam Const: General: comfortable and no acute distress Resp: Auscultation: diminished lung sounds GI: GI Palp: Yes Soft to palpation Auscultation: normal bowel sounds Skin: General skin exam: no rashes or lesions noted Neuro: Speech: normal speech Extrem: General: no pedal edema Psych: Mental Status: mental status grossly normal Affect: normal affect Objective Data Vital Signs Vital Signs: Vital Signs - 24 hr 07/24/24 12:00 07/24/24 14:00 07/24/24 14:10 Temperature Pulse Rate 108 H 84 86 Respiratory Rate 18 18 Blood Pressure Pulse Oximetry Oxygen Delivery Oxygen Flow Rate 07/24/24 15:24 07/24/24 20:00 07/24/24 20:00 Temperature 98.4 F Pulse Rate 90 103 H Respiratory Rate 19 Blood Pressure 154/84 H Pulse Oximetry 100 100 Oxygen Delivery Nasal Cannula Oxygen Flow Rate 3 07/24/24 20:00 07/24/24 21:28 07/24/24 21:28 Temperature 97.8 F Pulse Rate 84 104 H Respiratory Rate 18 18 Blood Pressure 154/84 H Pulse Oximetry 100 100 Oxygen Delivery Nasal Cannula Oxygen Flow Rate 3 07/24/24 21:36 07/25/24 00:00 07/25/24 00:46 Temperature 98.2 F Pulse Rate 98 79 74 Respiratory Rate 18 16 Blood Pressure 151/97 H Pulse Oximetry 100 Oxygen Delivery Oxygen Flow Rate 07/25/24 02:08 07/25/24 02:13 07/25/24 04:00 Temperature Pulse Rate 102 H 108 H 84 Respiratory Rate 20 20 Blood Pressure Pulse Oximetry Oxygen Delivery Oxygen Flow Rate 07/25/24 04:00 07/25/24 07:05 07/25/24 07:05 Temperature 98.4 F Pulse Rate 77 82 82 Respiratory Rate 16 18 18 Blood Pressure 146/96 H Pulse Oximetry 100 100 Oxygen Delivery Nasal Cannula Oxygen Flow Rate 3 07/25/24 08:15 07/25/24 08:54 Temperature 98.2 F Pulse Rate 87 93 Respiratory Rate 18 18 Blood Pressure 155/96 H Pulse Oximetry 98 Oxygen Delivery Oxygen Flow Rate Intake/Output Intake/Output: Intake & Output 07/22/24 07/23/24 07/24/24 07/25/24 23:59 23:59 23:59 23:59 Intake Total 300 1890 2280 490 Output Total 400 1500 1250 300 Balance -524 897 7228 190 Meds/Results Medications: Active Medications Generic Name Dose Route Start Last Admin Trade Name Freq PRN Reason Stop Dose Admin Acetaminophen 650 mg 07/22/24 14:51 Acetaminophen 325 Mg Tablet PO Q4H PRN Mild Pain (1-3) or Fever Albuterol/Ipratropium 3 ml 07/22/24 14:00 07/25/24 07:05 Ipratropium 0.5 Mg/Albuterol Sulfate 2.5 Mg Ampul.Neb 3 Ml INHALATION 3 ml Q6HRT PRICILA Administration Amlodipine Besylate 5 mg 07/23/24 09:00 07/25/24 09:19 Amlodipine Besylate 5 Mg Tablet PO 5 mg DAILY PRICILA Administration Azithromycin 500 mg 07/24/24 21:00 07/24/24 21:19 Azithromycin 250 Mg Tablet PO 07/26/24 21:01 500 mg DAILY@2100 PRICILA Administration Docusate Sodium 100 mg 07/23/24 09:00 07/25/24 09:19 Docusate Sodium 100 Mg Capsule PO 100 mg DAILY PRICILA Administration Docusate Sodium 100 mg 07/23/24 09:00 07/25/24 09:21 Docusate Sodium 100 Mg Capsule PO Not Given DAILY PRICILA Enoxaparin Sodium 30 mg 07/25/24 09:00 07/25/24 09:24 Enoxaparin 30 Mg/0.3 Ml Syringe SUB-Q 30 mg DAILY PRICILA Administration Fluticasone/Umeclidinium/Vilanterol 1 puff 07/23/24 09:00 07/25/24 07:05 Fluticasone/Umeclidin/Vilanter 100-62.5-25 Mcg Ellipta INHALATION 1 puff DAILY PRICILA Administration Furosemide 40 mg 07/24/24 09:00 07/25/24 09:19 Furosemide 40 Mg Tablet PO 40 mg DAILY PRICILA Administration Guaifenesin/Dextromethorphan 10 ml 07/23/24 01:00 07/25/24 09:21 Guaifenesin/Dextromethorphan 10 Ml Udc PO 10 ml Q4HR PRICILA Administration Cefepime HCl 2 gm in 50 mls @ 100 mls/hr 07/24/24 12:15 07/25/24 09:21 Maxipime 2 Gm/Ns 50 Ml IVPB 100 mls/hr Q12HR PRICILA Administration Methylprednisolone Sodium Succinate 60 mg 07/24/24 14:00 07/25/24 05:05 Methylprednisolone Sod Succ 125 Mg Vial IV PUSH 60 mg Q8HR PRICILA Administration Morphine Sulfate 2 mg 07/22/24 14:51 Morphine Sulfate (*Crx) 2 Mg/Ml Inj IV PUSH Q2H PRN Pain Rated 7-10 Ondansetron HCl 4 mg 07/22/24 14:51 Ondansetron Inj 4 Mg/2 Ml Vial IV PUSH Q4H PRN Nausea Valsartan 320 mg 07/23/24 09:00 07/25/24 09:19 Valsartan 160 Mg Tablet PO 320 mg DAILY PRICILA Administration Radiology Results: ITS Impressions Chest X-Ray 07/22/24 11:12 IMPRESSION: Small left-sided pleural effusion without focal infiltrate. Labs Labs: Laboratory Results - last 24 hr 07/24/24 07/24/24 07/24/24 11:57 11:58 19:03 WBC 10.8 H RBC 3.72 L Hgb 10.8 L Hct 32.4 L MCV 87.1 MCH 29.0 MCHC 33.3 RDW 14.7 H Plt Count 220 MPV 9.4 Immature Gran % (Auto) 1.0 H Neut % (Auto) 94.5 H Lymph % (Auto) 1.4 L [place] % (Auto) 3.0 Eos % (Auto) 0.0 Baso % (Auto) 0.1 L Lymph # (Auto) 0.15 L [place] # (Auto) 0.3 Eos # (Auto) 0.0 Baso # (Auto) 0.0 Abs Immat Gran (auto) 0.11 H Absolute Neuts (auto) 10.2 H Absolute Nucleated RBC 0.000 Nucleated RBC % 0.0 Sodium 133 L Potassium 5.4 H Chloride 88 L Carbon Dioxide > 40 H Anion Gap BUN 36 H Creatinine 1.50 H Estim Creat Clear Calc 28 Estimated GFR 56 L Glucose 130 H Calcium 9.3 Magnesium 2.0 Total Bilirubin 0.3 AST 19 ALT 19 Alkaline Phosphatase 47 Troponin I 0.041 H* 0.049 H* Total Protein 7.0 Albumin 3.9 07/25/24 07/25/24 07/25/24 00:52 05:50 05:52 WBC 10.8 H RBC 3.42 L Hgb 9.9 L Hct 30.1 L MCV 88.0 MCH 28.9 MCHC 32.9 RDW 14.7 H Plt Count 197 MPV 10.0 Immature Gran % (Auto) 1.5 H Neut % (Auto) 93.0 H Lymph % (Auto) 2.0 L [place] % (Auto) 3.3 Eos % (Auto) 0.0 Baso % (Auto) 0.2 Lymph # (Auto) 0.22 L [place] # (Auto) 0.4 Eos # (Auto) 0.0 Baso # (Auto) 0.0 Abs Immat Gran (auto) 0.16 H Absolute Neuts (auto) 10.1 H Absolute Nucleated RBC 0.000 Nucleated RBC % 0.0 Sodium 133 L Potassium 4.7 Chloride 90 L Carbon Dioxide > 40 H Anion Gap BUN 45 H Creatinine 1.50 H Estim Creat Clear Calc 28 Estimated GFR 56 L Glucose 122 H Calcium 9.2 Magnesium Total Bilirubin 0.4 AST 18 ALT 20 Alkaline Phosphatase 50 Troponin I 0.060 H* D 0.050 H* Total Protein 6.0 L Albumin 3.4 L Quality VTE Prophylaxis VTE prophylaxis: mechanical ordered and pharmacologic ordered
--- NOTE | 2024-07-25 16:27 | ECG_ITS ---
Test Date: 2024-07-25 16:39:14 Measurements Intervals [place] Rate: 162 P: 0 [place]: 0 QRS: -58 QRSD: 88 T: 91 QT: 251 QTc: 412 Interpretive Statements ATRIAL FIBRILLATION WITH RAPID VENTRICULAR RESPONSE LEFT ANTERIOR FASCICULAR BLOCK [QRS AXIS <= -45, QR IN I, RS IN II] NONSPECIFIC ST & T-WAVE ABNORMALITY CRITICAL TEST RESULT Compared to ECG 07/22/2024 09:58:02 T-wave abnormality now present Sinus rhythm no longer present Electronically Signed On 07-29-2024 14:35:58 FANS CLERK by Sonu Rankin M.D.
[2024-07-25] MEDS: METOPROLOL TARTRATE INJ 5 MG/5 ML VIAL 2.5 MG IV PUSH ×3 (16:49→17:50)
--- NOTE | 2024-07-25 18:36 | PC.NURSE ---
Around 1630 this nurse noted patient heart rate elevated. Patient was checked on and was sitting in his bed. Pt stated he is fine, that he just had a coughing fit. Hospitalist contacted and a stat EKG was ordered. Pt to be found in afib RVR. One dose of 2.5 mg metoprolol was given around 1650. Dose was ineffective so another dose was administered. The second dose was ineffective as well. It was decided to give a third dose as the blood pressures were stable. Pt still asymptomatic at that time. At this time, patient is sitting up in bed with no complaints. Pt still sitting at a heart rate in the 140's. Pt has orders for transfer to IMU and patient is aware.
[2024-07-25] MEDS: METOPROLOL TARTRATE INJ 5 MG/5 ML VIAL IV PUSH (18:58)
--- NOTE | 2024-07-25 19:05 | P.PNCROSS_ITS ---
Event Note Event Note Event Note: Patient was evaluated at bedside due to AFib with RVR. Patient denies any symp toms including chest pain, palpitation or shortness of breath. Patient was given total metoprolol 7.5 mg. Blood pressure on both the occasion 142/80 and 144/72 respectively. Advised to transfer the patient to IMU and consult Cardiology.
[2024-07-25] MEDS: AZITHROMYCIN 250 MG TABLET 500 MG PO (20:08)
[2024-07-25] MEDS: APIXABAN 5 MG TABLET PO (20:08)
[2024-07-25] MEDS: dilTIAZem HCl INJ 25 MG/5 ML VIAL 15 MG IV PUSH (21:15)
[2024-07-25] MEDS: dilTIAZem 100 MG/100 ML 100 MG/100 ML BAG IV CONT (21:19)
--- NOTE | 2024-07-25 22:47 | PC.NURSE ---
Mixed Animal Veterinarian assumed care of patient at 1900. An order for transfer was already in place and patient was awaiting a bed in IMU. Report was called to receiving nurseMarixa once bed was assigned. Patient was transferred to IMU via be at 2030 with Charge nurseBrittany at bedside for transport.
[2024-07-25] MEDS: METOPROLOL TARTRATE 12.5 MG TABLET PO (23:16)
[2024-07-25] MEDS: dilTIAZem HCl INJ 25 MG/5 ML VIAL 10 MG IV PUSH (23:46)
[2024-07-26] VITALS (29 sets, daily range): BP systolic 121–159; BP diastolic 70–96; PULSE 64–727; RESP 16–26; TEMP 36.4–36.9; O2SAT 95–100
[2024-07-26] MEDS: IPRATROPIUM 0.5 MG/ALBUTEROL SULFATE 2.5 MG AMPUL.NEB 3 ML INHALATION ×4 (01:39→21:04)
[2024-07-26] MEDS: dilTIAZem 100 MG/100 ML 100 MG/100 ML BAG 15 MG IV CONT ×2 (04:06)
[2024-07-26 05:32] LABS: Basophils Percent Auto 0.3 % (0.2-1.2); Eosinophils Percent Auto 0.1 % (0-4.4); Hematocrit 29.4 % (42.0-52.0); Hemoglobin 9.7 g/dL (14.0-18.0); Immature Granulocyte Absolute 0.33 K/mm3 (0.00-0.031); Immature Granulocyte Percent A 2.9 % (0-0.5); Lymphocytes Absolute Auto 0.26 K/mm3 (0.9-3.2); Lymphocytes Percent Auto 2.3 % (18.3-44.2); Mean Corpuscular Hemoglobin 28.9 pg (26-34); Mean Corpuscular Volume 87.5 fl (80-100); Monocytes Absolute Auto 0.3 K/mm3 (0.1-0.6); Monocytes Percent Auto 2.6 % (2.6-8.5); Neutrophils Absolute Auto 10.4 K/mm3 (1.3-6.7); Neutrophils Percent Auto 91.8 % (45.5-73.1); Platelet Count Result 195 k/mm3 (150-375); Red Blood Count 3.36 M/mm3 (4.6-6.20); Red Cell Distribution Width 14.9 % (11.5-14.5); White Blood Count 11.4 K/mm3 (4.5-10.0)
[2024-07-26] MEDS: guaiFENesin/DEXTROMETHORPHAN 10 ML UDC PO ×5 (05:39→23:18)
[2024-07-26] MEDS: METOPROLOL TARTRATE 12.5 MG TABLET PO (05:39)
[2024-07-26 05:42] LABS: Alanine Aminotransferase 29 U/L (6-50); Albumin Level 3.2 g/dL (3.5-5.1); Alkaline Phosphatase 50 U/L (38-126); Aspartate Amino Transferase 31 U/L (17-59); Bilirubin,Total 0.3 mg/dL (0.2-1.3); Blood Urea Nitrogen 47 mg/dL (9-20); Calcium 8.8 mg/dL (8.4-10.2); Carbon Dioxide > 40 mmol/L (22-30); Chloride 89 mmol/L (98-107); Estimated CRCL calculation 32 ml/min; Estimated Glomerular Filt Rate > 60; Glucose 117 mg/dL (65-110); Potassium 4.9 mmol/L (3.4-5.0); Sodium 131 mmol/L (137-145)
[2024-07-26 06:22] LABS: Thyroid Stimulating Hormone Reflex 0.124 uIU/mL (0.465-4.68)
[2024-07-26 07:52] LABS: Free T4 Free Thyroxine Reflex 1.16 ng/dL (0.78-2.19)
[2024-07-26] MEDS: FLUTICASONE/UMECLIDIN/VILANTER 100-62.5-25 MCG ELLIPTA 1 PUFF INHALATION (08:41)
[2024-07-26] MEDS: CEFEPIME 2 GM/NS 50 ML 2 GM/50 ML BAG IVPB ×2 (09:04→23:18)
[2024-07-26] MEDS: methylPREDNISolone SOD SUCC 125 MG VIAL 60 MG IV PUSH ×2 (09:05→23:18)
[2024-07-26] MEDS: FUROSEMIDE 40 MG TABLET PO (09:06)
[2024-07-26] MEDS: APIXABAN 5 MG TABLET PO ×2 (09:06→23:17)
--- NOTE | 2024-07-26 09:50 | P.PNIM_ITS ---
Progress Note: A&P Assessment and Plan (1) Acute hypoxic respiratory failure: Code(s): J96.01 - Acute respiratory failure with hypoxia Status: Acute Assessment and Plan: With hypoxia and hypercarbia --BiPAP as needed --Q 6 breathing treatments p.r.n. --Influenza a, B, RSV and COVID negative --Troponin slightly elevated, likely demand. Troponin trend 0.033>0.036>0.041> 0.060>0.050. Patient asymptomatic. --Walking O2 prior to discharge (2) Atrial fibrillation with rapid ventricular response: Code(s): I48.91 - Unspecified atrial fibrillation Status: Acute Assessment and Plan: * Cardiology consulted, appreciate recommendations - Switch IV diltiazem to oral -discussed within the risks, benefits, alternatives of anticoagulation. He agreed to be started on anticoagulation. Continue apixaban 5 mg p.o. b.i.d. -echo to assess LV function -elevated troponin due to type 2 IA. no invasive evaluation needed for now -stress test as an outpatient if symptoms (3) COPD exacerbation: Code(s): J44.1 - Chronic obstructive pulmonary disease with (acute) exacerbation Status: Acute Assessment and Plan: --Decrease IV steroids Methylprednisolone 60 mg ivp q 12 --DuoNeb --Pulmonary consult. Admitted 3 times in one month. (4) Hypertension: Code(s): I10 - Essential (primary) hypertension Status: Chronic Assessment and Plan: * Continue amlodipine and Valsartan. (5) CHF (congestive heart failure): Code(s): I50.9 - Heart failure, unspecified Status: Acute Assessment and Plan: Seems euvolemic but has a small effusion --Change hctz to furosemide 40mg PO and follow (6) Leukocytosis: Code(s): D72.829 - Elevated white blood cell count, unspecified Status: Acute Assessment and Plan: Patient with productive cough and green sputum, possible pneumonia, but no focal infiltrate on x-rays Started azithromycin & Rocephin --Change Rocephin on 07/24/24 to Cefepime 2 gm IVPB q 12. Continue Azithromycin 500 mg PO daily. --Guaifenesin --Blood cultures pending --Sputum culture pending. --Consider CT chest if not improving (7) Hyperkalemia: Code(s): E87.5 - Hyperkalemia Status: Acute Assessment and Plan: --Potassium improved to 4.9. --Monitor labs. Subjective Date/time seen: 07/26/24 09:50 Interval history: Patient sitting up in bed. Patient denies chest pain, palpitations, shortness of breath at rest, headache, dizziness, nausea, or vomiting. Review of Systems Review of Systems: All systems reviewed & are unremarkable except as noted in HPI and below Exam Const: General: comfortable and no acute distress Resp: Auscultation: diminished lung sounds Cardio: Rhythm: abnormal rhythm regularly irregular (Afib 105) GI: GI Palp: Yes Soft to palpation Auscultation: normal bowel sounds Skin: General skin exam: no rashes or lesions noted Neuro: Speech: normal speech Extrem: General: no pedal edema Psych: Mental Status: mental status grossly normal Affect: normal affect Objective Data Vital Signs Vital Signs: Vital Signs - 24 hr 07/25/24 12:00 07/25/24 12:00 07/25/24 13:10 Temperature 97.7 F Pulse Rate 78 102 H 84 Respiratory Rate 18 18 Blood Pressure 149/86 H Pulse Oximetry 99 Oxygen Delivery Oxygen Flow Rate 07/25/24 13:20 07/25/24 16:00 07/25/24 16:49 Temperature Pulse Rate 86 154 H 188 H Respiratory Rate 18 Blood Pressure Pulse Oximetry Oxygen Delivery Oxygen Flow Rate 07/25/24 17:07 07/25/24 17:30 07/25/24 17:50 Temperature 97.9 F Pulse Rate 153 H 137 H 158 H Respiratory Rate 18 Blood Pressure 142/89 H Pulse Oximetry 98 Oxygen Delivery Oxygen Flow Rate 07/25/24 18:52 07/25/24 18:58 07/25/24 19:56 Temperature Pulse Rate 147 H Respiratory Rate Blood Pressure 142/77 H Pulse Oximetry 97 Oxygen Delivery Nasal Cannula Oxygen Flow Rate 3 07/25/24 19:57 07/25/24 20:00 07/25/24 20:00 Temperature Pulse Rate 113 H 138 H Respiratory Rate 18 Blood Pressure Pulse Oximetry 98 Oxygen Delivery Nasal Cannula Oxygen Flow Rate 3 07/25/24 20:04 07/25/24 20:35 07/25/24 21:19 Temperature 98.4 F Pulse Rate 109 H 147 H 108 H Respiratory Rate 18 22 H Blood Pressure 154/97 H Pulse Oximetry 98 Oxygen Delivery Oxygen Flow Rate 07/25/24 22:00 07/25/24 22:00 07/25/24 22:00 Temperature Pulse Rate 127 H 127 H 124 H Respiratory Rate Blood Pressure 127/77 127/77 Pulse Oximetry Oxygen Delivery Oxygen Flow Rate 07/25/24 23:00 07/25/24 23:16 07/25/24 23:28 Temperature Pulse Rate 121 H 126 H 126 H Respiratory Rate Blood Pressure 125/80 Pulse Oximetry Oxygen Delivery Oxygen Flow Rate 07/26/24 00:00 07/26/24 00:00 07/26/24 00:00 Temperature 98.4 F Pulse Rate 110 H 98 Respiratory Rate 18 Blood Pressure 130/83 Pulse Oximetry 98 98 Oxygen Delivery Nasal Cannula Oxygen Flow Rate 3 07/26/24 00:00 07/26/24 01:41 07/26/24 01:47 Temperature Pulse Rate 110 H 91 83 Respiratory Rate 18 18 Blood Pressure 130/83 Pulse Oximetry Oxygen Delivery Oxygen Flow Rate 07/26/24 02:00 07/26/24 02:00 07/26/24 02:38 Temperature Pulse Rate 83 87 87 Respiratory Rate Blood Pressure 121/70 121/70 Pulse Oximetry Oxygen Delivery Oxygen Flow Rate 07/26/24 04:00 07/26/24 04:00 07/26/24 04:00 Temperature 98 F Pulse Rate 95 92 Respiratory Rate 16 Blood Pressure 146/71 H Pulse Oximetry 100 98 Oxygen Delivery Nasal Cannula Oxygen Flow Rate 3 07/26/24 04:06 07/26/24 04:06 07/26/24 04:10 Temperature Pulse Rate 93 93 95 Respiratory Rate Blood Pressure 146/71 H Pulse Oximetry Oxygen Delivery Oxygen Flow Rate 07/26/24 05:39 07/26/24 06:00 07/26/24 06:08 Temperature Pulse Rate 100 92 72 Respiratory Rate Blood Pressure 132/96 H Pulse Oximetry Oxygen Delivery Oxygen Flow Rate 07/26/24 08:00 07/26/24 08:26 07/26/24 08:26 Temperature 98.3 F Pulse Rate 84 79 Respiratory Rate 20 20 Blood Pressure 132/91 H Pulse Oximetry 97 95 Oxygen Delivery Nasal Cannula Oxygen Flow Rate 3 07/26/24 08:43 Temperature Pulse Rate 77 Respiratory Rate 20 Blood Pressure Pulse Oximetry Oxygen Delivery Oxygen Flow Rate Intake/Output Intake/Output: Intake & Output 1207/24/24 07/25/24 07/26/24 23:59 23:59 23:59 23:59 Intake Total 1890 2280 2180.7 552.5 Output Total 1500 6805 553 4302 Balance 390 1030 1880.7 -447.5 Meds/Results Medications: Active Medications Generic Name Dose Route Start Last Admin Trade Name Freq PRN Reason Stop Dose Admin Acetaminophen 650 mg 07/22/24 14:51 Acetaminophen 325 Mg Tablet PO Q4H PRN Mild Pain (1-3) or Fever Acetazolamide Sodium 500 mg 07/26/24 21:00 Acetazolamide Sodium For Inj 500 Mg Vial IV PUSH 07/26/24 21:01 ONCE ONE Albuterol/Ipratropium 3 ml 07/22/24 14:00 07/26/24 08:25 Ipratropium 0.5 Mg/Albuterol Sulfate 2.5 Mg Ampul.Neb 3 Ml INHALATION 3 ml Q6HRT PRICILA Administration Amlodipine Besylate 5 mg 07/23/24 09:00 07/25/24 09:19 Amlodipine Besylate 5 Mg Tablet PO 5 mg DAILY PRICILA Administration Apixaban 5 mg 07/25/24 21:00 07/26/24 09:06 Apixaban 5 Mg Tablet PO 5 mg Q12HR PRICILA Administration Azithromycin 500 mg 07/24/24 21:00 07/25/24 20:08 Azithromycin 250 Mg Tablet PO 07/26/24 21:01 500 mg DAILY@2100 PRICILA Administration Diltiazem HCl 120 mg 07/26/24 09:40 Diltiazem Hcl Cd 120 Mg Cap.24hr PO QAM PRICILA Docusate Sodium 100 mg 07/26/24 09:09 Docusate Sodium 100 Mg Capsule PO DAILY PRN Constipation Fluticasone/Umeclidinium/Vilanterol 1 puff 07/23/24 09:00 07/26/24 08:41 Fluticasone/Umeclidin/Vilanter 100-62.5-25 Mcg Ellipta INHALATION 1 puff DAILY PRICILA Administration Furosemide 40 mg 07/24/24 09:00 07/26/24 09:06 Furosemide 40 Mg Tablet PO 40 mg DAILY PRICILA Administration Guaifenesin/Dextromethorphan 10 ml 07/23/24 01:00 07/26/24 09:05 Guaifenesin/Dextromethorphan 10 Ml Udc PO 10 ml Q4HR PRICILA Administration Cefepime HCl 2 gm in 50 mls @ 100 mls/hr 07/24/24 12:15 07/26/24 09:04 Maxipime 2 Gm/Ns 50 Ml IVPB 100 mls/hr Q12HR PRICILA Administration Methylprednisolone Sodium Succinate 60 mg 07/25/24 21:00 07/26/24 09:05 Methylprednisolone Sod Succ 125 Mg Vial IV PUSH 60 mg Q12HR PRICILA Administration Metoprolol Tartrate 25 mg 07/26/24 09:40 Metoprolol Tartrate 25 Mg Tablet PO Q12HR [facility] Morphine Sulfate 2 mg 07/22/24 14:51 Morphine Sulfate (*Crx) 2 Mg/Ml Inj IV PUSH Q2H PRN Pain Rated 7-10 Ondansetron HCl 4 mg 07/22/24 14:51 Ondansetron Inj 4 Mg/2 Ml Vial IV PUSH Q4H PRN Nausea Valsartan 320 mg 07/23/24 09:00 07/25/24 09:19 Valsartan 160 Mg Tablet PO 320 mg DAILY PRICILA Administration Radiology Results: ITS Impressions Chest X-Ray 07/22/24 11:12 IMPRESSION: Small left-sided pleural effusion without focal infiltrate. Labs Labs: Laboratory Results - last 24 hr 07/25/24 07/26/24 17:35 04:55 WBC 11.4 H RBC 3.36 L Hgb 9.7 L Hct 29.4 L MCV 87.5 MCH 28.9 MCHC 33.0 RDW 14.9 H Plt Count 195 MPV 10.0 Immature Gran % (Auto) 2.9 H Neut % (Auto) 91.8 H Lymph % (Auto) 2.3 L [place] % (Auto) 2.6 Eos % (Auto) 0.1 Baso % (Auto) 0.3 Lymph # (Auto) 0.26 L [place] # (Auto) 0.3 Eos # (Auto) 0.0 Baso # (Auto) 0.0 Abs Immat Gran (auto) 0.33 H Absolute Neuts (auto) 10.4 H Absolute Nucleated RBC 0.000 Nucleated RBC % 0.0 Sodium 131 L Potassium 4.9 Chloride 89 L Carbon Dioxide > 40 H Anion Gap BUN 47 H Creatinine 1.30 Estim Creat Clear Calc 32 Estimated GFR > 60 Glucose 117 H Calcium 8.8 Magnesium 2.0 Total Bilirubin 0.3 AST 31 ALT 29 Alkaline Phosphatase 50 Total Protein 6.0 L Albumin 3.2 L TSH (Reflex) 0.124 L Free T4 1.16 Total T3 0.70 L Quality VTE Prophylaxis VTE prophylaxis: mechanical ordered and pharmacologic ordered
[2024-07-26] MEDS: dilTIAZem HCL CD 120 MG CAP.24HR PO (11:38)
[2024-07-26] MEDS: METOPROLOL TARTRATE 25 MG TABLET PO ×2 (11:38→23:19)
--- NOTE | 2024-07-26 16:12 | P.CONCA_ITS ---
Assessment and Plan Assessment and plan (1) Atrial fibrillation with rapid ventricular response: Code(s): I48.91 - Unspecified atrial fibrillation Status: Acute (2) Hypertension: Code(s): I10 - Essential (primary) hypertension Status: Chronic Plan 1. Paroxysmal atrial fibrillation 2. Hypertension 3. COPD exacerbation 4. History of diastolic heart failure 5. TIA/CVA - Switch IV diltiazem to oral -discussed within the risks, benefits, alternatives of anticoagulation. He agreed to be started on anticoagulationz. Continue apixaban 5 mg p.o. b.i.d. -echo to assess LV function -monitor blood pressure, antihypertensive as per primary team -elevated troponin due to type 2 IA. no invasive evaluation needed for now -stress test as an outpatient if symptoms History of Present Illness History of Present Illness Consult date/time: 07/26/24 16:12 Requesting physician: Ambar Bar APRN Reason For Visit: Acute on chronic respiratory failure Narrative: Mr Kenney Varela is a 68 year old gentleman known to have hypertension, COPD, diastolic heart failure (echo done in 2015 shows preserved EF), TIA/CVA who was admitted with COPD exacerbation and hypoxic respiratory failure. Cardiology consulted for atrial fibrillation and RVR He denies any prior history of atrial fibrillation Denies chest pain Denies any palpitations, dizziness syncope No previous bleeding from any source Review of Systems 2 Review of Systems: He has not had leg swelling, calf pain, chest pain. He had loose stools after Thanksgiving, thinks he had food poisoning. He has not had GI symptoms this admission. He has sinus irritation in the spring, nothing recently. Does not have sinus symptoms at this time. All systems reviewed & are unremarkable except as noted in HPI and below Constitutional: Constitutional: Reports no additional constitutional complaints Eyes: Eyes: Reports no additional eye complaints ENT: Reports system reviewed and no additional complaints, except as documented Cardiovascular: Cardiovascular: Reports no additional cardiovascular complaints Respiratory: Respiratory: Reports as per HPI Gastrointestinal: Gastrointestinal: Reports no additional gastrointestinal complaints Musculoskeletal: Musculoskeletal: Reports no additional musculoskeletal complaints Integumentary/Breasts: Skin/Breast: Reports system reviewed and no additional complaints, except as docu [facility] Past Medical History Medical History (Updated 07/25/24 @ 19:13 by Tasha Marin MD) Degenerative disc disease Degenerative disc disease Prostate CA (2018) Status post radiation therapy. Emphysema lung COPD (chronic obstructive pulmonary disease) Hypertension CHF (congestive heart failure) Echocardiogram June 2016 showed normal left ventricular systolic function and size with mild concentric left ventricular hypertrophy and impaired diastolic relaxation grade 1 with ejection fraction estimated at 60 to 65%. 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 TIA (transient ischemic attack) Surgical History Surgical History H/O inguinal hernia repair (2017) Right Family History Family History Father Acute myocardial infarction Grandparent Cerebrovascular accident Diabetes mellitus Social History Social History Social History: The patient lives in [place] with his . They have 3 children. he is retired. he designates his , Gaby, as his surrogate decision maker and he wishes to be a full code. He smoked up to a pack of cigarettes per day and quit in 2011. He drinks a half of a pint of [employer] [place] each Monday. He denies drug use. Smoking packs per day: 1 Smoking cigarettes per day: 20.0 Years smoked: 20 Smoking pack-years: 20.00 Smoking status: Former smoker Tobacco type: cigarettes Additional smoking assessment comments: quit in 2011 Alcohol intake: former Drinks per week: 2 Alcohol use details: ocassionally Substance use: never Substance use type: marijuana Do You Feel Safe in your Home?: Yes Lack of Transportation: No Lack of Food: Never True Current Housing: I Have Housing Concerned About Future Housing: No Difficulty Paying Gas/Electric Bills: No Difficulty Paying for Meds: No Currently Unemployed: No Education: Grade School Difficulty w/ Childcare or Family Care: No Living arrangements: with family Occupation/Education: retired Gender identity (if verbalized by the patient): Male Sexual Orientation (if Verbalized by the Patient): Straight or Heterosexual Spiritual care concerns: No Agree to blood products: Yes Meds Home Medications and Allergies Home Medications ?Medication ?Instructions ?Recorded ?Confirmed ?Type epinephrine 0.3 mg/0.3 mL 0.3 mg (0.3 mL) IM ONCE PRN 12/10/23 07/22/24 Rx injection, auto-injector (EpiPen) anaphylaxis #2 ea ipratropium 0.5 mg-albuterol 3 mg 3 ml inhalation QID #360 mL 02/09/24 07/22/24 Rx (2.5 mg base)/3 mL nebulization soln fluticasone fur. 100 mcg-umeclid See Rx Instructions .Route 02/16/24 07/22/24 Rx 62.5 mcg-vilant 25 mcg .COMPLEX #60 ea inhalat.powder (Trelegy Ellipta) valsartan 320 1 tablet PO DAILY #90 tabs 05/20/24 07/22/24 Rx mg-hydrochlorothiazide 25 mg tablet amlodipine 5 mg tablet (Norvasc) 5 mg PO DAILY #30 tabs 07/11/24 07/22/24 Rx guaifenesin 600 mg tablet, 600 mg PO Q12HR #14 tabs 07/11/24 07/22/24 Rx extended release 12 hr (Mucus Relief ER) prednisone 10 mg tablet 10 mg PO DIRECTED #30 tabs 07/11/24 07/22/24 Rx Allergies Allergy/AdvReac Type Severity Reaction Status Date / Time bee venom protein (honey bee) Allergy Unknown ANAPHALAXIS Verified 07/22/24 19:04 Vital Signs Vital Signs - 24 hr 07/25/24 16:49 07/25/24 17:07 07/25/24 17:30 Temperature 36.6 C Pulse Rate 188 H 153 H 137 H Respiratory Rate 18 Blood Pressure 142/89 H Pulse Oximetry 98 Oxygen Delivery Oxygen Flow Rate 07/25/24 17:50 07/25/24 18:52 07/25/24 18:58 Temperature Pulse Rate 158 H 147 H Respiratory Rate Blood Pressure 142/77 H Pulse Oximetry Oxygen Delivery Oxygen Flow Rate 07/25/24 19:56 07/25/24 19:57 07/25/24 20:00 Temperature Pulse Rate 113 H Respiratory Rate 18 Blood Pressure Pulse Oximetry 97 98 Oxygen Delivery Nasal Cannula Nasal Cannula Oxygen Flow Rate 3 3 07/25/24 20:00 07/25/24 20:04 07/25/24 20:35 Temperature 36.9 C Pulse Rate 138 H 109 H 147 H Respiratory Rate 18 22 H Blood Pressure 154/97 H Pulse Oximetry 98 Oxygen Delivery Oxygen Flow Rate 07/25/24 21:19 07/25/24 22:00 07/25/24 22:00 Temperature Pulse Rate 108 H 127 H 127 H Respiratory Rate Blood Pressure 127/77 127/77 Pulse Oximetry Oxygen Delivery Oxygen Flow Rate 07/25/24 22:00 07/25/24 23:00 07/25/24 23:16 Temperature Pulse Rate 124 H 121 H 126 H Respiratory Rate Blood Pressure 125/80 Pulse Oximetry Oxygen Delivery Oxygen Flow Rate 07/25/24 23:28 07/26/24 00:00 07/26/24 00:00 Temperature 36.9 C Pulse Rate 126 H 110 H Respiratory Rate 18 Blood Pressure 130/83 Pulse Oximetry 98 98 Oxygen Delivery Nasal Cannula Oxygen Flow Rate 3 07/26/24 00:00 07/26/24 00:00 07/26/24 01:41 Temperature Pulse Rate 98 110 H 91 Respiratory Rate 18 Blood Pressure 130/83 Pulse Oximetry Oxygen Delivery Oxygen Flow Rate 07/26/24 01:47 07/26/24 02:00 07/26/24 02:00 Temperature Pulse Rate 83 83 87 Respiratory Rate 18 Blood Pressure 121/70 Pulse Oximetry Oxygen Delivery Oxygen Flow Rate 07/26/24 02:38 07/26/24 04:00 07/26/24 04:00 Temperature 36.6 C Pulse Rate 87 95 Respiratory Rate 16 Blood Pressure 121/70 146/71 H Pulse Oximetry 100 98 Oxygen Delivery Nasal Cannula Oxygen Flow Rate 3 07/26/24 04:00 07/26/24 04:06 07/26/24 04:06 Temperature Pulse Rate 92 93 93 Respiratory Rate Blood Pressure Pulse Oximetry Oxygen Delivery Oxygen Flow Rate 07/26/24 04:10 07/26/24 05:39 07/26/24 06:00 Temperature Pulse Rate 95 100 92 Respiratory Rate Blood Pressure 146/71 H 132/96 H Pulse Oximetry Oxygen Delivery Oxygen Flow Rate 07/26/24 06:08 07/26/24 08:00 07/26/24 08:00 Temperature 36.8 C Pulse Rate 72 84 Respiratory Rate 20 Blood Pressure 132/91 H Pulse Oximetry 97 97 Oxygen Delivery Nasal Cannula Oxygen Flow Rate 3 07/26/24 08:00 07/26/24 08:26 07/26/24 08:26 Temperature Pulse Rate 100 79 Respiratory Rate 20 Blood Pressure Pulse Oximetry 95 Oxygen Delivery Nasal Cannula Oxygen Flow Rate 3 07/26/24 08:43 07/26/24 10:00 07/26/24 11:38 Temperature Pulse Rate 77 70 67 Respiratory Rate 20 Blood Pressure Pulse Oximetry Oxygen Delivery Oxygen Flow Rate 07/26/24 12:00 07/26/24 12:00 07/26/24 12:00 Temperature 36.4 C Pulse Rate 67 76 Respiratory Rate 20 Blood Pressure 147/79 H Pulse Oximetry 98 98 Oxygen Delivery Nasal Cannula Oxygen Flow Rate 3 07/26/24 13:24 Temperature Pulse Rate 71 Respiratory Rate 20 Blood Pressure Pulse Oximetry Oxygen Delivery Oxygen Flow Rate Exam 2 Narrative: GEN: Alert, oriented, not in distress. Thin, BMI is 15.6. he is wearing nasal cannula for O2 = HEENT: pupils are equal, EOMI, symmetrical face; oral membranes moist, dentition is poor, Mallampati III airway, no erythema or exudate. NECK: Trachea is midline CHEST: Equal air entry, symmetric excursion, thorax is hyperinflated, markedly decreased breath sounds, no wheezing. CV: irregularly irregular S1S2 rapid making it difficult to hear any additional sounds. No murmur, clicks or rubs. ABD : (+) bowel sounds Extremities : Early clubbing possible on fingernails. No cyanosis or edema. Cales non tender. PSYCH: normal thought and speech, gait is not tested. Const: General: comfortable and no acute distress Resp: Auscultation: diminished lung sounds Cardio: Rhythm: abnormal rhythm (Telemetry Afib 101 with multiple PVC's) irregularly irregular GI: Auscultation: normal bowel sounds Skin: General skin exam: no rashes or lesions noted Neuro: Speech: normal speech Extrem: General: no pedal edema Psych: Mental Status: mental status grossly normal Affect: normal affect Results Labs and Meds 07/26/24 04:55 07/26/24 04:55 Lab results: Cardiac Enzymes 07/26/24 Range/Units 04:55 AST 31 (17-59) U/L CBC 07/26/24 Range/Units 04:55 WBC 11.4 H (4.5-10.0) K/mm3 RBC 3.36 L (4.6-6.20) M/mm3 Hgb 9.7 L (14.0-18.0) g/dL Hct 29.4 L (42.0-52.0) % Plt Count 195 (150-375) k/mm3 Lymph # (Auto) 0.26 L (0.9-3.2) K/mm3 [place] # (Auto) 0.3 (0.1-0.6) K/mm3 Eos # (Auto) 0.0 (0-0.3) K/mm3 Baso # (Auto) 0.0 (0.0-0.1) K/mm3 Comprehensive Metabolic Panel 07/26/24 Range/Units 04:55 Sodium 131 L (137-145) mmol/L Potassium 4.9 (3.4-5.0) mmol/L Chloride 89 L (98-107) mmol/L Carbon Dioxide > 40 H (22-30) mmol/L BUN 47 H (9-20) mg/dL Creatinine 1.30 (0.7-1.3) mg/dL Glucose 117 H (65-110) mg/dL Calcium 8.8 (8.4-10.2) mg/dL AST 31 (17-59) U/L ALT 29 (6-50) U/L Alkaline Phosphatase 50 (38-126) U/L Total Protein 6.0 L (6.3-8.2) g/dL Albumin 3.2 L (3.5-5.1) g/dL Intake and Output 07/26/24 07/26/24 07/26/24 07:59 15:59 23:59 Intake Total 312.5 480 Output Total 1000 Balance -687.5 480 Intake: IV 62.5 dilTIAZem 100 MG/100 ML 100 mg 62.5 In 100 ml @ 15 MG/HR 15 mls/hr IV CONT .Q6H40M [facility] Rx#: [id number] Oral 250 480 Output: Urine 1000
--- NOTE | 2024-07-26 16:27 | PC.NURSE ---
Diltiazem drip Turned off at 1315, 1.5 hours after Metoprolol & Cardizem PO were given per Dr Rizo.
[2024-07-26] MEDS: AZITHROMYCIN 250 MG TABLET 500 MG PO (23:18)
[2024-07-27] VITALS (19 sets, daily range): BP systolic 136–156; BP diastolic 70–80; PULSE 58–106; RESP 16–21; TEMP 36.4–36.8; O2SAT 94–100
[2024-07-27] MEDS: acetaZOLAMIDE SODIUM FOR INJ 500 MG VIAL IV PUSH (02:00)
[2024-07-27] MEDS: IPRATROPIUM 0.5 MG/ALBUTEROL SULFATE 2.5 MG AMPUL.NEB 3 ML INHALATION ×2 (03:27→08:08)
[2024-07-27 05:10] LABS: Basophils Percent Auto 0.3 % (0.2-1.2); Hematocrit 30.2 % (42.0-52.0); Hemoglobin 9.8 g/dL (14.0-18.0); Immature Granulocyte Absolute 0.57 K/mm3 (0.00-0.031); Immature Granulocyte Percent A 4.4 % (0-0.5); Lymphocytes Absolute Auto 0.29 K/mm3 (0.9-3.2); Lymphocytes Percent Auto 2.3 % (18.3-44.2); Mean Corpuscular HGB Conc 32.5 g/dl (32-36); Mean Corpuscular Hemoglobin 28.8 pg (26-34); Mean Corpuscular Volume 88.8 fl (80-100); Mean Platelet Volume 10.4 fl (7.4-10.4); Monocytes Absolute Auto 0.3 K/mm3 (0.1-0.6); Monocytes Percent Auto 2.3 % (2.6-8.5); Neutrophils Absolute Auto 11.7 K/mm3 (1.3-6.7); Neutrophils Percent Auto 90.7 % (45.5-73.1); Nucleated Red Blood Cells Perc 0.2 % (0.0-0.2); Platelet Count Result 186 k/mm3 (150-375); Red Cell Distribution Width 14.6 % (11.5-14.5); White Blood Count 12.9 K/mm3 (4.5-10.0)
[2024-07-27 05:48] LABS: Alanine Aminotransferase 28 U/L (6-50); Albumin Level 3.3 g/dL (3.5-5.1); Alkaline Phosphatase 55 U/L (38-126); Aspartate Amino Transferase 21 U/L (17-59); Bilirubin,Total 0.3 mg/dL (0.2-1.3); Blood Urea Nitrogen 45 mg/dL (9-20); Calcium 8.7 mg/dL (8.4-10.2); Carbon Dioxide > 40 mmol/L (22-30); Chloride 90 mmol/L (98-107); Estimated CRCL calculation 32 ml/min; Estimated Glomerular Filt Rate > 60; Glucose 112 mg/dL (65-110); Potassium 4.3 mmol/L (3.4-5.0); Sodium 132 mmol/L (137-145)
[2024-07-27] MEDS: guaiFENesin/DEXTROMETHORPHAN 10 ML UDC PO ×5 (07:15→20:21)
[2024-07-27] MEDS: FLUTICASONE/UMECLIDIN/VILANTER 100-62.5-25 MCG ELLIPTA 1 PUFF INHALATION (08:14)
[2024-07-27] MEDS: CEFEPIME 2 GM/NS 50 ML 2 GM/50 ML BAG IVPB ×2 (09:35→20:20)
[2024-07-27] MEDS: METOPROLOL TARTRATE 25 MG TABLET PO ×2 (09:36→20:21)
[2024-07-27] MEDS: APIXABAN 5 MG TABLET PO ×2 (09:36→20:21)
[2024-07-27] MEDS: amLODIPine BESYLATE 5 MG TABLET PO (09:36)
[2024-07-27] MEDS: methylPREDNISolone SOD SUCC 125 MG VIAL 60 MG IV PUSH (09:36)
[2024-07-27] MEDS: dilTIAZem HCL CD 120 MG CAP.24HR PO (09:36)
[2024-07-27] MEDS: FUROSEMIDE 40 MG TABLET PO (09:36)
[2024-07-27] MEDS: VALSARTAN 160 MG TABLET 320 MG PO (09:45)
--- NOTE | 2024-07-27 09:48 | PCNFU ---
Nutrition Follow-Up Complete: Severe protein calorie malnutrition related to COPD, increased work of breathing as evidenced by weight loss -10%/1 month and 15%/8 months; severe muscle wasting and fat loss Goal:Adequate PO intake at least 75% meals and supplements Pt meeting goal, continue with same goal Pt current nutrition is heart healthy, Ensure Enlive TID. Nutrition recommendation: continue with current plan of care Last recorded weight is 47.8 kg. Bowel Motility: +BM 1/3 Labs Reviewed: Hgb:9.8, HCT:30.2, NA:132, BUN:45, Glu:112 Meds Noted: lasix Skin: WNL Additional Notes: Pt continues on a heart healthy diet, Ensure Enlive TID in place, intake good at 100% most all meals. Encourage good po intake to continue. Agree with diet orders. Monitoring intakes, weights, labs, meds, supplement tolerance, plan of care Follow up in 7 days
--- NOTE | 2024-07-27 10:53 | ECG_ITS ---
Test Date: 2024-07-27 11:44:14 Measurements Intervals [place] Rate: 91 P: 20 KS: 103 QRS: -64 QRSD: 97 T: 72 QT: 329 QTc: 405 Interpretive Statements SINUS RHYTHM WITH SHORT [place] INTERVAL WITH FREQUENT SUPRAVENTRICULAR PREMATURE COMPLEXES POSSIBLE LEFT ATRIAL ENLARGEMENT [-0.1mV P-WAVE IN V1/V2] LEFT ANTERIOR FASCICULAR BLOCK [QRS AXIS <= -45, QR IN I, RS IN II] Compared to ECG 07/25/2024 16:39:14 Atrial fibrillation no longer present Electronically Signed On 07-30-2024 18:02:19 DIRECTOR OF CARDIAC CATH LAB by Jacinta Mims M.D.
--- NOTE | 2024-07-27 11:10 | PM.PNPUL ---
Progress Note: A&P Assessment and Plan (1) Acute exacerbation of chronic obstructive pulmonary disease: Code(s): J44.1 - Chronic obstructive pulmonary disease with (acute) exacerbation Status: Acute Assessment and Plan: Patient with 40 pack year tobacco use, quit 10 years ago, Alpha 1 anti trypsin phenotype MM. on home oxygen for 10 years. PFTs 09/29/2023 with a very severe obstructive abnormality, no bronchodilator response, hyperinflation and the DLCO that remained moderately decreased when adjusted for alveolar volume. Patient requires 2 L oxygen at rest and 6 with ambulation.07/27/2024: Patient tells me he is breathing back to normal. His chronic cough is back to his normal. His phlegm is better and he has no hemoptysis. He denies wheezing. White blood cell count 12.9, creatinine 1.3, saturations on 3 L is 99%. I decreased him to 2 L and his saturations were 97%. Plan: Patient on Solu-Medrol since 07/22/[address] on prednisone 40 a day starting today day 6 steroids. patient is on cefepime since 07/24/2024, day 4. Will continue. Patient is on trilogy inhaler 100 and will discontinue his DuoNebs. Goal saturation 90-94%. Currently is on 2 L nasal cannula saturations 97%. Discussed with Ambar Banda, will follow with you. (2) Acute and chronic respiratory failure with hypercapnia: Code(s): J96.22 - Acute and chronic respiratory failure with hypercapnia Status: Acute Assessment and Plan: Patient with chronic hypercarbic respiratory failure from his COPD with a blood gas on admission at 7.34/75/91 on 4 L nasal cannula. plan: I will check an ABG today on 2 L nasal cannula if he remains hypercarbic will initiate nocturnal noninvasive ventilation. Subjective Date/time seen: 07/27/24 11:10 Interval history: 07/25/24 at 16:30 in Room 347 NEW: Kenney Varela is a 68 year-old man with pneumonia on CXR, and acute on chronic respiratory failure. At the time I saw the patient, he was at the start of atrial fib with RVR, rate 170-190, and was asymptomatic. He said that he was not aware that he was having a rapid heart beat, does not think that he has had atrial fibrillation in the past, says that he had congestive heart failure in 2008. Was admitted with sl increase in WBC 10.8, 1st ABG = primary chronic respiratory acidosis with secondary metabolic acid; 2nd ABG pH 7.42 pCO2 69 PO2 68 on BiPAP 14/7 and 28% oxygen; this one shows metabolic alkalosis with secondary respiratory acidosis. He also has increased troponin 0.036, 0.041, low (+) BNP 168. e has a small increase in BNP, 168 this admission. He is a patient in our pulmonary practice, last saw Harika Graham on May 06, 2024. He was stable on Trelegy and albuterol, using Duoneb 3-4 times a day. 3 Recent admissions: 1st: Jun 25 through , cough, dyspnea, low sat in 80% range; (+) pneumococcal antigen; CXR 06/25 = Probable bibasilar pulmonary edema/atelectasis versus pneumonia; Minimal pleural effusions. COPD. Lactic acid 2.3, low elevation Creat 1.6 2nd: Re-admitted Jul 08 to , cough with sputum, increased dyspnea, wheezing. Patient had a BNP of 1700, pCO2 61, clear CXR. Lactate =0.9. Normal creatinine. 3rd: Re-admitted 07/22 with increased cough, dyspnea, CXR =Small left-sided pleural effusion without focal infiltrate.He was still on his prednisone taper when he was admitted. Viral swabs are all negative. Lactate 1.4. Creat normal. He is a former smoker, smoked from age 18 until age 58, 40 pack year history. He started using O2 about 10 years ago, initially at night, then around the clock. He has lost wt, 10-15 lb over the last 8 months. He was using inhalers including Trelegy and ProAir until the last admission, he says that he was taken off these. He does not currently smoke marijuana, never vaped. 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 Shortness of breath, cough, possibly change in sputum production several days prior to this admission. He was up to date on his vaccinations, he had the flu, RSV, COVID and I believe he also said pneumococcal vaccination in March this year. SLEEP: He sleeps 6-7 hours a night, wakes 3-4 times to urinate, sometimes has dreams. He occasionally awakens with a dry mouth. He naps at most 30-60 minutes, unclear about how many times a week he naps. He drinks a cup of coffee per day. 07/27/2024: Patient tells me he is breathing back to normal. His chronic cough is back to his normal. His phlegm is better and he has no hemoptysis. He denies wheezing. White blood cell count 12.9, creatinine 1.3, saturations on 3 L is 99%. I decreased him to 2 L and his saturations were 97%. DATA * 07/22/2024; EKG = sinus rhythm with PACs LEFT ANTERIOR FASCICULAR BLOCK [QRS AXIS <= -45, QR IN I, RS IN II] Compared to ECG 07/07/2024 22:12:24 Left anterior fascicular block now present Myocardial infarct finding no longer present PACs are new ABGs reviewed; he has had hypercapnia since Aug 2019. 06/250:00 06/3013:46 pH 7.41 7.40 7.339 7.422 pCO2 58 61 74.6 69.3 pO2 207 78 90.6 68.4 HCO3 36 37 39.3 44.1 sat 99% 95% 96% 93.3 O2 delivery NC NC NC BiPAP O2 15 L 4 L 4 L 28% rate IPAP 14 EPAP 7 * BNP last 3 admissions : June 25 =2870; July 07; 1720, July 22; 168 * 07/22/24 FINDINGS The cardiomediastinal silhouette is unremarkable. Blunting of the left costophrenic sulcus suggesting a small left-sided pleural effusion. The remainder of the lungs are clear. isualized osseous structures and soft tissues are unremarkable. IMPRESSION: Small left-sided pleural effusion without focal infiltrate. * 06/25/2024 echo: 1. The left ventricle is normal in size and borderline normal in systolic function. There is mild eccentric left ventricular hypertrophy. The left ventricular ejection fraction is visually estimated to be 50%. 2. The right ventricle is normal in size and systolic function. 3. Cannot rule out PFO or small ASD during the Valsalva portion of the bubble study. * 06/25/2024; TSH low 0.121, low T3 0.7, normal T4 16.1 consistent with Euthyroid state with nonthyroidal illness; could be hyperthyroidism in an ill person. * 09/29/23 - PFT - There is a very severe obstructive abnormality. There is no significant improvement after inhaling a single dose of albuterol.? The increase in residual volume to total lung volume ratio is consistent with hyperinflation from an obstructive abnormality.? The diffusing capacity unadjusted for hemoglobin and carboxyhemoglobin is severely decreased and remains moderately decreased when adjusted for alveolar volume. * 09/29/23 - Home O2 evaluation- Patient required 2 L/min at rest and 6 L/min with ambulation. * 09/22/23 - A1AT phenotype - MM, normal. * CXR 08/23/23 -? Emphysema with mild bibasilar reticular opacities which could represent atelectasis, mild pulmonary edema or less likely pneumonia. Cardiomegaly. * PFT 12/09/09 report ? severe obstructive ventilatory defect Review of Systems Constitutional: Constitutional: Reports no additional constitutional complaints Eyes: Eyes: Reports no additional eye complaints ENT: Reports system reviewed and no additional complaints, except as documented Cardiovascular: Cardiovascular: Reports no additional cardiovascular complaints Respiratory: Respiratory: Reports no additional respiratory complaints Gastrointestinal: Gastrointestinal: Reports no additional gastrointestinal complaints Musculoskeletal: Musculoskeletal: Reports no additional musculoskeletal complaints Neurologic: Reports system reviewed and no additional complaints, except as documented Psychiatric: Psychiatric: Reports no additional psychiatric complaints Endocrine: Endocrine: Reports no additional endocrine complaints Hematologic/Lymphatic: Hematologic/Lymphatic: Reports no additional hematologic/lymphatic complaints Allergic/Immunologic: Allergic/Immunologic: Reports no additional allergic/immunologic complaints Exam Const: General: cooperative, healthy appearing and comfortable Orientation/consciousness: oriented to person, oriented to place and oriented to time HENMT: Head: normal to inspection Ears: hearing grossly normal bilaterally Eyes: General: appearance normal, both eyes and all related structures Neck: Neck: normal visual inspection Chest: Chest palpation & inspection: normal inspection of the chest Resp: Effort & Inspection: normal respiratory effort and able to speak in complete sentences Auscultation: no crackles, no rales, no rhonchi, no wheezes and lung sounds not diminished Cardio: Jugular venous distension: no JVD GI: Inspection: normal to inspection GI Palp: No abdominal tenderness Skin: General skin exam: normal color Neuro: General: oriented to person, oriented to place and oriented to time Extrem: General: normal to inspection Psych: Appearance: grossly normal Objective Data Vital Signs Vital Signs: Vital Signs - 24 hr 07/26/24 11:38 07/26/24 12:00 07/26/24 12:00 Temperature 36.4 C Pulse Rate 67 67 Respiratory Rate 20 Blood Pressure 147/79 H Pulse Oximetry 98 98 Oxygen Delivery Nasal Cannula Oxygen Flow Rate 3 Fraction of Inspired Oxygen 07/26/24 12:00 07/26/24 13:24 07/26/24 14:00 Temperature Pulse Rate 76 71 74 Respiratory Rate 20 Blood Pressure Pulse Oximetry Oxygen Delivery Oxygen Flow Rate Fraction of Inspired Oxygen 07/26/24 16:00 07/26/24 16:00 07/26/24 16:00 Temperature 36.6 C Pulse Rate 65 84 Respiratory Rate 26 H Blood Pressure 159/71 H Pulse Oximetry 100 98 Oxygen Delivery Nasal Cannula Oxygen Flow Rate 3 Fraction of Inspired Oxygen 07/26/24 18:00 07/26/24 20:00 07/26/24 20:02 Temperature 36.6 C Pulse Rate 64 69 70 Respiratory Rate 20 Blood Pressure 137/81 Pulse Oximetry 98 Oxygen Delivery Oxygen Flow Rate Fraction of Inspired Oxygen 07/26/24 21:04 07/26/24 21:06 07/26/24 21:16 Temperature Pulse Rate 68 727 H Respiratory Rate 18 18 Blood Pressure Pulse Oximetry 99 Oxygen Delivery Nasal Cannula Oxygen Flow Rate 3 Fraction of Inspired Oxygen 07/26/24 22:00 07/26/24 22:40 07/26/24 23:19 Temperature Pulse Rate 83 70 85 Respiratory Rate 20 Blood Pressure Pulse Oximetry 98 Oxygen Delivery Nasal Cannula Oxygen Flow Rate 3 Fraction of Inspired Oxygen 07/27/24 00:00 07/27/24 00:00 07/27/24 01:40 Temperature 36.5 C Pulse Rate 98 83 98 Respiratory Rate 18 18 Blood Pressure 146/78 H Pulse Oximetry 100 100 Oxygen Delivery Nasal Cannula Oxygen Flow Rate 3 Fraction of Inspired Oxygen 07/27/24 02:00 07/27/24 03:30 07/27/24 04:00 Temperature 36.4 C L Pulse Rate 65 72 66 Respiratory Rate 18 16 Blood Pressure 144/75 H Pulse Oximetry 100 Oxygen Delivery Oxygen Flow Rate Fraction of Inspired Oxygen 07/27/24 04:00 07/27/24 04:10 07/27/24 06:00 Temperature Pulse Rate 78 66 69 Respiratory Rate 16 Blood Pressure Pulse Oximetry 100 Oxygen Delivery Nasal Cannula Oxygen Flow Rate 3 Fraction of Inspired Oxygen 07/27/24 08:00 07/27/24 08:08 07/27/24 08:08 Temperature 36.8 C Pulse Rate 77 80 Respiratory Rate 16 20 Blood Pressure 151/80 H Pulse Oximetry 100 99 Oxygen Delivery Nasal Cannula Oxygen Flow Rate 3 Fraction of Inspired Oxygen 32 07/27/24 08:17 07/27/24 09:36 Temperature Pulse Rate 82 89 Respiratory Rate 20 Blood Pressure Pulse Oximetry Oxygen Delivery Oxygen Flow Rate Fraction of Inspired Oxygen Intake/Output Intake/Output: Intake & Output 07/24/24 07/25/24 07/26/24 07/27/24 23:59 23:59 23:59 23:59 Intake Total 2280 2180.7 1762.5 1010 Output Total 3645 362 6485 1290 Balance 1030 1880.7 762.5 -280 Meds/Results Medications: Active Medications Generic Name Dose Route Start Last Admin Trade Name Freq PRN Reason Stop Dose Admin Acetaminophen 650 mg 07/22/24 14:51 Acetaminophen 325 Mg Tablet PO Q4H PRN Mild Pain (1-3) or Fever Apixaban 5 mg 07/25/24 21:00 07/27/24 09:36 Apixaban 5 Mg Tablet PO 5 mg Q12HR PRICILA Administration Chlorthalidone 25 mg 07/27/24 11:10 Chlorthalidone 25 Mg Tablet PO DAILY PRICILA Diltiazem HCl 120 mg 07/26/24 09:40 07/27/24 09:36 Diltiazem Hcl Cd 120 Mg Cap.24hr PO 120 mg QAM PRICILA Administration Docusate Sodium 100 mg 07/26/24 09:09 Docusate Sodium 100 Mg Capsule PO DAILY PRN Constipation Fluticasone/Umeclidinium/Vilanterol 1 puff 07/23/24 09:00 07/27/24 08:14 Fluticasone/Umeclidin/Vilanter 100-62.5-25 Mcg Ellipta INHALATION 1 puff DAILY PRICILA Administration Furosemide 40 mg 07/24/24 09:00 07/27/24 09:36 Furosemide 40 Mg Tablet PO 40 mg DAILY PRICILA Administration Guaifenesin/Dextromethorphan 10 ml 07/23/24 01:00 07/27/24 09:36 Guaifenesin/Dextromethorphan 10 Ml Udc PO 10 ml Q4HR PRICILA Administration Cefepime HCl 2 gm in 50 mls @ 100 mls/hr 07/24/24 12:15 07/27/24 09:35 Maxipime 2 Gm/Ns 50 Ml IVPB 100 mls/hr Q12HR PRICILA Administration Metoprolol Tartrate 25 mg 07/26/24 21:00 07/27/24 09:36 Metoprolol Tartrate 25 Mg Tablet PO 25 mg Q12HR PRICILA Administration Morphine Sulfate 2 mg 07/22/24 14:51 Morphine Sulfate (*Crx) 2 Mg/Ml Inj IV PUSH Q2H PRN Pain Rated 7-10 Ondansetron HCl 4 mg 07/22/24 14:51 Ondansetron Inj 4 Mg/2 Ml Vial IV PUSH Q4H PRN Nausea Prednisone 40 mg 07/27/24 11:00 Prednisone 20 Mg Tablet PO DAILY@0800 [facility] Valsartan 320 mg 07/23/24 09:00 07/27/24 09:45 Valsartan 160 Mg Tablet PO 320 mg DAILY PRICILA Administration Radiology Results: ITS Impressions Chest X-Ray 07/22/24 11:12 IMPRESSION: Small left-sided pleural effusion without focal infiltrate. Labs Labs: Laboratory Results - last 24 hr 07/27/24 04:33 WBC 12.9 H RBC 3.40 L Hgb 9.8 L Hct 30.2 L MCV 88.8 MCH 28.8 MCHC 32.5 RDW 14.6 H Plt Count 186 MPV 10.4 Immature Gran % (Auto) 4.4 H Neut % (Auto) 90.7 H Lymph % (Auto) 2.3 L [place] % (Auto) 2.3 L Eos % (Auto) 0.0 Baso % (Auto) 0.3 Lymph # (Auto) 0.29 L [place] # (Auto) 0.3 Eos # (Auto) 0.0 Baso # (Auto) 0.0 Abs Immat Gran (auto) 0.57 H Absolute Neuts (auto) 11.7 H Absolute Nucleated RBC 0.020 H Nucleated RBC % 0.2 Sodium 132 L Potassium 4.3 Chloride 90 L Carbon Dioxide > 40 H Anion Gap BUN 45 H Creatinine 1.30 Estim Creat Clear Calc 32 Estimated GFR > 60 Glucose 112 H Calcium 8.7 Total Bilirubin 0.3 AST 21 ALT 28 Alkaline Phosphatase 55 Total Protein 6.0 L Albumin 3.3 L
--- NOTE | 2024-07-27 11:11 | PM.IMPN ---
Progress Note: A&P Assessment and Plan (1) Acute hypoxic respiratory failure: Code(s): J96.01 - Acute respiratory failure with hypoxia Status: Acute Assessment and Plan: With hypoxia and hypercarbia --BiPAP as needed --Q 6 breathing treatments p.r.n. --Influenza a, B, RSV and COVID negative --Troponin slightly elevated, likely demand. Troponin trend 0.033>0.036>0.041> 0.060>0.050. Patient asymptomatic. --Walking O2 prior to discharge (2) Atrial fibrillation with rapid ventricular response: Code(s): I48.91 - Unspecified atrial fibrillation Status: Acute Assessment and Plan: Cardiology consulted, appreciate recommendations - Diltiazem 120 mg PO daily. -discussed within the risks, benefits, alternatives of anticoagulation. He agreed to be started on anticoagulation. Continue apixaban 5 mg p.o. b.i.d. -echo to assess LV function -elevated troponin due to type 2 NH. no invasive evaluation needed for now -stress test as an outpatient if symptoms (3) COPD exacerbation: Code(s): J44.1 - Chronic obstructive pulmonary disease with (acute) exacerbation Status: Acute Assessment and Plan: --Steroids changed to oral, Prednisone 40 mg PO daily. --Trelegy Ellipta 100-62.5-25 1 puff inhaled daily. --Pulmonary consult. Admitted 3 times in one month. Appreciate recommendations. (4) Hypertension: Code(s): I10 - Essential (primary) hypertension Status: Chronic Assessment and Plan: Continue amlodipine and Valsartan. (5) CHF (congestive heart failure): Code(s): I50.9 - Heart failure, unspecified Status: Acute Assessment and Plan: Seems euvolemic but has a small effusion --Change hctz to furosemide 40mg PO and follow. (6) Leukocytosis: Code(s): D72.829 - Elevated white blood cell count, unspecified Status: Acute Assessment and Plan: Patient with productive cough and green sputum, possible pneumonia, but no focal infiltrate on x-rays Started azithromycin & Rocephin --Change Rocephin on 07/24/24 to Cefepime 2 gm IVPB q 12. Continue Azithromycin 500 mg PO daily. --Guaifenesin --Blood cultures no growth to date. --Sputum culture negative. --Consider CT chest if not improving (7) Hyperkalemia: Code(s): E87.5 - Hyperkalemia Status: Acute Assessment and Plan: --Potassium improved to 4.3. --Monitor labs. Subjective Date/time seen: 07/27/24 11:11 Interval history: Patient sitting up in chair. Patient denies chest pain, palpitations, shortness of breath, headache, or dizziness. Review of Systems Review of Systems: All systems reviewed & are unremarkable except as noted in HPI and below Exam Const: General: comfortable and no acute distress Resp: Auscultation: diminished lung sounds Cardio: Rhythm: abnormal rhythm (Afib 89) irregularly irregular GI: GI Palp: Yes Soft to palpation Auscultation: normal bowel sounds Skin: General skin exam: no rashes or lesions noted Neuro: Speech: normal speech Extrem: General: no pedal edema Psych: Mental Status: mental status grossly normal Affect: normal affect Objective Data Vital Signs Vital Signs: Vital Signs - 24 hr 07/26/24 11:38 07/26/24 12:00 07/26/24 12:00 Temperature 97.6 F Pulse Rate 67 67 Respiratory Rate 20 Blood Pressure 147/79 H Pulse Oximetry 98 98 Oxygen Delivery Nasal Cannula Oxygen Flow Rate 3 Fraction of Inspired Oxygen 07/26/24 12:00 07/26/24 13:24 07/26/24 14:00 Temperature Pulse Rate 76 71 74 Respiratory Rate 20 Blood Pressure Pulse Oximetry Oxygen Delivery Oxygen Flow Rate Fraction of Inspired Oxygen 07/26/24 16:00 07/26/24 16:00 07/26/24 16:00 Temperature 97.9 F Pulse Rate 65 84 Respiratory Rate 26 H Blood Pressure 159/71 H Pulse Oximetry 100 98 Oxygen Delivery Nasal Cannula Oxygen Flow Rate 3 Fraction of Inspired Oxygen 07/26/24 18:00 07/26/24 20:00 07/26/24 20:02 Temperature 97.9 F Pulse Rate 64 69 70 Respiratory Rate 20 Blood Pressure 137/81 Pulse Oximetry 98 Oxygen Delivery Oxygen Flow Rate Fraction of Inspired Oxygen 07/26/24 21:04 07/26/24 21:06 07/26/24 21:16 Temperature Pulse Rate 68 727 H Respiratory Rate 18 18 Blood Pressure Pulse Oximetry 99 Oxygen Delivery Nasal Cannula Oxygen Flow Rate 3 Fraction of Inspired Oxygen 07/26/24 22:00 07/26/24 22:40 07/26/24 23:19 Temperature Pulse Rate 83 70 85 Respiratory Rate 20 Blood Pressure Pulse Oximetry 98 Oxygen Delivery Nasal Cannula Oxygen Flow Rate 3 Fraction of Inspired Oxygen 07/27/24 00:00 07/27/24 00:00 07/27/24 01:40 Temperature 97.7 F Pulse Rate 98 83 98 Respiratory Rate 18 18 Blood Pressure 146/78 H Pulse Oximetry 100 100 Oxygen Delivery Nasal Cannula Oxygen Flow Rate 3 Fraction of Inspired Oxygen 07/27/24 02:00 07/27/24 03:30 07/27/24 04:00 Temperature 97.5 F L Pulse Rate 65 72 66 Respiratory Rate 18 16 Blood Pressure 144/75 H Pulse Oximetry 100 Oxygen Delivery Oxygen Flow Rate Fraction of Inspired Oxygen 07/27/24 04:00 07/27/24 04:10 07/27/24 06:00 Temperature Pulse Rate 78 66 69 Respiratory Rate 16 Blood Pressure Pulse Oximetry 100 Oxygen Delivery Nasal Cannula Oxygen Flow Rate 3 Fraction of Inspired Oxygen 07/27/24 08:00 07/27/24 08:08 07/27/24 08:08 Temperature 98.2 F Pulse Rate 77 80 Respiratory Rate 16 20 Blood Pressure 151/80 H Pulse Oximetry 100 99 Oxygen Delivery Nasal Cannula Oxygen Flow Rate 3 Fraction of Inspired Oxygen 32 07/27/24 08:17 07/27/24 09:36 Temperature Pulse Rate 82 89 Respiratory Rate 20 Blood Pressure Pulse Oximetry Oxygen Delivery Oxygen Flow Rate Fraction of Inspired Oxygen Intake/Output Intake/Output: Intake & Output 07/24/24 07/25/24 07/26/24 07/27/24 23:59 23:59 23:59 23:59 Intake Total 2280 2180.7 1762.5 1010 Output Total 2874 588 2311 1290 Balance 1030 1880.7 762.5 -280 Meds/Results Medications: Active Medications Generic Name Dose Route Start Last Admin Trade Name Freq PRN Reason Stop Dose Admin Acetaminophen 650 mg 07/22/24 14:51 Acetaminophen 325 Mg Tablet PO Q4H PRN Mild Pain (1-3) or Fever Apixaban 5 mg 07/25/24 21:00 07/27/24 09:36 Apixaban 5 Mg Tablet PO 5 mg Q12HR PRICILA Administration Chlorthalidone 25 mg 07/27/24 11:10 Chlorthalidone 25 Mg Tablet PO DAILY PRICILA Diltiazem HCl 120 mg 07/26/24 09:40 07/27/24 09:36 Diltiazem Hcl Cd 120 Mg Cap.24hr PO 120 mg QAM PRICILA Administration Docusate Sodium 100 mg 07/26/24 09:09 Docusate Sodium 100 Mg Capsule PO DAILY PRN Constipation Fluticasone/Umeclidinium/Vilanterol 1 puff 07/23/24 09:00 07/27/24 08:14 Fluticasone/Umeclidin/Vilanter 100-62.5-25 Mcg Ellipta INHALATION 1 puff DAILY PRICILA Administration Furosemide 40 mg 07/24/24 09:00 07/27/24 09:36 Furosemide 40 Mg Tablet PO 40 mg DAILY PRICILA Administration Guaifenesin/Dextromethorphan 10 ml 07/23/24 01:00 07/27/24 09:36 Guaifenesin/Dextromethorphan 10 Ml Udc PO 10 ml Q4HR PRICILA Administration Cefepime HCl 2 gm in 50 mls @ 100 mls/hr 07/24/24 12:15 07/27/24 09:35 Maxipime 2 Gm/Ns 50 Ml IVPB 100 mls/hr Q12HR PRICILA Administration Metoprolol Tartrate 25 mg 07/26/24 21:00 07/27/24 09:36 Metoprolol Tartrate 25 Mg Tablet PO 25 mg Q12HR PRICILA Administration Morphine Sulfate 2 mg 07/22/24 14:51 Morphine Sulfate (*Crx) 2 Mg/Ml Inj IV PUSH Q2H PRN Pain Rated 7-10 Ondansetron HCl 4 mg 07/22/24 14:51 Ondansetron Inj 4 Mg/2 Ml Vial IV PUSH Q4H PRN Nausea Prednisone 40 mg 07/27/24 11:00 Prednisone 20 Mg Tablet PO DAILY@0800 [facility] Valsartan 320 mg 07/23/24 09:00 07/27/24 09:45 Valsartan 160 Mg Tablet PO 320 mg DAILY PRICILA Administration Radiology Results: ITS Impressions Chest X-Ray 07/22/24 11:12 IMPRESSION: Small left-sided pleural effusion without focal infiltrate. Labs Labs: Laboratory Results - last 24 hr 07/27/24 04:33 WBC 12.9 H RBC 3.40 L Hgb 9.8 L Hct 30.2 L MCV 88.8 MCH 28.8 MCHC 32.5 RDW 14.6 H Plt Count 186 MPV 10.4 Immature Gran % (Auto) 4.4 H Neut % (Auto) 90.7 H Lymph % (Auto) 2.3 L [place] % (Auto) 2.3 L Eos % (Auto) 0.0 Baso % (Auto) 0.3 Lymph # (Auto) 0.29 L [place] # (Auto) 0.3 Eos # (Auto) 0.0 Baso # (Auto) 0.0 Abs Immat Gran (auto) 0.57 H Absolute Neuts (auto) 11.7 H Absolute Nucleated RBC 0.020 H Nucleated RBC % 0.2 Sodium 132 L Potassium 4.3 Chloride 90 L Carbon Dioxide > 40 H Anion Gap BUN 45 H Creatinine 1.30 Estim Creat Clear Calc 32 Estimated GFR > 60 Glucose 112 H Calcium 8.7 Total Bilirubin 0.3 AST 21 ALT 28 Alkaline Phosphatase 55 Total Protein 6.0 L Albumin 3.3 L Quality VTE Prophylaxis VTE prophylaxis: mechanical ordered and pharmacologic ordered
[2024-07-27 13:06] LABS: Alveolar/Arterial O2 Gradient 54.3 mmHg; Base Excess ABG 10.3 mEq/l (+/-2.0); Fractional Inspired Oxygen 28 %; HCO3 ABG 37.6 mEq/l (22.0-26.0); Oxygen Content ABG 15.1 %vol (16.0-22.0); Oxygen Saturation ABG 92.9 % (95.0-100.0); Oxyhemoglobin 92.4 % THb (90.0-100.0); PO2 ABG 68.8 mmHg (80.0-100.0); PO2 FiO2 Ratio Arterial Blood 2.46 %; Total Hemoglobin 11.6 g/dL (12.0-18.0); pH ABG 7.381 (7.350-7.450)
[2024-07-27 13:07] LABS: Device NASAL CANNULA; Modified Allen's Test Pass; Site Drawn RIGHT RADIAL
[2024-07-27 13:08] LABS: PCO2 ABG 64.9 mmHg (35.0-45.0)
[2024-07-27] MEDS: predniSONE 20 MG TABLET 40 MG PO (13:16)
[2024-07-27] MEDS: CHLORTHALIDONE 25 MG TABLET PO (13:16)
--- NOTE | 2024-07-27 17:55 | P.PNCA_ITS ---
Progress Note: A&P Assessment and Plan (1) Atrial fibrillation with rapid ventricular response: Code(s): I48.91 - Unspecified atrial fibrillation Status: Acute (2) Hypertension: Code(s): I10 - Essential (primary) hypertension Status: Chronic Plan 1. Paroxysmal atrial fibrillation 2. Hypertension 3. COPD exacerbation 4. History of diastolic heart failure 5. TIA/CVA - rate well controlled - Continue CCB and BB at current doses - elevated troponin due to type 2 [place]. no invasive evaluation needed for now -stress test as an outpatient if symptoms Cardiology will sign off please call us with any questions or concerns Subjective Date/time seen: 07/27/24 17:55 Interval history: Patient sitting up in chair. Patient denies chest pain, palpitations, shortness of breath, headache, or dizziness. rates well controlled Review of Systems Review of Systems: He has not had leg swelling, calf pain, chest pain. He had loose stools after Thanksgiving, thinks he had food poisoning. He has not had GI symptoms this admission. He has sinus irritation in the spring, nothing recently. Does not have sinus symptoms at this time. All systems reviewed & are unremarkable except as noted in HPI and below Constitutional: Constitutional: Reports no additional constitutional complaints Eyes: Eyes: Reports no additional eye complaints ENT: Reports system reviewed and no additional complaints, except as documented Cardiovascular: Cardiovascular: Reports no additional cardiovascular complaints Respiratory: Respiratory: Reports as per HPI Gastrointestinal: Gastrointestinal: Reports no additional gastrointestinal c omplaints Musculoskeletal: Musculoskeletal: Reports no additional musculoskeletal complaints Integumentary/Breasts: Skin/Breast: Reports system reviewed and no additional complaints, except as docu Exam Narrative: GEN: Alert, oriented, not in distress. Thin, BMI is 15.6. he is wearing nasal cannula for O2 = HEENT: pupils are equal, EOMI, symmetrical face; oral membranes moist, dentition is poor, Mallampati III airway, no erythema or exudate. NECK: Trachea is midline CHEST: Equal air entry, symmetric excursion, thorax is hyperinflated, markedly decreased breath sounds, no wheezing. CV: irregularly irregular S1S2 rapid making it difficult to hear any additional sounds. No murmur, clicks or rubs. ABD : (+) bowel sounds Extremities : Early clubbing possible on fingernails. No cyanosis or edema. Cales non tender. PSYCH: normal thought and speech, gait is not tested. Const: General: comfortable and no acute distress Resp: Auscultation: diminished lung sounds Cardio: Rhythm: abnormal rhythm (Telemetry Afib 101 with multiple PVC's) irregularly irregular GI: Auscultation: normal bowel sounds Skin: General skin exam: no rashes or lesions noted Neuro: Speech: normal speech Extrem: General: no pedal edema Psych: Mental Status: mental status grossly normal Affect: normal affect Objective Data Vital Signs Vital Signs: Vital Signs - 24 hr 07/26/24 18:00 07/26/24 20:00 07/26/24 20:02 Temperature 36.6 C Pulse Rate 64 69 70 Respiratory Rate 20 Blood Pressure 137/81 Pulse Oximetry 98 Oxygen Delivery Oxygen Flow Rate Fraction of Inspired Oxygen 07/26/24 21:04 07/26/24 21:06 07/26/24 21:16 Temperature Pulse Rate 68 727 H Respiratory Rate 18 18 Blood Pressure Pulse Oximetry 99 Oxygen Delivery Nasal Cannula Oxygen Flow Rate 3 Fraction of Inspired Oxygen 07/26/24 22:00 07/26/24 22:40 07/26/24 23:19 Temperature Pulse Rate 83 70 85 Respiratory Rate 20 Blood Pressure Pulse Oximetry 98 Oxygen Delivery Nasal Cannula Oxygen Flow Rate 3 Fraction of Inspired Oxygen 07/27/24 00:00 07/27/24 00:00 07/27/24 01:40 Temperature 36.5 C Pulse Rate 98 83 98 Respiratory Rate 18 18 Blood Pressure 146/78 H Pulse Oximetry 100 100 Oxygen Delivery Nasal Cannula Oxygen Flow Rate 3 Fraction of Inspired Oxygen 07/27/24 02:00 07/27/24 03:30 07/27/24 04:00 Temperature 36.4 C L Pulse Rate 65 72 66 Respiratory Rate 18 16 Blood Pressure 144/75 H Pulse Oximetry 100 Oxygen Delivery Oxygen Flow Rate Fraction of Inspired Oxygen 07/27/24 04:00 07/27/24 04:10 07/27/24 06:00 Temperature Pulse Rate 78 66 69 Respiratory Rate 16 Blood Pressure Pulse Oximetry 100 Oxygen Delivery Nasal Cannula Oxygen Flow Rate 3 Fraction of Inspired Oxygen 07/27/24 08:00 07/27/24 08:00 07/27/24 08:00 Temperature 36.8 C Pulse Rate 77 78 Respiratory Rate 16 Blood Pressure 151/80 H Pulse Oximetry 100 94 Oxygen Delivery Nasal Cannula Oxygen Flow Rate 3 Fraction of Inspired Oxygen 07/27/24 08:08 07/27/24 08:08 07/27/24 08:17 Temperature Pulse Rate 80 82 Respiratory Rate 20 20 Blood Pressure Pulse Oximetry 99 Oxygen Delivery Nasal Cannula Oxygen Flow Rate 3 Fraction of Inspired Oxygen 32 07/27/24 09:36 07/27/24 10:00 07/27/24 12:00 Temperature 36.8 C Pulse Rate 89 102 H 106 H Respiratory Rate 18 Blood Pressure 156/74 H Pulse Oximetry 97 Oxygen Delivery Oxygen Flow Rate Fraction of Inspired Oxygen 07/27/24 12:00 07/27/24 12:00 07/27/24 14:00 Temperature Pulse Rate 90 87 Respiratory Rate Blood Pressure Pulse Oximetry 99 Oxygen Delivery Nasal Cannula Oxygen Flow Rate 2 Fraction of Inspired Oxygen 07/27/24 16:00 07/27/24 16:00 07/27/24 16:00 Temperature 36.7 C Pulse Rate 84 73 Respiratory Rate 18 Blood Pressure 136/79 Pulse Oximetry 99 97 Oxygen Delivery Nasal Cannula Oxygen Flow Rate 2 Fraction of Inspired Oxygen Intake/Output Intake/Output: Intake & Output 07/24/24 07/25/24 07/26/24 07/27/24 23:59 23:59 23:59 23:59 Intake Total 2280 2180.7 1762.5 1250 Output Total 5186 192 0889 1290 Balance 1030 1880.7 762.5 -40 Meds/Results Medications: Active Medications Generic Name Dose Route Start Last Admin Trade Name Freq PRN Reason Stop Dose Admin Acetaminophen 650 mg 07/22/24 14:51 Acetaminophen 325 Mg Tablet PO Q4H PRN Mild Pain (1-3) or Fever Apixaban 5 mg 07/25/24 21:00 07/27/24 09:36 Apixaban 5 Mg Tablet PO 5 mg Q12HR PRICILA Administration Chlorthalidone 25 mg 07/27/24 11:10 07/27/24 13:16 Chlorthalidone 25 Mg Tablet PO 25 mg DAILY PRICILA Administration Diltiazem HCl 120 mg 07/26/24 09:40 07/27/24 09:36 Diltiazem Hcl Cd 120 Mg Cap.24hr PO 120 mg QAM PRICILA Administration Docusate Sodium 100 mg 07/26/24 09:09 Docusate Sodium 100 Mg Capsule PO DAILY PRN Constipation Fluticasone/Umeclidinium/Vilanterol 1 puff 07/23/24 09:00 07/27/24 08:14 Fluticasone/Umeclidin/Vilanter 100-62.5-25 Mcg Ellipta INHALATION 1 puff DAILY PRICILA Administration Furosemide 40 mg 07/24/24 09:00 07/27/24 09:36 Furosemide 40 Mg Tablet PO 40 mg DAILY PRICILA Administration Guaifenesin/Dextromethorphan 10 ml 07/23/24 01:00 07/27/24 17:48 Guaifenesin/Dextromethorphan 10 Ml Udc PO 10 ml Q4HR PRICILA Administration Cefepime HCl 2 gm in 50 mls @ 100 mls/hr 07/24/24 12:15 07/27/24 09:35 Maxipime 2 Gm/Ns 50 Ml IVPB 100 mls/hr Q12HR PRICILA Administration Metoprolol Tartrate 25 mg 07/26/24 21:00 07/27/24 09:36 Metoprolol Tartrate 25 Mg Tablet PO 25 mg Q12HR PRICILA Administration Morphine Sulfate 2 mg 07/22/24 14:51 Morphine Sulfate (*Crx) 2 Mg/Ml Inj IV PUSH Q2H PRN Pain Rated 7-10 Ondansetron HCl 4 mg 07/22/24 14:51 Ondansetron Inj 4 Mg/2 Ml Vial IV PUSH Q4H PRN Nausea Prednisone 40 mg 07/27/24 11:00 07/27/24 13:16 Prednisone 20 Mg Tablet PO 40 mg DAILY@0800 PRICILA Administration Valsartan 320 mg 07/23/24 09:00 07/27/24 09:45 Valsartan 160 Mg Tablet PO 320 mg DAILY PRICILA Administration Radiology Results: ITS Impressions Chest X-Ray 07/22/24 11:12 IMPRESSION: Small left-sided pleural effusion without focal infiltrate. Labs Labs: Laboratory Results - last 24 hr 07/27/24 07/27/24 04:33 13:03 WBC 12.9 H RBC 3.40 L Hgb 9.8 L Hct 30.2 L MCV 88.8 MCH 28.8 MCHC 32.5 RDW 14.6 H Plt Count 186 MPV 10.4 Immature Gran % (Auto) 4.4 H Neut % (Auto) 90.7 H Lymph % (Auto) 2.3 L [place] % (Auto) 2.3 L Eos % (Auto) 0.0 Baso % (Auto) 0.3 Lymph # (Auto) 0.29 L [place] # (Auto) 0.3 Eos # (Auto) 0.0 Baso # (Auto) 0.0 Abs Immat Gran (auto) 0.57 H Absolute Neuts (auto) 11.7 H Absolute Nucleated RBC 0.020 H Nucleated RBC % 0.2 Puncture Site Right radial ABG pH 7.381 ABG pCO2 64.9 H* ABG pO2 68.8 L ABG PO2/FiO2 Ratio 2.46 ABG HCO3 37.6 H ABG O2 Saturation 92.9 L ABG O2 Content 15.1 L ABG Base Excess 10.3 A-a Gradient 54.3 Oxyhemoglobin 92.4 Total Hemoglobin 11.6 L O2 Delivery Device Nasal cannula O2 Liters/Min 2.0 FiO2 28 Sodium 132 L Potassium 4.3 Chloride 90 L Carbon Dioxide > 40 H Anion Gap BUN 45 H Creatinine 1.30 Estim Creat Clear Calc 32 Estimated GFR > 60 Glucose 112 H Calcium 8.7 Total Bilirubin 0.3 AST 21 ALT 28 Alkaline Phosphatase 55 Total Protein 6.0 L Albumin 3.3 L
[2024-07-28] VITALS (12 sets, daily range): BP systolic 133–149; BP diastolic 71–89; PULSE 50–92; RESP 14–20; TEMP 36.7–37.2; O2SAT 94–99
[2024-07-28 05:21] LABS: Alveolar/Arterial O2 Gradient 103.6 mmHg; Base Excess ABG 7.7 mEq/l (+/-2.0); Fractional Inspired Oxygen 32 %; HCO3 ABG 32.9 mEq/l (22.0-26.0); Oxygen Content ABG 13.8 %vol (16.0-22.0); Oxygen Saturation ABG 93.5 % (95.0-100.0); Oxyhemoglobin 93.3 % THb (90.0-100.0); PCO2 ABG 49.8 mmHg (35.0-45.0); PO2 ABG 66.3 mmHg (80.0-100.0); PO2 FiO2 Ratio Arterial Blood 2.07 %; Total Hemoglobin 10.5 g/dL (12.0-18.0); pH ABG 7.438 (7.350-7.450)
[2024-07-28 06:30] LABS: Device OTHER DEVICE; Modified Allen's Test Pass; Site Drawn RIGHT RADIAL
[2024-07-28 07:46] LABS: Basophils Absolute Auto 0.1 K/mm3 (0.0-0.1); Basophils Percent Auto 0.4 % (0.2-1.2); Hematocrit 28.8 % (42.0-52.0); Hemoglobin 9.5 g/dL (14.0-18.0); Immature Granulocyte Absolute 0.62 K/mm3 (0.00-0.031); Immature Granulocyte Percent A 3.9 % (0-0.5); Lymphocytes Absolute Auto 0.43 K/mm3 (0.9-3.2); Lymphocytes Percent Auto 2.7 % (18.3-44.2); Mean Corpuscular Hemoglobin 28.8 pg (26-34); Mean Corpuscular Volume 87.3 fl (80-100); Mean Platelet Volume 9.9 fl (7.4-10.4); Monocytes Absolute Auto 0.5 K/mm3 (0.1-0.6); Monocytes Percent Auto 3.1 % (2.6-8.5); Neutrophils Absolute Auto 14.3 K/mm3 (1.3-6.7); Neutrophils Percent Auto 89.9 % (45.5-73.1); Nucleated Red Blood Cells Perc 0.3 % (0.0-0.2); Platelet Count Result 174 k/mm3 (150-375); Red Cell Distribution Width 14.6 % (11.5-14.5); White Blood Count 15.9 K/mm3 (4.5-10.0)
[2024-07-28 08:13] LABS: Alanine Aminotransferase 24 U/L (6-50); Albumin Level 3.1 g/dL (3.5-5.1); Alkaline Phosphatase 48 U/L (38-126); Aspartate Amino Transferase 17 U/L (17-59); Bilirubin,Total 0.3 mg/dL (0.2-1.3); Blood Urea Nitrogen 46 mg/dL (9-20); Carbon Dioxide > 40 mmol/L (22-30); Chloride 91 mmol/L (98-107); Estimated CRCL calculation 28 ml/min; Estimated Glomerular Filt Rate 56; Glucose 99 mg/dL (65-110); Potassium 3.9 mmol/L (3.4-5.0); Sodium 130 mmol/L (137-145)
[2024-07-28] MEDS: CHLORTHALIDONE 25 MG TABLET PO (08:19)
[2024-07-28] MEDS: VALSARTAN 160 MG TABLET 320 MG PO (08:19)
[2024-07-28] MEDS: METOPROLOL TARTRATE 25 MG TABLET PO ×2 (08:19→20:59)
[2024-07-28] MEDS: predniSONE 20 MG TABLET 40 MG PO (08:19)
[2024-07-28] MEDS: FUROSEMIDE 40 MG TABLET PO (08:19)
[2024-07-28] MEDS: APIXABAN 5 MG TABLET PO ×2 (08:19→20:59)
[2024-07-28] MEDS: dilTIAZem HCL CD 120 MG CAP.24HR PO (08:19)
[2024-07-28] MEDS: guaiFENesin/DEXTROMETHORPHAN 10 ML UDC PO ×3 (08:23→21:55)
[2024-07-28] MEDS: CEFEPIME 2 GM/NS 50 ML 2 GM/50 ML BAG IVPB ×2 (08:28→20:57)
[2024-07-28] MEDS: FLUTICASONE/UMECLIDIN/VILANTER 100-62.5-25 MCG ELLIPTA 1 PUFF INHALATION (09:25)
--- NOTE | 2024-07-28 11:47 | P.PNIM_ITS ---
Progress Note: A&P Assessment and Plan (1) Acute hypoxic respiratory failure: Code(s): J96.01 - Acute respiratory failure with hypoxia Status: Acute Assessment and Plan: With hypoxia and hypercarbia --Q 6 breathing treatments p.r.n. --Influenza a, B, RSV and COVID negative --Troponin slightly elevated, likely demand. Troponin trend 0.033>0.036>0.041> 0.060>0.050. Patient asymptomatic. --Walking O2 prior to discharge --Pulmonology following. 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 Patient was attempted on a BIPAP but could not tolerate the pressure and said he could not breathe with this. Patient tolerated the noninvasive ventilation with the AVAPS mode with adequate ventilation. (2) Atrial fibrillation with rapid ventricular response: Code(s): I48.91 - Unspecified atrial fibrillation Status: Acute Assessment and Plan: * Cardiology consulted, appreciate recommendations - Diltiazem 120 mg PO daily. -discussed within the risks, benefits, alternatives of anticoagulation. He agreed to be started on anticoagulation. Continue apixaban 5 mg p.o. b.i.d. -echo to assess LV function -elevated troponin due to type 2 SC. no invasive evaluation needed for now -stress test as an outpatient if symptoms (3) COPD exacerbation: Code(s): J44.1 - Chronic obstructive pulmonary disease with (acute) exacerbation Status: Acute Assessment and Plan: --Steroids discontinued today. --Trelegy Ellipta 100-62.5-25 1 puff inhaled daily. --Pulmonary consult. Admitted 3 times in one month. Appreciate recommendations. (4) Hypertension: Code(s): I10 - Essential (primary) hypertension Status: Chronic Assessment and Plan: * Continue amlodipine and Valsartan. * Blood pressure 137.76. (5) CHF (congestive heart failure): Code(s): I50.9 - Heart failure, unspecified Status: Acute Assessment and Plan: Seems euvolemic but has a small effusion --Change hctz to furosemide 40mg PO and follow. (6) Leukocytosis: Code(s): D72.829 - Elevated white blood cell count, unspecified Status: Acute Assessment and Plan: Patient with productive cough and green sputum, possible pneumonia, but no focal infiltrate on x-rays Started azithromycin & Rocephin --Change Rocephin on 07/24/24 to Cefepime 2 gm IVPB q 12. Completed Azithromycin 500 mg PO daily. --Guaifenesin --Blood cultures no growth to date. --Sputum culture negative. --Consider CT chest if not improving (7) Hyperkalemia: Code(s): E87.5 - Hyperkalemia Status: Acute Assessment and Plan: --Potassium improved to 3.9. --Monitor labs. Subjective Date/time seen: 07/28/24 11:47 Interval history: Patient sitting up in chair. Patient denies chest pain, palpitations, shortness of breath, headache, or dizziness. Review of Systems Review of Systems: All systems reviewed & are unremarkable except as noted in HPI and below Exam Const: General: comfortable and no acute distress Resp: Auscultation: diminished lung sounds Cardio: Rate: regular rate Rhythm: regular rhythm Other: SRS 86 with multiple PVC's GI: GI Palp: Yes Soft to palpation Auscultation: normal bowel sounds Skin: General skin exam: no rashes or lesions noted Neuro: Speech: normal speech Extrem: General: no pedal edema Psych: Mental Status: mental status grossly normal Affect: normal affect Objective Data Vital Signs Vital Signs: Vital Signs - 24 hr 07/27/24 12:00 07/27/24 12:00 07/27/24 12:00 Temperature 98.2 F Pulse Rate 106 H 90 Respiratory Rate 18 Blood Pressure 156/74 H Pulse Oximetry 97 99 Oxygen Delivery Nasal Cannula Oxygen Flow Rate 2 Fraction of Inspired Oxygen 07/27/24 14:00 07/27/24 16:00 07/27/24 16:00 Temperature 98.0 F Pulse Rate 87 84 73 Respiratory Rate 18 Blood Pressure 136/79 Pulse Oximetry 99 Oxygen Delivery Oxygen Flow Rate Fraction of Inspired Oxygen 07/27/24 16:00 07/27/24 20:00 07/27/24 20:00 Temperature 97.8 F Pulse Rate 77 79 Respiratory Rate 16 Blood Pressure 136/70 Pulse Oximetry 97 98 Oxygen Delivery Nasal Cannula Oxygen Flow Rate 2 Fraction of Inspired Oxygen 07/27/24 20:00 07/27/24 20:17 07/27/24 20:21 Temperature Pulse Rate 98 Respiratory Rate Blood Pressure Pulse Oximetry 96 96 Oxygen Delivery Nasal Cannula Nasal Cannula Oxygen Flow Rate 2 3 Fraction of Inspired Oxygen 07/27/24 23:30 07/28/24 00:00 07/28/24 00:00 Temperature 98.0 F Pulse Rate 58 L 76 76 Respiratory Rate 21 H 16 Blood Pressure 143/89 H Pulse Oximetry 98 98 Oxygen Delivery BiPAP Oxygen Flow Rate Fraction of Inspired Oxygen 07/28/24 04:00 07/28/24 08:00 07/28/24 08:00 Temperature 98.8 F Pulse Rate 66 50 L 91 Respiratory Rate 14 14 Blood Pressure 136/76 Pulse Oximetry 99 99 Oxygen Delivery Nasal Cannula Oxygen Flow Rate 2 Fraction of Inspired Oxygen 07/28/24 08:00 07/28/24 08:19 07/28/24 09:25 Temperature Pulse Rate 75 91 Respiratory Rate Blood Pressure Pulse Oximetry 94 Oxygen Delivery Nasal Cannula Oxygen Flow Rate 1 Fraction of Inspired Oxygen 24 Intake/Output Intake/Output: Intake & Output 07/25/24 07/26/24 07/27/24 07/28/24 23:59 23:59 23:59 23:59 Intake Total 2180.7 1762.5 2140 1640 Output Total 300 1000 1890 1800 Balance 1880.7 762.5 250 -160 Meds/Results Medications: Active Medications Generic Name Dose Route Start Last Admin Trade Name Freq PRN Reason Stop Dose Admin Acetaminophen 650 mg 07/22/24 14:51 Acetaminophen 325 Mg Tablet PO Q4H PRN Mild Pain (1-3) or Fever Apixaban 5 mg 07/25/24 21:00 07/28/24 08:19 Apixaban 5 Mg Tablet PO 5 mg Q12HR PRICILA Administration Chlorthalidone 25 mg 07/27/24 11:10 07/28/24 08:19 Chlorthalidone 25 Mg Tablet PO 25 mg DAILY PRICILA Administration Diltiazem HCl 120 mg 07/26/24 09:40 07/28/24 08:19 Diltiazem Hcl Cd 120 Mg Cap.24hr PO 120 mg QAM PRICILA Administration Docusate Sodium 100 mg 07/26/24 09:09 Docusate Sodium 100 Mg Capsule PO DAILY PRN Constipation Fluticasone/Umeclidinium/Vilanterol 1 puff 07/23/24 09:00 07/28/24 09:25 Fluticasone/Umeclidin/Vilanter 100-62.5-25 Mcg Ellipta INHALATION 1 puff DAILY PRICILA Administration Furosemide 40 mg 07/24/24 09:00 07/28/24 08:19 Furosemide 40 Mg Tablet PO 40 mg DAILY PRICILA Administration Guaifenesin/Dextromethorphan 10 ml 07/23/24 01:00 07/28/24 08:23 Guaifenesin/Dextromethorphan 10 Ml Udc PO 10 ml Q4HR PRICILA Administration Cefepime HCl 2 gm in 50 mls @ 100 mls/hr 07/24/24 12:15 07/28/24 08:59 Maxipime 2 Gm/Ns 50 Ml IVPB Infused Q12HR PRICILA Infusion Metoprolol Tartrate 25 mg 07/26/24 21:00 07/28/24 08:19 Metoprolol Tartrate 25 Mg Tablet PO 25 mg Q12HR PRICILA Administration Morphine Sulfate 2 mg 07/22/24 14:51 Morphine Sulfate (*Crx) 2 Mg/Ml Inj IV PUSH Q2H PRN Pain Rated 7-10 Ondansetron HCl 4 mg 07/22/24 14:51 Ondansetron Inj 4 Mg/2 Ml Vial IV PUSH Q4H PRN Nausea Perflutren Lipid Microsphere 0 ml 07/28/24 07:57 Perflutren Lipid Microspheres 1.5 Ml Vial Diluted To 10 Ml Total Volume IV PUSH 07/31/24 07:57 ONCE PRN adequate visualization Protocol Valsartan 320 mg 07/23/24 09:00 07/28/24 08:19 Valsartan 160 Mg Tablet PO 320 mg DAILY PRICILA Administration Radiology Results: ITS Impressions Chest X-Ray 07/22/24 11:12 IMPRESSION: Small left-sided pleural effusion without focal infiltrate. Labs Labs: Laboratory Results - last 24 hr 07/27/24 07/28/24 07/28/24 13:03 05:10 07:22 WBC 15.9 H RBC 3.30 L Hgb 9.5 L Hct 28.8 L MCV 87.3 MCH 28.8 MCHC 33.0 RDW 14.6 H Plt Count 174 MPV 9.9 Immature Gran % (Auto) 3.9 H Neut % (Auto) 89.9 H Lymph % (Auto) 2.7 L [place] % (Auto) 3.1 Eos % (Auto) 0.0 Baso % (Auto) 0.4 Lymph # (Auto) 0.43 L [place] # (Auto) 0.5 Eos # (Auto) 0.0 Baso # (Auto) 0.1 Abs Immat Gran (auto) 0.62 H Absolute Neuts (auto) 14.3 H Absolute Nucleated RBC 0.050 H Nucleated RBC % 0.3 H Puncture Site Right radial Right radial ABG pH 7.381 7.438 ABG pCO2 64.9 H* 49.8 H ABG pO2 68.8 L 66.3 L ABG PO2/FiO2 Ratio 2.46 2.07 ABG HCO3 37.6 H 32.9 H ABG O2 Saturation 92.9 L 93.5 L ABG O2 Content 15.1 L 13.8 L ABG Base Excess 10.3 7.7 A-a Gradient 54.3 103.6 Oxyhemoglobin 92.4 93.3 Total Hemoglobin 11.6 L 10.5 L O2 Delivery Device Nasal cannula Other device O2 Liters/Min 2.0 Not Reportable FiO2 28 32 Sodium 130 L Potassium 3.9 Chloride 91 L Carbon Dioxide > 40 H Anion Gap BUN 46 H Creatinine 1.50 H Estim Creat Clear Calc 28 Estimated GFR 56 L Glucose 99 Calcium 9.0 Total Bilirubin 0.3 AST 17 ALT 24 Alkaline Phosphatase 48 Total Protein 6.0 L Albumin 3.1 L Quality VTE Prophylaxis VTE prophylaxis: mechanical ordered and pharmacologic ordered
--- NOTE | 2024-07-28 11:51 | P.PNPL_ITS ---
Progress Note: A&P Assessment and Plan (1) Acute exacerbation of chronic obstructive pulmonary disease: Code(s): J44.1 - Chronic obstructive pulmonary disease with (acute) exacerbation Status: Acute Assessment and Plan: Patient with 40 pack year tobacco use, quit 10 years ago, Alpha 1 anti trypsin phenotype MM. on home oxygen for 10 years. PFTs 09/29/2023 with a very severe obstructive abnormality, no bronchodilator response, hyperinflation and the DLCO that remained moderately decreased when adjusted for alveolar volume. Patient requires 2 L oxygen at rest and 6 with ambulation.07/27/2024: Patient tells me he is breathing back to normal. His chronic cough is back to his normal. His phlegm is better and he has no hemoptysis. He denies wheezing. White blood cell count 12.9, creatinine 1.3, saturations on 3 L is 99%. I decreased him to 2 L and his saturations were 97%. Plan: Patient on Solu-Medrol since 07/22/[address] on prednisone 40 a day starting today day 6 steroids. patient is on cefepime since 07/24/2024, day 4. Will continue. Patient is on trilogy inhaler 100 and will discontinue his DuoNebs. Goal saturation 90-94%. Currently is on 2 L nasal cannula satur ations 97%. 07/28/24: The patient tells me he is breathing back to his normal. He still has dyspnea on exertion but feels that this is about the same as usual. He has a normal cough and normal phlegm with no hemoptysis. When I enter the room he was on 2 L nasal cannula saturations 99%. I decreased him to 1 L nasal cannula and his saturation was 96%. Plan: Patient has received 6 days of steroids and I will discontinue today. Continue trilogy inhaler 100. Patient is on cefepime day 5, will continue. his oxygenation has improved and currently is on 1 L nasal cannula during the day. Discussed with Ambar Banda, will follow with you. (2) Acute and chronic respiratory failure with hypercapnia: Code(s): J96.22 - Acute and chronic respiratory failure with hypercapnia Status: Acute Assessment and Plan: 07/27/24: Patient with chronic hypercarbic respiratory failure from his COPD with a blood gas on admission at 7.34/75/91 on 4 L nasal cannula. plan: I will check an ABG today on 2 L nasal cannula if he remains hypercarbic will initiate nocturnal noninvasive ventilation. ABG later in the day was pH of 7.38/ 65/69 on 2 L nasal cannula The patient has chronic hypercarbic respiratory failure from his COPD and would benefit from a noninvasive ventilator to prevent further hospitalizations and deterioration. patient was attempted on BiPAP but could not tolerate the pressures and said he could not breathe with this. He was placed on noninvasive ventilator with the AVAPS mode 07/28/24: The patient wore the hospital noninvasive ventilator with the AVAPS mode rate of 14, tidal volume 500, EPAP 5, minimal inspiratory pressure 6, maximal inspiratory pressure 25, inspiratory time 1, rise of 3 and 32% FiO2. He stated he did well with this and was able to sleep well. ABG prior to removal was 7.44/50/66. Overnight oximetry on these settings with recording duration of 5 hours and 59 minutes with average saturation 97%, low saturation 87%. Time with saturation less than or equal to 88% was 16 minutes. Oxygen desaturation index 0.4. The desaturation less than 88% was at the end of the study when the patient said he had issues with the machine. Plan: patient tolerated the noninvasive ventilation with the AVAPS mode with adequate ventilation. The patient's oxygenation was very good on 32% and tonight I will perform an overnight oximetry on the AVAPS with 28% FiO2. I will initiate home noninvasive ventilation on 07/29/2024 when the marketing traffic coordinator is available. Subjective Date/time seen: 07/28/24 11:51 Interval history: 07/25/24 at 16:30 in Room 347 NEW: Kenney Varela is a 68 year-old man with pneumonia on CXR, and acute on chronic respiratory failure. At the time I saw the patient, he was at the start of atrial fib with RVR, rate 170-190, and was asymptomatic. He said that he was not aware that he was having a rapid heart beat, does not think that he has had atrial fibrillation in the past, says that he had congestive heart failure in 2008. Was admitted with sl increase in WBC 10.8, 1st ABG = primary chronic respiratory acidosis with secondary metabolic acid; 2nd ABG pH 7.42 pCO2 69 PO2 68 on BiPAP 14/7 and 28% oxygen; this one shows metabolic alkalosis with secondary respiratory acidosis. He also has increased troponin 0.036, 0.041, low (+) BNP 168. e has a small increase in BNP, 168 this admission. He is a patient in our pulmonary practice, last saw Harika Graham on May 06, 2024. He was stable on Trelegy and albuterol, using Duoneb 3-4 times a day. 3 Recent admissions: 1st: Jun 25 through , cough, dyspnea, low sat in 80% range; (+) pneumococcal antigen; CXR 06/25 = Probable bibasilar pulmonary edema/atelectasis versus pneumonia; Minimal pleural effusions. COPD. Lactic acid 2.3, low elevation Creat 1.6 2nd: Re-admitted Jul 08 to , cough with sputum, increased dyspnea, wheezing. Patient had a BNP of 1700, pCO2 61, clear CXR. Lactate =0.9. Normal creatinine. 3rd: Re-admitted 07/22 with increased cough, dyspnea, CXR =Small left-sided pleural effusion without focal infiltrate.He was still on his prednisone taper when he was admitted. Viral swabs are all negative. Lactate 1.4. Creat normal. He is a former smoker, smoked from age 18 until age 58, 40 pack year history. He started using O2 about 10 years ago, initially at night, then around the clock. He has lost wt, 10-15 lb over the last 8 months. He was using inhalers including Trelegy and ProAir until the last admission, he says that he was taken off these. He does not currently smoke marijuana, never vaped. 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 Shortness of breath, cough, possibly change in sputum production several days prior to this admission. He was up to date on his vaccinations, he had the flu, RSV, COVID and I believe he also said pneumococcal vaccination in March this year. SLEEP: He sleeps 6-7 hours a night, wakes 3-4 times to urinate, sometimes has dreams. He occasionally awakens with a dry mouth. He naps at most 30-60 minutes, unclear about how many times a week he naps. He drinks a cup of coffee per day. 07/27/2024: Patient tells me he is breathing back to normal. His chronic cough is back to his normal. His phlegm is better and he has no hemoptysis. He denies wheezing. White blood cell count 12.9, creatinine 1.3, saturations on 3 L is 99%. I decreased him to 2 L and his saturations were 97%. 07/28/24: The patient tells me he is breathing back to his normal. He still has dyspnea on exertion but feels that this is about the same as usual. He has a normal cough and normal phlegm with no hemoptysis. When I enter the room he was on 2 L nasal cannula saturations 99%. I decreased him to 1 L nasal cannula and his saturation was 96%. The patient wore the hospital noninvasive ventilator with the AVAPS mode rate of 14, tidal volume 500, EPAP 5, minimal inspiratory pressure 6, maximal inspiratory pressure 25, inspiratory time 1, rise of 3 and 32% FiO2. He stated he did well with this and was able to sleep well. A ABG prior to removal was 7.44/50/66. Overnight oximetry on these settings with recording duration of 5 hours and 59 minutes with average saturation 97%, low saturation 87%. Time with saturation less than or equal to 88% was 16 minutes. Oxygen desaturation index 0.4. The desaturation less than 88% was at the end of the study when the patient said he had issues with the machine. DATA * 07/22/2024; EKG = sinus rhythm with PACs LEFT ANTERIOR FASCICULAR BLOCK [QRS AXIS <= -45, QR IN I, RS IN II] Compared to ECG 07/07/2024 22:12:24 Left anterior fascicular block now present Myocardial infarct finding no longer present PACs are new ABGs reviewed; he has had hypercapnia since Aug 2019. 06/250:00 06/3013:46 pH 7.41 7.40 7.339 7.422 pCO2 58 61 74.6 69.3 pO2 207 78 90.6 68.4 HCO3 36 37 39.3 44.1 sat 99% 95% 96% 93.3 O2 delivery NC NC NC BiPAP O2 15 L 4 L 4 L 28% rate IPAP 14 EPAP 7 * BNP last 3 admissions : June 25 =2870; July 07; 1720, July 22; 168 * 07/22/24 FINDINGS The cardiomediastinal silhouette is unremarkable. Blunting of the left costophrenic sulcus suggesting a small left-sided pleural effusion. The remainder of the lungs are clear. isualized osseous structures and soft tissues are unremarkable. IMPRESSION: Small left-sided pleural effusion without focal infiltrate. * 06/25/2024 echo: 1. The left ventricle is normal in size and borderline normal in systolic function. There is mild eccentric left ventricular hypertrophy. The left ventricular ejection fraction is visually estimated to be 50%. 2. The right ventricle is normal in size and systolic function. 3. Cannot rule out PFO or small ASD during the Valsalva portion of the bubble study. * 06/25/2024; TSH low 0.121, low T3 0.7, normal T4 16.1 consistent with Euthyroid state with nonthyroidal illness; could be hyperthyroidism in an ill person. * 09/29/23 - PFT - There is a very severe obstructive abnormality. There is no significant improvement after inhaling a single dose of albuterol.? The increase in residual volume to total lung volume ratio is consistent with hyperinflation from an obstructive abnormality.? The diffusing capacity unadjusted for hemoglobin and carboxyhemoglobin is severely decreased and remains moderately decreased when adjusted for alveolar volume. * 09/29/23 - Home O2 evaluation- Patient required 2 L/min at rest and 6 L/min with ambulation. * 09/22/23 - A1AT phenotype - MM, normal. * CXR 08/23/23 -? Emphysema with mild bibasilar reticular opacities which could represent atelectasis, mild pulmonary edema or less likely pneumonia. Cardiomegaly. * PFT 12/09/09 report ? severe obstructive ventilatory defect Review of Systems Review of Systems: He has not had leg swelling, calf pain, chest pain. He had loose stools after Thanksgiving, thinks he had food poisoning. He has not had GI symptoms this admission. He has sinus irritation in the spring, nothing recently. Does not have sinus symptoms at this time. All systems reviewed & are unremarkable except as noted in HPI and below Constitutional: Constitutional: Reports no additional constitutional complaints Eyes: Eyes: Reports no additional eye complaints ENT: Reports system reviewed and no additional complaints, except as documented Cardiovascular: Cardiovascular: Reports no additional cardiovascular complaints Respiratory: Respiratory: Reports no additional respiratory complaints Gastrointestinal: Gastrointestinal: Reports no additional gastrointestinal complaints Musculoskeletal: Musculoskeletal: Reports no additional musculoskeletal complaints Neurologic: Reports system reviewed and no additional complaints, except as documented Psychiatric: Psychiatric: Reports no additional psychiatric complaints Endocrine: Endocrine: Reports no additional endocrine complaints Hematologic/Lymphatic: Hematologic/Lymphatic: Reports no additional hematologic/lymphatic complaints Allergic/Immunologic: Allergic/Immunologic: Reports no additional allergic/immunologic complaints Exam Const: General: cooperative, healthy appearing and comfortable Orientation/consciousness: oriented to person, oriented to place and oriented to time HENMT: Head: normal to inspection Ears: hearing grossly normal bilaterally Eyes: General: appearance normal, both eyes and all related structures Neck: Neck: normal visual inspection Chest: Chest palpation & inspection: normal inspection of the chest Resp: Effort & Inspection: normal respiratory effort and able to speak in complete sentences Auscultation: no crackles, no rales, no rhonchi, no wheezes and lung sounds not diminished Cardio: Jugular venous distension: no JVD GI: Inspection: normal to inspection Skin: General skin exam: normal color Neuro: General: oriented to person, oriented to place and oriented to time Extrem: General: normal to inspection Psych: Appearance: grossly normal Objective Data Vital Signs Vital Signs: Vital Signs - 24 hr 07/27/24 12:00 07/27/24 12:00 07/27/24 12:00 Temperature 36.8 C Pulse Rate 106 H 90 Respiratory Rate 18 Blood Pressure 156/74 H Pulse Oximetry 97 99 Oxygen Delivery Nasal Cannula Oxygen Flow Rate 2 Fraction of Inspired Oxygen 07/27/24 14:00 07/27/24 16:00 07/27/24 16:00 Temperature 36.7 C Pulse Rate 87 84 73 Respiratory Rate 18 Blood Pressure 136/79 Pulse Oximetry 99 Oxygen Delivery Oxygen Flow Rate Fraction of Inspired Oxygen 07/27/24 16:00 07/27/24 20:00 07/27/24 20:00 Temperature 36.6 C Pulse Rate 77 79 Respiratory Rate 16 Blood Pressure 136/70 Pulse Oximetry 97 98 Oxygen Delivery Nasal Cannula Oxygen Flow Rate 2 Fraction of Inspired Oxygen 07/27/24 20:00 07/27/24 20:17 07/27/24 20:21 Temperature Pulse Rate 98 Respiratory Rate Blood Pressure Pulse Oximetry 96 96 Oxygen Delivery Nasal Cannula Nasal Cannula Oxygen Flow Rate 2 3 Fraction of Inspired Oxygen 07/27/24 23:30 07/28/24 00:00 07/28/24 00:00 Temperature 36.7 C Pulse Rate 58 L 76 76 Respiratory Rate 21 H 16 Blood Pressure 143/89 H Pulse Oximetry 98 98 Oxygen Delivery BiPAP Oxygen Flow Rate Fraction of Inspired Oxygen 07/28/24 04:00 07/28/24 08:00 07/28/24 08:00 Temperature 37.1 C Pulse Rate 66 50 L 91 Respiratory Rate 14 14 Blood Pressure 136/76 Pulse Oximetry 99 99 Oxygen Delivery Nasal Cannula Oxygen Flow Rate 2 Fraction of Inspired Oxygen 07/28/24 08:00 07/28/24 08:19 07/28/24 09:25 Temperature Pulse Rate 75 91 Respiratory Rate Blood Pressure Pulse Oximetry 94 Oxygen Delivery Nasal Cannula Oxygen Flow Rate 1 Fraction of Inspired Oxygen 24 Intake/Output Intake/Output: Intake & Output 07/25/24 07/26/24 07/27/24 07/28/24 23:59 23:59 23:59 23:59 Intake Total 2180.7 1762.5 2140 1640 Output Total 300 1000 1890 1800 Balance 1880.7 762.5 250 -160 Meds/Results Medications: Active Medications Generic Name Dose Route Start Last Admin Trade Name Freq PRN Reason Stop Dose Admin Acetaminophen 650 mg 07/22/24 14:51 Acetaminophen 325 Mg Tablet PO Q4H PRN Mild Pain (1-3) or Fever Apixaban 5 mg 07/25/24 21:00 07/28/24 08:19 Apixaban 5 Mg Tablet PO 5 mg Q12HR PRICILA Administration Chlorthalidone 25 mg 07/27/24 11:10 07/28/24 08:19 Chlorthalidone 25 Mg Tablet PO 25 mg DAILY PRICILA Administration Diltiazem HCl 120 mg 07/26/24 09:40 07/28/24 08:19 Diltiazem Hcl Cd 120 Mg Cap.24hr PO 120 mg QAM PRICILA Administration Docusate Sodium 100 mg 07/26/24 09:09 Docusate Sodium 100 Mg Capsule PO DAILY PRN Constipation Fluticasone/Umeclidinium/Vilanterol 1 puff 07/23/24 09:00 07/28/24 09:25 Fluticasone/Umeclidin/Vilanter 100-62.5-25 Mcg Ellipta INHALATION 1 puff DAILY PRICILA Administration Furosemide 40 mg 07/24/24 09:00 07/28/24 08:19 Furosemide 40 Mg Tablet PO 40 mg DAILY PRICILA Administration Guaifenesin/Dextromethorphan 10 ml 07/23/24 01:00 07/28/24 08:23 Guaifenesin/Dextromethorphan 10 Ml Udc PO 10 ml Q4HR PRICILA Administration Cefepime HCl 2 gm in 50 mls @ 100 mls/hr 07/24/24 12:15 07/28/24 08:59 Maxipime 2 Gm/Ns 50 Ml IVPB Infused Q12HR PRICILA Infusion Metoprolol Tartrate 25 mg 07/26/24 21:00 07/28/24 08:19 Metoprolol Tartrate 25 Mg Tablet PO 25 mg Q12HR PRICILA Administration Morphine Sulfate 2 mg 07/22/24 14:51 Morphine Sulfate (*Crx) 2 Mg/Ml Inj IV PUSH Q2H PRN Pain Rated 7-10 Ondansetron HCl 4 mg 07/22/24 14:51 Ondansetron Inj 4 Mg/2 Ml Vial IV PUSH Q4H PRN Nausea Perflutren Lipid Microsphere 0 ml 07/28/24 07:57 Perflutren Lipid Microspheres 1.5 Ml Vial Diluted To 10 Ml Total Volume IV PUSH 07/31/24 07:57 ONCE PRN adequate visualization Protocol Valsartan 320 mg 07/23/24 09:00 07/28/24 08:19 Valsartan 160 Mg Tablet PO 320 mg DAILY PRICILA Administration Radiology Results: ITS Impressions Chest X-Ray 07/22/24 11:12 IMPRESSION: Small left-sided pleural effusion without focal infiltrate. Labs Labs: Laboratory Results - last 24 hr 07/27/24 07/28/24 07/28/24 13:03 05:10 07:22 WBC 15.9 H RBC 3.30 L Hgb 9.5 L Hct 28.8 L MCV 87.3 MCH 28.8 MCHC 33.0 RDW 14.6 H Plt Count 174 MPV 9.9 Immature Gran % (Auto) 3.9 H Neut % (Auto) 89.9 H Lymph % (Auto) 2.7 L [place] % (Auto) 3.1 Eos % (Auto) 0.0 Baso % (Auto) 0.4 Lymph # (Auto) 0.43 L [place] # (Auto) 0.5 Eos # (Auto) 0.0 Baso # (Auto) 0.1 Abs Immat Gran (auto) 0.62 H Absolute Neuts (auto) 14.3 H Absolute Nucleated RBC 0.050 H Nucleated RBC % 0.3 H Puncture Site Right radial Right radial ABG pH 7.381 7.438 ABG pCO2 64.9 H* 49.8 H ABG pO2 68.8 L 66.3 L ABG PO2/FiO2 Ratio 2.46 2.07 ABG HCO3 37.6 H 32.9 H ABG O2 Saturation 92.9 L 93.5 L ABG O2 Content 15.1 L 13.8 L ABG Base Excess 10.3 7.7 A-a Gradient 54.3 103.6 Oxyhemoglobin 92.4 93.3 Total Hemoglobin 11.6 L 10.5 L O2 Delivery Device Nasal cannula Other device O2 Liters/Min 2.0 Not Reportable FiO2 28 32 Sodium 130 L Potassium 3.9 Chloride 91 L Carbon Dioxide > 40 H Anion Gap BUN 46 H Creatinine 1.50 H Estim Creat Clear Calc 28 Estimated GFR 56 L Glucose 99 Calcium 9.0 Total Bilirubin 0.3 AST 17 ALT 24 Alkaline Phosphatase 48 Total Protein 6.0 L Albumin 3.1 L
[2024-07-29] VITALS (20 sets, daily range): BP systolic 127–144; BP diastolic 66–81; PULSE 54–90; RESP 14–26; TEMP 36.6–37.1; O2SAT 80–98
--- NOTE | 2024-07-29 | ECHO_ITS ---
Patient Info Name: Kenney Varela Age: 68 years : 1955 Gender: Male Ht: 69 in Wt: 105 lbs BSA: 1.50 m2 HR: 79 bpm BP: 140 / 80 mmHg Heart Rhythm: Sinus Rhythm Technical Quality: Good Exam Date: 07/29/2024 4:02 PM Exam Location: Echo Lab Patient Status: Inpatient Admit Date: 07/22/2024 Staff Ordering Physician: Ambar Bar APRN [employer] Instructor: Filomena Craft RDCS Attending Provider: Jennifer Lopez APRN Referring Physician: Yosvany NAVARRO; Exam Type: CA echo doppler color flow Study Info Indications - afib, check lv function Complete two-dimensional, color flow and Doppler transthoracic echocardiogram is performed. Summary 1. Left ventricular chamber dimension is normal. 2. Left ventricular systolic function is normal, estimated at 50-55%. 3. There is mildly increased left ventricular wall thickness. 4. The left ventricular diastolic function is grade I diastolic dysfunction. 5. Right ventricular systolic function is normal. 6. Left atrial chamber dimension is mildly enlarged. 7. Right atrial chamber dimension is mildly enlarged. 8. There is mild mitral valve regurgitation. 9. There is mild tricuspid valve regurgitation. Left Ventricle Left ventricular chamber dimension is normal. Left ventricular systolic function is normal, estimated at 50-55%. There is mildly increased left ventricular wall thickness. The left ventricular diastolic function is grade I diastolic dysfunction. Right Ventricle Right ventricular chamber dimension is normal. Right ventricular systolic function is normal. Left Atria Left atrial chamber dimension is mildly enlarged. Right Atria Right atrial chamber dimension is mildly enlarged. Atrial Septum Intact interatrial septum visualized by color flow imaging. Aortic Valve The aortic valve is trileaflet. There is mild aortic valve sclerosis. There is no aortic valve stenosis. There is trace aortic valve regurgitation. Pulmonic Valve The pulmonic valve is not well visualized. There is trace pulmonic regurgitation. Mitral Valve There is mild mitral valve regurgitation. Tricuspid Valve There is mild tricuspid valve regurgitation. Pericardium/Pleural There is no pericardial effusion. Inferior Vena Cava Normal inferior vena cava with >50% collapse upon inspiration consistent with normal right atrial pressure, 3 mmHg. Aorta The aortic root size at the sinus of Valsalva is normal. Left Ventricular Outflow Tract Name Value Normal LVOT 2D LVOT Diameter 2.0 cm LVOT Doppler LVOT Peak Gradient 6 mmHg LVOT Mean Gradient 2 mmHg LVOT VTI 21 cm LVOT VTI/AV VTI Ratio 1.1 LVOT Stroke Volume 68 ml LVOT CO 4.2 l/min LVOT CI 2.8 l/min/m2 Pulmonic Valve Name Value Normal RVOT Doppler RVOT Peak Gradient 4 mmHg PV Doppler PV Peak Gradient 6 mmHg Mitral Valve Name Value Normal MV Doppler MV Decel [place] 135 cm/s2 MV PHT 90 ms MV Area (PHT) 2.4 cm2 4.0-5.0 MV Diastolic Function MV E Peak Velocity 42 cm/s MV A Peak Velocity 59 cm/s MV E/A 0.7 MV Decel Time 311 ms MV Annular TDI MV E/e' (Septal) 7.5 <=8.0 MV E/e' (Lateral) 5.8 <=8.0 MV E/e' (Average) 6.7 Tricuspid Valve Name Value Normal TV Regurgitation Doppler TR Peak Velocity 250 cm/s TR Peak Gradient 25 mmHg Estimated PAP/RSVP RA Pressure 3 mmHg <=5 PA Systolic Pressure 28 mmHg <36 RV Systolic Pressure 28 mmHg <36 Aorta Name Value Normal Ascending Aorta Ao Root Diameter (MM) 3.6 cm Ao Root Diam Index (MM) 2.4 cm/m2 Aortic Valve Name Value Normal AV Doppler AV Peak Velocity 147 cm/s AV Peak Gradient 9 mmHg AV Mean Gradient 3 mmHg AV VTI 20 cm AV Area (Cont Eq VTI) 3.4 cm2 >=3.0 AV Area (Cont Eq Luis) 2.7 cm2 AV Regurgitation 2D LVOT Area 3.2 cm2 Ventricles Name Value Normal LV Dimensions 2D/MM IVS Diastolic Thickness (2D) 1.3 cm 0.6-1.0 LVID Diastole (2D) 4.4 cm 4.2-5.8 LVIW Diastolic Thickness (2D) 1.2 cm 0.6-1.0 LVID Systole (2D) 3.3 cm 2.5-4.0 LVOT Diameter 2.0 cm LV Mass (2D Cubed) 199.17 g 88.00-224.00 LV Mass Index (2D Cubed) 133 g/m2 49-115 Relative Wall Thickness (2D) 0.52 LV Fractional Shortening/Ejection Fraction 2D/MM LV Fractional Shortening (2D) 25 % 25-43 LV EF (2D Teicholz) 50 % 52-72 LV Diastolic Volume (4C MOD) 109 ml LV EF (4C MOD) 56 % LV Diastolic Volume (2C MOD) 92 ml LV EF (2C MOD) 51 % LV Diastolic Volume (BP MOD) 103 ml 62-150 LV Diastolic Volume Index (BP MOD) 69 ml/m2 34-74 LV Systolic Volume (BP MOD) 50 ml 21-61 LV Systolic Volume Index (BP MOD) 33 ml/m2 11-31 LV EF (BP MOD) 52 % 52-72 LV Diastolic Length (4C) 7.6 cm LV Systolic Length (4C) 6.4 cm LV Stroke Volume (4C MOD) 61 ml Atria Name Value Normal LA Dimensions LA Dimension (MM) 4.5 cm 3.0-4.1 LA Volume (4C A-L) 44 ml LA Volume (BP A-L) 63 ml RA Dimensions RA Area (4C) 19.7 cm2 <=18.0 Report Signatures
[2024-07-29 05:08] LABS: Basophils Absolute Auto 0.1 K/mm3 (0.0-0.1); Basophils Percent Auto 0.4 % (0.2-1.2); Hematocrit 28.9 % (42.0-52.0); Hemoglobin 9.6 g/dL (14.0-18.0); Immature Granulocyte Absolute 0.79 K/mm3 (0.00-0.031); Immature Granulocyte Percent A 4.6 % (0-0.5); Mean Corpuscular HGB Conc 33.2 g/dl (32-36); Mean Corpuscular Hemoglobin 29.1 pg (26-34); Mean Corpuscular Volume 87.6 fl (80-100); Monocytes Absolute Auto 0.7 K/mm3 (0.1-0.6); Monocytes Percent Auto 3.9 % (2.6-8.5); Neutrophils Absolute Auto 15.1 K/mm3 (1.3-6.7); Neutrophils Percent Auto 87.1 % (45.5-73.1); Nucleated Red Blood Cells Perc 0.2 % (0.0-0.2); Platelet Count Result 171 k/mm3 (150-375); Red Cell Distribution Width 14.7 % (11.5-14.5); White Blood Count 17.3 K/mm3 (4.5-10.0)
[2024-07-29 05:27] LABS: Alanine Aminotransferase 24 U/L (6-50); Albumin Level 3.1 g/dL (3.5-5.1); Alkaline Phosphatase 56 U/L (38-126); Aspartate Amino Transferase 16 U/L (17-59); Bilirubin,Total 0.4 mg/dL (0.2-1.3); Blood Urea Nitrogen 53 mg/dL (9-20); Calcium 9.2 mg/dL (8.4-10.2); Carbon Dioxide > 40 mmol/L (22-30); Chloride 91 mmol/L (98-107); Estimated CRCL calculation 30 ml/min; Estimated Glomerular Filt Rate > 60; Glucose 107 mg/dL (65-110); Potassium 3.5 mmol/L (3.4-5.0); Sodium 134 mmol/L (137-145)
[2024-07-29 05:29] LABS: Platelet Estimate Adequate (Adequate)
[2024-07-29 05:30] LABS: Anisocytosis 1+; Microcytosis 1+ (NORMAL); Schistocytes None Seen
[2024-07-29] MEDS: guaiFENesin/DEXTROMETHORPHAN 10 ML UDC PO (05:33)
[2024-07-29] MEDS: FLUTICASONE/UMECLIDIN/VILANTER 100-62.5-25 MCG ELLIPTA 1 PUFF INHALATION (08:09)
--- NOTE | 2024-07-29 10:12 | PM.IMPN ---
Progress Note: A&P Assessment and Plan (1) Acute hypoxic respiratory failure: Code(s): J96.01 - Acute respiratory failure with hypoxia Status: Acute Assessment and Plan: With hypoxia and hypercarbia --Q 6 breathing treatments p.r.n. --Influenza a, B, RSV and COVID negative --Troponin slightly elevated, likely demand. Troponin trend 0.033>0.036>0.041> 0.060>0.050. Patient asymptomatic. --Walking O2 prior to discharge --Pulmonology following. 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 Patient was attempted on a BIPAP but could not tolerate the pressure and said he could not breathe with this. Patient tolerated the noninvasive ventilation with the AVAPS mode with adequate ventilation. (2) Atrial fibrillation with rapid ventricular response: Code(s): I48.91 - Unspecified atrial fibrillation Status: Acute Assessment and Plan: Cardiology consulted, appreciate recommendations - Diltiazem 120 mg PO daily. -discussed within the risks, benefits, alternatives of anticoagulation. He agreed to be started on anticoagulation. Continue apixaban 5 mg p.o. b.i.d. -echo to assess LV function -elevated troponin due to type 2 TN. no invasive evaluation needed for now -stress test as an outpatient if symptoms (3) COPD exacerbation: Code(s): J44.1 - Chronic obstructive pulmonary disease with (acute) exacerbation Status: Acute Assessment and Plan: --Steroids discontinued today. --Trelegy Ellipta 100-62.5-25 1 puff inhaled daily. --Pulmonary consult. Admitted 3 times in one month. Appreciate recommendations. (4) Hypertension: Code(s): I10 - Essential (primary) hypertension Status: Chronic Assessment and Plan: Continue amlodipine and Valsartan. Blood pressure 144/81. (5) CHF (congestive heart failure): Code(s): I50.9 - Heart failure, unspecified Status: Acute Assessment and Plan: Seems euvolemic but has a small effusion --Change hctz to furosemide 40mg PO and follow. (6) Leukocytosis: Code(s): D72.829 - Elevated white blood cell count, unspecified Status: Acute Assessment and Plan: Patient with productive cough and green sputum, possible pneumonia, but no focal infiltrate on x-rays Started azithromycin & Rocephin --Change Rocephin on 07/24/24 to Cefepime 2 gm IVPB q 12. Completed Azithromycin 500 mg PO daily. --Guaifenesin --Blood cultures no growth. --Sputum culture negative. Subjective Date/time seen: 07/29/24 10:12 Interval history: Patient sitting up in bed. Patient reports shortness of breath at rest occasionally. Patient reports that he got short of breath overnight and had to turn oxygen up to 1 1/2 liters. Patient denies chest pain, palpitations, headache, dizziness, nausea, or vomiting. Patient reports coughing up brown sputum. Family at bedside. Review of Systems Review of Systems: All systems reviewed & are unremarkable except as noted in HPI and below Exam Const: General: comfortable and no acute distress Resp: Auscultation: diminished lung sounds Cardio: Rhythm: abnormal rhythm (Afib 95 with PVC's) irregularly irregular GI: GI Palp: Yes Soft to palpation Auscultation: normal bowel sounds Neuro: General: gait normal Speech: normal speech Extrem: General: no pedal edema Psych: Mental Status: mental status grossly normal Affect: normal affect Objective Data Vital Signs Vital Signs: Vital Signs - 24 hr 07/28/24 12:00 07/28/24 16:00 07/28/24 16:00 Temperature 98.9 F Pulse Rate 72 92 77 Respiratory Rate 20 Blood Pressure 149/71 H Pulse Oximetry 94 Oxygen Delivery Oxygen Flow Rate Fraction of Inspired Oxygen 07/28/24 20:00 07/28/24 20:00 07/28/24 20:39 Temperature 98.7 F Pulse Rate 85 89 85 Respiratory Rate 18 18 Blood Pressure 133/73 Pulse Oximetry 99 99 Oxygen Delivery Nasal Cannula Oxygen Flow Rate 1 Fraction of Inspired Oxygen 07/28/24 20:59 07/28/24 21:10 07/28/24 21:17 Temperature Pulse Rate 83 83 Respiratory Rate 19 Blood Pressure Pulse Oximetry 95 95 Oxygen Delivery BiPAP BiPAP Oxygen Flow Rate Fraction of Inspired Oxygen 28 07/29/24 00:00 07/29/24 01:30 07/29/24 04:00 Temperature Pulse Rate 68 74 Respiratory Rate 21 H Blood Pressure Pulse Oximetry 96 Oxygen Delivery BiPAP Oxygen Flow Rate Fraction of Inspired Oxygen 07/29/24 05:22 07/29/24 08:09 07/29/24 08:10 Temperature 98.7 F 98.7 F Pulse Rate 86 70 77 Respiratory Rate 24 H 24 H 20 Blood Pressure 128/66 132/68 Pulse Oximetry 96 96 Oxygen Delivery Oxygen Flow Rate Fraction of Inspired Oxygen 07/29/24 08:16 Temperature Pulse Rate Respiratory Rate Blood Pressure Pulse Oximetry 95 Oxygen Delivery Nasal Cannula Oxygen Flow Rate 1 Fraction of Inspired Oxygen Intake/Output Intake/Output: Intake & Output 07/26/24 07/27/24 07/28/24 07/29/24 23:59 23:59 23:59 23:59 Intake Total 1762.5 2140 2670 620 Output Total 1000 1890 3000 600 Balance 762.5 250 -330 20 Meds/Results Medications: Active Medications Generic Name Dose Route Start Last Admin Trade Name Freq PRN Reason Stop Dose Admin Acetaminophen 650 mg 07/22/24 14:51 Acetaminophen 325 Mg Tablet PO Q4H PRN Mild Pain (1-3) or Fever Apixaban 5 mg 07/25/24 21:00 07/28/24 20:59 Apixaban 5 Mg Tablet PO 5 mg Q12HR PRICILA Administration Chlorthalidone 25 mg 07/27/24 11:10 07/28/24 08:19 Chlorthalidone 25 Mg Tablet PO 25 mg DAILY PRICILA Administration Diltiazem HCl 120 mg 07/26/24 09:40 07/28/24 08:19 Diltiazem Hcl Cd 120 Mg Cap.24hr PO 120 mg QAM PRICILA Administration Docusate Sodium 100 mg 07/26/24 09:09 Docusate Sodium 100 Mg Capsule PO DAILY PRN Constipation Fluticasone/Umeclidinium/Vilanterol 1 puff 07/23/24 09:00 07/29/24 08:09 Fluticasone/Umeclidin/Vilanter 100-62.5-25 Mcg Ellipta INHALATION 1 puff DAILY PRICILA Administration Furosemide 40 mg 07/24/24 09:00 07/28/24 08:19 Furosemide 40 Mg Tablet PO 40 mg DAILY PRICILA Administration Guaifenesin 1,200 mg 07/29/24 21:00 Guaifenesin 12 Hr 600 Mg Tabcr PO Q12HR PRICILA Cefepime HCl 2 gm in 50 mls @ 100 mls/hr 07/24/24 12:15 07/28/24 20:57 Maxipime 2 Gm/Ns 50 Ml IVPB 100 mls/hr Q12HR PRICILA Administration Metoprolol Tartrate 25 mg 07/26/24 21:00 07/28/24 20:59 Metoprolol Tartrate 25 Mg Tablet PO 25 mg Q12HR PRICILA Administration Morphine Sulfate 2 mg 07/22/24 14:51 Morphine Sulfate (*Crx) 2 Mg/Ml Inj IV PUSH Q2H PRN Pain Rated 7-10 Ondansetron HCl 4 mg 07/22/24 14:51 Ondansetron Inj 4 Mg/2 Ml Vial IV PUSH Q4H PRN Nausea Perflutren Lipid Microsphere 0 ml 07/28/24 07:57 Perflutren Lipid Microspheres 1.5 Ml Vial Diluted To 10 Ml Total Volume IV PUSH 07/31/24 07:57 ONCE PRN adequate visualization Protocol Valsartan 320 mg 07/23/24 09:00 07/28/24 08:19 Valsartan 160 Mg Tablet PO 320 mg DAILY PRICILA Administration Radiology Results: ITS Impressions Chest X-Ray 07/22/24 11:12 IMPRESSION: Small left-sided pleural effusion without focal infiltrate. Labs Labs: Laboratory Results - last 24 hr 07/29/24 04:36 WBC 17.3 H RBC 3.30 L Hgb 9.6 L Hct 28.9 L MCV 87.6 MCH 29.1 MCHC 33.2 RDW 14.7 H Plt Count 171 MPV 10.0 Immature Gran % (Auto) 4.6 H Neut % (Auto) 87.1 H Lymph % (Auto) 4.0 L Wheeler % (Auto) 3.9 Eos % (Auto) 0.0 Baso % (Auto) 0.4 Lymph # (Auto) 0.70 L Wheeler # (Auto) 0.7 H Eos # (Auto) 0.0 Baso # (Auto) 0.1 Abs Immat Gran (auto) 0.79 H Absolute Neuts (auto) 15.1 H Absolute Nucleated RBC 0.040 H Nucleated RBC % 0.2 Platelet Estimate Adequate Anisocytosis 1+ Microcytosis 1+ Schistocytes None seen Sodium 134 L Potassium 3.5 Chloride 91 L Carbon Dioxide > 40 H Anion Gap BUN 53 H Creatinine 1.40 H Estim Creat Clear Calc 30 Estimated GFR > 60 Glucose 107 Calcium 9.2 Total Bilirubin 0.4 AST 16 L ALT 24 Alkaline Phosphatase 56 Total Protein 5.0 L Albumin 3.1 L Quality VTE Prophylaxis VTE prophylaxis: mechanical ordered and pharmacologic ordered
[2024-07-29] MEDS: METOPROLOL TARTRATE 25 MG TABLET PO ×2 (10:14→22:15)
[2024-07-29] MEDS: CHLORTHALIDONE 25 MG TABLET PO (10:15)
[2024-07-29] MEDS: VALSARTAN 160 MG TABLET 320 MG PO (10:15)
[2024-07-29] MEDS: dilTIAZem HCL CD 120 MG CAP.24HR PO (10:15)
[2024-07-29] MEDS: APIXABAN 5 MG TABLET PO ×2 (10:15→22:15)
[2024-07-29] MEDS: CEFEPIME 2 GM/NS 50 ML 2 GM/50 ML BAG IVPB ×2 (10:16→22:15)
[2024-07-29] MEDS: FUROSEMIDE 40 MG TABLET PO (10:16)
--- NOTE | 2024-07-29 13:13 | PM.PNPUL ---
Progress Note: A&P Assessment and Plan (1) Acute exacerbation of chronic obstructive pulmonary disease: Code(s): J44.1 - Chronic obstructive pulmonary disease with (acute) exacerbation Status: Acute Assessment and Plan: Patient with 40 pack year tobacco use, quit 10 years ago, Alpha 1 anti trypsin phenotype MM. on home oxygen for 10 years. PFTs 09/29/2023 with a very severe obstructive abnormality, no bronchodilator response, hyperinflation and the DLCO that remained moderately decreased when adjusted for alveolar volume. Patient requires 2 L oxygen at rest and 6 with ambulation.07/27/2024: Patient tells me he is breathing back to normal. His chronic cough is back to his normal. His phlegm is better and he has no hemoptysis. He denies wheezing. White blood cell count 12.9, creatinine 1.3, saturations on 3 L is 99%. I decreased him to 2 L and his saturations were 97%. Plan: Patient on Solu-Medrol since 07/22/[address] on prednisone 40 a day starting today day 6 steroids. patient is on cefepime since 07/24/2024, day 4. Will continue. Patient is on trilogy inhaler 100 and will discontinue his DuoNebs. Goal saturation 90-94%. Currently is on 2 L nasal cannula saturations 97%. 07/28/24: The patient tells me he is breathing back to his normal. He still has dyspnea on exertion but feels that this is about the same as usual. He has a normal cough and normal phlegm with no hemoptysis. When I enter the room he was on 2 L nasal cannula saturations 99%. I decreased him to 1 L nasal cannula and his saturation was 96%. Plan: Patient has received 6 days of steroids and I will discontinue today. Continue trilogy inhaler 100. Patient is on cefepime day 5, will continue. his oxygenation has improved and currently is on 1 L nasal cannula during the day. 07/29/24: Patient tells me he is breathing at his baseline. He wore the hospital noninvasive ventilator with 28% FiO2 and slept for 4-5 hours and said he did well with the machine. Currently is on 1 L with saturation 95%. He is afebrile. White blood cell count 17.3, creatinine 1.4. patient had an overnight oximetry on the hospital noninvasive ventilator with the AVAPS at 28% with recording duration of 7 hours, average saturation 98%, low saturation 83%, time with saturation less than or equal to be 88% was 0 minutes, oxygen desaturation index 0.2. From a pulmonary perspective patient is ready to be discharged home on these pulmonary medications: TrelegyOne hundred, 62.5-25 at 1 puff q.day Rescue albuterol 2 puffs q.4 hours p.r.n. shortness of breath or wheezing Levaquin 750 mg p.o. q.day x4 days. Oxygen per formal home O2 assessment on the day of discharge. When he naps or sleeps: Noninvasive ventilator with the AVAPS AE mode through [facility]: Respiratory rate 14, tidal volume 500, minimal EPAP 5, maximal EPAP 15, minimal pressure support 6, maximal pressure support 25, inspiratory time 1, and 2 L bleed in. Follow-up in the Pulmonary Clinic in 4 weeks. Discussed with Ambar Bar. (2) Acute and chronic respiratory failure with hypercapnia: Code(s): J96.22 - Acute and chronic respiratory failure with hypercapnia Status: Acute Assessment and Plan: 07/27/24: Patient with chronic hypercarbic respiratory failure from his COPD with a blood gas on admission at 7.34/75/91 on 4 L nasal cannula. plan: I will check an ABG today on 2 L nasal cannula if he remains hypercarbic will initiate nocturnal noninvasive ventilation. ABG later in the day was pH of 7.38/ 65/69 on 2 L nasal cannula The patient has chronic hypercarbic respiratory failure from his COPD and would benefit from a noninvasive ventilator to prevent further hospitalizations and deterioration. patient was attempted on BiPAP but could not tolerate the pressures and said he could not breathe with this. He was placed on noninvasive ventilator with the AVAPS mode 07/28/24: The patient wore the hospital noninvasive ventilator with the AVAPS mode rate of 14, tidal volume 500, EPAP 5, minimal inspiratory pressure 6, maximal inspiratory pressure 25, inspiratory time 1, rise of 3 and 32% FiO2. He stated he did well with this and was able to sleep well. ABG prior to removal was 7.44/50/66. Overnight oximetry on these settings with recording duration of 5 hours and 59 minutes with average saturation 97%, low saturation 87%. Time with saturation less than or equal to 88% was 16 minutes. Oxygen desaturation index 0.4. The desaturation less than 88% was at the end of the study when the patient said he had issues with the machine. Plan: patient tolerated the noninvasive ventilation with the AVAPS mode with adequate ventilation. The patient's oxygenation was very good on 32% and tonight I will perform an overnight oximetry on the AVAPS with 28% FiO2. I will initiate home noninvasive ventilation on 07/29/2024 when the respiratory medicine physician is available. 07/29/24: He wore the hospital noninvasive ventilator with 28% FiO2 and slept for 4-5 hours and said he did well with the machine. Currently is on 1 L with saturation 95%. Patient had an overnight oximetry on the hospital noninvasive ventilator with the AVAPS at 28% with recording duration of 7 hours, average saturation 98%, low saturation 83%, time with saturation less than or equal to be 88% was 0 minutes, oxygen desaturation index 0.2. Plan: The respiratory medicine physician will call his DMEW[facility] and discuss initiation of noninvasive ventilation with the AVAPS mode for this patient. If the patient can be set up in the hospital today would leave him in the hospital so that he can be set up with the machine and use it in a supervised setting for 1 night. If he cannot be set up today in the hospital, would discharge the patient with a plan to get set up at home. Subjective Date/time seen: 07/29/24 13:13 Interval history: 07/25/24 at 16:30 in Room 347 NEW: Kenney Varela is a 68 year-old man with pneumonia on CXR, and acute on chronic respiratory failure. At the time I saw the patient, he was at the start of atrial fib with RVR, rate 170-190, and was asymptomatic. He said that he was not aware that he was having a rapid heart beat, does not think that he has had atrial fibrillation in the past, says that he had congestive heart failure in 2008. Was admitted with sl increase in WBC 10.8, 1st ABG = primary chronic respiratory acidosis with secondary metabolic acid; 2nd ABG pH 7.42 pCO2 69 PO2 68 on BiPAP 14/7 and 28% oxygen; this one shows metabolic alkalosis with secondary respiratory acidosis. He also has increased troponin 0.036, 0.041, low (+) BNP 168. e has a small increase in BNP, 168 this admission. He is a patient in our pulmonary practice, last saw Harika Aronsrini on May 06, 2024. He was stable on Trelegy and albuterol, using Duoneb 3-4 times a day. 3 Recent admissions: 1st: Jun 25 through , cough, dyspnea, low sat in 80% range; (+) pneumococcal antigen; CXR 06/25 = Probable bibasilar pulmonary edema/atelectasis versus pneumonia; Minimal pleural effusions. COPD. Lactic acid 2.3, low elevation Creat 1.6 2nd: Re-admitted Jul 08 to , cough with sputum, increased dyspnea, wheezing. Patient had a BNP of 1700, pCO2 61, clear CXR. Lactate =0.9. Normal creatinine. 3rd: Re-admitted 07/22 with increased cough, dyspnea, CXR =Small left-sided pleural effusion without focal infiltrate.He was still on his prednisone taper when he was admitted. Viral swabs are all negative. Lactate 1.4. Creat normal. He is a former smoker, smoked from age 18 until age 58, 40 pack year history. He started using O2 about 10 years ago, initially at night, then around the clock. He has lost wt, 10-15 lb over the last 8 months. He was using inhalers including Trelegy and ProAir until the last admission, he says that he was taken off these. He does not currently smoke marijuana, never vaped. 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 Shortness of breath, cough, possibly change in sputum production several days prior to this admission. He was up to date on his vaccinations, he had the flu, RSV, COVID and I believe he also said pneumococcal vaccination in March this year. SLEEP: He sleeps 6-7 hours a night, wakes 3-4 times to urinate, sometimes has dreams. He occasionally awakens with a dry mouth. He naps at most 30-60 minutes, unclear about how many times a week he naps. He drinks a cup of coffee per day. 07/27/2024: Patient tells me he is breathing back to normal. His chronic cough is back to his normal. His phlegm is better and he has no hemoptysis. He denies wheezing. White blood cell count 12.9, creatinine 1.3, saturations on 3 L is 99%. I decreased him to 2 L and his saturations were 97%. 07/28/24: The patient tells me he is breathing back to his normal. He still has dyspnea on exertion but feels that this is about the same as usual. He has a normal cough and normal phlegm with no hemoptysis. When I enter the room he was on 2 L nasal cannula saturations 99%. I decreased him to 1 L nasal cannula and his saturation was 96%. The patient wore the [facility] noninvasive ventilator with the AVAPS mode rate of 14, tidal volume 500, EPAP 5, minimal inspiratory pressure 6, maximal inspiratory pressure 25, inspiratory time 1, rise of 3 and 32% FiO2. He stated he did well with this and was able to sleep well. A ABG prior to removal was 7.44/50/66. Overnight oximetry on these settings with recording duration of 5 hours and 59 minutes with average saturation 97%, low saturation 87%. Time with saturation less than or equal to 88% was 16 minutes. Oxygen desaturation index 0.4. The desaturation less than 88% was at the end of the study when the patient said he had issues with the machine. 07/29/24: Patient tells me he is breathing at his baseline. He wore the hospital noninvasive ventilator with 28% FiO2 and slept for 4-5 hours and said he did well with the machine. Currently is on 1 L with saturation 95%. He is afebrile. White blood cell count 17.3, creatinine 1.4. patient had an overnight oximetry on the hospital noninvasive ventilator with the AVAPS at 28% with recording duration of 7 hours, average saturation 98%, low saturation 83%, time with saturation less than or equal to be 88% was 0 minutes, oxygen desaturation index 0.2. DATA * 07/22/2024; EKG = sinus rhythm with PACs LEFT ANTERIOR FASCICULAR BLOCK [QRS AXIS <= -45, QR IN I, RS IN II] Compared to ECG 07/07/2024 22:12:24 Left anterior fascicular block now present Myocardial infarct finding no longer present PACs are new ABGs reviewed; he has had hypercapnia since Aug 2019. 06/25:00 06/3013:46 pH 7.41 7.40 7.339 7.422 pCO2 58 61 74.6 69.3 pO2 207 78 90.6 68.4 HCO3 36 37 39.3 44.1 sat 99% 95% 96% 93.3 O2 delivery NC NC NC BiPAP O2 15 L 4 L 4 L 28% rate IPAP 14 EPAP 7 * BNP last 3 admissions : June 25 =2870; July 07; 1720, July 22; 168 * 07/22/24 FINDINGS The cardiomediastinal silhouette is unremarkable. Blunting of the left costophrenic sulcus suggesting a small left-sided pleural effusion. The remainder of the lungs are clear. isualized osseous structures and soft tissues are unremarkable. IMPRESSION: Small left-sided pleural effusion without focal infiltrate. * 06/25/2024 echo: 1. The left ventricle is normal in size and borderline normal in systolic function. There is mild eccentric left ventricular hypertrophy. The left ventricular ejection fraction is visually estimated to be 50%. 2. The right ventricle is normal in size and systolic function. 3. Cannot rule out PFO or small ASD during the Valsalva portion of the bubble study. * 06/25/2024; TSH low 0.121, low T3 0.7, normal T4 16.1 consistent with Euthyroid state with nonthyroidal illness; could be hyperthyroidism in an ill person. * 09/29/23 - PFT - There is a very severe obstructive abnormality. There is no significant improvement after inhaling a single dose of albuterol.? The increase in residual volume to total lung volume ratio is consistent with hyperinflation from an obstructive abnormality.? The diffusing capacity unadjusted for hemoglobin and carboxyhemoglobin is severely decreased and remains moderately decreased when adjusted for alveolar volume. * 09/29/23 - Home O2 evaluation- Patient required 2 L/min at rest and 6 L/min with ambulation. * 09/22/23 - A1AT phenotype - MM, normal. * CXR 08/23/23 -? Emphysema with mild bibasilar reticular opacities which could represent atelectasis, mild pulmonary edema or less likely pneumonia. Cardiomegaly. * PFT 12/09/09 report ? severe obstructive ventilatory defect Review of Systems Review of Systems: He has not had leg swelling, calf pain, chest pain. He had loose stools after Thanksgiving, thinks he had food poisoning. He has not had GI symptoms this admission. He has sinus irritation in the spring, nothing recently. Does not have sinus symptoms at this time. All systems reviewed & are unremarkable except as noted in HPI and below Constitutional: Constitutional: Reports no additional constitutional complaints Eyes: Eyes: Reports no additional eye complaints ENT: Reports system reviewed and no additional complaints, except as documented Cardiovascular: Cardiovascular: Reports no additional cardiovascular complaints Respiratory: Respiratory: Reports no additional respiratory complaints Gastrointestinal: Gastrointestinal: Reports no additional gastrointestinal complaints Musculoskeletal: Musculoskeletal: Reports no additional musculoskeletal complaints Neurologic: Reports system reviewed and no additional complaints, except as documented Psychiatric: Psychiatric: Reports no additional psychiatric complaints Endocrine: Endocrine: Reports no additional endocrine complaints Hematologic/Lymphatic: Hematologic/Lymphatic: Reports no additional hematologic/lymphatic complaints Allergic/Immunologic: Allergic/Immunologic: Reports no additional allergic/immunologic complaints Exam Const: General: cooperative, healthy appearing and comfortable Orientation/consciousness: oriented to person, oriented to place and oriented to time HENMT: Head: normal to inspection Ears: hearing grossly normal bilaterally Eyes: General: appearance normal, both eyes and all related structures Neck: Neck: normal visual inspection Chest: Chest palpation & inspection: normal inspection of the chest Resp: Effort & Inspection: normal respiratory effort and able to speak in complete sentences Auscultation: no crackles, no rales, no rhonchi, no wheezes and lung sounds not diminished Cardio: Jugular venous distension: no JVD GI: Inspection: normal to inspection Skin: General skin exam: normal color Neuro: General: oriented to person, oriented to place and oriented to time Extrem: General: normal to inspection Psych: Appearance: grossly normal Objective Data Vital Signs Vital Signs: Vital Signs - 24 hr 07/28/24 16:00 07/28/24 16:00 07/28/24 20:00 Temperature 37.2 C Pulse Rate 92 77 85 Respiratory Rate 20 18 Blood Pressure 149/71 H Pulse Oximetry 94 99 Oxygen Delivery Nasal Cannula Oxygen Flow Rate 1 Fraction of Inspired Oxygen 07/28/24 20:00 07/28/24 20:39 07/28/24 20:59 Temperature 37.1 C Pulse Rate 89 85 83 Respiratory Rate 18 Blood Pressure 133/73 Pulse Oximetry 99 Oxygen Delivery Oxygen Flow Rate Fraction of Inspired Oxygen 07/28/24 21:10 07/28/24 21:17 07/29/24 00:00 Temperature Pulse Rate 83 68 Respiratory Rate 19 Blood Pressure Pulse Oximetry 95 95 Oxygen Delivery BiPAP BiPAP Oxygen Flow Rate Fraction of Inspired Oxygen 28 07/29/24 01:30 07/29/24 04:00 07/29/24 05:22 Temperature 37.1 C Pulse Rate 74 86 Respiratory Rate 21 H 24 H Blood Pressure 128/66 Pulse Oximetry 96 96 Oxygen Delivery BiPAP Oxygen Flow Rate Fraction of Inspired Oxygen 07/29/24 08:09 07/29/24 08:10 07/29/24 08:16 Temperature 37.1 C Pulse Rate 70 77 Respiratory Rate 24 H 20 Blood Pressure 132/68 Pulse Oximetry 96 95 Oxygen Delivery Nasal Cannula Oxygen Flow Rate 1 Fraction of Inspired Oxygen 07/29/24 10:14 Temperature Pulse Rate 84 Respiratory Rate Blood Pressure Pulse Oximetry Oxygen Delivery Oxygen Flow Rate Fraction of Inspired Oxygen Intake/Output Intake/Output: Intake & Output 07/26/24 07/27/24 07/28/24 07/29/24 23:59 23:59 23:59 23:59 Intake Total 1762.5 2140 2720 620 Output Total 1000 1890 3000 600 Balance 762.5 250 -280 20 Meds/Results Medications: Active Medications Generic Name Dose Route Start Last Admin Trade Name Freq PRN Reason Stop Dose Admin Acetaminophen 650 mg 07/22/24 14:51 Acetaminophen 325 Mg Tablet PO Q4H PRN Mild Pain (1-3) or Fever Apixaban 5 mg 07/25/24 21:00 07/29/24 10:15 Apixaban 5 Mg Tablet PO 5 mg Q12HR PRICILA Administration Chlorthalidone 25 mg 07/27/24 11:10 07/29/24 10:15 Chlorthalidone 25 Mg Tablet PO 25 mg DAILY PRICILA Administration Diltiazem HCl 120 mg 07/26/24 09:40 07/29/24 10:15 Diltiazem Hcl Cd 120 Mg Cap.24hr PO 120 mg QAM PRICILA Administration Docusate Sodium 100 mg 07/26/24 09:09 Docusate Sodium 100 Mg Capsule PO DAILY PRN Constipation Fluticasone/Umeclidinium/Vilanterol 1 puff 07/23/24 09:00 07/29/24 08:09 Fluticasone/Umeclidin/Vilanter 100-62.5-25 Mcg Ellipta INHALATION 1 puff DAILY PRICILA Administration Furosemide 40 mg 07/24/24 09:00 07/29/24 10:16 Furosemide 40 Mg Tablet PO 40 mg DAILY PRICILA Administration Guaifenesin 1,200 mg 07/29/24 21:00 Guaifenesin 12 Hr 600 Mg Tabcr PO Q12HR PRICILA Cefepime HCl 2 gm in 50 mls @ 100 mls/hr 07/24/24 12:15 07/29/24 10:16 Maxipime 2 Gm/Ns 50 Ml IVPB 100 mls/hr Q12HR PRICILA Administration Metoprolol Tartrate 25 mg 07/26/24 21:00 07/29/24 10:14 Metoprolol Tartrate 25 Mg Tablet PO 25 mg Q12HR PRICILA Administration Morphine Sulfate 2 mg 07/22/24 14:51 Morphine Sulfate (*Crx) 2 Mg/Ml Inj IV PUSH Q2H PRN Pain Rated 7-10 Ondansetron HCl 4 mg 07/22/24 14:51 Ondansetron Inj 4 Mg/2 Ml Vial IV PUSH Q4H PRN Nausea Perflutren Lipid Microsphere 0 ml 07/28/24 07:57 Perflutren Lipid Microspheres 1.5 Ml Vial Diluted To 10 Ml Total Volume IV PUSH 07/31/24 07:57 ONCE PRN adequate visualization Protocol Valsartan 320 mg 07/23/24 09:00 07/29/24 10:15 Valsartan 160 Mg Tablet PO 320 mg DAILY PRICILA Administration Radiology Results: ITS Impressions Chest X-Ray 07/22/24 11:12 IMPRESSION: Small left-sided pleural effusion without focal infiltrate. Labs Labs: Laboratory Results - last 24 hr 07/29/24 04:36 WBC 17.3 H RBC 3.30 L Hgb 9.6 L Hct 28.9 L MCV 87.6 MCH 29.1 MCHC 33.2 RDW 14.7 H Plt Count 171 MPV 10.0 Immature Gran % (Auto) 4.6 H Neut % (Auto) 87.1 H Lymph % (Auto) 4.0 L Miner % (Auto) 3.9 Eos % (Auto) 0.0 Baso % (Auto) 0.4 Lymph # (Auto) 0.70 L Miner # (Auto) 0.7 H Eos # (Auto) 0.0 Baso # (Auto) 0.1 Abs Immat Gran (auto) 0.79 H Absolute Neuts (auto) 15.1 H Absolute Nucleated RBC 0.040 H Nucleated RBC % 0.2 Platelet Estimate Adequate Anisocytosis 1+ Microcytosis 1+ Schistocytes None seen Sodium 134 L Potassium 3.5 Chloride 91 L Carbon Dioxide > 40 H Anion Gap BUN 53 H Creatinine 1.40 H Estim Creat Clear Calc 30 Estimated GFR > 60 Glucose 107 Calcium 9.2 Total Bilirubin 0.4 AST 16 L ALT 24 Alkaline Phosphatase 56 Total Protein 5.0 L Albumin 3.1 L
--- NOTE | 2024-07-29 13:33 | PCRCNOTE ---
Order and paperwork for home AVAPS unit faxed to patients DME provider, Walt. Awaiting insurance authorization.
--- NOTE | 2024-07-29 16:05 | PCRCNOTE ---
Home O2 eval complete. Patient has Home O2. Requirements remain the same 2lpm. RN notified.
[2024-07-29] MEDS: guaiFENesin 12 HR 600 MG TABCR 1200 MG PO (22:15)
[2024-07-30] VITALS (9 sets, daily range): BP systolic 124–142; BP diastolic 72–77; PULSE 63–85; RESP 19–24; TEMP 36.5–36.8; O2SAT 96–100
[2024-07-30 04:52] LABS: Basophils Absolute Auto 0.1 K/mm3 (0.0-0.1); Basophils Percent Auto 0.9 % (0.2-1.2); Eosinophils Absolute Auto 0.1 K/mm3 (0-0.3); Eosinophils Percent Auto 0.6 % (0-4.4); Hematocrit 33.3 % (42.0-52.0); Hemoglobin 10.9 g/dL (14.0-18.0); Immature Granulocyte Absolute 1.22 K/mm3 (0.00-0.031); Immature Granulocyte Percent A 8.9 % (0-0.5); Lymphocytes Absolute Auto 1.27 K/mm3 (0.9-3.2); Lymphocytes Percent Auto 9.2 % (18.3-44.2); Mean Corpuscular HGB Conc 32.7 g/dl (32-36); Mean Corpuscular Hemoglobin 28.8 pg (26-34); Mean Corpuscular Volume 88.1 fl (80-100); Mean Platelet Volume 9.9 fl (7.4-10.4); Monocytes Absolute Auto 0.7 K/mm3 (0.1-0.6); Monocytes Percent Auto 5.2 % (2.6-8.5); Neutrophils Absolute Auto 10.3 K/mm3 (1.3-6.7); Neutrophils Percent Auto 75.2 % (45.5-73.1); Nucleated Red Blood Cells Perc 0.2 % (0.0-0.2); Platelet Count Result 192 k/mm3 (150-375); Red Blood Count 3.78 M/mm3 (4.6-6.20); Red Cell Distribution Width 15.3 % (11.5-14.5); White Blood Count 13.8 K/mm3 (4.5-10.0)
[2024-07-30 05:13] LABS: Alanine Aminotransferase 27 U/L (6-50); Albumin Level 3.3 g/dL (3.5-5.1); Alkaline Phosphatase 64 U/L (38-126); Aspartate Amino Transferase 19 U/L (17-59); Bilirubin,Total 0.4 mg/dL (0.2-1.3); Blood Urea Nitrogen 61 mg/dL (9-20); Calcium 9.6 mg/dL (8.4-10.2); Chloride 90 mmol/L (98-107); Estimated CRCL calculation 29 ml/min; Estimated Glomerular Filt Rate 57; Glucose 84 mg/dL (65-110); Potassium 3.5 mmol/L (3.4-5.0); Sodium 137 mmol/L (137-145)
[2024-07-30 05:30] LABS: Anisocytosis 1+; Hypochromasia 1+; Platelet Estimate Adequate (Adequate)
[2024-07-30 05:31] LABS: Ovalocytes 1+; Schistocytes None Seen; Stomatocytes 1+
[2024-07-30] MEDS: FLUTICASONE/UMECLIDIN/VILANTER 100-62.5-25 MCG ELLIPTA 1 PUFF INHALATION (06:06)
[2024-07-30 09:13] LABS: Carbon Dioxide > 40 mmol/L (22-30)
--- NOTE | 2024-07-30 09:28 | PCRCNOTE ---
[facility] DME to set-up NIV today in hospital so patient is ready for discharge.
[2024-07-30] MEDS: POTASSIUM CHLORIDE 20 MEQ ER TABLET 40 MEQ PO (09:29)
[2024-07-30] MEDS: CHLORTHALIDONE 25 MG TABLET PO (09:30)
[2024-07-30] MEDS: APIXABAN 5 MG TABLET PO (09:30)
[2024-07-30] MEDS: dilTIAZem HCL CD 120 MG CAP.24HR PO (09:30)
[2024-07-30] MEDS: guaiFENesin 12 HR 600 MG TABCR 1200 MG PO (09:30)
[2024-07-30] MEDS: VALSARTAN 160 MG TABLET 320 MG PO (09:30)
[2024-07-30] MEDS: FUROSEMIDE 40 MG TABLET PO (09:31)
[2024-07-30] MEDS: METOPROLOL TARTRATE 25 MG TABLET PO (09:31)
[2024-07-30] MEDS: CEFEPIME 2 GM/NS 50 ML 2 GM/50 ML BAG IVPB (09:32)
--- NOTE | 2024-07-30 10:08 | PM.PNPUL ---
Progress Note: A&P Assessment and Plan (1) Acute exacerbation of chronic obstructive pulmonary disease: Code(s): J44.1 - Chronic obstructive pulmonary disease with (acute) exacerbation Status: Acute Assessment and Plan: Patient with 40 pack year tobacco use, quit 10 years ago, Alpha 1 anti trypsin phenotype MM. on home oxygen for 10 years. PFTs 09/29/2023 with a very severe obstructive abnormality, no bronchodilator response, hyperinflation and the DLCO that remained moderately decreased when adjusted for alveolar volume. Patient requires 2 L oxygen at rest and 6 with ambulation.07/27/2024: Patient tells me he is breathing back to normal. His chronic cough is back to his normal. His phlegm is better and he has no hemoptysis. He denies wheezing. White blood cell count 12.9, creatinine 1.3, saturations on 3 L is 99%. I decreased him to 2 L and his saturations were 97%. Plan: Patient on Solu-Medrol since 07/22/[address] on prednisone 40 a day starting today day 6 steroids. patient is on cefepime since 07/24/2024, day 4. Will continue. Patient is on trilogy inhaler 100 and will discontinue his DuoNebs. Goal saturation 90-94%. Currently is on 2 L nasal cannula saturations 97%. 07/28/24: The patient tells me he is breathing back to his normal. He still has dyspnea on exertion but feels that this is about the same as usual. He has a normal cough and normal phlegm with no hemoptysis. When I enter the room he was on 2 L nasal cannula saturations 99%. I decreased him to 1 L nasal cannula and his saturation was 96%. Plan: Patient has received 6 days of steroids and I will discontinue today. Continue trilogy inhaler 100. Patient is on cefepime day 5, will continue. his oxygenation has improved and currently is on 1 L nasal cannula during the day. 07/29/24: Patient tells me he is breathing at his baseline. He wore the hospital noninvasive ventilator with 28% FiO2 and slept for 4-5 hours and said he did well with the machine. Currently is on 1 L with saturation 95%. He is afebrile. White blood cell count 17.3, creatinine 1.4. patient had an overnight oximetry on the hospital noninvasive ventilator with the AVAPS at 28% with recording duration of 7 hours, average saturation 98%, low saturation 83%, time with saturation less than or equal to be 88% was 0 minutes, oxygen desaturation index 0.2. 07/30/24: patient tells me he is breathing at his baseline. Currently the patient is on 1.5 L with saturations 96%. From a pulmonary perspective patient is ready to be discharged home on these pulmonary medications: Trelegy 100-62.5-25 at 1 puff q.day Rescue albuterol 2 puffs q.4 hours p.r.n. shortness of breath or wheezing Levaquin 750 mg p.o. q.day x 3 days. Oxygen 2 L at rest and 2 L with activity. When he naps or sleeps: Noninvasive ventilator with the AVAPS AE mode through [facility], [place]: Respiratory rate 14, tidal volume 500, minimal EPAP 5, maximal EPAP 15, minimal pressure support 6, maximal pressure support 20, inspiratory time 1-1.5, and 2 L bleed in. Follow-up in the Pulmonary Clinic in 4 weeks. I gave him our business card and informed our oil winterizer. Discussed with Ambar Bar. Call with questions. (2) Acute and chronic respiratory failure with hypercapnia: Code(s): J96.22 - Acute and chronic respiratory failure with hypercapnia Status: Acute Assessment and Plan: 07/27/24: Patient with chronic hypercarbic respiratory failure from his COPD with a blood gas on admission at 7.34/75/91 on 4 L nasal cannula. plan: I will check an ABG today on 2 L nasal cannula if he remains hypercarbic will initiate nocturnal noninvasive ventilation. ABG later in the day was pH of 7.38/ 65/69 on 2 L nasal cannula The patient has chronic hypercarbic respiratory failure from his COPD and would benefit from a noninvasive ventilator to prevent further hospitalizations and deterioration. patient was attempted on BiPAP but could not tolerate the pressures and said he could not breathe with this. The home is a non controlled environment requiring adjustable EPAP. He was placed on noninvasive ventilator with the AVAPS mode 07/28/24: The patient wore the hospital noninvasive ventilator with the AVAPS mode rate of 14, tidal volume 500, EPAP 5, minimal inspiratory pressure 6, maximal inspiratory pressure 25, inspiratory time 1, rise of 3 and 32% FiO2. He stated he did well with this and was able to sleep well. ABG prior to removal was 7.44/50/66. Overnight oximetry on these settings with recording duration of 5 hours and 59 minutes with average saturation 97%, low saturation 87%. Time with saturation less than or equal to 88% was 16 minutes. Oxygen desaturation index 0.4. The desaturation less than 88% was at the end of the study when the patient said he had issues with the machine. Plan: patient tolerated the noninvasive ventilation with the AVAPS mode with adequate ventilation. The patient's oxygenation was very good on 32% and tonight I will perform an overnight oximetry on the AVAPS with 28% FiO2. I will initiate home noninvasive ventilation on 07/29/2024 when the production material coordinator is available. 07/29/24: He wore the hospital noninvasive ventilator with 28% FiO2 and slept for 4-5 hours and said he did well with the machine. Currently is on 1 L with saturation 95%. Patient had an overnight oximetry on the hospital noninvasive ventilator with the AVAPS at 28% with recording duration of 7 hours, average saturation 98%, low saturation 83%, time with saturation less than or equal to be 88% was 0 minutes, oxygen desaturation index 0.2. Plan: I filled out a noninvasive ventilator order form with the AVAPS AE settings for [facility]. Settings: rate of 14, tidal volume 500, Minimum EPAP 5, maximum EPAP 15, minimum pressure support 6, maximum pressure support 20, inspiratory time 1-1.5, and 2 L bleed in. The production material coordinator will call his [facility] and discuss initiation of noninvasive ventilation with the AVAPS mode for this patient. If the patient can be set up in the hospital today would leave him in the hospital so that he can be set up with the machine and use it in a supervised setting for 1 night. If he cannot be set up today in the hospital, would discharge the patient with a plan to get set up at home. 07/30/24: He wore the hospital noninvasive ventilator with the AVAPS mode and 28% FiO2 and said he slept about 5 hours and did well. Plan: Walt is notified our production material coordinator to they can set the patient up with his home noninvasive ventilator in the hospital and he can be discharged and take this home with him today. Subjective Date/time seen: 07/30/24 10:08 Interval history: 07/25/24 at 16:30 in Room 347 NEW: Kenney Varela is a 68 year-old man with pneumonia on CXR, and acute on chronic respiratory failure. At the time I saw the patient, he was at the start of atrial fib with RVR, rate 170-190, and was asymptomatic. He said that he was not aware that he was having a rapid heart beat, does not think that he has had atrial fibrillation in the past, says that he had congestive heart failure in 2008. Was admitted with sl increase in WBC 10.8, 1st ABG = primary chronic respiratory acidosis with secondary metabolic acid; 2nd ABG pH 7.42 pCO2 69 PO2 68 on BiPAP 14/7 and 28% oxygen; this one shows metabolic alkalosis with secondary respiratory acidosis. He also has increased troponin 0.036, 0.041, low (+) BNP 168. e has a small increase in BNP, 168 this admission. He is a patient in our pulmonary practice, last saw Harika Aronsrini on May 06, 2024. He was stable on Trelegy and albuterol, using Duoneb 3-4 times a day. 3 Recent admissions: 1st: Jun 25 through , cough, dyspnea, low sat in 80% range; (+) pneumococcal antigen; CXR 06/25 = Probable bibasilar pulmonary edema/atelectasis versus pneumonia; Minimal pleural effusions. COPD. Lactic acid 2.3, low elevation Creat 1.6 2nd: Re-admitted Jul 08 to , cough with sputum, increased dyspnea, wheezing. Patient had a BNP of 1700, pCO2 61, clear CXR. Lactate =0.9. Normal creatinine. 3rd: Re-admitted 07/22 with increased cough, dyspnea, CXR =Small left-sided pleural effusion without focal infiltrate.He was still on his prednisone taper when he was admitted. Viral swabs are all negative. Lactate 1.4. Creat normal. He is a former smoker, smoked from age 18 until age 58, 40 pack year history. He started using O2 about 10 years ago, initially at night, then around the clock. He has lost wt, 10-15 lb over the last 8 months. He was using inhalers including Trelegy and ProAir until the last admission, he says that he was taken off these. He does not currently smoke marijuana, never vaped. 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 Shortness of breath, cough, possibly change in sputum production several days prior to this admission. He was up to date on his vaccinations, he had the flu, RSV, COVID and I believe he also said pneumococcal vaccination in March this year. SLEEP: He sleeps 6-7 hours a night, wakes 3-4 times to urinate, sometimes has dreams. He occasionally awakens with a dry mouth. He naps at most 30-60 minutes, unclear about how many times a week he naps. He drinks a cup of coffee per day. 07/27/2024: Patient tells me he is breathing back to normal. His chronic cough is back to his normal. His phlegm is better and he has no hemoptysis. He denies wheezing. White blood cell count 12.9, creatinine 1.3, saturations on 3 L is 99%. I decreased him to 2 L and his saturations were 97%. 07/28/24: The patient tells me he is breathing back to his normal. He still has dyspnea on exertion but feels that this is about the same as usual. He has a normal cough and normal phlegm with no hemoptysis. When I enter the room he was on 2 L nasal cannula saturations 99%. I decreased him to 1 L nasal cannula and his saturation was 96%. The patient wore the the [facility] noninvasive ventilator with the AVAPS mode rate of 14, tidal volume 500, EPAP 5, minimal inspiratory pressure 6, maximal inspiratory pressure 25, inspiratory time 1, rise of 3 and 32% FiO2. He stated he did well with this and was able to sleep well. A ABG prior to removal was 7.44/50/66. Overnight oximetry on these settings with recording duration of 5 hours and 59 minutes with average saturation 97%, low saturation 87%. Time with saturation less than or equal to 88% was 16 minutes. Oxygen desaturation index 0.4. The desaturation less than 88% was at the end of the study when the patient said he had issues with the machine. 07/29/24: Patient tells me he is breathing at his baseline. He wore the hospital noninvasive ventilator with 28% FiO2 and slept for 4-5 hours and said he did well with the machine. Currently is on 1 L with saturation 95%. He is afebrile. White blood cell count 17.3, creatinine 1.4. patient had an overnight oximetry on the hospital noninvasive ventilator with the AVAPS at 28% with recording duration of 7 hours, average saturation 98%, low saturation 83%, time with saturation less than or equal to be 88% was 0 minutes, oxygen desaturation index 0.2. Later in the day I filled out a noninvasive ventilator order form with the AVAPS AE settings for [facility]. Settings: rate of 14, tidal volume 500, Minimum EPAP 5, maximum EPAP 15, minimum pressure support 6, maximum pressure support 20, inspiratory time 1-1.5, and 2 L bleed in. 07/30/24: patient tells me he is breathing at his baseline. He wore the hospital noninvasive ventilator with the AVAPS mode and 28% FiO2 and said he slept about 5 hours and did well. Currently the patient is on 1.5 L with saturations 96%. DATA: 07/29/2024: Home O2 assessment: Rest room air saturation 80%. Rest 1 L nasal cannula saturation 86%. Rest 2 L nasal cannula saturation 92%. Exercise 2 L saturation 94%. * 07/22/2024; EKG = sinus rhythm with PACs LEFT ANTERIOR FASCICULAR BLOCK [QRS AXIS <= -45, QR IN I, RS IN II] Compared to ECG 07/07/2024 22:12:24 Left anterior fascicular block now present Myocardial infarct finding no longer present PACs are new ABGs reviewed; he has had hypercapnia since Aug 2019. 06/250:00 06/3013:46 pH 7.41 7.40 7.339 7.422 pCO2 58 61 74.6 69.3 pO2 207 78 90.6 68.4 HCO3 36 37 39.3 44.1 sat 99% 95% 96% 93.3 O2 delivery NC NC NC BiPAP O2 15 L 4 L 4 L 28% rate IPAP 14 EPAP 7 * BNP last 3 admissions : June 25 =2870; July 07; 1720, July 22; 168 * 07/22/24 FINDINGS The cardiomediastinal silhouette is unremarkable. Blunting of the left costophrenic sulcus suggesting a small left-sided pleural effusion. The remainder of the lungs are clear. isualized osseous structures and soft tissues are unremarkable. IMPRESSION: Small left-sided pleural effusion without focal infiltrate. * 06/25/2024 echo: 1. The left ventricle is normal in size and borderline normal in systolic function. There is mild eccentric left ventricular hypertrophy. The left ventricular ejection fraction is visually estimated to be 50%. 2. The right ventricle is normal in size and systolic function. 3. Cannot rule out PFO or small ASD during the Valsalva portion of the bubble study. * 06/25/2024; TSH low 0.121, low T3 0.7, normal T4 16.1 consistent with Euthyroid state with nonthyroidal illness; could be hyperthyroidism in an ill person. * 09/29/23 - PFT - There is a very severe obstructive abnormality. There is no significant improvement after inhaling a single dose of albuterol.? The increase in residual volume to total lung volume ratio is consistent with hyperinflation from an obstructive abnormality.? The diffusing capacity unadjusted for hemoglobin and carboxyhemoglobin is severely decreased and remains moderately decreased when adjusted for alveolar volume. * 09/29/23 - Home O2 evaluation- Patient required 2 L/min at rest and 6 L/min with ambulation. * 09/22/23 - A1AT phenotype - MM, normal. * CXR 08/23/23 -? Emphysema with mild bibasilar reticular opacities which could represent atelectasis, mild pulmonary edema or less likely pneumonia. Cardiomegaly. * PFT 12/09/09 report ? severe obstructive ventilatory defect Review of Systems Review of Systems: All systems reviewed & are unremarkable except as noted in HPI and below Constitutional: Constitutional: Reports no additional constitutional complaints Eyes: Eyes: Reports no additional eye complaints ENT: Reports system reviewed and no additional complaints, except as documented Cardiovascular: Cardiovascular: Reports no additional cardiovascular complaints Respiratory: Respiratory: Reports no additional respiratory complaints Gastrointestinal: Gastrointestinal: Reports no additional gastrointestinal complaints Musculoskeletal: Musculoskeletal: Reports no additional musculoskeletal complaints Neurologic: Reports system reviewed and no additional complaints, except as documented Psychiatric: Psychiatric: Reports no additional psychiatric complaints Endocrine: Endocrine: Reports no additional endocrine complaints Hematologic/Lymphatic: Hematologic/Lymphatic: Reports no additional hematologic/lymphatic complaints Allergic/Immunologic: Allergic/Immunologic: Reports no additional allergic/immunologic complaints Exam Const: General: cooperative, healthy appearing and comfortable Orientation/consciousness: oriented to person, oriented to place and oriented to time HENMT: Head: normal to inspection Ears: hearing grossly normal bilaterally Eyes: General: appearance normal, both eyes and all related structures Neck: Neck: normal visual inspection Chest: Chest palpation & inspection: normal inspection of the chest Resp: Effort & Inspection: normal respiratory effort and able to speak in complete sentences Auscultation: no crackles, no rales, no rhonchi, no wheezes and lung sounds not diminished Cardio: Jugular venous distension: no JVD GI: Inspection: normal to inspection Skin: General skin exam: normal color Neuro: General: oriented to person, oriented to place and oriented to time Extrem: General: normal to inspection Psych: Appearance: grossly normal Objective Data Vital Signs Vital Signs: Vital Signs - 24 hr 07/29/24 10:14 07/29/24 12:00 07/29/24 12:00 Temperature 36.6 C Pulse Rate 84 54 L 79 Respiratory Rate 20 Blood Pressure 144/81 H Pulse Oximetry 98 Oxygen Delivery Oxygen Flow Rate 07/29/24 15:07 07/29/24 15:30 07/29/24 15:35 Temperature Pulse Rate 86 88 Respiratory Rate Blood Pressure Pulse Oximetry 94 80 L 86 L Oxygen Delivery Nasal Cannula Room Air Nasal Cannula Oxygen Flow Rate 1 07/29/24 15:40 07/29/24 16:00 07/29/24 16:00 Temperature 37.0 C Pulse Rate 88 54 L 82 Respiratory Rate 16 Blood Pressure 129/69 Pulse Oximetry 92 98 Oxygen Delivery Nasal Cannula Oxygen Flow Rate 2 07/29/24 20:00 07/29/24 20:00 07/29/24 20:22 Temperature 37.0 C Pulse Rate 85 85 85 Respiratory Rate 14 14 Blood Pressure 127/76 Pulse Oximetry 97 97 Oxygen Delivery Nasal Cannula Oxygen Flow Rate 1 07/29/24 21:52 07/29/24 22:15 07/30/24 00:00 Temperature Pulse Rate 83 77 67 Respiratory Rate 26 H Blood Pressure Pulse Oximetry Oxygen Delivery BiPAP Oxygen Flow Rate 07/30/24 00:30 07/30/24 01:46 07/30/24 03:24 Temperature Pulse Rate 64 63 71 Respiratory Rate 19 Blood Pressure Pulse Oximetry Oxygen Delivery BiPAP Oxygen Flow Rate 07/30/24 06:09 07/30/24 08:00 07/30/24 09:31 Temperature 36.5 C Pulse Rate 72 83 85 Respiratory Rate 20 20 Blood Pressure 142/77 H Pulse Oximetry 100 Oxygen Delivery Oxygen Flow Rate Intake/Output Intake/Output: Intake & Output 07/27/24 07/28/24 07/29/24 07/30/24 23:59 23:59 23:59 23:59 Intake Total 2140 2720 1780 550 Output Total 1890 3000 1800 2181 Balance 118 -082 -88 -5779 Meds/Results Medications: Active Medications Generic Name Dose Route Start Last Admin Trade Name Freq PRN Reason Stop Dose Admin Acetaminophen 650 mg 07/22/24 14:51 Acetaminophen 325 Mg Tablet PO Q4H PRN Mild Pain (1-3) or Fever Apixaban 5 mg 07/25/24 21:00 07/30/24 09:30 Apixaban 5 Mg Tablet PO 5 mg Q12HR PRICILA Administration Chlorthalidone 25 mg 07/27/24 11:10 07/30/24 09:30 Chlorthalidone 25 Mg Tablet PO 25 mg DAILY PRICILA Administration Diltiazem HCl 120 mg 07/26/24 09:40 07/30/24 09:30 Diltiazem Hcl Cd 120 Mg Cap.24hr PO 120 mg QAM PRICILA Administration Docusate Sodium 100 mg 07/26/24 09:09 Docusate Sodium 100 Mg Capsule PO DAILY PRN Constipation Fluticasone/Umeclidinium/Vilanterol 1 puff 07/23/24 09:00 07/30/24 06:06 Fluticasone/Umeclidin/Vilanter 100-62.5-25 Mcg Ellipta INHALATION 1 puff DAILY PRICILA Administration Furosemide 40 mg 07/24/24 09:00 07/30/24 09:31 Furosemide 40 Mg Tablet PO 40 mg DAILY PRICILA Administration Guaifenesin 1,200 mg 07/29/24 21:00 07/30/24 09:30 Guaifenesin 12 Hr 600 Mg Tabcr PO 1,200 mg Q12HR PRICILA Administration Cefepime HCl 2 gm in 50 mls @ 100 mls/hr 07/24/24 12:15 07/30/24 09:32 Maxipime 2 Gm/Ns 50 Ml IVPB 100 mls/hr Q12HR PRICILA Administration Metoprolol Tartrate 25 mg 07/26/24 21:00 07/30/24 09:31 Metoprolol Tartrate 25 Mg Tablet PO 25 mg Q12HR PRICILA Administration Morphine Sulfate 2 mg 07/22/24 14:51 Morphine Sulfate (*Crx) 2 Mg/Ml Inj IV PUSH Q2H PRN Pain Rated 7-10 Ondansetron HCl 4 mg 07/22/24 14:51 Ondansetron Inj 4 Mg/2 Ml Vial IV PUSH Q4H PRN Nausea Perflutren Lipid Microsphere 0 ml 07/28/24 07:57 Perflutren Lipid Microspheres 1.5 Ml Vial Diluted To 10 Ml Total Volume IV PUSH 07/31/24 07:57 ONCE PRN adequate visualization Protocol Valsartan 320 mg 07/23/24 09:00 07/30/24 09:30 Valsartan 160 Mg Tablet PO 320 mg DAILY PRICILA Administration Radiology Results: ITS Impressions Chest X-Ray 07/22/24 11:12 IMPRESSION: Small left-sided pleural effusion without focal infiltrate. Labs Labs: Laboratory Results - last 24 hr 07/30/24 04:20 WBC 13.8 H RBC 3.78 L Hgb 10.9 L Hct 33.3 L MCV 88.1 MCH 28.8 MCHC 32.7 RDW 15.3 H Plt Count 192 MPV 9.9 Immature Gran % (Auto) 8.9 H Neut % (Auto) 75.2 H Lymph % (Auto) 9.2 L Bent % (Auto) 5.2 Eos % (Auto) 0.6 Baso % (Auto) 0.9 Lymph # (Auto) 1.27 Bent # (Auto) 0.7 H Eos # (Auto) 0.1 Baso # (Auto) 0.1 Abs Immat Gran (auto) 1.22 H Absolute Neuts (auto) 10.3 H Absolute Nucleated RBC 0.030 H Nucleated RBC % 0.2 Platelet Estimate Adequate Hypochromasia 1+ Anisocytosis 1+ Ovalocytes 1+ Stomatocytes 1+ Schistocytes None seen Sodium 137 Potassium 3.5 Chloride 90 L Carbon Dioxide > 40 H Anion Gap BUN 61 H Creatinine 1.47 H Estim Creat Clear Calc 29 Estimated GFR 57 L Glucose 84 Calcium 9.6 Total Bilirubin 0.4 AST 19 ALT 27 Alkaline Phosphatase 64 Total Protein 6.0 L Albumin 3.3 L
--- NOTE | 2024-07-30 11:08 | P.DS_ITS ---
DS: Admitting Diagnosis Discharge Date 07/30/24 Admitting Diagnosis Shortness of breath. DS: Discharge Diagnosis Discharge Diagnosis (1) Atrial fibrillation with rapid ventricular response: Code(s): I48.91 - Unspecified atrial fibrillation Status: Acute (2) COPD exacerbation: Code(s): J44.1 - Chronic obstructive pulmonary disease with (acute) exacerbation Status: Acute (3) CHF (congestive heart failure): Code(s): I50.9 - Heart failure, unspecified Status: Acute (4) Hypertension: Code(s): I10 - Essential (primary) hypertension Status: Chronic (5) Leukocytosis: Code(s): D72.829 - Elevated white blood cell count, unspecified Status: Acute (6) Acute and chronic respiratory failure: Qualifiers: Respiratory failure complication: hypoxia and hypercapnia Qualified Code(s): J96.21 - Acute and chronic respiratory failure with hypoxia; J96.22 - Acute and chronic respiratory failure with hypercapnia Code(s): J96.20 - Acute and chronic respiratory failure, unspecified whether with hypoxia or hypercapnia Status: Acute DS: Summary Hospital Course Hospital Course: In the ED patient has slight leukocytosis at 10.1, ABG with respiratory acidosis hypoxia and hypercarbia and was placed on a BiPAP. Patient's influenza A/B, RSV and COVID negative. Chest x-ray shows small left-sided pleural effusion. Sinus rhythm with PACs. --Troponin slightly elevated, likely demand. Troponin trend 0.033>0.036>0.041> 0.060>0.050. Patient asymptomatic. Leukocytosis treated with IV Rocephin and Cefepime. Transitioned to oral a ntibiotics. Patient developed Afib with RVR. Started on Diltiazem, Metoprolol, and Apixaban. Cardiology consulted. Echo completed, awaiting reading. Sputum and blood cultures no growth. Pulmonology seen patient and got patient set up with AVAPS. Recommendations: Trelegy 100-62.5-25 at 1 puff q.day Rescue albuterol 2 puffs q.4 hours p.r.n. shortness of breath or wheezing Levaquin 750 mg p.o. q.day x 3 days. Oxygen 2 L at rest and 2 L with activity. When he naps or sleeps: Noninvasive ventilator with the AVAPS AE mode through [facility]: Respiratory rate 14, tidal volume 500, minimal EPAP 5, maximal EPAP 15, minimal pressure support 6, maximal pressure support 20, inspiratory time 1-1.5, and 2 L [facility]. Status at Discharge Functional status at discharge: independent ambulation Overall status at discharge: patient is progressing back to baseline Time Spent with Patient Time attestation: Total time spent providing and/or coordinating discharge services: Time spent: Greater than 30 minutes Exam Const: General: comfortable and no acute distress Resp: Auscultation: diminished lung sounds Cardio: Rhythm: abnormal rhythm irregularly irregular GI: GI Palp: Yes Soft to palpation Auscultation: normal bowel sounds Neuro: General: gait normal Extrem: General: no pedal edema Psych: Mental Status: mental status grossly normal Affect: normal affect DS: Data Data Completed and Pending Labs on day of discharge: Labs from last 24 hours 07/30/24 04:20 WBC 13.8 H RBC 3.78 L Hgb 10.9 L Hct 33.3 L MCV 88.1 MCH 28.8 MCHC 32.7 RDW 15.3 H Plt Count 192 MPV 9.9 Immature Gran % (Auto) 8.9 H Neut % (Auto) 75.2 H Lymph % (Auto) 9.2 L Dare % (Auto) 5.2 Eos % (Auto) 0.6 Baso % (Auto) 0.9 Lymph # (Auto) 1.27 Dare # (Auto) 0.7 H Eos # (Auto) 0.1 Baso # (Auto) 0.1 Abs Immat Gran (auto) 1.22 H Absolute Neuts (auto) 10.3 H Absolute Nucleated RBC 0.030 H Nucleated RBC % 0.2 Platelet Estimate Adequate Hypochromasia 1+ Anisocytosis 1+ Ovalocytes 1+ Stomatocytes 1+ Schistocytes None seen Sodium 137 Potassium 3.5 Chloride 90 L Carbon Dioxide > 40 H Anion Gap BUN 61 H Creatinine 1.47 H Estim Creat Clear Calc 29 Estimated GFR 57 L Glucose 84 Calcium 9.6 Total Bilirubin 0.4 AST 19 ALT 27 Alkaline Phosphatase 64 Total Protein 6.0 L Albumin 3.3 L Discharge Plan Discharge Attending physician on discharge: Tery Pierce Consulting providers: Tasha Marin; [facility],Devyn Discharging Clinician: Ambar Bar Anticipated Discharge Date/Time: 07/30/24 14:00 Patient Disposition: Home Health Service Activity: may shower and as tolerated Diet: heart healthy Discharge Instructions: * Care Coordination: Patient to have [facility] for PT/OT eval and treat, and intermediate. Their phone number is [phone] if you have any questions. They will contact you to schedule their first visit. * Take medications as prescribed. * Follow up with primary and specialist. * Report any worsening shortness of breath or illness to provider. * Oxygen at 2 liters nasal cannula at rest and with activity. * When he naps or sleeps: Noninvasive ventilator with the AVAPS AE mode through [facility] [place]: Respiratory rate 14, tidal volume 500, minimal EPAP 5, maximal EPAP 15, minimal pressure support 6, maximal pressure support 20, inspiratory time 1-1.5, and 2 L bleed in. * Plan: [facility] [place] is notified our student teaching coordinator to they can set the patient up with his home noninvasive ventilator in the hospital and he can be discharged and take this home with him today. Thank you for entrusting [facility] with your healthcare! Patient Instructions: Antibiotic Form, Heart Failure (DC), A-fib (Atrial Fibrillation) (DC), COPD (Chronic Obstructive Pulmonary Disease) (DC), Hypertension (DC) Patient Language: Salvadorean Stand Alone Forms: General Discharge Information Follow-up/Referrals: Tasha Marin MD [Physician] - 4 Weeks Amairani Rizo MD [Physician] - 2 Weeks Yan Oro MD [Primary Care Provider] - 1 Week Discharge Medications: New chlorthalidone 25 mg Tablet 25 mg PO DAILY Qty: 30 0RF diltiazem HCl 120 mg Capsule,Extended Release 24hr 120 mg PO QAM Qty: 30 0RF Eliquis 5 mg Tablet 5 mg PO Q12HR Qty: 60 0RF furosemide 40 mg Tablet 40 mg PO DAILY Qty: 30 0RF metoprolol tartrate 25 mg Tablet 25 mg PO Q12HR Qty: 60 0RF levofloxacin 750 mg tablet 750 mg PO DAILY Qty: 3 0RF Rx Instructions: Start on 07/31/24 valsartan [Diovan] 160 mg Tablet 320 mg PO DAILY Qty: 60 0RF albuterol sulfate 90 mcg/actuation HFA aerosol inhaler 2 puff inhalation Q4H PRN (Reason: shortness of breath or wheezing) Qty: 8.5 0RF Continued guaifenesin [Mucus Relief ER] 600 mg Tablet Extended Release 12hr 600 mg PO Q12HR Qty: 14 0RF prednisone 10 mg tablet 10 mg PO DIRECTED Qty: 30 0RF Rx Instructions: see taper instructions: Take 4 tablets (40mg) day 1-3, Take 3 tablets (30 mg) day 4-6, Take 2 tablets (20 mg) day 7-9, Take 1 tablet (10 mg) day 10-12. epinephrine [EpiPen] 0.3 mg/0.3 mL auto-injector 0.3 mg IM ONCE PRN (Reason: anaphylaxis) Qty: 2 0RF Rx Instructions: as a single dose; may repeat once Trelegy Ellipta 100-62.5-25 mcg blister with device See Rx Instructions .ROUTE .COMPLEX Qty: 60 5RF Dose Instruction: TAKE 1 PUFF BY MOUTH EVERY DAY Rx Instructions: TAKE 1 PUFF BY MOUTH EVERY DAY Discontinued valsartan-hydrochlorothiazide 320-25 mg tablet 1 tablet PO DAILY Qty: 90 3RF amlodipine [Norvasc] 5 mg Tablet 5 mg PO DAILY Qty: 30 0RF ipratropium-albuterol 0.5 mg-3 mg(2.5 mg base)/3 mL solution for nebulization 3 ml inhalation QID Qty: 360 5RF Date of admission: 07/22/24 14:51 Primary Care Provider: Yan Oro Admitting Provider: Gabriel Pool Attending physician on admission: Jennifer Lopez Condition: Stable Hospitalist MIPS Heart Failure (Exclusion) Patient has history of Heart Transplant or Left Ventricular Assistive Device?: No IF YES, STOP HERE Heart Failure (Qualifier) Patient has current or prior documentation of LVEF less than or equal to 40%, or mod/servere depressed LVSF?: No IF NO, STOP HERE
== END 2024-07-30 14:47 | disposition home health service (06) | DRG 189 ==
LOC: ANHED 15:06 → ANH3MEDSUR 15:09 → ANH3MED 18:04 → ANHIMU 07-30 12:27 → ANH3MED 08-01 10:18 → ANHIMU 08-01 10:18
PROVIDERS: Internal Medicine Critical Care Medicine; Internal Medicine Pulmonary Disease; Nurse Practitioner Acute Care; Admitting Provider Internal Medicine; Emergency Provider Family Medicine; PCP Family Medicine Adolescent Medicine; Visit Provider Nurse Practitioner Family
DX: J96.21 Acute and chronic respiratory failure with hypoxia (principal); J18.9 Pneumonia, unspecified organism; I21.A1 Myocardial infarction type 2; J44.1 Chronic obstructive pulmonary disease with (acute) exacerbation; J44.0 Chronic obstructive pulmonary disease with (acute) lower respiratory infection; I50.32 Chronic diastolic (congestive) heart failure; I11.0 Hypertensive heart disease with heart failure; J96.22 Acute and chronic respiratory failure with hypercapnia; I48.0 Paroxysmal atrial fibrillation; E87.5 Hyperkalemia; Z99.81 Dependence on supplemental oxygen; Z85.46 Personal history of malignant neoplasm of prostate; Z86.73 Personal history of transient ischemic attack (TIA), and cerebral infarction without residual deficits; Z87.891 Personal history of nicotine dependence
CPT/HCPCS: 36415; 36600; 71045; 80048; 80053; 82375; 82805; 83050; 83605; 83735; 83880; 84439; 84443; 84480; 84484; 85018; 85025; 85610; 87040; 87070; 87205; 87502; 87634; 87635; 93005; 93306; 94002; 94003; 94618; 94640; 94762; 96374; 96375; 97110; 97161; 97165; 97535; 99285; A9270; J0456; J0692; J0696; J1120; J1650; J2919; J7512